=== PATIENT | male | born 1930 | race Caucasian/White ===

== ENCOUNTER 2016-08-14 22:43 | Observation (INO) | payer MEDICARE ==
[2016-08-14 23:27] LABS: ABSOLUTE BASOPHILS # (AUTO) 0.1 10^3/uL (0.0-0.2); ABSOLUTE EOSINOPHILS # (AUTO) 0.2 10^3/uL (0.0-0.6); ABSOLUTE LYMPHOCYTES (AUTO) 2.3 10^3/uL (0.5-4.7); ABSOLUTE MONOCYTES (AUTO) 1.1 10^3/uL (0.1-1.4); ABSOLUTE NEUT (AUTO) 4.9 10^3/uL (1.7-8.2); BASOPHILS % (AUTO) 0.9 % (0-2); EOSINOPHILS % (AUTO) 1.8 % (0-6); HEMATOCRIT 42.2 % (37.9-51.0); HEMOGLOBIN 13.5 g/dL (13.5-17.0); HGB HCT DIFFERENCE -1.7; LYMPHOCYTES % (AUTO) 26.9 % (13-45); MEAN CORPUSCULAR HEMOGLOBIN 27.5 pg (27.0-33.4); MEAN CORPUSCULAR HGB CONC 32.1 g/dL (32.0-36.0); MEAN CORPUSCULAR VOLUME 86 fl (80-97); MONOCYTES % (AUTO) 12.9 % (3-13); RED BLOOD COUNT 4.92 10^6/uL (4.35-5.55); RED CELL DISTRIBUTION WIDTH 17.8 % (11.5-14.0); SEGMENTED NEUTROPHILS % (AUTO) 57.5 % (42-78); WHITE BLOOD COUNT 8.5 10^3/uL (4.0-10.5)
[2016-08-14 23:48] LABS: ALANINE AMINOTRANSFERASE 19 U/L (21-72); ALBUMIN 3.4 g/dL (3.5-5.0); ALKALINE PHOSPHATASE 91 U/L (38-126); ANION GAP 14 (5-19); ASPARTATE AMINO TRANSFERASE 25 U/L (17-59); BILIRUBIN,TOTAL 0.4 mg/dL (0.2-1.3); BLOOD UREA NITROGEN 26 mg/dL (7-20); CALCIUM 9.1 mg/dL (8.4-10.2); CARBON DIOXIDE 21 mmol/L (22-30); CHLORIDE 107 mmol/L (98-107); CREATININE RESULT 0.88 mg/dL (0.52-1.25); GLUCOSE 142 mg/dL (75-110); POTASSIUM 4.7 mmol/L (3.6-5.0); SODIUM 142.2 mmol/L (137-145); TOTAL PROTEIN 6.4 g/dL (6.3-8.2)
[2016-08-14 23:49] LABS: CREATINE KINASE < 20 U/L (55-170)
[2016-08-15] LABS: CREATINE KINASE MB 0.48 ng/mL (<4.55); TROPONIN I 0.014 ng/mL
[2016-08-15 00:06] LABS: APPEARANCE,URINE CLEAR; BILIRUBIN,URINE NEGATIVE (NEGATIVE); GLUCOSE, URINE NEGATIVE (NEGATIVE); KETONES,URINE NEGATIVE (NEGATIVE); LEUKOCYTE ESTERASE,URINE NEGATIVE (NEGATIVE); NITRITE,URINE NEGATIVE (NEGATIVE); PROTEIN,URINE NEGATIVE (NEGATIVE); URINE SPECIFIC GRAVITY 1.015; UROBILINOGEN,URINE NEGATIVE mg/dL (<2.0)
--- NOTE | 2016-08-15 01:22 | ER Document Report ---
ED Dizziness/Weakness - General Mode of Arrival: Medic Information source: Patient, Relative TRAVEL OUTSIDE OF THE [place] IN LAST 30 DAYS: No - HPI Patient complains to provider of: Dizziness, Syncope - Sunday08/11/2016 Onset: Other Onset/Duration: Sudden, Persistent Associated symptoms: Dizzy, Almost fainted, Fainted, Lightheaded, Recent fall - with syncopal episode. denies: Chest pain, Diarrhea, Loss of motor function, Short of breath, Vomiting Exacerbated by: Other - Standing up/ Walking <LORIN GUIDO - Last Filed: 08/15/16 01:30> <KEVIN PEARCE - Last Filed: 08/15/16 04:33> - General Chief Complaint: Syncope Stated Complaint: BLOOD PRESSURE PROBLEM Notes: Patient is an 85-year-old male presenting to the emergency department concerned of dizziness onset Sunday when he had a syncopal episode. Patient states that he was started on 2 new medications 08/08/2016. One was for his tremors, and the other was for IBS. After the syncopal episode occurred Sunday , patient discontinued those medications as advised by his primary care physician, Dr. Cason. Patient states that he has been able to walk okay after the fall, but he does have a bruise on his left hip. Patient denies any head injury with the fall. Patient states that since then he becomes lightheaded every time he stands up. Patient denies any fever, nausea, vomiting, diarrhea, bloody stool, chest pain, cough, congestion, shortness of breath, swelling, rash , or dysuria. Patient states that he drinks plenty of fluids, but he has to urinate approximately every hour (takes fluid pill for CHF). Patient has a pacemaker that was last interrogated before his hip replacement in April 2016. 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 CABG X5, Mild Heart attack 08/2014, Hx Hypercholesterolemia, Hx Hypertension, Hx Heart Murmur Pulmonary Medical History: Renal/ Medical History: Reports: Hx Kidney Stones GI Medical History: Reports: Hx Diverticulitis, Hx Irritable Bowel, Hx Ulcer Musculoskeltal Medical History: Reports Hx Arthritis Traumatic Medical History: Reports: Hx Fractures - left arm 2010/surgery Past Surgical History: Reports: Hx Appendectomy, Hx Cardiac Surgery - Bypass surgery, Hx Cholecystectomy, Hx Coronary Artery Bypass Graft - CABG x5 2004, Hx Pacemaker - [employer] 2007, Hx Valve Replacement - 2014 tvar - Immunizations Immunizations up to date: Yes Hx Diphtheria, Pertussis, Tetanus Vaccination: No <LORIN GUIDO - Last Filed: 08/15/16 01:30> Review of Systems - Review of Systems Constitutional: No symptoms reported. denies: Fever EENT: No symptoms reported. denies: Nose congestion Cardiovascular: See HPI, Syncope, Dizziness. denies: Chest pain Respiratory: No symptoms reported. denies: Cough, Short of breath Gastrointestinal: No symptoms reported. denies: Diarrhea, Nausea, Vomiting, Blood streaked bowels Genitourinary: No symptoms reported. denies: Burning, Dysuria Male Genitourinary: No symptoms reported Musculoskeletal: No symptoms reported, Other - Hip bruise from fall during syncopal episode Skin: No symptoms reported. denies: Rash Hematologic/Lymphatic: No symptoms reported Neurological/Psychological: No symptoms reported -: Yes All other systems reviewed and negative <LORIN GUIDO - Last Filed: 08/15/16 01:30> Physical Exam - General General appearance: Alert - HEENT Head: Normocephalic, Atraumatic Eyes: Normal Pupils: PERRL - Pupils 2mm equal, but not very reactive. Mucous membranes: Other - tacky - Respiratory Respiratory status: No respiratory distress Chest status: Nontender Breath sounds: Normal Chest palpation: Normal - Cardiovascular Rhythm: Extrasystoles - occasional Heart sounds: Normal auscultation Murmur: No - Abdominal Inspection: Normal Distension: No distension Bowel sounds: Normal Tenderness: Nontender Organomegaly: No organomegaly - Back Back: Normal, Nontender - Extremities General upper extremity: Normal inspection, Nontender, Normal color, Normal ROM , Normal temperature General lower extremity: Normal ROM, Normal temperature, Normal weight bearing Hip: Ecchymosis - Proximal lateral hip contains small abrasion with ecchymosis. - Neurological Neuro grossly intact: Yes Cognition: Normal Orientation: AAOx4 Hayde Coma Scale Eye Opening: Spontaneous [place] Coma Scale Verbal: Oriented [place] Coma Scale Motor: Obeys Commands Hayde Coma Scale Total: 15 Speech: Normal - Psychological Associated symptoms: Normal affect, Normal mood - Skin Skin Temperature: Warm Skin Moisture: Dry Skin Color: Normal <LORIN GUIDO - Last Filed: 08/15/16 01:30> Course - Laboratory Result Diagrams: 08/14/16 23:14 08/14/16 23:14 <LORIN GUIDO - Last Filed: 08/15/16 01:30> - Laboratory Result Diagrams: 08/14/16 23:14 08/14/16 23:14 <KEVIN PEARCE - Last Filed: 08/15/16 04:33> - Re-evaluation Re-evalutation: 08/15/16 01:55 Patient presents with syncope and multiple near syncopal episodes today. The patient has history of CHF and is on a water pill. He appears mildly dehydrated. He has a pacemaker and has had multiple episodes of ectopy here in the emergency department. Suspect his pacemaker needs interrogation however symptoms could be related to orthostasis from dehydration from the diuretic use. Regardless patient needs admission for cardiac syncope evaluation. I have spoken with Dr. Heart who is on-call for the hospitalist gavino to requests that we consult with [employer] rep for pacemaker interrogation prior to admission. EKG: Heart rate 70, ventricular paced complexes, no ectopy noted on EKG, as interpreted by me. EKG 06/07/16, dual paced rhythm at that time. 08/15/16 04:32 Patient's vital signs remained stable. I finally got in touch with the [employer] pacemaker rep who indicates that some of the hair at 7:30 AM to interrogate the pacemaker. I spoke with Dr. Heart again and he has accepted admission. ( KEVIN PEARCE) - Vital Signs Vital signs: Temp Pulse Resp BP Pulse Ox 14 94/70 L 96 08/15/16 02:01 08/15/16 02:00 08/15/16 02:01 - Laboratory Laboratory results interpreted by me: 08/14/16 08/14/16 08/14/16 23:14 23:14 23:14 RDW 17.8 H Carbon Dioxide 21 L BUN 26 H Glucose 142 H ALT 19 L Creatine Kinase < 20 L NT-Pro-B Natriuret Pep 1390 H Albumin 3.4 L Urine Ascorbic Acid 08/14/16 23:47 RDW Carbon Dioxide BUN Glucose ALT Creatine Kinase NT-Pro-B Natriuret Pep Albumin Urine Ascorbic Acid 40 H (LORIN GUIDO) (KEVIN PEARCE) Discharge <LORNI GUIDO - Last Filed: 08/15/16 01:30> - Discharge Admitting Provider: Hospitalist Unit Admitted: Telemetry <KEVIN PEARCE - Last Filed: 08/15/16 04:33> - Discharge Clinical Impression: Chronic systolic congestive heart failure, Ventricular ectopy Syncope Qualifiers: Syncope type: unspecified Qualified Code(s): R55 - Syncope and collapse Condition: Stable Disposition: ADMITTED OBSERVATION Referrals: ERIC CASON [employer] LAMINATING SUPERVISOR [Primary Care Provider] - Follow up as needed Scribe Attestation: 08/15/16 01:58 I personally performed the services described in the documentation, reviewed and edited the documentation which was dictated to the scribe in my presence, and it accurately records my words and actions. (KEVIN PEARCE) Scribe Documentation <LORIN GUIDO - Last Filed: 08/15/16 01:30> <KEVIN PEARCE - Last Filed: 08/15/16 04:33> - Scribe Written by Scribe:: KEVIN PEARCE MD, SCRIBE 08/15/16 0155 Acting as scribe for: Dr. Jung (LORIN GUIDO) (KEVIN PEARCE)
[2016-08-15 05:09] LABS: ADD ON TESTING BLD IN LAB ACKNOWLEDGE
[2016-08-15] MEDS ORDERED: ACETAMINOPHEN 325 MG TABLET PO PRN (05:15)
[2016-08-15] MEDS ORDERED: NORMAL SALINE 1000 ML 1,000 ML IV PRN (05:18)
[2016-08-15 05:23] LABS: MAGNESIUM 1.9 mg/dL (1.6-2.3)
--- NOTE | 2016-08-15 05:37 | PDOC H&P ---
History of Present Illness Admission Date/PCP: 08/15/16 04:54 ERIC CASON NP Patient complains of: Syncope History of Present Illness: PEACE FRAGA is a 85 year old male with underlying coronary artery disease, having undergone a 5 vessel bypass in 2004, status post [employer] pacemaker implant in 2007, and status post valve replacement 2014, who presents to the emergency room for evaluation of above complaint. Patient has been discussed with emergency room physician who evaluated the patient. . Sunday of last week, was started on hyoscyamine for irritable bowel symptoms and primidone for tremor. Suffered a brief but complete syncopal episode Sunday of last week. No head trauma. Denies nausea vomiting, fever chills, diarrhea or dysuria. No chest or abdominal pain. Contacted his primary care provider, and was told to stop these 2 medications. Similar episode last May which led to fracture of his right femur. Since the episode last Sunday, he's had multiple near syncopal episodes. States whenever he arises from either a supine or seated position, he becomes lightheaded and somewhat dizzy and has a sensation that he may pass out but has not completely passed out since last Sunday. Was noted to have "ectopy" on his monitor number of times by the emergency room physician since coming to the emergency room. Suffered a TIA in 1999, but no actual stroke or seizure. Myocardial infarction in 2004. No history of pulmonary embolus or DVT. No recent long trip with prolonged inactivity, or unusual lower extremity swelling or tenderness. No tobacco use since the early . Rare alcohol use. No illicit drug use. Emergency room physician has contacted the [employer] pacer rep, who is to arrive early this morning for interpretation of the pacemaker. Laboratory results are listed in [employer] and are reviewed. X-ray summary results are listed below, with full report(s) reviewed. . EKG reviewed. And compared to tracing from June 07 of last year. Social history/personal habits: ; has dementia and is currently residing at [facility]. Lives with daughter. 4 children. Retired. No tobacco use since the . Rare alcohol. No illicit drug use. Allergies/adverse reactions NKDA. Home medications are reviewed by discussion with patient and review of documents on the chart, with dosages and frequencies not available and are to be reconciled by nursing staff in [facility]. Home medications initially autopopulated into [employer] may not accurately reflect patient's true medications, dosages, and/or frequencies. Compliant with medications. Unfortunately, patient uncertain of medication dosages and frequencies. Order has been entered for staff to contact family, outpatient physician, and/or pharmacy to more accurately determine medications, dosages, and frequencies and to contact physician when that has been accomplished. REVIEW OF SYSTEMS: Constitutional: No fever or chills. Eyes: No current vision complaints. ENT: No swallowing problems or complaints. Partial hearing loss. Pulmonary: No current complaints. Cardiovascular: See history and present illness. Gastrointestinal: No current complaints, including nausea or vomiting. Skin: No current complaints, including rashes. Hematologic: Easy bruising. Neurologic: See history and present illness. Musculoskeletal: Joint pain from arthritis. Psychiatric: No current complaints, including anxiety or depression. Endocrine: No current complaints, including polydipsia. Genitourinary: No current complaints, including dysuria. PHYSICAL EXAMINATION: Neither height nor weight are recorded on the chart. Temperature is not recorded on the chart; skin feels normothermic. Blood pressure 126/49. Pulse 67 and regular. 95% saturation on room air. Respirations are 17 and unlabored. Slightly overweight but also somewhat stocky otherwise well-developed male appearing a bit younger than his stated age. Initially asleep, but awakens relatively easily. Pleasant alert and cooperative. No obvious distress other than somewhat anxious. Skin is warm and dry. No grossly obvious evidence of rash in areas of skin examined. No subcutaneous nodules palpated. ENT: Hearing grossly normal to normal conversation. Tongue midline on protrusion pink and slightly moist. Eyes: No scleral icterus. Pupils equal and reactive to light at 4 mm. [place] conjunctivae. Neck is supple and nontender to gentle active range of motion and palpation. Midline trachea. No palpable thyroid nodule mass enlargement or tenderness. Lymphatic: No palpable cervical or clavicular nodes. Neck and lymphatic exams limited by patient body habitus. Psychiatric: Reasonable insight into acute and chronic medical issues. Oriented to time location and why here. Lungs: Auscultation reveals clear and equal breath sounds bilaterally. No use of accessory respiratory muscles. Cardiovascular: Heart regular rate and rhythm, without gallop murmur or rub. No carotid or abdominal aortic bruits. No ankle or pedal edema. Faintly palpable dorsalis pedis pulses. Abdomen: soft, slightly obese, nontender with positive bowel sounds. Unable to adequately evaluate abdomen for masses or organomegaly due to body habitus. Extremities: Feet are warm and dry. No calf tenderness to compression. No grossly obvious visual evidence of calf swelling. Gentle manipulation of left lower extremity fails to reveal any obvious evidence of injury or instability to knee hip or ankle. Manipulation of right lower extremity reveals restricted range of motion at hip, due to his recent surgery; patient states he just started weightbearing this past week. Neurologic: Moves upper extremities grossly normally. Patellar reflexes absent. Absent Babinski. Light touch is intact at feet. Dorsiflexion and plantarflexion of feet 5 / 5 and symmetric. Past Medical History Cardiac Medical History: Reports: Congestive Heart Failure, Coronary Artery Disease - 2002 Carotid Artery "cleaned out", Myocardial Infarction - 2004? CABG X5, Mild Heart attack 08/2014, Hyperlipidema, Hypertension, Heart Murmur Denies: Atrial Fibrillation, DVT, Peripheral Vascular Disease, Pulmonary Embolism Pulmonary Medical History: Denies: Asthma, Chronic Obstructive Pulmonary Disease (COPD) EENT Medical History: Reports: Ears - Partial hearing loss Denies: Eyes, Throat Neurological Medical History: Reports: Other - TIA 1999 Denies: Hemorrhagic CVA, Ischemic CVA, Seizures Endocrine Medical History: Denies: Diabetes Mellitus Type 1, Diabetes Mellitus Type 2, Hyperthyroidism, Hypothyroidism Renal/ Medical History: Reports: None Denies: End Stage Renal Disease GI Medical History: Reports: Diverticulitis, Peptic Ulcer Disease - Status post partial gastrectomy 2 for same Denies: Cirrhosis, Gastroesophageal Reflux Disease, Hepatitis, Hiatal Hernia Musculoskeltal Medical History: Reports: Arthritis Denies: Fibromyalgia Skin Medical History: Reports: None Denies: Eczema, Psoriasis Psychiatric Medical History: Denies: Alcohol Dependency, Dementia, Depression, General Anxiety Disorder, Substance Abuse, Tobacco Dependency Hematology: Reports: Other - Easy bruising Infectious Medical History: Denies: Hepatitis B, Hepatitis C Past Surgical History Past Surgical History: Reports: Appendectomy, Cholecystectomy, Coronary Artery Bypass Graft - CABG x5 2004, Pacemaker - [facility] [facility] 2007, Valve Replacement - 2014 tvar, Other - partial gastr'y for PUD; separation of horseshoe kidney; bilat cataract Social History Information Source: Patient, Emergency Med Personnel, [facility] Records Lives with: Family Smoking Status: Former Smoker Frequency of Alcohol Use: Rare Hx Recreational Drug Use: No Drugs: None Hx Prescription Drug Abuse: No - Advance Directive Resuscitation Status: Full Code Surrogate healthcare decision maker:: Daughter Family History Family History: Reviewed & Not Pertinent, CVA, Malignancy Parental Family History Reviewed: Yes Children Family History Reviewed: Yes Sibling(s) Family History Reviewed.: Yes Medication/Allergy Home Medications: RX: Carvedilol [Coreg 25 mg Tablet] 25 mg PO BID 09/15/14 RX: Isosorbide Dinitrate 30 mg PO QPM 09/15/14 RX: Atorvastatin Calcium [Lipitor 40 mg Tablet] 40 mg PO QHS 04/24/16 RX: Furosemide [Lasix 40 mg Tablet] 40 mg PO QAM 04/24/16 RX: Aspirin [Aspirin EC] 81 mg PO DAILY 08/15/16 RX: Esomeprazole Magnesium [Nexium 24Hr] 22.3 mg PO DAILY 08/15/16 RX: Multivitamin [Daily Multiple Vitamin] 1 tab PO DAILY 08/15/16 RX: [place]-3/Dha/Epa/Fish Oil [Fish Oil 1,000 mg Softgel] 1 cap PO DAILY RX: Oxybutynin Chloride [Ditropan 5 mg Tablet] 5 mg PO BID 08/15/16 RX: Acetaminophen [Tylenol 325 mg Tablet] 650 mg PO Q4HP PRN tablet 08/16/16 RX: Aspirin [Ecotrin 81 mg EC Tablet] 81 mg PO DAILY tabec 08/16/16 Allergies/Adverse Reactions: No Known Allergies Allergy (Verified 06/07/16 15:49) Physical Exam Vital Signs: Temp Pulse Resp BP Pulse Ox 21 H 126/49 H 93 08/15/16 04:01 08/15/16 04:00 08/15/16 04:01 Results Impressions: Chest X-Ray 08/15/16 01:36 IMPRESSION: Small-moderate subsegmental atelectasis of the right lower lobe. Assessment & Plan - Diagnosis (1) Chronic systolic congestive heart failure Is this a current diagnosis for this admission?: YesPlan: Clinically stable at present.Resume home medications as appropriate once these have been determined and reviewed. . (2) Near syncope Is this a current diagnosis for this admission?: YesPlan: Uncertain specific etiology. Perhaps related to the 2 new medications that he only took 2 days last week. Perhaps an element of mild dehydration; carbon dioxide level slightly low. 1 L of IV fluid, 75 per hour. Serial troponins. Pacemaker security systems sales representative is to arrive approximately 7:30 AM today for interpretation of his pacemaker. Order has been written to have rep contact day hospitalist after interpretation of the pacemaker. Orthostatic vital signs every 4 hours while awake. I have strongly encouraged patient not to get out of bed without notifying staff , to avoid a fall with injury. Knee high SCDs for DVT prophylaxis, along with subcutaneous Lovenox . Impression and plans were discussed with patient, who concurs. Time spent in evaluation and management of patient: 62 minutes. (3) Syncope Qualifiers: Syncope type: unspecified Qualified Code(s): R55 - Syncope and collapse Is this a current diagnosis for this admission?: YesPlan: D-dimer. If positive, will proceed to ventilation perfusion lung scan. (4) Hyperlipidemia Qualifiers: Hyperlipidemia type: unspecified Qualified Code(s): E78.5 - Hyperlipidemia, unspecified Is this a current diagnosis for this admission?: YesPlan: Cardiac diet. Resume home medications as appropriate once these have been determined and reviewed. . (5) Stented coronary artery Is this a current diagnosis for this admission?: YesPlan: Chest pain-free, and without other evidence of acute coronary syndrome.Resume home medications as appropriate once these have been reviewed.
[2016-08-15 06:36] LABS: ANION GAP 9 (5-19); BLOOD UREA NITROGEN 27 mg/dL (7-20); CALCIUM 8.7 mg/dL (8.4-10.2); CARBON DIOXIDE 26 mmol/L (22-30); CHLORIDE 107 mmol/L (98-107); CHOLESTEROL 119.64 mg/dL (0-200); CREATININE RESULT 0.84 mg/dL (0.52-1.25); Direct HDL 31 mg/dL (>40); GLUCOSE 114 mg/dL (75-110); POTASSIUM 4.5 mmol/L (3.6-5.0); SODIUM 142.2 mmol/L (137-145); TRIGLYCERIDES 109 mg/dL (<150)
[2016-08-15 06:47] LABS: DIRECT LDL 79 mg/dL (<100)
--- NOTE | 2016-08-15 08:01 | EKG REPORT ---
SEVERITY:- ABNORMAL ECG - VENTRICULAR-PACED COMPLEXES : Confirmed by: Dean Saravia MD 15-Aug-2016 08:00:21
[2016-08-15] MEDS: ASPIRIN 81 MG TABLET, ENT COATED PO SCH (10:49)
[2016-08-15] MEDS: ENOXAPARIN SODIUM INJ 40 MG/0.4 ML DISP.SYRIN SUBCUT SCH (10:49)
[2016-08-15] MEDS: DOCUSATE SODIUM 100 MG CAPSULE PO SCH ×2 (10:50→17:29)
--- NOTE | 2016-08-15 12:06 | PDOC PROGRESS REPORT ---
Subjective Progress Note for:: 08/15/16 Subjective:: Patient is seen on morning rounds. He is sleeping comfortably in bed. He awakens easily to verbal stimuli. He denies any headache, dizziness, shortness of breath or chest pain. He denies nausea, vomiting, abdominal pain or diarrhea. He denies any back pain or musculoskeletal pain. Rest of review of systems are negative. Physical Exam Vital Signs: Temp Pulse Resp BP Pulse Ox 97.6 F 68 18 127/65 H 98 08/15/16 06:57 08/15/16 07:00 08/15/16 06:57 08/15/16 06:57 08/15/16 06:57 General appearance: PRESENT: no acute distress, well-developed, well-nourished Head exam: PRESENT: atraumatic, normocephalic Eye exam: PRESENT: conjunctiva pink, EOMI, PERRLA. ABSENT: scleral icterus Ear exam: PRESENT: normal external ear exam Mouth exam: PRESENT: moist, tongue midline Neck exam: ABSENT: carotid bruit, JVD, lymphadenopathy, thyromegaly Respiratory exam: PRESENT: clear to auscultation jeremy. ABSENT: rales, rhonchi, wheezes Cardiovascular exam: PRESENT: RRR. ABSENT: diastolic murmur, rubs, systolic murmur Pulses: PRESENT: normal dorsalis pedis pul Vascular exam: PRESENT: normal capillary refill GI/Abdominal exam: PRESENT: normal bowel sounds, soft. ABSENT: distended, guarding, mass, organolmegaly, rebound, tenderness Rectal exam: PRESENT: deferred Extremities exam: PRESENT: full ROM. ABSENT: calf tenderness, clubbing, pedal edema Neurological exam: PRESENT: alert, awake, oriented to person, oriented to place , oriented to time, oriented to situation, CN II-XII grossly intact. ABSENT: motor sensory deficit Psychiatric exam: PRESENT: appropriate affect, normal mood. ABSENT: homicidal ideation, suicidal ideation Skin exam: PRESENT: dry, intact, warm. ABSENT: cyanosis, rash Results Laboratory Results: 08/15/16 05:59 08/15/16 05:59 Sodium 142.2 Potassium 4.5 Chloride 107 Carbon Dioxide 26 Anion Gap 9 BUN 27 H Creatinine 0.84 Est GFR ( Amer) > 60 Est GFR (Non-Af Amer) > 60 Glucose 114 H Calcium 8.7 Triglycerides 109 Cholesterol 119.64 LDL Cholesterol Direct 79 VLDL Cholesterol 22.0 HDL Cholesterol 31 L 08/15/16 05:59 Troponin I 0.012 Impressions: Chest X-Ray 08/15/16 01:36 IMPRESSION: Small-moderate subsegmental atelectasis of the right lower lobe. Lung Scan-VQ NM 08/15/16 08:21 IMPRESSION: NORMAL VENTILATION-PERFUSION LUNG SCAN. NEGATIVE FOR PULMONARY EMBOLI. Assessment & Plan - Diagnosis (1) Syncope Qualifiers: Syncope type: unspecified Qualified Code(s): R55 - Syncope and collapse Is this a current diagnosis for this admission?: YesPlan: Patient has had no further syncopal episodes since admission. Pacemaker to be interogated by [employer] labor representative later this morning. Will obtain CT of the head to rule out vestibular infarct (2) Chronic systolic congestive heart failure Is this a current diagnosis for this admission?: YesPlan: Patient presently slightly dehydrated by lab values. Will hold Lasix for today and reevaluate. Continue carvediolol (3) Hyperlipidemia Qualifiers: Hyperlipidemia type: unspecified Qualified Code(s): E78.5 - Hyperlipidemia, unspecified Is this a current diagnosis for this admission?: YesPlan: Continue statin therapy (4) Ventricular ectopy Is this a current diagnosis for this admission?: YesPlan: Will continue to monitor, continue carvediolol (5) DVT prophylaxis Is this a current diagnosis for this admission?: YesPlan: Heparin 5000u sq q8h - Time Time Spent with patient: 25-34 minutes Critical Time spent with patient: 15-24 minutes Medications reviewed and adjusted accordingly: Yes Anticipated discharge: Home with Homehealth Within: within 24 hours
--- NOTE | 2016-08-15 16:29 | EKG REPORT ---
SEVERITY:- ABNORMAL ECG - ATRIAL-VENTRICULAR DUAL-PACED RHYTHM : Confirmed by: Dean Saravia MD 15-Aug-2016 16:29:07
[2016-08-15] MEDS ORDERED: ISOSORBIDE DINITRATE 10 MG TABLET PO SCH (18:00)
[2016-08-15] MEDS ORDERED: (PENDING PHARMACY ID) (Isosorbide Dinitrate [Isosorbide Dinitrate] 30 MG) PO SCH (18:00)
[2016-08-15] MEDS ORDERED: ATORVASTATIN CALCIUM 40 MG TABLET PO SCH (22:00)
[2016-08-15] MEDS: CARVEDILOL 12.5 MG TABLET PO SCH (22:24)
[2016-08-16] MEDS: CARVEDILOL 12.5 MG TABLET PO SCH (09:31)
[2016-08-16] MEDS: ENOXAPARIN SODIUM INJ 40 MG/0.4 ML DISP.SYRIN SUBCUT SCH (09:31)
[2016-08-16] MEDS: ASPIRIN 81 MG TABLET, ENT COATED PO SCH (09:31)
[2016-08-16] MEDS: DOCUSATE SODIUM 100 MG CAPSULE PO SCH (09:32)
[2016-08-16 14:46] VITALS: BP 153/49
--- NOTE | 2016-08-16 16:44 | PDOC DISCHARGE SUMMARY ---
General - Admit/Disc Date/PCP Admission Date/Primary Care Provider: 08/15/16 05:15 ERIC CASON NP Discharge Date: 08/16/16 - Discharge Diagnosis (1) Syncope Is this a current diagnosis for this admission?: YesSummary: Most likely related to primidone recently started. This has been discontinued (2) Chronic systolic congestive heart failure Is this a current diagnosis for this admission?: YesSummary: Patient is presently euvolemic (3) Hyperlipidemia Is this a current diagnosis for this admission?: YesSummary: Continue statin (4) Ventricular ectopy Is this a current diagnosis for this admission?: YesSummary: Continue beta lynn (5) DVT prophylaxis Is this a current diagnosis for this admission?: Yes - Additional Information Resuscitation Status: Full Code Discharge Diet: Regular Discharge Activity: Activity As Tolerated, Balance Activity w/Rest Home Medications: Carvedilol [Coreg 25 mg Tablet] 25 mg PO BID 09/15/14 Isosorbide Dinitrate 30 mg PO QPM 09/15/14 Atorvastatin Calcium [Lipitor 40 mg Tablet] 40 mg PO QHS 04/24/16 Furosemide [Lasix 40 mg Tablet] 40 mg PO QAM 04/24/16 Aspirin [Aspirin EC] 81 mg PO DAILY 08/15/16 Esomeprazole Magnesium [Nexium 24Hr] 22.3 mg PO DAILY 08/15/16 Multivitamin [Daily Multiple Vitamin] 1 tab PO DAILY 08/15/16 [employer] [facility]-3/Dha/Epa/Fish Oil [Fish Oil 1,000 mg Softgel] 1 cap PO DAILY 08/15/16 Oxybutynin Chloride [Ditropan 5 mg Tablet] 5 mg PO BID 08/15/16 Acetaminophen [Tylenol 325 mg Tablet] 650 mg PO Q4HP PRN tablet 08/16/16 Aspirin [Ecotrin 81 mg EC Tablet] 81 mg PO DAILY tabec 08/16/16 History of Present Illness History of Present Illness: PEACE FRAGA is a 85 year old male who presented to [facility] ED with complaints of syncopal episode at home. Patient states he's had several of these episodes since Sunday. He was recently started on some new medications, primidone and Levsin. He also history of history of atrial fibrillation, sick sinus syndrome requiring permanent pacemaker and chronic congestive heart failure. He states he was in a seated position when his last syncopal episode occurred. He presently lives at home with his daughter. He was recently a patient at [facility] after left femur fracture. Hospital Course Hospital Course: She was referred to the hospitalist service for admission. He was admitted to telemetry unit for close cardiac monitoring. He was found to have a slightly elevated d-dimer. He underwent V/Q scan of his lungs which was negative for pulmonary embolism. He had pacemaker interrogation done by [employer] front office representative. They found no evidence of atrial or ventricular arrhythmias. Pacemaker was functioning normally with adequate battery life remaining. All his laboratory work was unremarkable. He had no further episodes of syncope CT of his head showed no infarcts, or any other abnormalities. Physical Exam Vital Signs: Temp Pulse Resp BP Pulse Ox 97.9 F 63 16 153/49 H 98 08/16/16 14:41 08/16/16 14:41 08/16/16 14:41 08/16/16 14:41 08/16/16 14:41 Intake & Output 08/15/16 08/16/16 08/17/16 06:59 06:59 06:59 Intake Total 1220 360 Output Total 625 Balance 595 360 Weight 109.6 kg General appearance: PRESENT: no acute distress Head exam: PRESENT: atraumatic, normocephalic Eye exam: PRESENT: conjunctiva pink, EOMI, PERRLA. ABSENT: scleral icterus Ear exam: PRESENT: normal external ear exam Mouth exam: PRESENT: moist, tongue midline Neck exam: ABSENT: carotid bruit, JVD, lymphadenopathy, thyromegaly Respiratory exam: PRESENT: clear to auscultation jeremy. ABSENT: rales, rhonchi, wheezes Cardiovascular exam: PRESENT: RRR. ABSENT: diastolic murmur, rubs, systolic murmur Pulses: PRESENT: normal dorsalis pedis pul Vascular exam: PRESENT: normal capillary refill GI/Abdominal exam: PRESENT: normal bowel sounds, soft. ABSENT: distended, guarding, mass, organolmegaly, rebound, tenderness Rectal exam: PRESENT: deferred Extremities exam: PRESENT: full ROM. ABSENT: calf tenderness, clubbing, pedal edema Neurological exam: PRESENT: alert, awake, oriented to person, oriented to place , oriented to time, oriented to situation, CN II-XII grossly intact. ABSENT: motor sensory deficit Psychiatric exam: PRESENT: appropriate affect, normal mood. ABSENT: homicidal ideation, suicidal ideation Skin exam: PRESENT: dry, intact, warm. ABSENT: cyanosis, rash Results Laboratory Results: 08/15/16 05:59 08/15/16 08/15/16 05:59 13:22 Troponin I 0.012 0.012 Impressions: Head CT 08/15/16 00:00 IMPRESSION: Limited negative study Chest X-Ray 08/15/16 01:36 IMPRESSION: Small-moderate subsegmental atelectasis of the right lower lobe. Lung Scan-VQ NM 08/15/16 08:21 IMPRESSION: NORMAL VENTILATION-PERFUSION LUNG SCAN. NEGATIVE FOR PULMONARY EMBOLI. Qualifiers PATEINT BEING DISCHARGED WITH ANY OF THE FOLLOWING DIAGNOSIS?: No Plan Discharge Plan: Home with daughter Time Spent: Less than 30 Minutes
== END 2016-08-16 15:33 | disposition home health service (06) ==
LOC: ER 22:43 → EH 08-15 04:54 → UNDOADMOB 08-15 04:54 → EH 08-15 05:15 → 5 08-15 06:55
PROVIDERS: ADMIT Family Medicine; ATTEND Family Medicine
DX: R55 Syncope and collapse (principal); I50.22 Chronic systolic (congestive) heart failure; E78.5 Hyperlipidemia, unspecified; I49.3 Ventricular premature depolarization; Z79.01 Long term (current) use of anticoagulants; I48.91 Unspecified atrial fibrillation; I49.5 Sick sinus syndrome; Z95.0 Presence of cardiac pacemaker; I25.810 Atherosclerosis of coronary artery bypass graft(s) without angina pectoris; Z95.2 Presence of prosthetic heart valve; K58.9 Irritable bowel syndrome, unspecified; Z87.891 Personal history of nicotine dependence; I25.2 Old myocardial infarction; M19.90 Unspecified osteoarthritis, unspecified site
CPT/HCPCS: 93005 ×2; 99285; 36415 ×2; 82553; 82550; 83735; 84443; 85025; 80048; 80053; 81001; 84484 ×2; 85379; 80061; 83880; 71010; 78582; 70450; 93010 ×2; 97162; G0378 ×3; A9540; A9567; A9270 ×4; J3490 ×3; J1650 ×2; Q9969; G8978; G8979

== ENCOUNTER 2016-10-04 05:28 | Inpatient (IN) | payer MEDICARE ==
[2016-09-27 13:41] LABS: APPEARANCE,URINE CLOUDY; BILIRUBIN,URINE NEGATIVE (NEGATIVE); GLUCOSE, URINE NEGATIVE (NEGATIVE); KETONES,URINE NEGATIVE (NEGATIVE); LEUKOCYTE ESTERASE,URINE LARGE (NEGATIVE); NITRITE,URINE POSITIVE (NEGATIVE); PROTEIN,URINE NEGATIVE (NEGATIVE); URINE SPECIFIC GRAVITY 1.018; UROBILINOGEN,URINE NEGATIVE mg/dL (<2.0)
[2016-09-27 13:44] LABS: HEMATOCRIT 42.3 % (37.9-51.0); HEMOGLOBIN 13.9 g/dL (13.5-17.0); HGB HCT DIFFERENCE -0.6; MEAN CORPUSCULAR HEMOGLOBIN 28.2 pg (27.0-33.4); MEAN CORPUSCULAR HGB CONC 32.7 g/dL (32.0-36.0); MEAN CORPUSCULAR VOLUME 86 fl (80-97); RED CELL DISTRIBUTION WIDTH 18.2 % (11.5-14.0); WHITE BLOOD COUNT 8.5 10^3/uL (4.0-10.5)
[2016-09-27 14:02] LABS: ANION GAP 14 (5-19); BLOOD UREA NITROGEN 25 mg/dL (7-20); CALCIUM 9.1 mg/dL (8.4-10.2); CARBON DIOXIDE 23 mmol/L (22-30); CHLORIDE 103 mmol/L (98-107); CREATININE RESULT 0.93 mg/dL (0.52-1.25); GLUCOSE 95 mg/dL (75-110); POTASSIUM 5.2 mmol/L (3.6-5.0)
--- NOTE | 2016-09-27 20:33 | EKG REPORT ---
SEVERITY:- ABNORMAL ECG - A-V DUAL-PACED RHYTHM WITH SOME INHIBITION : Confirmed by: Dean Saravia MD 27-Sep-2016 20:32:51
[~2016-10-04 05:28] MED LIST: BUPIVACAINE INJ/PF LIPOSOME/PF 266 MG/20 ML SDV IJ PRN; CEFAZOLIN INJ 1 GM VIAL IV PRN; LACTATED RINGERS 1000 ML IV PRN; LIDOCAINE 0.5% INJ-PF (5 MG/ML) 50 ML SDV SUBCUT PRN
[2016-10-04] MEDS ORDERED: OXYCODONE HCL SR 10 MG TABLET PO ONE (06:25)
[2016-10-04] MEDS ORDERED: SCOPOLAMINE HYDROBROMIDE 1.5 MG PATCH.TD72 ONE (06:25)
[2016-10-04] MEDS ORDERED: LANSOPRAZOLE 15 MG TAB.RAP.DR PO ONE ×2 (06:35→07:00)
[2016-10-04] MEDS ORDERED: VANCOMYCIN HCL 1,000 MG in DEXTROSE 5%-WATER 250 ML IV PRN ×2 (07:00→08:00)
[2016-10-04] MEDS ORDERED: PROPOFOL INJ 200 MG/20 ML VIAL IV ONE (07:12)
[2016-10-04] MEDS ORDERED: MIDAZOLAM 2 MG/2 ML INJ ONE (07:12)
[2016-10-04] MEDS ORDERED: KETAMINE HCL INJ 500 MG/10 ML VIAL ONE (07:12)
[2016-10-04] MEDS ORDERED: FENTANYL CITRATE INJ/PF 100 MCG/2 ML AMPUL ONE (07:13)
[2016-10-04] MEDS ORDERED: THROMBIN (BOVINE) TOPICAL 20000 UNIT VIAL ONE (07:15)
[2016-10-04] MEDS ORDERED: THROMBIN (BOVINE) 5000 UNIT EPITAXIS KIT ONE (07:15)
[2016-10-04] MEDS ORDERED: BUPIVACAINE INJ/PF LIPOSOME/PF 266 MG/20 ML SDV ONE (07:16)
[2016-10-04] MEDS ORDERED: TRANEXAMIC ACID INJ/PF 1,000 MG/10 ML SDV IV ONE ×3 (07:55→11:17)
[2016-10-04] MEDS ORDERED: CEFAZOLIN INJ 1 GM VIAL ONE (07:55)
[2016-10-04] MEDS ORDERED: FENTANYL CITRATE INJ/PF 250 MCG/5 ML AMPULE ONE (07:59)
[2016-10-04] MEDS ORDERED: EPHEDRINE SULFATE INJ 50 MG/1 ML AMPULE ONE (07:59)
[2016-10-04] MEDS ORDERED: IBUPROFEN 800 MG in NORMAL SALINE 250 ML IV PRN (08:00)
[2016-10-04] MEDS ORDERED: FENTANYL CITRATE INJ/PF 100 MCG/2 ML AMPUL IV PRN ×3 (08:13)
[2016-10-04] MEDS ORDERED: DIPHENHYDRAMINE HCL 50 MG/ML VIAL IV PRN ×2 (08:13→10:11)
[2016-10-04] MEDS ORDERED: MORPHINE SULFATE 10 MG/ML INJ IV PRN ×3 (08:13→10:11)
[2016-10-04] MEDS ORDERED: PROMETHAZINE HCL INJ 25 MG/1 ML VIAL IV PRN ×2 (08:13)
[2016-10-04] MEDS ORDERED: OXYCODONE-ACETAMINOPHEN 5-325 MG TABLET PO PRN ×2 (08:13)
[2016-10-04] MEDS ORDERED: MEPERIDINE HCL/PF INJ 25 MG/1 ML DISP.SYRIN IV PRN (08:13)
[2016-10-04] MEDS ORDERED: ONDANSETRON HCL INJ/PF 4 MG/2 ML SDV IV PRN (10:11)
[2016-10-04] MEDS ORDERED: ZOLPIDEM TARTRATE 5 MG TABLET PO PRN (10:11)
[2016-10-04] MEDS ORDERED: ONDANSETRON 4 MG TAB.RAPDIS PO PRN (10:11)
--- NOTE | 2016-10-04 10:25 | Operative Report ---
Operative Report DATE OF SURGERY: 10/04/16 PREOPERATIVE DIAGNOSIS: Periprosthetic right femur fracture OPERATION: Revision arthroplasty. ORIF of right femur fracture SURGEON: JAMISON REYES ANESTHESIA: GA TISSUE REMOVED OR ALTERED: Cultures to microbiology. Implant to pathology ESTIMATED BLOOD LOSS: 150 PROCEDURE: Implants used: Striker modular mandaeism stem 19 x 1 95 mm, 25 mm standard proximal body, 36 mm chrome cobalt head standard neck DBX bone graft substitute. Cables 2. Cortical onlay strut grafts Procedure with the patient in a left lateral decubitus position operative table the right looks terms prepped and draped in sterile fashion. Longitudinal incision was made lateral surface of the femur and sharp dissection. She expose the underlying plate and screws. 3 cables and screws were all removed. The 2 broken screws and these are removed using tract findings.. 2 cables were placed prophylactically around the fracture site to stabilize it. There is very little in the way of fracture healing. Next the hip prosthesis is dislocated and the femoral head disimpacted. Using combination of flexible osteotomes and an impactor, the existing Accolade to stem is removed with little bone loss. At this point the femurs prepared using a series of conical reamers passing a 19 mm reamer to an appropriate depth for a 195 stem. It's noticed that as the stem was passed across the fracture site. There is a significant improvement in the fracture alignment and reduction. Subsequently 19 x 1 95 modular mandaeism stem is impacted into the femoral canal. Cables were loosened and strut grafts are placed underneath. The cables were tightened, crimped and cut. Subsequent the proximal femur is then prepared for the proximal body until a 25 mm reamer seated. Subsequently a 25 standard proximal body is impacted onto the stem. Trial reduction was performed with a 36 mm head standard neck extension. This re-creates preoperative leg length provides excellent stability. The hip was dislocated. The final head is impacted onto the trunnion. The hip was reduced. Wound was cultured with pulsed lavage. Subsequently DBX bone graft is placed into the fracture site. The wound is then closed in layers using interrupted Vicryl followed by arabella. A sterile compressive dressing is applied and the patient's returned to the PACU in satisfactory condition.
[2016-10-04] MEDS ORDERED: DEXAMETHASONE SOD PHOSPHATE INJ 4 MG/1 ML VIAL ONE (11:45)
[2016-10-04] MEDS ORDERED: LIDOCAINE 2% INJ-PF (20 MG/ML) 10 ML AMPUL ONE (11:45)
[2016-10-04] MEDS ORDERED: GLYCOPYRROLATE INJ 0.4 MG/2 ML VIAL ONE (11:45)
[2016-10-04] MEDS ORDERED: SUCCINYLCHOLINE CHLORIDE INJ 200 MG/10 ML VIAL ONE (11:45)
[2016-10-04] MEDS ORDERED: ROCURONIUM BROMIDE INJ 50 MG/5 ML VIAL IV ONE (11:45)
[2016-10-04] MEDS ORDERED: ONDANSETRON HCL INJ/PF 4 MG/2 ML SDV ONE (11:45)
[2016-10-04] MEDS: RINGERS SOLUTION,LACTATED 1,000 ML IV PRN ×2 (12:54→19:43)
[2016-10-04] MEDS: MORPHINE SULFATE 10 MG/ML INJ IM PRN ×2 (13:01→16:55)
[2016-10-04] MEDS: OXYCODONE HCL IR 5 MG TABLET PO PRN (15:51)
[2016-10-04] MEDS: IBUPROFEN 800 MG in NORMAL SALINE 250 ML IV SCH (17:58)
[2016-10-04] MEDS: OXYBUTYNIN CHLORIDE 5 MG TABLET PO SCH (17:58)
[2016-10-04] MEDS: SENNOSIDES/DOCUSATE 8.6-50 MG 1 EACH TABLET PO SCH (17:58)
[2016-10-04] MEDS ORDERED: (PENDING PHARMACY ID) (Isosorbide Dinitrate [Isosorbide Dinitrate] 30 MG) PO SCH (18:00)
[2016-10-04] MEDS ORDERED: (PENDING PHARMACY ID) (Carvedilol [Coreg 25 Mg Tablet] 12.5 MG) PO SCH (18:00)
[2016-10-04] MEDS: ISOSORBIDE DINITRATE 20 MG TABLET PO SCH (18:35)
[2016-10-04] MEDS ORDERED: DEXTROSE 50%-WATER SYRINGE 12.5 GM/25 ML DOSE IV PRN (18:46)
[2016-10-04] MEDS ORDERED: DEXTROSE 40% GEL 15 GM TUBE PO PRN (18:46)
[2016-10-04] MEDS ORDERED: DEXTROSE 40% GEL 15 GM TUBE X 2 PO PRN (18:46)
[2016-10-04] MEDS ORDERED: DEXTROSE 50%-WATER SYRINGE 25 GM/50 ML DOSE IV PRN (18:46)
[2016-10-04] MEDS ORDERED: GLUCAGON,HUMAN RECOMB 1 MG INJ IM PRN (18:46)
[2016-10-04] MEDS: CARVEDILOL 12.5 MG TABLET PO SCH (21:58)
[2016-10-04] MEDS: ATORVASTATIN CALCIUM 40 MG TABLET PO SCH (21:58)
[2016-10-04] MEDS: RIVAROXABAN 10 MG TABLET PO SCH (21:59)
[2016-10-04] MEDS ORDERED: VANCOMYCIN HCL 1,000 MG in DEXTROSE 5%-WATER 250 ML IV ONE (22:00)
[2016-10-04] MEDS: OXYCODONE HCL SR 10 MG TABLET PO SCH (22:03)
[2016-10-04] MEDS: MORPHINE SULFATE 10 MG/ML INJ IV PRN (22:04)
[2016-10-04] MEDS: INSULIN LISPRO 100 UNIT/ML 3 ML VIAL SUBCUT PRN (22:21)
[2016-10-05] MEDS: IBUPROFEN 800 MG in NORMAL SALINE 250 ML IV SCH ×3 (01:13→17:28)
[2016-10-05] MEDS: MORPHINE SULFATE 10 MG/ML INJ IV PRN ×2 (02:47→06:06)
[2016-10-05] MEDS: RINGERS SOLUTION,LACTATED 1,000 ML IV PRN (06:05)
[2016-10-05 06:06] LABS: HEMATOCRIT 33.7 % (37.9-51.0); HEMOGLOBIN 11.2 g/dL (13.5-17.0); HGB HCT DIFFERENCE -0.1; MEAN CORPUSCULAR HEMOGLOBIN 28.3 pg (27.0-33.4); MEAN CORPUSCULAR HGB CONC 33.2 g/dL (32.0-36.0); MEAN CORPUSCULAR VOLUME 85 fl (80-97); RED BLOOD COUNT 3.95 10^6/uL (4.35-5.55); RED CELL DISTRIBUTION WIDTH 17.6 % (11.5-14.0); WHITE BLOOD COUNT 13.6 10^3/uL (4.0-10.5)
[2016-10-05] MEDS: LANSOPRAZOLE 30 MG TAB.RAP.DR PO SCH (06:06)
[2016-10-05 06:17] LABS: ANION GAP 6 (5-19); BLOOD UREA NITROGEN 18 mg/dL (7-20); CALCIUM 8.6 mg/dL (8.4-10.2); CARBON DIOXIDE 24 mmol/L (22-30); CHLORIDE 108 mmol/L (98-107); CREATININE RESULT 0.63 mg/dL (0.52-1.25); GLUCOSE 99 mg/dL (75-110); POTASSIUM 4.4 mmol/L (3.6-5.0)
--- NOTE | 2016-10-05 06:41 | PDOC PROGRESS REPORT ---
Subjective Progress Note for:: 10/05/16 Subjective:: Denies any pain Physical Exam Vital Signs: Temp Pulse Resp BP Pulse Ox 36.4 C 75 15 141/51 H 95 10/05/16 04:15 10/05/16 04:15 10/05/16 04:15 10/05/16 04:15 10/05/16 04:15 Intake & Output 10/03/16 10/04/16 10/05/16 06:59 06:59 06:59 Intake Total 0 4447 Output Total 1050 Balance 0 3397 Weight 118.7 kg General appearance: PRESENT: no acute distress Head exam: PRESENT: normocephalic Eye exam: PRESENT: EOMI Respiratory exam: PRESENT: unlabored Cardiovascular exam: PRESENT: RRR Pulses: PRESENT: +1 pedal pulses bilateral Vascular exam: PRESENT: normal capillary refill GI/Abdominal exam: PRESENT: soft Rectal exam: PRESENT: deferred Extremities exam: PRESENT: other - Right lower extremity dressings clean dry and intact. Distal neurovascular examinations intact. Leg lengths are equal. Neurological exam: PRESENT: alert, awake, oriented to person, oriented to place , oriented to time, oriented to situation, CN II-XII grossly intact. ABSENT: motor sensory deficit Psychiatric exam: PRESENT: appropriate affect, normal mood. ABSENT: homicidal ideation, suicidal ideation Skin exam: PRESENT: dry, intact, warm. ABSENT: cyanosis, rash Results Laboratory Results: 10/05/16 05:42 10/05/16 05:42 10/04/16 10/04/16 10/05/16 06:10 06:13 05:42 WBC 13.6 H RBC 3.95 L Hgb 11.2 L Hct 33.7 L MCV 85 MCH 28.3 MCHC 33.2 RDW 17.6 H Plt Count 224 Sodium Potassium 4.5 Chloride Carbon Dioxide Anion Gap BUN Creatinine Est GFR ( Amer) Est GFR (Non-Af Amer) Glucose Calcium Blood Type A NEGATIVE Antibody Screen NEGATIVE 10/05/16 05:42 WBC RBC Hgb Hct MCV MCH MCHC RDW Plt Count Sodium 138.0 Potassium 4.4 Chloride 108 H Carbon Dioxide 24 Anion Gap 6 BUN 18 Creatinine 0.63 Est GFR ( Amer) > 60 Est GFR (Non-Af Amer) > 60 Glucose 99 Calcium 8.6 Blood Type Antibody Screen Impressions: Chest X-Ray 09/27/16 12:30 IMPRESSION: No acute abnormality identified within the chest. Stable scarring in the right lateral lung base. Hip/Pelvis X-Ray 10/04/16 10:12 IMPRESSION: Revision of hardware at the right proximal femur, new bone graft material is present anchored with cerclage wires with a new long femoral component of the hip replacement. Good alignment. Status: Imported from PACS Assessment & Plan - Diagnosis (1) Periprosthetic fracture of femur following total replacement of hip Is this a current diagnosis for this admission?: YesPlan: Patient postop day 1 from a revision hip arthroplasty and ORIF of the right femur. Patient denies any pain. He is not been up with physical therapy yet. Land served pending. Cultures are no growth so far. - Time Time Spent with patient: 15-24 minutes Anticipated discharge: SNF Within: within 72 hours
[2016-10-05] MEDS: FUROSEMIDE 20 MG TABLET PO SCH (07:30)
[2016-10-05] MEDS: OXYCODONE HCL IR 5 MG TABLET PO PRN ×2 (07:31→23:42)
[2016-10-05] MEDS: ACETAMINOPHEN 325 MG TABLET PO PRN (07:31)
[2016-10-05] MEDS ORDERED: FUROSEMIDE 40 MG TABLET PO SCH (08:00)
[2016-10-05] MEDS: OMEGA-3 ACID ETHYL ESTERS 1 GM CAPSULE PO SCH (09:12)
[2016-10-05] MEDS: SENNOSIDES/DOCUSATE 8.6-50 MG 1 EACH TABLET PO SCH ×2 (09:12→17:21)
[2016-10-05] MEDS: OXYCODONE HCL SR 10 MG TABLET PO SCH ×2 (09:13→21:21)
[2016-10-05] MEDS: OXYBUTYNIN CHLORIDE 5 MG TABLET PO SCH ×2 (09:13→17:22)
[2016-10-05] MEDS: PRENATAL VITAMIN W-O CA NO5/FE FUMARATE/FA CAPSULE PO SCH (09:13)
[2016-10-05] MEDS: PREGABALIN 75 MG CAPSULE PO SCH ×2 (09:13→17:27)
[2016-10-05] MEDS ORDERED: MULTIVITAMIN TABLET PO SCH (10:00)
[2016-10-05] MEDS ORDERED: (PENDING PHARMACY ID) (Omega-3/Dha/Epa/Fish Oil [Fish Oil 1,000 Mg Softgel] 1 CAP) PO SCH (10:00)
[2016-10-05] MEDS ORDERED: PRIMIDONE 50 MG TABLET PO SCH (10:00)
[2016-10-05] MEDS: MORPHINE SULFATE 10 MG/ML INJ IM PRN (10:45)
[2016-10-05] MEDS: CARVEDILOL 12.5 MG TABLET PO SCH ×2 (11:23→21:21)
[2016-10-05] MEDS: ISOSORBIDE DINITRATE 20 MG TABLET PO SCH (17:26)
[2016-10-05] MEDS: PRIMIDONE 50 MG TABLET PO SCH (21:20)
[2016-10-05] MEDS: ATORVASTATIN CALCIUM 40 MG TABLET PO SCH (21:20)
[2016-10-05] MEDS: RIVAROXABAN 10 MG TABLET PO SCH (21:22)
[2016-10-06] MEDS: IBUPROFEN 800 MG in NORMAL SALINE 250 ML IV SCH ×2 (02:36→09:44)
[2016-10-06] MEDS: LANSOPRAZOLE 30 MG TAB.RAP.DR PO SCH (05:30)
[2016-10-06 06:40] LABS: HEMOGLOBIN 10.6 g/dL (13.5-17.0); HGB HCT DIFFERENCE -0.2; MEAN CORPUSCULAR HEMOGLOBIN 28.3 pg (27.0-33.4); MEAN CORPUSCULAR VOLUME 86 fl (80-97); RED BLOOD COUNT 3.73 10^6/uL (4.35-5.55); RED CELL DISTRIBUTION WIDTH 17.3 % (11.5-14.0)
--- NOTE | 2016-10-06 07:06 | PDOC PROGRESS REPORT ---
Subjective Progress Note for:: 10/06/16 Subjective:: Patient denies any discomfort Physical Exam Vital Signs: Temp Pulse Resp BP Pulse Ox 37.3 C 78 20 103/34 L 91 L 10/06/16 03:59 10/06/16 03:59 10/06/16 03:59 10/06/16 03:59 10/06/16 03:59 Intake & Output 10/05/16 10/06/16 10/07/16 06:59 06:59 06:59 Intake Total 5017 1779 Output Total 3050 1150 Balance 1967 629 Weight 118.7 kg General appearance: PRESENT: no acute distress Head exam: PRESENT: normocephalic Eye exam: PRESENT: EOMI Respiratory exam: PRESENT: unlabored Cardiovascular exam: PRESENT: RRR Pulses: PRESENT: +1 pedal pulses bilateral Vascular exam: PRESENT: normal capillary refill GI/Abdominal exam: PRESENT: soft Rectal exam: PRESENT: deferred Extremities exam: PRESENT: other - Right lower extremity dressing clean dry and intact. This was changed last night. Distal neurovascular examinations intact. Leg lengths are equal. Neurological exam: PRESENT: alert, awake, oriented to person, oriented to place , oriented to time, oriented to situation. ABSENT: motor sensory deficit Psychiatric exam: PRESENT: appropriate affect, normal mood. ABSENT: homicidal ideation, suicidal ideation Skin exam: PRESENT: dry, intact, warm, other - Some erythema over the buttock region and the sacral area. ABSENT: cyanosis, rash Results Laboratory Results: 10/06/16 05:47 10/05/16 05:42 10/06/16 05:47 WBC 13.0 H RBC 3.73 L Hgb 10.6 L Hct 32.0 L MCV 86 MCH 28.3 MCHC 33.0 RDW 17.3 H Plt Count 222 Impressions: Chest X-Ray 09/27/16 12:30 IMPRESSION: No acute abnormality identified within the chest. Stable scarring in the right lateral lung base. Hip/Pelvis X-Ray 10/04/16 10:12 IMPRESSION: Revision of hardware at the right proximal femur, new bone graft material is present anchored with cerclage wires with a new long femoral component of the hip replacement. Good alignment. Status: Imported from PACS Assessment & Plan - Diagnosis (1) Periprosthetic fracture of femur following total replacement of hip Is this a current diagnosis for this admission?: YesPlan: 85-year-old white male status post revision hip arthroplasty and open reduction internal fixation of a right periprosthetic femur fracture. Overall the patient appears to be relatively well. Hematocrit remains above 30%. Cultures are no growth so far. Patient's making modest progress with physical therapy and walked 20 feet yesterday. Plan will be for continued physical therapy and [facility]. - Time Time Spent with patient: 15-24 minutes Anticipated discharge: SNF Within: within 72 hours
[2016-10-06] MEDS: FUROSEMIDE 20 MG TABLET PO SCH (08:27)
[2016-10-06] MEDS: MORPHINE SULFATE 10 MG/ML INJ IM PRN ×2 (08:28→11:37)
[2016-10-06] MEDS: OMEGA-3 ACID ETHYL ESTERS 1 GM CAPSULE PO SCH (09:39)
[2016-10-06] MEDS: PRENATAL VITAMIN W-O CA NO5/FE FUMARATE/FA CAPSULE PO SCH (09:39)
[2016-10-06] MEDS: PREGABALIN 75 MG CAPSULE PO SCH ×2 (09:42→17:00)
[2016-10-06] MEDS: OXYCODONE HCL SR 10 MG TABLET PO SCH (09:43)
[2016-10-06] MEDS: SENNOSIDES/DOCUSATE 8.6-50 MG 1 EACH TABLET PO SCH ×2 (09:43→17:00)
[2016-10-06] MEDS: OXYBUTYNIN CHLORIDE 5 MG TABLET PO SCH ×2 (09:43→17:00)
[2016-10-06] MEDS: CARVEDILOL 12.5 MG TABLET PO SCH ×2 (11:36→21:15)
[2016-10-06] MEDS: MAG HYDROX/AL HYDROX/SIMETH SUSP 30 ML UDCUP PO PRN (12:28)
[2016-10-06] MEDS: ISOSORBIDE DINITRATE 20 MG TABLET PO SCH (17:00)
[2016-10-06] MEDS: RIVAROXABAN 10 MG TABLET PO SCH (21:16)
[2016-10-06] MEDS: PRIMIDONE 50 MG TABLET PO SCH (21:18)
[2016-10-06] MEDS: ATORVASTATIN CALCIUM 40 MG TABLET PO SCH (21:18)
[2016-10-06] MEDS: MORPHINE SULFATE 10 MG/ML INJ IV PRN (23:11)
[2016-10-07] MEDS: LANSOPRAZOLE 30 MG TAB.RAP.DR PO SCH (05:54)
[2016-10-07 06:15] LABS: HEMATOCRIT 34.1 % (37.9-51.0); HEMOGLOBIN 11.3 g/dL (13.5-17.0); HGB HCT DIFFERENCE -0.2; MEAN CORPUSCULAR HEMOGLOBIN 28.5 pg (27.0-33.4); MEAN CORPUSCULAR HGB CONC 33.3 g/dL (32.0-36.0); MEAN CORPUSCULAR VOLUME 86 fl (80-97); RED BLOOD COUNT 3.98 10^6/uL (4.35-5.55); RED CELL DISTRIBUTION WIDTH 17.6 % (11.5-14.0); WHITE BLOOD COUNT 8.6 10^3/uL (4.0-10.5)
[2016-10-07] MEDS: MAG HYDROX/AL HYDROX/SIMETH SUSP 30 ML UDCUP PO PRN (08:26)
[2016-10-07] MEDS: FUROSEMIDE 20 MG TABLET PO SCH (08:26)
[2016-10-07] MEDS: OXYCODONE HCL IR 5 MG TABLET PO PRN (08:32)
[2016-10-07] MEDS: OMEGA-3 ACID ETHYL ESTERS 1 GM CAPSULE PO SCH (08:57)
[2016-10-07] MEDS: PRENATAL VITAMIN W-O CA NO5/FE FUMARATE/FA CAPSULE PO SCH (08:57)
[2016-10-07] MEDS: OXYBUTYNIN CHLORIDE 5 MG TABLET PO SCH ×2 (08:57→17:42)
[2016-10-07] MEDS: SENNOSIDES/DOCUSATE 8.6-50 MG 1 EACH TABLET PO SCH ×2 (08:57→17:42)
[2016-10-07] MEDS: PREGABALIN 75 MG CAPSULE PO SCH ×2 (08:57→17:42)
[2016-10-07] MEDS: CARVEDILOL 12.5 MG TABLET PO SCH ×2 (08:58→22:23)
--- NOTE | 2016-10-07 11:25 | PDOC PROGRESS REPORT ---
Subjective Progress Note for:: 10/07/16 Subjective:: Patient is resting comfortably in bed alert active and oriented. No issues overnight. Physical Exam Vital Signs: Temp Pulse Resp BP Pulse Ox 36.8 C 91 18 145/48 H 91 L 10/07/16 07:31 10/07/16 07:31 10/07/16 07:31 10/07/16 07:31 10/07/16 07:31 Intake & Output 10/06/16 10/07/16 10/08/16 06:59 06:59 07:59 Intake Total 1779 2063 540 Output Total 1150 400 300 Balance 629 1663 240 Adult Front & Back Image: 1 - Rola dressing is saturated. Expected tenderness to palpation. Good sensation to light touch with ability to flex and extend the ankle and toes. Limb lengths are grossly equal. Good capillary refill Results Laboratory Results: 10/07/16 05:28 10/05/16 05:42 10/07/16 05:28 WBC 8.6 RBC 3.98 L Hgb 11.3 L Hct 34.1 L MCV 86 MCH 28.5 MCHC 33.3 RDW 17.6 H Plt Count 191 Impressions: Chest X-Ray 09/27/16 12:30 IMPRESSION: No acute abnormality identified within the chest. Stable scarring in the right lateral lung base. Hip/Pelvis X-Ray 10/04/16 10:12 IMPRESSION: Revision of hardware at the right proximal femur, new bone graft material is present anchored with cerclage wires with a new long femoral component of the hip replacement. Good alignment. Assessment & Plan - Plan Summary Plan Summary: Patient is a 85-year-old gentleman status post revision of his right total hip with ORIF of his periprosthetic fracture. H&H is stable. Continue physical therapy. Plan on transferring to senior care facility early next week.
[2016-10-07] MEDS: INSULIN LISPRO 100 UNIT/ML 3 ML VIAL SUBCUT PRN ×2 (12:19→23:09)
[2016-10-07] MEDS ORDERED: BISACODYL 10 MG SUPP.RECT PR PRN (12:29)
[2016-10-07] MEDS: ISOSORBIDE DINITRATE 20 MG TABLET PO SCH (17:42)
[2016-10-07] MEDS: PRIMIDONE 50 MG TABLET PO SCH (22:23)
[2016-10-07] MEDS: ATORVASTATIN CALCIUM 40 MG TABLET PO SCH (22:23)
[2016-10-07] MEDS: RIVAROXABAN 10 MG TABLET PO SCH (22:23)
[2016-10-08] MEDS: LANSOPRAZOLE 30 MG TAB.RAP.DR PO SCH (05:23)
[2016-10-08] MEDS: FUROSEMIDE 20 MG TABLET PO SCH (08:19)
[2016-10-08] MEDS: OXYCODONE HCL IR 5 MG TABLET PO PRN (08:58)
[2016-10-08 09:25] LABS: ABSOLUTE LYMPHOCYTES (AUTO) 0.8 10^3/uL (0.5-4.7); ABSOLUTE MONOCYTES (AUTO) 0.5 10^3/uL (0.1-1.4); ABSOLUTE NEUT (AUTO) 7.4 10^3/uL (1.7-8.2); BASOPHILS % (AUTO) 0.4 % (0-2); EOSINOPHILS % (AUTO) 0.3 % (0-6); HEMATOCRIT 32.5 % (37.9-51.0); HEMOGLOBIN 10.8 g/dL (13.5-17.0); HGB HCT DIFFERENCE -0.1; LYMPHOCYTES % (AUTO) 8.6 % (13-45); MEAN CORPUSCULAR HEMOGLOBIN 28.5 pg (27.0-33.4); MEAN CORPUSCULAR HGB CONC 33.2 g/dL (32.0-36.0); MEAN CORPUSCULAR VOLUME 86 fl (80-97); MONOCYTES % (AUTO) 6.1 % (3-13); RED BLOOD COUNT 3.78 10^6/uL (4.35-5.55); RED CELL DISTRIBUTION WIDTH 17.4 % (11.5-14.0); SEGMENTED NEUTROPHILS % (AUTO) 84.6 % (42-78); WHITE BLOOD COUNT 8.8 10^3/uL (4.0-10.5)
[2016-10-08 10:37] LABS: ANION GAP 9 (5-19); BLOOD UREA NITROGEN 34 mg/dL (7-20); CALCIUM 8.5 mg/dL (8.4-10.2); CARBON DIOXIDE 24 mmol/L (22-30); CHLORIDE 102 mmol/L (98-107); CREATININE RESULT 0.81 mg/dL (0.52-1.25); GLUCOSE 133 mg/dL (75-110); POTASSIUM 4.5 mmol/L (3.6-5.0); SODIUM 135.2 mmol/L (137-145)
[2016-10-08] MEDS: CARVEDILOL 12.5 MG TABLET PO SCH ×2 (11:18→22:37)
[2016-10-08] MEDS: PREGABALIN 75 MG CAPSULE PO SCH ×2 (11:18→17:43)
[2016-10-08] MEDS: PRENATAL VITAMIN W-O CA NO5/FE FUMARATE/FA CAPSULE PO SCH (11:18)
[2016-10-08] MEDS: OMEGA-3 ACID ETHYL ESTERS 1 GM CAPSULE PO SCH (11:19)
[2016-10-08] MEDS: SENNOSIDES/DOCUSATE 8.6-50 MG 1 EACH TABLET PO SCH ×2 (11:19→17:42)
[2016-10-08] MEDS: OXYBUTYNIN CHLORIDE 5 MG TABLET PO SCH ×2 (11:19→17:43)
[2016-10-08] MEDS: ISOSORBIDE DINITRATE 20 MG TABLET PO SCH (17:42)
[2016-10-08] MEDS: ATORVASTATIN CALCIUM 40 MG TABLET PO SCH (22:37)
[2016-10-08] MEDS: RIVAROXABAN 10 MG TABLET PO SCH (22:37)
[2016-10-08] MEDS: PRIMIDONE 50 MG TABLET PO SCH (22:37)
[2016-10-09] MEDS: LANSOPRAZOLE 30 MG TAB.RAP.DR PO SCH (05:25)
[2016-10-09] MEDS: FUROSEMIDE 20 MG TABLET PO SCH ×2 (10:05→17:23)
[2016-10-09] MEDS: SENNOSIDES/DOCUSATE 8.6-50 MG 1 EACH TABLET PO SCH ×2 (10:06→17:24)
[2016-10-09] MEDS: CARVEDILOL 12.5 MG TABLET PO SCH ×2 (10:06→21:46)
[2016-10-09] MEDS: PRENATAL VITAMIN W-O CA NO5/FE FUMARATE/FA CAPSULE PO SCH (10:06)
[2016-10-09] MEDS: OXYCODONE HCL IR 5 MG TABLET PO PRN (10:06)
[2016-10-09] MEDS: OMEGA-3 ACID ETHYL ESTERS 1 GM CAPSULE PO SCH (10:06)
[2016-10-09] MEDS: OXYBUTYNIN CHLORIDE 5 MG TABLET PO SCH ×2 (10:06→17:25)
[2016-10-09] MEDS: PREGABALIN 75 MG CAPSULE PO SCH ×2 (10:06→17:25)
[2016-10-09] MEDS ORDERED: ALBUTEROL SULFATE 0.083% NEB 2.5 MG/3 ML AMPUL NEB PRN (14:50)
--- NOTE | 2016-10-09 15:11 | PDOC CONSULTATION ---
Consultation Consult Date: 10/09/16 Attending physician:: JAMISON CÁRDENAS Consult reason:: possible pneumonia History of Present Illness Admission Date/PCP: 10/04/16 10:11 ERIC CASON NP Patient complains of: initially of fall at home with Rt hip pain; subsequently c /o cough with greenish phlegm and SOA with minimal exertion starting over the weekend History of Present Illness: PEACE FRAGA is a 85 year old male presented from home after a fall with resultant sharp, stabbing hip pain and was found to have new fracture around the prosthesis placed in 07/2016 after a fall and hip fracture then. He had been recovering nicely, progressing to independent ambulation but stumbled over a step stool falling onto his Rt side and re-fracturing the hip. He has had a bit of complicated course requiring surgical revision - please Dr Cárdenas's notes for all the details. This past weekend he started to c/o cough productive of greenish garcia phlegm and dyspnea with exertion without wheeze or chest pain. He was placed on O2 up to 4L/min and managed expectantly, gradually improving to the point he states he feels much better this morning. However his primary nurse last night noted some rales at the left base, CXR ordered by attending this morning with radiologist reading a LLL infiltrate and we were consulted for evaluation and management of possible pneumonia. He has long cardiac hx with reported chronic systolic heart failure, prior AMI/ CAD/ASCVD s/p 5v CABG, [facility] for cardiac dysrhythmia, porcine AoV placed at [facility] 2004. Past Medical History Cardiac Medical History: Reports: Congestive Heart Failure, Coronary Artery Disease, Myocardial Infarction, Hyperlipidema, Hypertension Denies: Atrial Fibrillation, DVT, Peripheral Vascular Disease, Pulmonary Embolism, Heart Murmur Pulmonary Medical History: Denies: Asthma, Chronic Obstructive Pulmonary Disease (COPD) Neurological Medical History: Denies: Seizures Endocrine Medical History: Denies: Diabetes Mellitus Type 1, Diabetes Mellitus Type 2, Hyperthyroidism, Hypothyroidism Renal/ Medical History: Denies: End Stage Renal Disease Malignancy Medical History: Denies: Breast Cancer, Cervical Cancer, Ovarian Cancer GI Medical History: Reports: Diverticulitis, Gastroesophageal Reflux Disease Denies: Cirrhosis, Crohn's Disease, Hepatitis, Hiatal Hernia Musculoskeltal Medical History: Reports: Arthritis - neck Denies: Fibromyalgia Skin Medical History: Denies: Eczema, Psoriasis Psychiatric Medical History: Denies: Dementia, Depression Past Surgical History Past Surgical History: Reports: Appendectomy, Cholecystectomy, Coronary Artery Bypass Graft - x5, Pacemaker, Valve Replacement - 2015 tvar, Other - partial gastr'y for PUD; separation of horseshoe kidney; bilat cataract Denies: Colostomy, Gastric Bypass Surgery, Herniorrhaphy, Tonsillectomy Social History Smoking Status: Former Smoker Frequency of Alcohol Use: Rare Hx Recreational Drug Use: No Drugs: None Hx Prescription Drug Abuse: No - Advance Directive Resuscitation Status: Full Code Family History Family History: Reviewed & Not Pertinent, CAD, CVA, Malignancy Parental Family History Reviewed: Yes Children Family History Reviewed: Yes Sibling(s) Family History Reviewed.: Yes Medication/Allergy Home Medications: Carvedilol [Coreg 25 mg Tablet] 12.5 mg PO BID 09/15/14 Isosorbide Dinitrate 30 mg PO QPM 09/15/14 Atorvastatin Calcium [Lipitor 40 mg Tablet] 40 mg PO QHS 04/24/16 Furosemide [Lasix 40 mg Tablet] 20 mg PO QAM 04/24/16 Esomeprazole Magnesium [Nexium 24Hr] 22.3 mg PO DAILY 08/15/16 Multivitamin [Daily Multiple Vitamin] 1 tab PO DAILY 08/15/16 [place]-3/Dha/Epa/Fish Oil [Fish Oil 1,000 mg Softgel] 1 cap PO DAILY 08/15/16 Oxybutynin Chloride [Ditropan 5 mg Tablet] 5 mg PO BID 08/15/16 Aspirin [Ecotrin 81 mg EC Tablet] 81 mg PO DAILY tabec 08/16/16 Primidone [Mysoline] 50 mg PO DAILY 09/27/16 Allergies/Adverse Reactions: No Known Allergies Allergy (Verified 09/27/16 11:39) Review of Systems Constitutional: PRESENT: chills. ABSENT: fever(s), headache(s), weight gain, weight loss Eyes: ABSENT: visual disturbances Ears: ABSENT: hearing changes Cardiovascular: PRESENT: dyspnea on exertion. ABSENT: chest pain, edema, orthropnea, palpitations Respiratory: PRESENT: cough, sputum. ABSENT: hemoptysis Gastrointestinal: ABSENT: abdominal pain, constipation, diarrhea, hematemesis, hematochezia, nausea, vomiting Genitourinary: ABSENT: dysuria, hematuria Musculoskeletal: ABSENT: joint swelling Integumentary: ABSENT: rash Neurological: ABSENT: abnormal speech, confusion, dizziness, focal weakness, syncope Psychiatric: ABSENT: anxiety, depression Endocrine: ABSENT: cold intolerance, heat intolerance, polydipsia, polyuria Hematologic/Lymphatic: ABSENT: easy bleeding, easy bruising Physical Exam Vital Signs: Temp Pulse Resp BP Pulse Ox 98.1 F 84 20 154/56 H 93 10/09/16 12:00 10/09/16 12:00 10/09/16 12:00 10/09/16 12:00 10/09/16 12:00 Intake & Output 10/08/16 10/09/16 10/10/16 06:59 06:59 06:59 Intake Total 830 10 Output Total 1350 Balance -520 10 EXAM GENERAL: NAD; well developed, well nourished; mild obese; alert and oriented to person, place, time, situation HEENT: normocephalic, atraumatic; no conjunctival injection, no scleral icterus ; oral mucosa moist; RESPIRATORY: no accessory muscle use, no increased WOB, good air entry bilaterally; no rhonchi; Rt LLL rales and Rt sided inspiratory crackles with Rt end exp wheezes CARDIO: no JVD; RRR; soft systolic murmur; no tachycardia GI: soft; nondistended; normal bowel sounds; no rebound, rigidity, guarding VASCULAR: no carotid bruit; no abdominal bruit; no pallor; 2+ radial, DP pulse ; normal capillary refill EXTREMITIES: no calf tender; no palpable cords in calf; no clubbing, cyanosis , asymmetric L>R pedal edema; surgical wound with soledad dressing in place PSYCH: normal affect, normal mood SKIN: warm; moist; no petechiae; no telengectasias; no jaundice; no rash Results Laboratory Results: 10/08/16 08:58 10/08/16 08:58 10/04/16 08:59 Hip - Right Gram Stain - Final 10/04/16 08:59 Hip - Right Wound Culture - Final NO AEROBIC OR ANAEROBIC ORGANISMS RECOVERED 10/04/16 08:59 Hip - Deep Wound Gram Stain - Final 10/04/16 08:59 Hip - Deep Wound Wound Culture - Final NO AEROBIC OR ANAEROBIC ORGANISMS RECOVERED Impressions: Hip/Pelvis X-Ray 10/04/16 10:12 IMPRESSION: Revision of hardware at the right proximal femur, new bone graft material is present anchored with cerclage wires with a new long femoral component of the hip replacement. Good alignment. Chest X-Ray 10/08/16 08:28 IMPRESSION: Mild patchy airspace disease left base suspicious for pneumonia. Status: Image reviewed by me - appears to be bilat airspace disease with engorged pulm vessels; i see the focal area of concern raised by the radiologist Assessment & Plan - Diagnosis (1) Pneumonia Qualifiers: Pneumonia type: aspiration pneumonia Is this a current diagnosis for this admission?: YesPlan: presumptive aspiration pneumonia occurring christoph-operatively, at risk due to high dose narcotics used to control pain, general anesthesia with surgery, advanced age and immobility immediately postop. Start empiric Unasyn, nebs scheduled for at least 24hrs and prn and monitor for improvement. (2) Acute respiratory failure with hypoxia Is this a current diagnosis for this admission?: YesPlan: 2/2 above, continue IS and increase activity as ortho will allow. wean O2 as tolerated, doesn't have underlying lung disease so doesn't require home O2 or have nebs. (3) Periprosthetic fracture of femur following total replacement of hip Is this a current diagnosis for this admission?: Yes (4) Chronic systolic congestive heart failure Is this a current diagnosis for this admission?: YesPlan: no overt failure on exam but his CXR suggests some degree of pulmonary edema complicating his clinical picture. Will saline lock the IVFs he's been receiving all weekend and increase his lasix to bid. (5) Hyperlipidemia Qualifiers: Hyperlipidemia type: unspecified Qualified Code(s): E78.5 - Hyperlipidemia, unspecified Is this a current diagnosis for this admission?: YesPlan: continue home meds (6) Stented coronary artery Is this a current diagnosis for this admission?: YesPlan: no active chest pain (7) History of prosthetic aortic valve replacement Is this a current diagnosis for this admission?: YesPlan: takes ASA chronically, no anticoagulation indicated. no clinical evidence for valve failure complicating his situation. - Time Time Spent: 50 to 70 Minutes Medications reviewed and adjusted accordingly: Yes Anticipated discharge: Acute Rehab Within: within 48 hours - Plan Summary Plan Summary: he is relatively stable and headed to rehab for his hip anyway, it is likely he can d/c to SNF on continued abx with augmentin for 10d.
[2016-10-09] MEDS: ALBUTEROL SULFATE 0.083% NEB 2.5 MG/3 ML AMPUL NEB SCH (16:03)
[2016-10-09] MEDS: AMPICILLIN SODIUM/SULBACTAM NA 3 GM in NORMAL SALINE 100 ML IV SCH ×2 (16:12→20:10)
[2016-10-09] MEDS: ISOSORBIDE DINITRATE 20 MG TABLET PO SCH (17:24)
[2016-10-09] MEDS: MORPHINE SULFATE 10 MG/ML INJ IV PRN (20:07)
[2016-10-09] MEDS: PRIMIDONE 50 MG TABLET PO SCH (21:46)
[2016-10-09] MEDS: ATORVASTATIN CALCIUM 40 MG TABLET PO SCH (21:46)
[2016-10-09] MEDS: RIVAROXABAN 10 MG TABLET PO SCH (21:46)
[2016-10-10] MEDS: ALBUTEROL SULFATE 0.083% NEB 2.5 MG/3 ML AMPUL NEB SCH ×3 (00:24→16:05)
[2016-10-10] MEDS: AMPICILLIN SODIUM/SULBACTAM NA 3 GM in NORMAL SALINE 100 ML IV SCH ×4 (02:53→20:24)
[2016-10-10] MEDS: OXYCODONE HCL IR 5 MG TABLET PO PRN ×2 (02:53→23:30)
[2016-10-10] MEDS: LANSOPRAZOLE 30 MG TAB.RAP.DR PO SCH (04:51)
[2016-10-10 05:28] LABS: ABSOLUTE EOSINOPHILS # (AUTO) 0.3 10^3/uL (0.0-0.6); ABSOLUTE LYMPHOCYTES (AUTO) 1.7 10^3/uL (0.5-4.7); ABSOLUTE MONOCYTES (AUTO) 1.1 10^3/uL (0.1-1.4); ABSOLUTE NEUT (AUTO) 5.4 10^3/uL (1.7-8.2); BASOPHILS % (AUTO) 0.5 % (0-2); EOSINOPHILS % (AUTO) 3.5 % (0-6); HEMATOCRIT 29.5 % (37.9-51.0); HEMOGLOBIN 9.8 g/dL (13.5-17.0); HGB HCT DIFFERENCE -0.1; LYMPHOCYTES % (AUTO) 19.6 % (13-45); MEAN CORPUSCULAR HEMOGLOBIN 28.2 pg (27.0-33.4); MEAN CORPUSCULAR HGB CONC 33.3 g/dL (32.0-36.0); MEAN CORPUSCULAR VOLUME 85 fl (80-97); MONOCYTES % (AUTO) 12.8 % (3-13); RED BLOOD COUNT 3.48 10^6/uL (4.35-5.55); RED CELL DISTRIBUTION WIDTH 17.3 % (11.5-14.0); SEGMENTED NEUTROPHILS % (AUTO) 63.6 % (42-78); WHITE BLOOD COUNT 8.5 10^3/uL (4.0-10.5)
[2016-10-10 05:46] LABS: ANION GAP 9 (5-19); BLOOD UREA NITROGEN 19 mg/dL (7-20); CALCIUM 8.4 mg/dL (8.4-10.2); CARBON DIOXIDE 27 mmol/L (22-30); CHLORIDE 106 mmol/L (98-107); GLUCOSE 99 mg/dL (75-110); POTASSIUM 4.3 mmol/L (3.6-5.0); SODIUM 141.5 mmol/L (137-145)
--- NOTE | 2016-10-10 06:54 | PDOC PROGRESS REPORT ---
Subjective Progress Note for:: 10/10/16 Subjective:: Patient complaining of excruciating pain in the right distal thigh associated with weightbearing Physical Exam Vital Signs: Temp Pulse Resp BP Pulse Ox 36.7 C 74 20 133/42 H 93 10/10/16 00:00 10/10/16 00:00 10/10/16 00:00 10/10/16 00:00 10/10/16 04:55 Intake & Output 10/08/16 10/09/16 10/10/16 06:59 06:59 06:59 Intake Total 830 1112 Output Total 1350 1205 Balance -520 -93 General appearance: PRESENT: no acute distress, well-developed Head exam: PRESENT: normocephalic Eye exam: PRESENT: EOMI Respiratory exam: PRESENT: unlabored Cardiovascular exam: PRESENT: RRR Pulses: PRESENT: +1 pedal pulses bilateral Vascular exam: PRESENT: normal capillary refill GI/Abdominal exam: PRESENT: soft Rectal exam: PRESENT: deferred Extremities exam: PRESENT: other - Right lower extremity. Wound is well approximated without erythema. The lower aspect. This is dry. The upper aspect seems to continue to drain a serosanguineous fluid. Dressing is changed today. Leg lengths are equal. Neurovascular examination is intact. Neurological exam: PRESENT: alert, awake, oriented to person, oriented to place , oriented to time, oriented to situation. ABSENT: motor sensory deficit Psychiatric exam: PRESENT: appropriate affect, normal mood. ABSENT: homicidal ideation, suicidal ideation Results Laboratory Results: 10/10/16 04:38 10/10/16 04:38 10/10/16 10/10/16 04:38 04:38 WBC 8.5 RBC 3.48 L Hgb 9.8 L Hct 29.5 L MCV 85 MCH 28.2 MCHC 33.3 RDW 17.3 H Plt Count 266 Seg Neutrophils % 63.6 Lymphocytes % 19.6 Monocytes % 12.8 Eosinophils % 3.5 Basophils % 0.5 Absolute Neutrophils 5.4 Absolute Lymphocytes 1.7 Absolute Monocytes 1.1 Absolute Eosinophils 0.3 Absolute Basophils 0.0 Sodium 141.5 Potassium 4.3 Chloride 106 Carbon Dioxide 27 Anion Gap 9 BUN 19 Creatinine 0.70 Est GFR ( Amer) > 60 Est GFR (Non-Af Amer) > 60 Glucose 99 Calcium 8.4 10/09/16 15:34 NT-Pro-B Natriuret Pep 2170 H Impressions: Hip/Pelvis X-Ray 10/04/16 10:12 IMPRESSION: Revision of hardware at the right proximal femur, new bone graft material is present anchored with cerclage wires with a new long femoral component of the hip replacement. Good alignment. Chest X-Ray 10/08/16 08:28 IMPRESSION: Mild patchy airspace disease left base suspicious for pneumonia. 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 Physical therapy is slow. I think the patient's probably ready for transfer to a fpc facility the next several days. (2) Pneumonia Qualifiers: Pneumonia type: aspiration pneumonia Is this a current diagnosis for this admission?: YesPlan: Appreciate the input of the hospitalist service. Patient is now on Augmentin for suspected aspiration pneumonia - Time Time Spent with patient: 15-24 minutes Anticipated discharge: SNF Within: within 48 hours
[2016-10-10] MEDS: PRENATAL VITAMIN W-O CA NO5/FE FUMARATE/FA CAPSULE PO SCH (09:27)
[2016-10-10] MEDS: PREGABALIN 75 MG CAPSULE PO SCH ×2 (09:27→17:56)
[2016-10-10] MEDS: OMEGA-3 ACID ETHYL ESTERS 1 GM CAPSULE PO SCH (09:27)
[2016-10-10] MEDS: CARVEDILOL 12.5 MG TABLET PO SCH ×2 (09:28→21:47)
[2016-10-10] MEDS: SENNOSIDES/DOCUSATE 8.6-50 MG 1 EACH TABLET PO SCH ×2 (09:28→17:58)
[2016-10-10] MEDS: OXYBUTYNIN CHLORIDE 5 MG TABLET PO SCH ×2 (09:28→17:57)
[2016-10-10] MEDS: FUROSEMIDE 20 MG TABLET PO SCH ×2 (09:28→17:57)
[2016-10-10] MEDS: MORPHINE SULFATE 10 MG/ML INJ IV PRN (10:14)
--- NOTE | 2016-10-10 17:34 | PDOC PROGRESS REPORT ---
Subjective Progress Note for:: 10/10/16 Subjective:: Patient feels well he has minimal pain No fever no chills No shortness of breath He is to be discharged tomorrow to short-term rehabilitation if stable Physical Exam Vital Signs: Temp Pulse Resp BP Pulse Ox 98.1 F 93 20 152/48 H 95 10/10/16 15:20 10/10/16 16:00 10/10/16 16:00 10/10/16 15:20 10/10/16 16:00 Intake & Output 10/09/16 10/10/16 10/11/16 00:59 00:59 00:59 Intake Total 895 617 Output Total 1375 680 Balance -480 -63 General appearance: PRESENT: no acute distress, well-developed, well-nourished Head exam: PRESENT: atraumatic, normocephalic Eye exam: PRESENT: conjunctiva pink, EOMI, PERRLA. ABSENT: scleral icterus Ear exam: PRESENT: normal external ear exam Mouth exam: PRESENT: moist, tongue midline Neck exam: ABSENT: carotid bruit, JVD, lymphadenopathy, thyromegaly Respiratory exam: PRESENT: clear to auscultation jeremy. ABSENT: rales, rhonchi, wheezes Cardiovascular exam: PRESENT: RRR. ABSENT: diastolic murmur, rubs, systolic murmur Pulses: PRESENT: normal dorsalis pedis pul Vascular exam: PRESENT: normal capillary refill GI/Abdominal exam: PRESENT: normal bowel sounds, soft. ABSENT: distended, guarding, mass, organolmegaly, rebound, tenderness Rectal exam: PRESENT: deferred Extremities exam: ABSENT: calf tenderness, clubbing, pedal edema Neurological exam: PRESENT: alert, awake, oriented to person, oriented to place , oriented to time, oriented to situation, CN II-XII grossly intact. ABSENT: motor sensory deficit Psychiatric exam: PRESENT: appropriate affect, normal mood. ABSENT: homicidal ideation, suicidal ideation Skin exam: PRESENT: dry, intact, warm. ABSENT: cyanosis, rash Results Laboratory Results: 10/10/16 04:38 10/10/16 04:38 10/10/16 10/10/16 04:38 04:38 WBC 8.5 RBC 3.48 L Hgb 9.8 L Hct 29.5 L MCV 85 MCH 28.2 MCHC 33.3 RDW 17.3 H Plt Count 266 Seg Neutrophils % 63.6 Lymphocytes % 19.6 Monocytes % 12.8 Eosinophils % 3.5 Basophils % 0.5 Absolute Neutrophils 5.4 Absolute Lymphocytes 1.7 Absolute Monocytes 1.1 Absolute Eosinophils 0.3 Absolute Basophils 0.0 Sodium 141.5 Potassium 4.3 Chloride 106 Carbon Dioxide 27 Anion Gap 9 BUN 19 Creatinine 0.70 Est GFR ( Amer) > 60 Est GFR (Non-Af Amer) > 60 Glucose 99 Calcium 8.4 10/09/16 15:34 NT-Pro-B Natriuret Pep 2170 H Impressions: Hip/Pelvis X-Ray 10/04/16 10:12 IMPRESSION: Revision of hardware at the right proximal femur, new bone graft material is present anchored with cerclage wires with a new long femoral component of the hip replacement. Good alignment. Chest X-Ray 10/08/16 08:28 IMPRESSION: Mild patchy airspace disease left base suspicious for pneumonia. 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
[2016-10-10] MEDS: ISOSORBIDE DINITRATE 20 MG TABLET PO SCH (17:56)
[2016-10-10] MEDS: ATORVASTATIN CALCIUM 40 MG TABLET PO SCH (21:48)
[2016-10-10] MEDS: RIVAROXABAN 10 MG TABLET PO SCH (21:48)
[2016-10-10] MEDS: PRIMIDONE 50 MG TABLET PO SCH (21:48)
[2016-10-11] MEDS: ALBUTEROL SULFATE 0.083% NEB 2.5 MG/3 ML AMPUL NEB SCH ×3 (00:21→15:40)
[2016-10-11] MEDS: AMPICILLIN SODIUM/SULBACTAM NA 3 GM in NORMAL SALINE 100 ML IV SCH ×4 (04:25→21:59)
[2016-10-11] MEDS: LANSOPRAZOLE 30 MG TAB.RAP.DR PO SCH (04:26)
[2016-10-11] MEDS: OXYCODONE HCL IR 5 MG TABLET PO PRN (08:41)
[2016-10-11 09:29] LABS: ABSOLUTE BASOPHILS # (AUTO) 0.1 10^3/uL (0.0-0.2); ABSOLUTE EOSINOPHILS # (AUTO) 0.2 10^3/uL (0.0-0.6); ABSOLUTE LYMPHOCYTES (AUTO) 1.7 10^3/uL (0.5-4.7); ABSOLUTE MONOCYTES (AUTO) 1.1 10^3/uL (0.1-1.4); ABSOLUTE NEUT (AUTO) 7.1 10^3/uL (1.7-8.2); BASOPHILS % (AUTO) 0.6 % (0-2); EOSINOPHILS % (AUTO) 2.4 % (0-6); HEMOGLOBIN 10.3 g/dL (13.5-17.0); HGB HCT DIFFERENCE -0.1; LYMPHOCYTES % (AUTO) 17.1 % (13-45); MEAN CORPUSCULAR HEMOGLOBIN 28.1 pg (27.0-33.4); MEAN CORPUSCULAR HGB CONC 33.3 g/dL (32.0-36.0); MEAN CORPUSCULAR VOLUME 85 fl (80-97); MONOCYTES % (AUTO) 10.7 % (3-13); RED BLOOD COUNT 3.66 10^6/uL (4.35-5.55); RED CELL DISTRIBUTION WIDTH 17.3 % (11.5-14.0); SEGMENTED NEUTROPHILS % (AUTO) 69.2 % (42-78); WHITE BLOOD COUNT 10.2 10^3/uL (4.0-10.5)
[2016-10-11] MEDS: OMEGA-3 ACID ETHYL ESTERS 1 GM CAPSULE PO SCH (09:56)
[2016-10-11] MEDS: PREGABALIN 75 MG CAPSULE PO SCH ×2 (09:56→17:48)
[2016-10-11] MEDS: OXYBUTYNIN CHLORIDE 5 MG TABLET PO SCH ×2 (09:56→17:49)
[2016-10-11] MEDS: FUROSEMIDE 20 MG TABLET PO SCH ×2 (09:57→17:47)
[2016-10-11] MEDS: SENNOSIDES/DOCUSATE 8.6-50 MG 1 EACH TABLET PO SCH ×2 (09:57→17:49)
[2016-10-11] MEDS: CARVEDILOL 12.5 MG TABLET PO SCH ×2 (09:58→22:12)
[2016-10-11] MEDS: PRENATAL VITAMIN W-O CA NO5/FE FUMARATE/FA CAPSULE PO SCH (09:58)
[2016-10-11 10:00] LABS: ANION GAP 9 (5-19); BLOOD UREA NITROGEN 12 mg/dL (7-20); C-REACTIVE PROTEIN 87.6 mg/L (<10.0); CALCIUM 8.3 mg/dL (8.4-10.2); CARBON DIOXIDE 29 mmol/L (22-30); CHLORIDE 105 mmol/L (98-107); CREATININE RESULT 0.68 mg/dL (0.52-1.25); GLUCOSE 116 mg/dL (75-110); POTASSIUM 3.7 mmol/L (3.6-5.0); SODIUM 142.5 mmol/L (137-145)
[2016-10-11 10:07] LABS: ERYTHROCYTE SEDIMENTATION RATE 79 mm/hr (0-20)
[2016-10-11] MEDS: ISOSORBIDE DINITRATE 20 MG TABLET PO SCH (17:50)
--- NOTE | 2016-10-11 18:20 | PDOC PROGRESS REPORT ---
Subjective Progress Note for:: 10/11/16 Subjective:: Patient has minimal complaints There is still drainage from the hip No shortness of breath no chest pain no fever no chills Physical Exam Vital Signs: Temp Pulse Resp BP Pulse Ox 97.9 F 71 16 161/55 H 97 10/11/16 16:16 10/11/16 16:16 10/11/16 16:16 10/11/16 16:16 10/11/16 16:16 Intake & Output 10/10/16 10/11/16 10/12/16 00:59 00:59 00:59 Intake Total 895 1387 710 Output Total 1375 1155 900 Balance -480 232 -190 Weight 112.1 kg General appearance: PRESENT: no acute distress, well-developed, well-nourished Head exam: PRESENT: atraumatic, normocephalic Eye exam: PRESENT: conjunctiva pink, EOMI, PERRLA. ABSENT: scleral icterus Ear exam: PRESENT: normal external ear exam Mouth exam: PRESENT: moist, tongue midline Neck exam: ABSENT: carotid bruit, JVD, lymphadenopathy, thyromegaly Respiratory exam: PRESENT: clear to auscultation jeremy, decreased breath sounds. ABSENT: rales, rhonchi, wheezes Cardiovascular exam: PRESENT: RRR. ABSENT: diastolic murmur, rubs, systolic murmur Pulses: PRESENT: normal dorsalis pedis pul Vascular exam: PRESENT: normal capillary refill GI/Abdominal exam: PRESENT: normal bowel sounds, soft. ABSENT: distended, guarding, mass, organolmegaly, rebound, tenderness Rectal exam: PRESENT: deferred Extremities exam: PRESENT: full ROM. ABSENT: calf tenderness, clubbing, pedal edema Neurological exam: PRESENT: alert, awake, oriented to person, oriented to place , oriented to time, oriented to situation, CN II-XII grossly intact. ABSENT: motor sensory deficit Psychiatric exam: PRESENT: appropriate affect, normal mood. ABSENT: homicidal ideation, suicidal ideation Skin exam: PRESENT: dry, intact, warm. ABSENT: cyanosis, rash Results Laboratory Results: 10/11/16 09:04 10/11/16 09:04 10/11/16 10/11/16 09:04 09:04 WBC 10.2 RBC 3.66 L Hgb 10.3 L Hct 31.0 L MCV 85 MCH 28.1 MCHC 33.3 RDW 17.3 H Plt Count 333 Seg Neutrophils % 69.2 Lymphocytes % 17.1 Monocytes % 10.7 Eosinophils % 2.4 Basophils % 0.6 Absolute Neutrophils 7.1 Absolute Lymphocytes 1.7 Absolute Monocytes 1.1 Absolute Eosinophils 0.2 Absolute Basophils 0.1 Sodium 142.5 Potassium 3.7 Chloride 105 Carbon Dioxide 29 Anion Gap 9 BUN 12 Creatinine 0.68 Est GFR ( Amer) > 60 Est GFR (Non-Af Amer) > 60 Glucose 116 H Calcium 8.3 L C-Reactive Protein 87.6 H 10/09/16 09:56 Sputum Gram Stain - Final 10/09/16 09:56 Sputum Sputum Culture - Final Escherichia Coli C.albicans/C.dubliniensis Normal Juju 10/09/16 15:34 NT-Pro-B Natriuret Pep 2170 H Impressions: Hip/Pelvis X-Ray 10/04/16 10:12 IMPRESSION: Revision of hardware at the right proximal femur, new bone graft material is present anchored with cerclage wires with a new long femoral component of the hip replacement. Good alignment. Chest X-Ray 10/08/16 08:28 IMPRESSION: Mild patchy airspace disease left base suspicious for pneumonia. 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 Cárdenas Time Spent with patient: 15-24 minutes
[2016-10-11] MEDS: ATORVASTATIN CALCIUM 40 MG TABLET PO SCH (22:12)
[2016-10-11] MEDS: PRIMIDONE 50 MG TABLET PO SCH (22:12)
[2016-10-11] MEDS: RIVAROXABAN 10 MG TABLET PO SCH (22:12)
[2016-10-12] MEDS: ALBUTEROL SULFATE 0.083% NEB 2.5 MG/3 ML AMPUL NEB SCH ×4 (00:15→23:53)
[2016-10-12] MEDS: AMPICILLIN SODIUM/SULBACTAM NA 3 GM in NORMAL SALINE 100 ML IV SCH ×4 (03:44→20:15)
[2016-10-12] MEDS: LANSOPRAZOLE 30 MG TAB.RAP.DR PO SCH (05:23)
[2016-10-12] MEDS: PRENATAL VITAMIN W-O CA NO5/FE FUMARATE/FA CAPSULE PO SCH (09:28)
[2016-10-12] MEDS: OXYBUTYNIN CHLORIDE 5 MG TABLET PO SCH ×2 (09:28→17:22)
[2016-10-12] MEDS: CARVEDILOL 12.5 MG TABLET PO SCH ×2 (09:28→21:24)
[2016-10-12] MEDS: SENNOSIDES/DOCUSATE 8.6-50 MG 1 EACH TABLET PO SCH ×2 (09:28→17:22)
[2016-10-12] MEDS: FUROSEMIDE 20 MG TABLET PO SCH ×2 (09:29→17:21)
[2016-10-12] MEDS: PREGABALIN 75 MG CAPSULE PO SCH ×2 (09:29→17:21)
[2016-10-12] MEDS: OMEGA-3 ACID ETHYL ESTERS 1 GM CAPSULE PO SCH (09:29)
[2016-10-12] MEDS: ACETAMINOPHEN 325 MG TABLET PO PRN (09:36)
--- NOTE | 2016-10-12 15:51 | PDOC PROGRESS REPORT ---
Subjective Progress Note for:: 10/12/16 Subjective:: Patient has minimal complaints There is still drainage from the hip No shortness of breath no chest pain no fever no chills Physical Exam Vital Signs: Temp Pulse Resp BP Pulse Ox 97.4 F 65 14 114/41 L 94 10/12/16 11:15 10/12/16 11:15 10/12/16 11:15 10/12/16 11:15 10/12/16 11:15 Intake & Output 10/11/16 10/12/16 10/13/16 00:59 00:59 00:59 Intake Total 1387 1030 220 Output Total 1155 1180 180 Balance 232 -150 40 Weight 112.1 kg General appearance: PRESENT: no acute distress, well-developed, well-nourished Head exam: PRESENT: atraumatic, normocephalic Eye exam: PRESENT: conjunctiva pink, EOMI, PERRLA. ABSENT: scleral icterus Ear exam: PRESENT: normal external ear exam Mouth exam: PRESENT: moist, tongue midline Neck exam: ABSENT: carotid bruit, JVD, lymphadenopathy, thyromegaly Respiratory exam: PRESENT: clear to auscultation jeremy. ABSENT: rales, rhonchi, wheezes Cardiovascular exam: PRESENT: RRR. ABSENT: diastolic murmur, rubs, systolic murmur Pulses: PRESENT: normal dorsalis pedis pul Vascular exam: PRESENT: normal capillary refill GI/Abdominal exam: PRESENT: normal bowel sounds, soft. ABSENT: distended, guarding, mass, organolmegaly, rebound, tenderness Rectal exam: PRESENT: deferred Extremities exam: PRESENT: full ROM. ABSENT: calf tenderness, clubbing, pedal edema Neurological exam: PRESENT: alert, awake, oriented to person, oriented to place , oriented to time, oriented to situation, CN II-XII grossly intact. ABSENT: motor sensory deficit Psychiatric exam: PRESENT: appropriate affect, normal mood. ABSENT: homicidal ideation, suicidal ideation Skin exam: PRESENT: dry, intact, warm. ABSENT: cyanosis, rash Results Laboratory Results: 10/11/16 09:04 10/11/16 09:04 10/09/16 09:56 Sputum Gram Stain - Final 10/09/16 09:56 Sputum Sputum Culture - Final Escherichia Coli C.albicans/C.dubliniensis Normal Juju 10/09/16 15:34 NT-Pro-B Natriuret Pep 2170 H Impressions: Hip/Pelvis X-Ray 10/04/16 10:12 IMPRESSION: Revision of hardware at the right proximal femur, new bone graft material is present anchored with cerclage wires with a new long femoral component of the hip replacement. Good alignment. Chest X-Ray 10/08/16 08:28 IMPRESSION: Mild patchy airspace disease left base suspicious for pneumonia. 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
[2016-10-12] MEDS: ISOSORBIDE DINITRATE 20 MG TABLET PO SCH (17:22)
[2016-10-12] MEDS: ATORVASTATIN CALCIUM 40 MG TABLET PO SCH (21:24)
[2016-10-12] MEDS: RIVAROXABAN 10 MG TABLET PO SCH (21:24)
[2016-10-12] MEDS: PRIMIDONE 50 MG TABLET PO SCH (21:25)
[2016-10-13] MEDS: AMPICILLIN SODIUM/SULBACTAM NA 3 GM in NORMAL SALINE 100 ML IV SCH ×4 (02:07→20:50)
[2016-10-13] MEDS: LANSOPRAZOLE 30 MG TAB.RAP.DR PO SCH (06:01)
--- NOTE | 2016-10-13 07:19 | PDOC PROGRESS REPORT ---
Subjective Progress Note for:: 10/13/16 Subjective:: Patient with only minor complaints. Physical Exam Vital Signs: Temp Pulse Resp BP Pulse Ox 36.8 C 66 16 143/46 H 95 10/13/16 00:00 10/13/16 00:00 10/13/16 00:00 10/13/16 00:00 10/13/16 00:00 Intake & Output 10/12/16 10/13/16 10/14/16 06:59 06:59 06:59 Intake Total 1250 1540 Output Total 960 1050 Balance 290 490 Weight 112.5 kg General appearance: PRESENT: no acute distress Head exam: PRESENT: normocephalic Eye exam: PRESENT: EOMI Respiratory exam: PRESENT: unlabored Cardiovascular exam: PRESENT: RRR Pulses: PRESENT: +1 pedal pulses bilateral GI/Abdominal exam: PRESENT: soft Rectal exam: PRESENT: deferred Extremities exam: PRESENT: other - Right hip wound with continued serosanguineous drainage requiring daily dressing changes. Leg lengths are equal. Distal neurovascular examinations intact. Neurological exam: PRESENT: alert, awake, oriented to person, oriented to place , oriented to time, oriented to situation, CN II-XII grossly intact. ABSENT: motor sensory deficit Psychiatric exam: PRESENT: appropriate affect, normal mood. ABSENT: homicidal ideation, suicidal ideation Skin exam: PRESENT: dry, intact, warm. ABSENT: cyanosis, rash Results Laboratory Results: 10/11/16 09:04 10/11/16 09:04 10/09/16 15:34 NT-Pro-B Natriuret Pep 2170 H Impressions: Hip/Pelvis X-Ray 10/04/16 10:12 IMPRESSION: Revision of hardware at the right proximal femur, new bone graft material is present anchored with cerclage wires with a new long femoral component of the hip replacement. Good alignment. Chest X-Ray 10/08/16 08:28 IMPRESSION: Mild patchy airspace disease left base suspicious for pneumonia. 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 I'm concerned about the continuing drainage but does not seem to be abating. This does not best served with a third irrigation debridement and repeat closure (2) Pneumonia Qualifiers: Pneumonia type: aspiration pneumonia Is this a current diagnosis for this admission?: Yes - Time Time Spent with patient: 15-24 minutes Anticipated discharge: SNF Within: within 72 hours
[2016-10-13] MEDS: ALBUTEROL SULFATE 0.083% NEB 2.5 MG/3 ML AMPUL NEB SCH ×2 (08:26→15:56)
[2016-10-13] MEDS: CARVEDILOL 12.5 MG TABLET PO SCH ×2 (09:37→22:19)
[2016-10-13] MEDS: OXYBUTYNIN CHLORIDE 5 MG TABLET PO SCH ×2 (09:37→17:19)
[2016-10-13] MEDS: PREGABALIN 75 MG CAPSULE PO SCH ×2 (09:37→17:19)
[2016-10-13] MEDS: PRENATAL VITAMIN W-O CA NO5/FE FUMARATE/FA CAPSULE PO SCH (09:38)
[2016-10-13] MEDS: OMEGA-3 ACID ETHYL ESTERS 1 GM CAPSULE PO SCH (09:38)
[2016-10-13] MEDS: SENNOSIDES/DOCUSATE 8.6-50 MG 1 EACH TABLET PO SCH ×2 (09:38→17:18)
[2016-10-13] MEDS: FUROSEMIDE 20 MG TABLET PO SCH ×2 (09:38→17:19)
--- NOTE | 2016-10-13 12:26 | PDOC PROGRESS REPORT ---
Subjective Progress Note for:: 10/13/16 Subjective:: Is still copious drainage from the right hip and patient is scheduled for surgery on Sunday for repeat irrigation of the wound Patient does not complain of a lot of pain he has no fever no chills The cough is improved Physical Exam Vital Signs: Temp Pulse Resp BP Pulse Ox 97.9 F 67 18 172/53 H 94 10/13/16 11:15 10/13/16 11:15 10/13/16 11:15 10/13/16 11:15 10/13/16 11:15 Intake & Output 10/12/16 10/13/16 10/14/16 00:59 00:59 00:59 Intake Total 1030 1520 240 Output Total 1180 1080 150 Balance -150 440 90 Weight 112.1 kg 112.5 kg General appearance: PRESENT: no acute distress Head exam: PRESENT: atraumatic, normocephalic Eye exam: PRESENT: conjunctiva pink, EOMI, PERRLA. ABSENT: scleral icterus Neck exam: ABSENT: carotid bruit, JVD, lymphadenopathy, thyromegaly Respiratory exam: PRESENT: clear to auscultation jeremy. ABSENT: rales, rhonchi, wheezes Cardiovascular exam: PRESENT: RRR. ABSENT: diastolic murmur, rubs, systolic murmur GI/Abdominal exam: PRESENT: normal bowel sounds, soft. ABSENT: distended, guarding, mass, organolmegaly, rebound, tenderness Neurological exam: PRESENT: CN II-XII grossly intact Results Laboratory Results: 10/11/16 09:04 10/11/16 09:04 10/09/16 15:34 NT-Pro-B Natriuret Pep 2170 H Impressions: Hip/Pelvis X-Ray 10/04/16 10:12 IMPRESSION: Revision of hardware at the right proximal femur, new bone graft material is present anchored with cerclage wires with a new long femoral component of the hip replacement. Good alignment. Chest X-Ray 10/08/16 08:28 IMPRESSION: Mild patchy airspace disease left base suspicious for pneumonia. 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
[2016-10-13] MEDS: ISOSORBIDE DINITRATE 20 MG TABLET PO SCH (17:18)
[2016-10-13] MEDS: ATORVASTATIN CALCIUM 40 MG TABLET PO SCH (22:19)
[2016-10-13] MEDS: PRIMIDONE 50 MG TABLET PO SCH (22:19)
[2016-10-13] MEDS: RIVAROXABAN 10 MG TABLET PO SCH (22:19)
[2016-10-14] MEDS: ALBUTEROL SULFATE 0.083% NEB 2.5 MG/3 ML AMPUL NEB SCH ×3 (00:08→16:13)
[2016-10-14] MEDS: AMPICILLIN SODIUM/SULBACTAM NA 3 GM in NORMAL SALINE 100 ML IV SCH ×4 (02:36→21:10)
[2016-10-14] MEDS: LANSOPRAZOLE 30 MG TAB.RAP.DR PO SCH (05:38)
[2016-10-14 06:04] LABS: ABSOLUTE BASOPHILS # (AUTO) 0.1 10^3/uL (0.0-0.2); ABSOLUTE EOSINOPHILS # (AUTO) 0.3 10^3/uL (0.0-0.6); ABSOLUTE LYMPHOCYTES (AUTO) 1.8 10^3/uL (0.5-4.7); ABSOLUTE MONOCYTES (AUTO) 0.9 10^3/uL (0.1-1.4); ABSOLUTE NEUT (AUTO) 6.5 10^3/uL (1.7-8.2); EOSINOPHILS % (AUTO) 3.1 % (0-6); HEMATOCRIT 30.2 % (37.9-51.0); HEMOGLOBIN 10.1 g/dL (13.5-17.0); HGB HCT DIFFERENCE 0.1; MEAN CORPUSCULAR HEMOGLOBIN 28.2 pg (27.0-33.4); MEAN CORPUSCULAR HGB CONC 33.5 g/dL (32.0-36.0); MEAN CORPUSCULAR VOLUME 84 fl (80-97); MONOCYTES % (AUTO) 9.8 % (3-13); RED CELL DISTRIBUTION WIDTH 16.6 % (11.5-14.0); SEGMENTED NEUTROPHILS % (AUTO) 67.1 % (42-78); WHITE BLOOD COUNT 9.7 10^3/uL (4.0-10.5)
[2016-10-14 06:27] LABS: ANION GAP 12 (5-19); BLOOD UREA NITROGEN 10 mg/dL (7-20); CALCIUM 8.1 mg/dL (8.4-10.2); CARBON DIOXIDE 26 mmol/L (22-30); CHLORIDE 105 mmol/L (98-107); CREATININE RESULT 0.66 mg/dL (0.52-1.25); GLUCOSE 90 mg/dL (75-110); POTASSIUM 3.3 mmol/L (3.6-5.0); SODIUM 143.3 mmol/L (137-145)
--- NOTE | 2016-10-14 07:55 | PDOC PROGRESS REPORT ---
Subjective Progress Note for:: 10/14/16 Subjective:: Patient without new complaints today but is concerned about the potential for more surgery Physical Exam Vital Signs: Temp Pulse Resp BP Pulse Ox 36.3 C 61 16 148/48 H 93 10/14/16 03:20 10/14/16 03:20 10/14/16 03:20 10/14/16 03:20 10/14/16 03:20 Intake & Output 10/13/16 10/14/16 10/15/16 06:59 06:59 06:59 Intake Total 1540 2300 Output Total 1050 2100 Balance 490 200 Weight 112.5 kg 111.1 kg General appearance: PRESENT: no acute distress Head exam: PRESENT: normocephalic Eye exam: PRESENT: EOMI Respiratory exam: PRESENT: unlabored Cardiovascular exam: PRESENT: RRR Pulses: PRESENT: +1 pedal pulses bilateral GI/Abdominal exam: PRESENT: soft Rectal exam: PRESENT: deferred Extremities exam: PRESENT: other - Right hip dressing is again changed today. My sense is that the volume of drainage is decreasing. Nursing concurs. Neurological exam: PRESENT: alert, awake, oriented to person, oriented to place , oriented to time, oriented to situation, CN II-XII grossly intact. ABSENT: motor sensory deficit Psychiatric exam: PRESENT: anxious Skin exam: PRESENT: dry, intact, warm. ABSENT: cyanosis, rash Results Laboratory Results: 10/14/16 05:12 10/14/16 05:12 10/14/16 10/14/16 05:12 05:12 WBC 9.7 RBC 3.60 L Hgb 10.1 L Hct 30.2 L MCV 84 MCH 28.2 MCHC 33.5 RDW 16.6 H Plt Count 412 Seg Neutrophils % 67.1 Lymphocytes % 19.0 Monocytes % 9.8 Eosinophils % 3.1 Basophils % 1.0 Absolute Neutrophils 6.5 Absolute Lymphocytes 1.8 Absolute Monocytes 0.9 Absolute Eosinophils 0.3 Absolute Basophils 0.1 Sodium 143.3 Potassium 3.3 L Chloride 105 Carbon Dioxide 26 Anion Gap 12 BUN 10 Creatinine 0.66 Est GFR ( Amer) > 60 Est GFR (Non-Af Amer) > 60 Glucose 90 Calcium 8.1 L 10/09/16 15:34 NT-Pro-B Natriuret Pep 2170 H Impressions: Hip/Pelvis X-Ray 10/04/16 10:12 IMPRESSION: Revision of hardware at the right proximal femur, new bone graft material is present anchored with cerclage wires with a new long femoral component of the hip replacement. Good alignment. Chest X-Ray 10/08/16 08:28 IMPRESSION: Mild patchy airspace disease left base suspicious for pneumonia. 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 Overall, the patient's doing well. Pain is well controlled. He is making progress with physical therapy. The concern was to persistent serosanguineous drainage from the wound. This appears to be decreasing. Plan will be to leave him on the operative schedule for Sunday for a IND but if the drainage continues to be decreased we can reassess this over the next 48 hours (2) Pneumonia Qualifiers: Pneumonia type: aspiration pneumonia Is this a current diagnosis for this admission?: Yes - Time Time Spent with patient: 15-24 minutes Anticipated discharge: SNF Within: within 72 hours
[2016-10-14] MEDS: FUROSEMIDE 20 MG TABLET PO SCH ×2 (10:58→17:43)
[2016-10-14] MEDS: PRENATAL VITAMIN W-O CA NO5/FE FUMARATE/FA CAPSULE PO SCH (10:58)
[2016-10-14] MEDS: OXYBUTYNIN CHLORIDE 5 MG TABLET PO SCH ×2 (10:58→17:43)
[2016-10-14] MEDS: SENNOSIDES/DOCUSATE 8.6-50 MG 1 EACH TABLET PO SCH ×2 (10:58→17:43)
[2016-10-14] MEDS: OMEGA-3 ACID ETHYL ESTERS 1 GM CAPSULE PO SCH (10:59)
[2016-10-14] MEDS: PREGABALIN 75 MG CAPSULE PO SCH ×2 (10:59→17:43)
[2016-10-14] MEDS: CARVEDILOL 12.5 MG TABLET PO SCH ×2 (10:59→21:10)
--- NOTE | 2016-10-14 12:35 | PDOC PROGRESS REPORT ---
Subjective Progress Note for:: 10/14/16 Subjective:: Doing well no specific complaints Decreased drainage from the hip Physical Exam Vital Signs: Temp Pulse Resp BP Pulse Ox 97.9 F 68 18 174/53 H 93 10/14/16 07:33 10/14/16 07:57 10/14/16 07:57 10/14/16 07:33 10/14/16 07:57 Intake & Output 10/13/16 10/14/16 10/15/16 00:59 00:59 00:59 Intake Total 1520 2340 200 Output Total 1080 1950 300 Balance 440 390 -100 Weight 111.1 kg General appearance: PRESENT: no acute distress, well-developed, well-nourished Head exam: PRESENT: atraumatic, normocephalic Respiratory exam: PRESENT: clear to auscultation jeremy. ABSENT: rales, rhonchi, wheezes Cardiovascular exam: PRESENT: RRR. ABSENT: diastolic murmur, rubs, systolic murmur Pulses: PRESENT: normal dorsalis pedis pul GI/Abdominal exam: PRESENT: normal bowel sounds, soft. ABSENT: distended, guarding, mass, organolmegaly, rebound, tenderness Extremities exam: PRESENT: full ROM. ABSENT: calf tenderness, clubbing, pedal edema Neurological exam: PRESENT: alert, awake, oriented to place, CN II-XII grossly intact. ABSENT: motor sensory deficit Results Laboratory Results: 10/14/16 05:12 10/14/16 05:12 10/14/16 10/14/16 05:12 05:12 WBC 9.7 RBC 3.60 L Hgb 10.1 L Hct 30.2 L MCV 84 MCH 28.2 MCHC 33.5 RDW 16.6 H Plt Count 412 Seg Neutrophils % 67.1 Lymphocytes % 19.0 Monocytes % 9.8 Eosinophils % 3.1 Basophils % 1.0 Absolute Neutrophils 6.5 Absolute Lymphocytes 1.8 Absolute Monocytes 0.9 Absolute Eosinophils 0.3 Absolute Basophils 0.1 Sodium 143.3 Potassium 3.3 L Chloride 105 Carbon Dioxide 26 Anion Gap 12 BUN 10 Creatinine 0.66 Est GFR ( Amer) > 60 Est GFR (Non-Af Amer) > 60 Glucose 90 Calcium 8.1 L 10/09/16 15:34 NT-Pro-B Natriuret Pep 2170 H Impressions: Hip/Pelvis X-Ray 10/04/16 10:12 IMPRESSION: Revision of hardware at the right proximal femur, new bone graft material is present anchored with cerclage wires with a new long femoral component of the hip replacement. Good alignment. Chest X-Ray 10/08/16 08:28 IMPRESSION: Mild patchy airspace disease left base suspicious for pneumonia. 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 Cárdenas Patient may be discharged on Sunday if he remains stable Time Spent with patient: 15-24 minutes
[2016-10-14] MEDS ORDERED: POTASSIUM CHLORIDE 10 MEQ TABLET.SA PO ONE (13:00)
[2016-10-14] MEDS: ISOSORBIDE DINITRATE 20 MG TABLET PO SCH (17:44)
[2016-10-14] MEDS: POTASSIUM CHLORIDE 10 MEQ TABLET.SA PO SCH (21:09)
[2016-10-14] MEDS: ATORVASTATIN CALCIUM 40 MG TABLET PO SCH (21:10)
[2016-10-14] MEDS: RIVAROXABAN 10 MG TABLET PO SCH (21:10)
[2016-10-14] MEDS: PRIMIDONE 50 MG TABLET PO SCH (21:12)
[2016-10-15] MEDS: ALBUTEROL SULFATE 0.083% NEB 2.5 MG/3 ML AMPUL NEB SCH ×4 (00:05→23:34)
[2016-10-15] MEDS: AMPICILLIN SODIUM/SULBACTAM NA 3 GM in NORMAL SALINE 100 ML IV SCH ×4 (03:57→22:06)
[2016-10-15] MEDS: LANSOPRAZOLE 30 MG TAB.RAP.DR PO SCH (05:26)
--- NOTE | 2016-10-15 07:57 | PDOC PROGRESS REPORT ---
Subjective Progress Note for:: 10/15/16 Subjective:: Patient denies any significant discomfort Physical Exam Vital Signs: Temp Pulse Resp BP Pulse Ox 36.6 C 74 18 177/45 H 94 10/15/16 07:12 10/15/16 07:12 10/15/16 07:12 10/15/16 07:12 10/15/16 07:12 Intake & Output 10/14/16 10/15/16 10/16/16 06:59 06:59 06:59 Intake Total 2300 1151 Output Total 2100 850 Balance 200 301 Weight 111.1 kg 110.3 kg General appearance: PRESENT: mild distress Head exam: PRESENT: normocephalic Eye exam: PRESENT: EOMI Respiratory exam: PRESENT: unlabored Cardiovascular exam: PRESENT: RRR Pulses: PRESENT: +1 pedal pulses bilateral GI/Abdominal exam: PRESENT: soft Rectal exam: PRESENT: deferred Extremities exam: PRESENT: other - Right lower extremity. Drainage continues to decrease. At this point I changed her dressing today that I put on yesterday morning. While there is considerable drainage. It's not completely saturated. Has not leaked onto the bedding as it has in the past. It's primarily in the proximal half and maybe in the middle third of the wound. The drainage is emanating. Psychiatric exam: PRESENT: anxious Results Laboratory Results: 10/14/16 05:12 10/14/16 05:12 10/09/16 15:34 NT-Pro-B Natriuret Pep 2170 H Impressions: Hip/Pelvis X-Ray 10/04/16 10:12 IMPRESSION: Revision of hardware at the right proximal femur, new bone graft material is present anchored with cerclage wires with a new long femoral component of the hip replacement. Good alignment. Chest X-Ray 10/08/16 08:28 IMPRESSION: Mild patchy airspace disease left base suspicious for pneumonia. Assessment & Plan - Diagnosis (1) Periprosthetic fracture of femur following total replacement of hip Is this a current diagnosis for this admission?: YesPlan: 85-year-old white male male approximate 10 days status post revision right hip arthroplasty Max Meeks that she'll fixation of periprosthetic fracture with persistent wound drainage. All it would be ideal to save the patient of the surgical intervention. I also think that it may not be in his best interest to ignore it. Unless the drainage is significantly improve by tomorrow morning. I think we should proceed with irrigation debridement and good deep cultures. (2) Pneumonia Qualifiers: Pneumonia type: aspiration pneumonia Is this a current diagnosis for this admission?: Yes - Time Time Spent with patient: 15-24 minutes Anticipated discharge: SNF Within: Other
[2016-10-15] MEDS: PREGABALIN 75 MG CAPSULE PO SCH ×2 (09:28→18:04)
[2016-10-15] MEDS: OXYBUTYNIN CHLORIDE 5 MG TABLET PO SCH ×2 (09:28→18:03)
[2016-10-15] MEDS: POTASSIUM CHLORIDE 10 MEQ TABLET.SA PO SCH ×2 (09:28→22:06)
[2016-10-15] MEDS: PRENATAL VITAMIN W-O CA NO5/FE FUMARATE/FA CAPSULE PO SCH (09:28)
[2016-10-15] MEDS: OMEGA-3 ACID ETHYL ESTERS 1 GM CAPSULE PO SCH (09:31)
[2016-10-15] MEDS: CARVEDILOL 12.5 MG TABLET PO SCH ×2 (09:32→22:07)
[2016-10-15] MEDS: SENNOSIDES/DOCUSATE 8.6-50 MG 1 EACH TABLET PO SCH ×2 (09:33→18:04)
[2016-10-15] MEDS: FUROSEMIDE 20 MG TABLET PO SCH ×2 (09:33→18:03)
--- NOTE | 2016-10-15 18:02 | PDOC PROGRESS REPORT ---
Subjective Progress Note for:: 10/15/16 Subjective:: No complaints ; left hip surgical site still draining somewhat Patient is scheduled for surgery tomorrow Otherwise he has no chest pain no shortness of breath he is ambulating with minimal pain with physical therapy Physical Exam Vital Signs: Temp Pulse Resp BP Pulse Ox 98.5 F 76 16 166/49 H 96 10/15/16 15:20 10/15/16 15:42 10/15/16 15:42 10/15/16 15:20 10/15/16 15:42 Intake & Output 10/14/16 10/15/16 10/16/16 00:59 00:59 00:59 Intake Total 2340 1051 520 Output Total 1950 750 500 Balance 390 301 20 Weight 111.1 kg 110.3 kg General appearance: PRESENT: no acute distress, well-developed, well-nourished Head exam: PRESENT: atraumatic, normocephalic Eye exam: PRESENT: conjunctiva pink, EOMI, PERRLA. ABSENT: scleral icterus Ear exam: PRESENT: normal external ear exam Mouth exam: PRESENT: moist, tongue midline Neck exam: ABSENT: carotid bruit, JVD, lymphadenopathy, thyromegaly Respiratory exam: PRESENT: clear to auscultation jeremy. ABSENT: rales, rhonchi, wheezes Cardiovascular exam: PRESENT: RRR. ABSENT: diastolic murmur, rubs, systolic murmur GI/Abdominal exam: PRESENT: normal bowel sounds, soft. ABSENT: distended, guarding, mass, organolmegaly, rebound, tenderness Rectal exam: PRESENT: deferred Extremities exam: PRESENT: full ROM. ABSENT: pedal edema Neurological exam: PRESENT: alert, awake, oriented to person, oriented to place , oriented to time, oriented to situation, CN II-XII grossly intact. ABSENT: motor sensory deficit Psychiatric exam: PRESENT: appropriate affect, normal mood. ABSENT: homicidal ideation, suicidal ideation Skin exam: PRESENT: dry, intact, warm. ABSENT: cyanosis, rash Results Laboratory Results: 10/14/16 05:12 10/14/16 05:12 10/09/16 15:34 NT-Pro-B Natriuret Pep 2170 H Impressions: Hip/Pelvis X-Ray 10/04/16 10:12 IMPRESSION: Revision of hardware at the right proximal femur, new bone graft material is present anchored with cerclage wires with a new long femoral component of the hip replacement. Good alignment. Chest X-Ray 10/08/16 08:28 IMPRESSION: Mild patchy airspace disease left base suspicious for pneumonia. Assessment & Plan - Diagnosis (1) History of prosthetic aortic valve replacement Is this a current diagnosis for this admission?: Yes (2) Periprosthetic fracture of femur following total replacement of hip Is this a current diagnosis for this admission?: Yes (3) Pneumonia Qualifiers: Pneumonia type: aspiration pneumonia Is this a current diagnosis for this admission?: Yes (4) Chronic systolic congestive heart failure Is this a current diagnosis for this admission?: Yes (5) DVT prophylaxis Is this a current diagnosis for this admission?: Yes - Time Time Spent with patient: Continue present management ; patient scheduled for surgery tomorrow Dr. Cárdenas
[2016-10-15] MEDS: ISOSORBIDE DINITRATE 20 MG TABLET PO SCH (18:03)
[2016-10-15] MEDS: PRIMIDONE 50 MG TABLET PO SCH (22:06)
[2016-10-15] MEDS: ATORVASTATIN CALCIUM 40 MG TABLET PO SCH (22:06)
[2016-10-16] MEDS: RINGERS SOLUTION,LACTATED 1,000 ML IV PRN ×2 (02:58→22:21)
[2016-10-16] MEDS: AMPICILLIN SODIUM/SULBACTAM NA 3 GM in NORMAL SALINE 100 ML IV SCH ×2 (02:58→10:19)
[2016-10-16 05:01] LABS: ABSOLUTE BASOPHILS # (AUTO) 0.1 10^3/uL (0.0-0.2); ABSOLUTE EOSINOPHILS # (AUTO) 0.2 10^3/uL (0.0-0.6); ABSOLUTE MONOCYTES (AUTO) 0.9 10^3/uL (0.1-1.4); ABSOLUTE NEUT (AUTO) 5.8 10^3/uL (1.7-8.2); EOSINOPHILS % (AUTO) 2.4 % (0-6); HEMATOCRIT 30.9 % (37.9-51.0); HEMOGLOBIN 10.2 g/dL (13.5-17.0); HGB HCT DIFFERENCE -0.3; LYMPHOCYTES % (AUTO) 22.2 % (13-45); MEAN CORPUSCULAR HGB CONC 32.9 g/dL (32.0-36.0); MEAN CORPUSCULAR VOLUME 85 fl (80-97); MONOCYTES % (AUTO) 9.7 % (3-13); RED BLOOD COUNT 3.63 10^6/uL (4.35-5.55); RED CELL DISTRIBUTION WIDTH 16.6 % (11.5-14.0); SEGMENTED NEUTROPHILS % (AUTO) 64.7 % (42-78)
[2016-10-16] MEDS: LANSOPRAZOLE 30 MG TAB.RAP.DR PO SCH (05:07)
[2016-10-16 05:20] LABS: ANION GAP 9 (5-19); BLOOD UREA NITROGEN 11 mg/dL (7-20); CALCIUM 8.3 mg/dL (8.4-10.2); CARBON DIOXIDE 27 mmol/L (22-30); CHLORIDE 108 mmol/L (98-107); GLUCOSE 100 mg/dL (75-110); POTASSIUM 3.9 mmol/L (3.6-5.0); SODIUM 144.2 mmol/L (137-145)
[2016-10-16] MEDS ORDERED: LIDOCAINE 2% INJ-PF (20 MG/ML) 10 ML AMPUL ONE (08:15)
[2016-10-16] MEDS ORDERED: SUCCINYLCHOLINE CHLORIDE INJ 200 MG/10 ML VIAL ONE (08:15)
[2016-10-16] MEDS ORDERED: PHENYLEPHRINE HCL INJ/PF 10 MG/1 ML SDV ONE (08:15)
[2016-10-16] MEDS ORDERED: ONDANSETRON HCL INJ/PF 4 MG/2 ML SDV ONE (08:15)
[2016-10-16] MEDS: ALBUTEROL SULFATE 0.083% NEB 2.5 MG/3 ML AMPUL NEB SCH ×3 (08:20→23:54)
[2016-10-16] MEDS ORDERED: THROMBIN (BOVINE) TOPICAL 20000 UNIT VIAL ONE (09:38)
[2016-10-16] MEDS ORDERED: THROMBIN (BOVINE) 5000 UNIT EPITAXIS KIT ONE (09:38)
[2016-10-16] MEDS ORDERED: BACITRACIN INJ 50,000 UNIT VIAL ONE (09:38)
[2016-10-16] MEDS: PREGABALIN 75 MG CAPSULE PO SCH ×2 (10:38→17:19)
[2016-10-16] MEDS: OMEGA-3 ACID ETHYL ESTERS 1 GM CAPSULE PO SCH (10:38)
[2016-10-16] MEDS: CARVEDILOL 12.5 MG TABLET PO SCH ×2 (10:39→22:22)
[2016-10-16] MEDS: OXYBUTYNIN CHLORIDE 5 MG TABLET PO SCH ×2 (10:39→17:18)
[2016-10-16] MEDS: FUROSEMIDE 20 MG TABLET PO SCH ×2 (10:39→17:18)
[2016-10-16] MEDS: PRENATAL VITAMIN W-O CA NO5/FE FUMARATE/FA CAPSULE PO SCH (10:39)
[2016-10-16] MEDS: SENNOSIDES/DOCUSATE 8.6-50 MG 1 EACH TABLET PO SCH ×2 (10:39→17:19)
[2016-10-16] MEDS: POTASSIUM CHLORIDE 10 MEQ TABLET.SA PO SCH ×2 (10:39→22:22)
[2016-10-16] MEDS ORDERED: MIDAZOLAM 2 MG/2 ML INJ ONE (11:24)
[2016-10-16] MEDS ORDERED: FENTANYL CITRATE INJ/PF 100 MCG/2 ML AMPUL ONE (11:24)
[2016-10-16] MEDS ORDERED: DEXMEDETOMIDINE INJ 80 MCG/20 ML VIAL IV ONE (11:25)
[2016-10-16] MEDS ORDERED: EPHEDRINE SULFATE INJ 50 MG/1 ML AMPULE ONE (11:25)
[2016-10-16] MEDS ORDERED: PROPOFOL INJ 200 MG/20 ML VIAL IV ONE (11:25)
[2016-10-16] MEDS ORDERED: BUPIVACAINE INJ/PF LIPOSOME/PF 266 MG/20 ML SDV ONE (12:57)
[2016-10-16] MEDS ORDERED: FENTANYL CITRATE INJ/PF 100 MCG/2 ML AMPUL IV PRN ×3 (13:12)
[2016-10-16] MEDS ORDERED: DIPHENHYDRAMINE HCL 50 MG/ML VIAL IV PRN (13:12)
[2016-10-16] MEDS ORDERED: MEPERIDINE HCL/PF INJ 25 MG/1 ML DISP.SYRIN IV PRN (13:12)
[2016-10-16] MEDS ORDERED: PROMETHAZINE HCL INJ 25 MG/1 ML VIAL IV PRN ×2 (13:12)
[2016-10-16] MEDS ORDERED: MORPHINE SULFATE 10 MG/ML INJ IV PRN (13:12)
[2016-10-16] MEDS ORDERED: OXYCODONE-ACETAMINOPHEN 5-325 MG TABLET PO PRN ×2 (13:12)
--- NOTE | 2016-10-16 13:43 | Operative Report ---
Operative Report DATE OF SURGERY: 10/16/16 PREOPERATIVE DIAGNOSIS: Periprosthetic right femur fracture status post ORIF with persistent drainage OPERATION: Irrigation debridement, removal of cortical onlay strut grafts SURGEON: JAMISON REYES ANESTHESIA: GA TISSUE REMOVED OR ALTERED: Cultures to microbiology. ESTIMATED BLOOD LOSS: 100 PROCEDURE: With the patient in a left lateral decubitus position on the operating table the right lower extremity hindquarter prepped and draped in sterile fashion. The existing arabella were removed. The entire incision is opened. Once encountered seems to be liquefied hematoma. This is cultured. The wound is then irrigated with pulsed lavage and 6 L. A #10 Hernandez-Crowell drain is then placed into the wound. The wound is then closed in layers using interrupted PDS followed by arabella. A sterile compressive dressing was applied.
[2016-10-16] MEDS: FENTANYL CITRATE INJ/PF 100 MCG/2 ML AMPUL ONE ×2 (14:22→14:32)
[2016-10-16] MEDS ORDERED: ASPIRIN 325 MG TABLET, ENT COATED PO ONE (16:00)
[2016-10-16] MEDS: OXYCODONE HCL IR 5 MG TABLET PO PRN (17:18)
[2016-10-16] MEDS: ISOSORBIDE DINITRATE 20 MG TABLET PO SCH (17:18)
[2016-10-16] MEDS: PRIMIDONE 50 MG TABLET PO SCH (22:22)
[2016-10-16] MEDS: ATORVASTATIN CALCIUM 40 MG TABLET PO SCH (22:22)
--- NOTE | 2016-10-16 22:26 | PDOC PROGRESS REPORT ---
Subjective Progress Note for:: 10/16/16 Subjective:: Patient is to undergo irrigation of the wound in the OR as there is still persistent drainage ; he has been clinically doing extremely well He is able to ambulate with a walker Patient's mentation is excellent He is had no fever no chills no shortness of breath no chest pain Physical Exam Vital Signs: Temp Pulse Resp BP Pulse Ox 98.4 F 109 H 17 136/86 H 97 10/16/16 20:45 10/16/16 20:45 10/16/16 20:45 10/16/16 20:45 10/16/16 20:45 Intake & Output 10/15/16 10/16/16 10/17/16 00:59 00:59 00:59 Intake Total 1051 1320 9537 Output Total 750 1100 8340 Balance 978 397 4369 Weight 110.3 kg 109.9 kg General appearance: PRESENT: no acute distress, well-developed, well-nourished Head exam: PRESENT: atraumatic, normocephalic Eye exam: PRESENT: conjunctiva pink, EOMI, PERRLA. ABSENT: scleral icterus Ear exam: PRESENT: normal external ear exam Mouth exam: PRESENT: moist, tongue midline Neck exam: ABSENT: carotid bruit, JVD, lymphadenopathy, thyromegaly Respiratory exam: PRESENT: clear to auscultation jeremy. ABSENT: rales, rhonchi, wheezes Cardiovascular exam: PRESENT: RRR. ABSENT: diastolic murmur, rubs, systolic murmur Pulses: PRESENT: normal dorsalis pedis pul Vascular exam: PRESENT: normal capillary refill GI/Abdominal exam: PRESENT: normal bowel sounds, soft. ABSENT: distended, guarding, mass, organolmegaly, rebound, tenderness Rectal exam: PRESENT: deferred Extremities exam: PRESENT: full ROM. ABSENT: calf tenderness, clubbing, pedal edema Neurological exam: PRESENT: alert, awake, oriented to person, oriented to place , oriented to time, oriented to situation, CN II-XII grossly intact. ABSENT: motor sensory deficit Psychiatric exam: PRESENT: appropriate affect, normal mood. ABSENT: homicidal ideation, suicidal ideation Skin exam: PRESENT: dry, intact, warm. ABSENT: cyanosis, rash Results Laboratory Results: 10/16/16 04:21 10/16/16 04:21 10/16/16 10/16/16 04:21 04:21 WBC 9.0 RBC 3.63 L Hgb 10.2 L Hct 30.9 L MCV 85 MCH 28.0 MCHC 32.9 RDW 16.6 H Plt Count 434 Seg Neutrophils % 64.7 Lymphocytes % 22.2 Monocytes % 9.7 Eosinophils % 2.4 Basophils % 1.0 Absolute Neutrophils 5.8 Absolute Lymphocytes 2.0 Absolute Monocytes 0.9 Absolute Eosinophils 0.2 Absolute Basophils 0.1 Sodium 144.2 Potassium 3.9 Chloride 108 H Carbon Dioxide 27 Anion Gap 9 BUN 11 Creatinine 0.70 Est GFR ( Amer) > 60 Est GFR (Non-Af Amer) > 60 Glucose 100 Calcium 8.3 L 10/09/16 15:34 NT-Pro-B Natriuret Pep 2170 H Impressions: Hip/Pelvis X-Ray 10/04/16 10:12 IMPRESSION: Revision of hardware at the right proximal femur, new bone graft material is present anchored with cerclage wires with a new long femoral component of the hip replacement. Good alignment. Chest X-Ray 10/08/16 08:28 IMPRESSION: Mild patchy airspace disease left base suspicious for pneumonia. Assessment & Plan - Diagnosis (1) History of prosthetic aortic valve replacement Is this a current diagnosis for this admission?: Yes (2) Periprosthetic fracture of femur following total replacement of hip Is this a current diagnosis for this admission?: Yes (3) Pneumonia Qualifiers: Pneumonia type: aspiration pneumonia Is this a current diagnosis for this admission?: Yes (4) Chronic systolic congestive heart failure Is this a current diagnosis for this admission?: Yes (5) DVT prophylaxis Is this a current diagnosis for this admission?: Yes - Time Time Spent with patient: Continue present management Patient may be discharged to rehabilitation as per Dr Melia Cárdenas Time Spent with patient: 15-24 minutes
[2016-10-17] MEDS: LANSOPRAZOLE 30 MG TAB.RAP.DR PO SCH (05:48)
[2016-10-17 07:05] LABS: ABSOLUTE BASOPHILS # (AUTO) 0.1 10^3/uL (0.0-0.2); ABSOLUTE EOSINOPHILS # (AUTO) 0.2 10^3/uL (0.0-0.6); ABSOLUTE LYMPHOCYTES (AUTO) 1.7 10^3/uL (0.5-4.7); ABSOLUTE MONOCYTES (AUTO) 1.2 10^3/uL (0.1-1.4); ABSOLUTE NEUT (AUTO) 8.1 10^3/uL (1.7-8.2); BASOPHILS % (AUTO) 0.7 % (0-2); EOSINOPHILS % (AUTO) 1.3 % (0-6); HEMATOCRIT 28.6 % (37.9-51.0); HEMOGLOBIN 9.4 g/dL (13.5-17.0); HGB HCT DIFFERENCE -0.4; LYMPHOCYTES % (AUTO) 15.1 % (13-45); MEAN CORPUSCULAR HEMOGLOBIN 28.3 pg (27.0-33.4); MEAN CORPUSCULAR HGB CONC 32.7 g/dL (32.0-36.0); MEAN CORPUSCULAR VOLUME 87 fl (80-97); RED CELL DISTRIBUTION WIDTH 16.8 % (11.5-14.0); SEGMENTED NEUTROPHILS % (AUTO) 71.9 % (42-78); WHITE BLOOD COUNT 11.3 10^3/uL (4.0-10.5)
[2016-10-17 07:35] LABS: ANION GAP 6 (5-19); BLOOD UREA NITROGEN 12 mg/dL (7-20); CALCIUM 8.4 mg/dL (8.4-10.2); CARBON DIOXIDE 32 mmol/L (22-30); CHLORIDE 104 mmol/L (98-107); CREATININE RESULT 0.71 mg/dL (0.52-1.25); GLUCOSE 104 mg/dL (75-110); POTASSIUM 4.5 mmol/L (3.6-5.0); SODIUM 141.8 mmol/L (137-145)
[2016-10-17] MEDS: ALBUTEROL SULFATE 0.083% NEB 2.5 MG/3 ML AMPUL NEB SCH ×2 (07:52→15:37)
[2016-10-17 08:14] LABS: ERYTHROCYTE SEDIMENTATION RATE 50 mm/hr (0-20)
[2016-10-17] MEDS: OMEGA-3 ACID ETHYL ESTERS 1 GM CAPSULE PO SCH (09:20)
[2016-10-17] MEDS: POTASSIUM CHLORIDE 10 MEQ TABLET.SA PO SCH ×2 (09:20→21:22)
[2016-10-17] MEDS: FUROSEMIDE 20 MG TABLET PO SCH ×2 (09:21→17:28)
[2016-10-17] MEDS: PRENATAL VITAMIN W-O CA NO5/FE FUMARATE/FA CAPSULE PO SCH (09:21)
[2016-10-17] MEDS: SENNOSIDES/DOCUSATE 8.6-50 MG 1 EACH TABLET PO SCH ×2 (09:21→17:28)
[2016-10-17] MEDS: OXYCODONE HCL IR 5 MG TABLET PO PRN (09:21)
[2016-10-17] MEDS: OXYBUTYNIN CHLORIDE 5 MG TABLET PO SCH ×2 (09:21→17:29)
[2016-10-17] MEDS: CARVEDILOL 12.5 MG TABLET PO SCH ×2 (09:21→21:22)
[2016-10-17] MEDS: PREGABALIN 75 MG CAPSULE PO SCH ×2 (09:21→17:28)
[2016-10-17] MEDS: ASPIRIN 325 MG TABLET, ENT COATED PO SCH (09:25)
--- NOTE | 2016-10-17 14:02 | PDOC PROGRESS REPORT ---
Subjective Progress Note for:: 10/17/16 Subjective:: Reason for visit: Follow-up acute respiratory failure with hypoxia, pneumonia, femur fracture, chronic systolic heart failure Hospital course: Per my consult note "PEACE FRAGA is a 85 year old male presented from home after a fall with resultant sharp, stabbing hip pain and was found to have new fracture around the prosthesis placed in 07/2016 after a fall and hip fracture then. He had been recovering nicely, progressing to independent ambulation but stumbled over a step stool falling onto his Rt side and re-fracturing the hip. He has had a bit of complicated course requiring surgical revision - please Dr Cárdenas's notes for all the details. This past weekend he started to c/o cough productive of greenish garcia phlegm and dyspnea with exertion without wheeze or chest pain. He was placed on O2 up to 4L/min and managed expectantly, gradually improving to the point he states he feels much better this morning. However his primary nurse last night noted some rales at the left base, CXR ordered by attending this morning with radiologist reading a LLL infiltrate and we were consulted for evaluation and management of possible pneumonia. He has long cardiac hx with reported chronic systolic heart failure, prior AMI/ CAD/ASCVD s/p 5v CABG, [facility] for cardiac dysrhythmia, porcine AoV placed at [facility] 2004." He completed a course of antibiotics and improved from a respiratory standpoint back to baseline maintaining room air sats of 95% with clearing of his cough, congestion and associated confusion. His hospital course has been complicated by development of a hematoma at the surgical site requiring additional surgical exploration and I&D on 10/16/2016. Subjective: He denies chest pain, palpitations, shortness of breath, fever, chills. Continues to complain of pain in the right hip from his surgery but tolerates it and is only requesting intermittent doses of oral narcotics. ROS: per HPI plus a total of 10 systems reviewed, pertinent positives and negatives noted above, remaining systems negative. Physical Exam Vital Signs: Temp Pulse Resp BP Pulse Ox 99.7 F 69 14 110/36 L 95 10/17/16 11:59 10/17/16 11:59 10/17/16 11:59 10/17/16 11:59 10/17/16 11:59 Intake & Output 10/16/16 10/17/16 10/18/16 06:59 06:59 06:59 Intake Total 1820 61306 Output Total 1000 8842 Balance 820 1622 Weight 109.9 kg EXAM GENERAL: NAD; well developed, well nourished; mild obese; alert and oriented to person, place, time, situation HEENT: normocephalic, atraumatic; no conjunctival injection, no scleral icterus ; oral mucosa moist; RESPIRATORY: no accessory muscle use, no increased WOB, good air entry bilaterally; no wheezes, rales, rhonchi; bilateral inspiratory crackles CARDIO: no JVD; RRR; no systolic murmur; no tachycardia GI: soft; nondistended; normal bowel sounds; no rebound, rigidity, guarding; nontender VASCULAR: no pallor; 2+ radial, DP pulse; normal capillary refill EXTREMITIES: no calf tender; no palpable cords in calf; no clubbing, cyanosis , pedal edema; right hip surgical wound is clean and dry with a BAKARI drain in place and approximately 40 mL of clear serosanguineous fluid PSYCH: normal affect, normal mood SKIN: warm; moist; no petechiae; no telengectasias; no jaundice; no rash Results Laboratory Results: 10/17/16 06:01 10/17/16 06:01 10/17/16 10/17/16 06:01 06:01 WBC 11.3 H RBC 3.30 L Hgb 9.4 L Hct 28.6 L MCV 87 MCH 28.3 MCHC 32.7 RDW 16.8 H Plt Count 382 Seg Neutrophils % 71.9 Lymphocytes % 15.1 Monocytes % 11.0 Eosinophils % 1.3 Basophils % 0.7 Absolute Neutrophils 8.1 Absolute Lymphocytes 1.7 Absolute Monocytes 1.2 Absolute Eosinophils 0.2 Absolute Basophils 0.1 Sodium 141.8 Potassium 4.5 Chloride 104 Carbon Dioxide 32 H Anion Gap 6 BUN 12 Creatinine 0.71 Est GFR ( Amer) > 60 Est GFR (Non-Af Amer) > 60 Glucose 104 Calcium 8.4 C-Reactive Protein 42.0 H 10/09/16 15:34 NT-Pro-B Natriuret Pep 2170 H Impressions: Hip/Pelvis X-Ray 10/04/16 10:12 IMPRESSION: Revision of hardware at the right proximal femur, new bone graft material is present anchored with cerclage wires with a new long femoral component of the hip replacement. Good alignment. Chest X-Ray 10/08/16 08:28 IMPRESSION: Mild patchy airspace disease left base suspicious for pneumonia. Assessment & Plan - Diagnosis (1) Periprosthetic fracture of femur following total replacement of hip Is this a current diagnosis for this admission?: YesPlan: Per orthopedic surgery. BAKARI drain remains in place. No overlying erythema to suggest cellulitis. No clear indication for ongoing antibiotics. Culture from the fluid still pending but no growth at day 1. (2) Chronic systolic congestive heart failure Is this a current diagnosis for this admission?: YesPlan: Stable (3) Hyperlipidemia Qualifiers: Hyperlipidemia type: unspecified Qualified Code(s): E78.5 - Hyperlipidemia, unspecified Is this a current diagnosis for this admission?: YesPlan: Continue home regimen (4) Stented coronary artery Is this a current diagnosis for this admission?: YesPlan: no active chest pain. Stable (5) History of prosthetic aortic valve replacement Is this a current diagnosis for this admission?: YesPlan: takes ASA chronically, no anticoagulation indicated. no clinical evidence for valve failure complicating his situation. Stable (6) Pneumonia Qualifiers: Pneumonia type: aspiration pneumonia Is this a current diagnosis for this admission?: YesPlan: Resolved (7) Acute respiratory failure with hypoxia Is this a current diagnosis for this admission?: YesPlan: Resolved - Time Time Spent with patient: 25-34 minutes - Plan Summary Plan Summary: Disposition per orthopedic surgery. Patient's chronic medical conditions stable at this time.
[2016-10-17] MEDS: ACETAMINOPHEN 325 MG TABLET PO PRN (17:28)
[2016-10-17] MEDS: ISOSORBIDE DINITRATE 20 MG TABLET PO SCH (17:29)
[2016-10-17] MEDS: PRIMIDONE 50 MG TABLET PO SCH (21:22)
[2016-10-17] MEDS: ATORVASTATIN CALCIUM 40 MG TABLET PO SCH (21:22)
[2016-10-18] MEDS: ALBUTEROL SULFATE 0.083% NEB 2.5 MG/3 ML AMPUL NEB SCH ×4 (01:19→23:42)
[2016-10-18] MEDS: LANSOPRAZOLE 30 MG TAB.RAP.DR PO SCH (06:01)
--- NOTE | 2016-10-18 07:23 | PDOC PROGRESS REPORT ---
Subjective Progress Note for:: 10/18/16 Subjective:: Patient with no acute complaints Physical Exam Vital Signs: Temp Pulse Resp BP Pulse Ox 36.5 C 62 19 123/57 L 97 10/18/16 04:04 10/18/16 04:04 10/18/16 04:04 10/18/16 04:04 10/18/16 04:04 Intake & Output 10/17/16 10/18/16 10/19/16 06:59 06:59 06:59 Intake Total 45916 630 Output Total 8835 525 Balance 1622 105 General appearance: PRESENT: no acute distress Head exam: PRESENT: normocephalic Eye exam: PRESENT: EOMI Respiratory exam: PRESENT: unlabored Cardiovascular exam: PRESENT: RRR Pulses: PRESENT: +1 pedal pulses bilateral Vascular exam: PRESENT: normal capillary refill GI/Abdominal exam: PRESENT: soft Rectal exam: PRESENT: deferred Extremities exam: PRESENT: other - Right lower extremity dressing is changes morning in has a significant amount of serous drainage. Hernandez-Crowell drain likewise has a small amount of drainage. Distal neurovascular examinations intact. Results Laboratory Results: 10/17/16 06:01 10/17/16 06:01 10/17/16 10/17/16 06:01 06:01 WBC 11.3 H RBC 3.30 L Hgb 9.4 L Hct 28.6 L MCV 87 MCH 28.3 MCHC 32.7 RDW 16.8 H Plt Count 382 Seg Neutrophils % 71.9 Lymphocytes % 15.1 Monocytes % 11.0 Eosinophils % 1.3 Basophils % 0.7 Absolute Neutrophils 8.1 Absolute Lymphocytes 1.7 Absolute Monocytes 1.2 Absolute Eosinophils 0.2 Absolute Basophils 0.1 Sodium 141.8 Potassium 4.5 Chloride 104 Carbon Dioxide 32 H Anion Gap 6 BUN 12 Creatinine 0.71 Est GFR ( Amer) > 60 Est GFR (Non-Af Amer) > 60 Glucose 104 Calcium 8.4 C-Reactive Protein 42.0 H 10/09/16 15:34 NT-Pro-B Natriuret Pep 2170 H Impressions: Hip/Pelvis X-Ray 10/04/16 10:12 IMPRESSION: Revision of hardware at the right proximal femur, new bone graft material is present anchored with cerclage wires with a new long femoral component of the hip replacement. Good alignment. Chest X-Ray 10/08/16 08:28 IMPRESSION: Mild patchy airspace disease left base suspicious for pneumonia. Assessment & Plan - Diagnosis (1) Periprosthetic fracture of femur following total replacement of hip Is this a current diagnosis for this admission?: YesPlan: Patient making excellent progress with physical therapy. Pain seems to relatively well controlled. We continue to have wound drainage. Intraoperative cultures remain negative. Sedimentation rate is decreasing from 7950 and this is probably elevated because of postoperative status as well as potentially from the pneumonia. Continue with dry dressing changes and observe the wound. Once the wound drainage has become under better control, we can consider transfer to a retirement facility. (2) Pneumonia Qualifiers: Pneumonia type: aspiration pneumonia Is this a current diagnosis for this admission?: Yes - Time Time Spent with patient: 15-24 minutes Anticipated discharge: SNF Within: Other
[2016-10-18] MEDS: PRENATAL VITAMIN W-O CA NO5/FE FUMARATE/FA CAPSULE PO SCH (09:08)
[2016-10-18] MEDS: CARVEDILOL 12.5 MG TABLET PO SCH ×2 (09:08→21:43)
[2016-10-18] MEDS: POTASSIUM CHLORIDE 10 MEQ TABLET.SA PO SCH ×2 (09:08→21:43)
[2016-10-18] MEDS: OXYBUTYNIN CHLORIDE 5 MG TABLET PO SCH ×2 (09:08→17:19)
[2016-10-18] MEDS: OMEGA-3 ACID ETHYL ESTERS 1 GM CAPSULE PO SCH (09:08)
[2016-10-18] MEDS: PREGABALIN 75 MG CAPSULE PO SCH ×2 (09:09→17:19)
[2016-10-18] MEDS: SENNOSIDES/DOCUSATE 8.6-50 MG 1 EACH TABLET PO SCH ×2 (09:09→17:19)
[2016-10-18] MEDS: OXYCODONE HCL IR 5 MG TABLET PO PRN (09:09)
[2016-10-18] MEDS: FUROSEMIDE 20 MG TABLET PO SCH ×2 (09:09→17:19)
[2016-10-18] MEDS: ASPIRIN 325 MG TABLET, ENT COATED PO SCH (09:11)
--- NOTE | 2016-10-18 17:13 | PDOC PROGRESS REPORT ---
Subjective Progress Note for:: 10/18/16 Subjective:: Reason for visit: Follow-up acute respiratory failure with hypoxia, pneumonia, femur fracture, chronic systolic heart failure Hospital course: Per my consult note "PEACE FRAGA is a 85 year old male presented from home after a fall with resultant sharp, stabbing hip pain and was found to have new fracture around the prosthesis placed in 07/2016 after a fall and hip fracture then. He had been recovering nicely, progressing to independent ambulation but stumbled over a step stool falling onto his Rt side and re-fracturing the hip. He has had a bit of complicated course requiring surgical revision - please Dr Cárdenas's notes for all the details. This past weekend he started to c/o cough productive of greenish garcia phlegm and dyspnea with exertion without wheeze or chest pain. He was placed on O2 up to 4L/min and managed expectantly, gradually improving to the point he states he feels much better this morning. However his primary nurse last night noted some rales at the left base, CXR ordered by attending this morning with radiologist reading a LLL infiltrate and we were consulted for evaluation and management of possible pneumonia. He has long cardiac hx with reported chronic systolic heart failure, prior AMI/ CAD/ASCVD s/p 5v CABG, [facility] for cardiac dysrhythmia, porcine AoV placed at [facility] 2004." He completed a course of antibiotics and improved from a respiratory standpoint back to baseline maintaining room air sats of 95% with clearing of his cough, congestion and associated confusion. His hospital course has been complicated by development of a hematoma at the surgical site requiring additional surgical exploration and I&D on 10/16/2016. Subjective: He denies chest pain, palpitations, shortness of breath, fever, chills. Continues to complain of pain in the right hip from his surgery but tolerates it and is only requesting intermittent doses of oral narcotics. Wound and BAKARI drain continued to produce serosanguineous fluid. ROS: per HPI plus a total of 10 systems reviewed, pertinent positives and negatives noted above, remaining systems negative. Physical Exam Vital Signs: Temp Pulse Resp BP Pulse Ox 98.0 F 64 18 157/50 H 96 10/18/16 07:35 10/18/16 16:01 10/18/16 16:01 10/18/16 07:35 10/18/16 16:01 Intake & Output 10/17/16 10/18/16 10/19/16 06:59 06:59 06:59 Intake Total 87374 630 620 Output Total 7881 525 840 Balance 1622 105 -220 EXAM GENERAL: NAD; well developed, well nourished; mild obese; alert and oriented to person, place, time, situation HEENT: normocephalic, atraumatic; no conjunctival injection, no scleral icterus ; oral mucosa moist; RESPIRATORY: no accessory muscle use, no increased WOB, good air entry bilaterally; no wheezes, rales, rhonchi; bilateral inspiratory crackles and required only minimal supplemental O2 at this time. CARDIO: no JVD; RRR; no systolic murmur; no tachycardia GI: soft; nondistended; normal bowel sounds; no rebound, rigidity, guarding; nontender VASCULAR: no pallor; 2+ radial, DP pulse; normal capillary refill EXTREMITIES: no calf tender; no palpable cords in calf; no clubbing, cyanosis , pedal edema; right hip surgical wound is clean and dry with a BAKARI drain in place and clear serosanguineous fluid present PSYCH: normal affect, normal mood SKIN: warm; moist; no petechiae; no telengectasias; no jaundice; no rash Results Laboratory Results: 10/17/16 06:01 10/17/16 06:01 10/09/16 15:34 NT-Pro-B Natriuret Pep 2170 H Impressions: Hip/Pelvis X-Ray 10/04/16 10:12 IMPRESSION: Revision of hardware at the right proximal femur, new bone graft material is present anchored with cerclage wires with a new long femoral component of the hip replacement. Good alignment. Chest X-Ray 10/08/16 08:28 IMPRESSION: Mild patchy airspace disease left base suspicious for pneumonia. Assessment & Plan - Diagnosis (1) Periprosthetic fracture of femur following total replacement of hip Is this a current diagnosis for this admission?: Yes (2) Chronic systolic congestive heart failure Is this a current diagnosis for this admission?: Yes (3) Hyperlipidemia Qualifiers: Hyperlipidemia type: unspecified Qualified Code(s): E78.5 - Hyperlipidemia, unspecified Is this a current diagnosis for this admission?: Yes (4) Stented coronary artery Is this a current diagnosis for this admission?: Yes (5) History of prosthetic aortic valve replacement Is this a current diagnosis for this admission?: Yes (6) Pneumonia Qualifiers: Pneumonia type: aspiration pneumonia Is this a current diagnosis for this admission?: Yes (7) Acute respiratory failure with hypoxia Is this a current diagnosis for this admission?: Yes - Time Time Spent with patient: 15-24 minutes - Plan Summary Plan Summary: Patient's medical condition is stable and is now a surgical problem only. We' ll sign off but remain available for any questions.
[2016-10-18] MEDS: ISOSORBIDE DINITRATE 20 MG TABLET PO SCH (17:19)
[2016-10-18] MEDS: ATORVASTATIN CALCIUM 40 MG TABLET PO SCH (21:43)
[2016-10-18] MEDS: PRIMIDONE 50 MG TABLET PO SCH (21:43)
[2016-10-19] MEDS: LANSOPRAZOLE 30 MG TAB.RAP.DR PO SCH (05:34)
--- NOTE | 2016-10-19 06:54 | PDOC PROGRESS REPORT ---
Subjective Progress Note for:: 10/19/16 Subjective:: Patient with minor complaints Physical Exam Vital Signs: Temp Pulse Resp BP Pulse Ox 36.6 C 62 13 115/47 L 95 10/19/16 00:00 10/19/16 00:00 10/19/16 00:00 10/19/16 00:00 10/19/16 02:32 Intake & Output 10/17/16 10/18/16 10/19/16 06:59 06:59 06:59 Intake Total 99543 630 1060 Output Total 8835 525 1550 Balance 1622 105 -490 Weight 109.9 kg General appearance: PRESENT: no acute distress Head exam: PRESENT: normocephalic Respiratory exam: PRESENT: unlabored Cardiovascular exam: PRESENT: RRR Pulses: PRESENT: +1 pedal pulses bilateral Vascular exam: PRESENT: normal capillary refill GI/Abdominal exam: PRESENT: soft Rectal exam: PRESENT: deferred Musculoskeletal exam: PRESENT: other - Right hip dressing with continued proximal serous drainage. Dressing is changed today. Leg lengths are equal. Distal neurovascular examinations intact. Drain continues to be moderately productive for serosanguineous drainage. Neurological exam: PRESENT: alert, awake, oriented to person, oriented to place , oriented to time, oriented to situation. ABSENT: motor sensory deficit Psychiatric exam: PRESENT: depressed Skin exam: PRESENT: dry, intact, warm. ABSENT: cyanosis, rash Results Laboratory Results: 10/17/16 06:01 10/17/16 06:01 10/09/16 15:34 NT-Pro-B Natriuret Pep 2170 H Impressions: Hip/Pelvis X-Ray 10/04/16 10:12 IMPRESSION: Revision of hardware at the right proximal femur, new bone graft material is present anchored with cerclage wires with a new long femoral component of the hip replacement. Good alignment. Chest X-Ray 10/08/16 08:28 IMPRESSION: Mild patchy airspace disease left base suspicious for pneumonia. Status: Imported from PACS Assessment & Plan - Diagnosis (1) Periprosthetic fracture of femur following total replacement of hip Is this a current diagnosis for this admission?: YesPlan: Patient continues to make progress with physical therapy, ambulating 90 feet yesterday. The previous pain that he had with weightbearing seems to have resolved. I continue to be concerned about the volume of drainage from his wound. All cultures remained no growth so far. I think continued course of observation for the wound with daily dressing changes and ongoing physical therapy as appropriate for now. Once the wound drainage decreases, we can consider long term facility placement. (2) Pneumonia Qualifiers: Pneumonia type: aspiration pneumonia Is this a current diagnosis for this admission?: Yes - Time Time Spent with patient: 15-24 minutes Anticipated discharge: SNF Within: Other
[2016-10-19] MEDS: ALBUTEROL SULFATE 0.083% NEB 2.5 MG/3 ML AMPUL NEB SCH ×2 (08:15→16:35)
[2016-10-19] MEDS: OXYCODONE HCL IR 5 MG TABLET PO PRN (09:06)
[2016-10-19] MEDS: OMEGA-3 ACID ETHYL ESTERS 1 GM CAPSULE PO SCH (09:06)
[2016-10-19] MEDS: SENNOSIDES/DOCUSATE 8.6-50 MG 1 EACH TABLET PO SCH ×2 (09:06→18:35)
[2016-10-19] MEDS: FUROSEMIDE 20 MG TABLET PO SCH ×2 (09:07→18:35)
[2016-10-19] MEDS: PRENATAL VITAMIN W-O CA NO5/FE FUMARATE/FA CAPSULE PO SCH (09:07)
[2016-10-19] MEDS: PREGABALIN 75 MG CAPSULE PO SCH ×2 (09:12→18:35)
[2016-10-19] MEDS: CARVEDILOL 12.5 MG TABLET PO SCH ×2 (09:12→21:55)
[2016-10-19] MEDS: OXYBUTYNIN CHLORIDE 5 MG TABLET PO SCH ×2 (09:12→18:36)
[2016-10-19] MEDS: POTASSIUM CHLORIDE 10 MEQ TABLET.SA PO SCH ×2 (09:13→21:56)
[2016-10-19] MEDS: ASPIRIN 325 MG TABLET, ENT COATED PO SCH (09:13)
[2016-10-19] MEDS: ISOSORBIDE DINITRATE 20 MG TABLET PO SCH (18:35)
[2016-10-19] MEDS: PRIMIDONE 50 MG TABLET PO SCH (21:56)
[2016-10-19] MEDS: ATORVASTATIN CALCIUM 40 MG TABLET PO SCH (21:56)
[2016-10-20] MEDS: ALBUTEROL SULFATE 0.083% NEB 2.5 MG/3 ML AMPUL NEB SCH ×4 (00:30→23:24)
[2016-10-20] MEDS: LANSOPRAZOLE 30 MG TAB.RAP.DR PO SCH (06:03)
--- NOTE | 2016-10-20 06:44 | PDOC PROGRESS REPORT ---
Subjective Progress Note for:: 10/20/16 Subjective:: Patient is alert, cooperative a non-complaining other than dissatisfaction with his bed mattress Physical Exam Vital Signs: Temp Pulse Resp BP Pulse Ox 36.9 C 61 18 143/44 H 96 10/20/16 04:22 10/20/16 04:22 10/20/16 04:22 10/20/16 04:22 10/20/16 04:22 Intake & Output 10/18/16 10/19/16 10/20/16 06:59 06:59 06:59 Intake Total 630 1060 974 Output Total 525 1550 1520 Balance 105 -490 -546 Weight 109.9 kg General appearance: PRESENT: no acute distress Head exam: PRESENT: normocephalic Respiratory exam: PRESENT: unlabored Cardiovascular exam: PRESENT: RRR Pulses: PRESENT: +1 pedal pulses bilateral Vascular exam: PRESENT: normal capillary refill GI/Abdominal exam: PRESENT: soft Rectal exam: PRESENT: deferred Musculoskeletal exam: PRESENT: other - Right hip drain continues to be marginally productive serosanguineous fluid. Right hip wound continues to have serous drainage which saturates the proximal aspect. OpSite dressing is replaced today. Neurological exam: PRESENT: alert, awake, oriented to person, oriented to place , oriented to time, oriented to situation. ABSENT: motor sensory deficit Psychiatric exam: PRESENT: appropriate affect, depressed, normal mood. ABSENT: homicidal ideation, suicidal ideation Skin exam: PRESENT: dry, intact, warm. ABSENT: cyanosis, rash Results Laboratory Results: 10/17/16 06:01 10/17/16 06:01 10/09/16 15:34 NT-Pro-B Natriuret Pep 2170 H Impressions: Hip/Pelvis X-Ray 10/04/16 10:12 IMPRESSION: Revision of hardware at the right proximal femur, new bone graft material is present anchored with cerclage wires with a new long femoral component of the hip replacement. Good alignment. Chest X-Ray 10/08/16 08:28 IMPRESSION: Mild patchy airspace disease left base suspicious for pneumonia. Status: Imported from PACS Assessment & Plan - Diagnosis (1) Periprosthetic fracture of femur following total replacement of hip Is this a current diagnosis for this admission?: YesPlan: At this point the patient continues to make progress with physical therapy. Pain is well controlled. Laboratory evaluations continued to be normal and the patient remains afebrile. Intraoperative cultures remained no growth so far. I continue to have some concern about the amount of proximal drainage. Even though at this point is serous. I would be most comfortable holding patient over the weekend with daily dressing changes. In observing the wound. (2) Pneumonia Qualifiers: Pneumonia type: aspiration pneumonia Is this a current diagnosis for this admission?: Yes - Time Time Spent with patient: 15-24 minutes Anticipated discharge: SNF Within: within 72 hours
[2016-10-20] MEDS: FUROSEMIDE 20 MG TABLET PO SCH ×2 (09:07→17:32)
[2016-10-20] MEDS: SENNOSIDES/DOCUSATE 8.6-50 MG 1 EACH TABLET PO SCH ×2 (09:07→17:34)
[2016-10-20] MEDS: OMEGA-3 ACID ETHYL ESTERS 1 GM CAPSULE PO SCH (09:07)
[2016-10-20] MEDS: POTASSIUM CHLORIDE 10 MEQ TABLET.SA PO SCH ×2 (09:07→22:11)
[2016-10-20] MEDS: OXYCODONE HCL IR 5 MG TABLET PO PRN (09:10)
[2016-10-20] MEDS: PREGABALIN 75 MG CAPSULE PO SCH ×2 (09:11→17:33)
[2016-10-20] MEDS: ASPIRIN 325 MG TABLET, ENT COATED PO SCH (09:11)
[2016-10-20] MEDS: PRENATAL VITAMIN W-O CA NO5/FE FUMARATE/FA CAPSULE PO SCH (09:11)
[2016-10-20] MEDS: OXYBUTYNIN CHLORIDE 5 MG TABLET PO SCH ×2 (09:11→17:33)
[2016-10-20] MEDS: CARVEDILOL 12.5 MG TABLET PO SCH ×2 (09:11→22:11)
[2016-10-20] MEDS: ISOSORBIDE DINITRATE 20 MG TABLET PO SCH (17:33)
[2016-10-20] MEDS: PRIMIDONE 50 MG TABLET PO SCH (22:11)
[2016-10-20] MEDS: ATORVASTATIN CALCIUM 40 MG TABLET PO SCH (22:11)
[2016-10-21] MEDS: OXYCODONE HCL IR 5 MG TABLET PO PRN (07:31)
[2016-10-21] MEDS: LANSOPRAZOLE 30 MG TAB.RAP.DR PO SCH (07:31)
[2016-10-21] MEDS: ACETAMINOPHEN 325 MG TABLET PO PRN (07:32)
[2016-10-21] MEDS: ALBUTEROL SULFATE 0.083% NEB 2.5 MG/3 ML AMPUL NEB SCH ×2 (08:46→16:30)
[2016-10-21] MEDS: PREGABALIN 75 MG CAPSULE PO SCH ×2 (09:54→18:16)
[2016-10-21] MEDS: ASPIRIN 325 MG TABLET, ENT COATED PO SCH (09:54)
[2016-10-21] MEDS: PRENATAL VITAMIN W-O CA NO5/FE FUMARATE/FA CAPSULE PO SCH (09:54)
[2016-10-21] MEDS: OMEGA-3 ACID ETHYL ESTERS 1 GM CAPSULE PO SCH (09:55)
[2016-10-21] MEDS: SENNOSIDES/DOCUSATE 8.6-50 MG 1 EACH TABLET PO SCH ×2 (09:55→18:15)
[2016-10-21] MEDS: OXYBUTYNIN CHLORIDE 5 MG TABLET PO SCH ×2 (09:55→18:17)
[2016-10-21] MEDS: CARVEDILOL 12.5 MG TABLET PO SCH ×2 (09:55→23:13)
[2016-10-21] MEDS: POTASSIUM CHLORIDE 10 MEQ TABLET.SA PO SCH ×2 (09:55→23:12)
[2016-10-21] MEDS: FUROSEMIDE 20 MG TABLET PO SCH ×2 (09:55→18:16)
--- NOTE | 2016-10-21 12:35 | PDOC PROGRESS REPORT ---
Subjective Progress Note for:: 10/21/16 Subjective:: Patient seen this morning. No issues. Pain control. States that drainage from the wound has improved. Denies fever chills or sweats. Physical Exam Vital Signs: Temp Pulse Resp BP Pulse Ox 98.4 F 69 18 148/63 H 77 L 10/21/16 07:44 10/21/16 08:46 10/21/16 08:46 10/21/16 07:44 10/21/16 08:46 Intake & Output 10/20/16 10/21/16 10/22/16 06:59 06:59 06:59 Intake Total 974 1770 Output Total 1520 2250 10 Balance -546 -480 -10 Weight 108.1 kg Musculoskeletal exam: PRESENT: other - Right hip: Serosanguineous drainage proximally at the wound. Distal aspect of the root healing appropriately. Notable ecchymosis. Intact plantar flexion/dorsiflexion. Results Laboratory Results: 10/17/16 06:01 10/17/16 06:01 10/16/16 12:57 Hip - Right Gram Stain - Final 10/16/16 12:57 Hip - Right Wound Culture - Final NO AEROBIC OR ANAEROBIC ORGANISMS RECOVERED 10/09/16 15:34 NT-Pro-B Natriuret Pep 2170 H Impressions: Hip/Pelvis X-Ray 10/04/16 10:12 IMPRESSION: Revision of hardware at the right proximal femur, new bone graft material is present anchored with cerclage wires with a new long femoral component of the hip replacement. Good alignment. Chest X-Ray 10/08/16 08:28 IMPRESSION: Mild patchy airspace disease left base suspicious for pneumonia. 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 #4 discharge planning anticipate discharge early next week.
[2016-10-21] MEDS: ISOSORBIDE DINITRATE 20 MG TABLET PO SCH (18:15)
[2016-10-21] MEDS: ATORVASTATIN CALCIUM 40 MG TABLET PO SCH (23:13)
[2016-10-21] MEDS: PRIMIDONE 50 MG TABLET PO SCH (23:13)
[2016-10-22] MEDS: ALBUTEROL SULFATE 0.083% NEB 2.5 MG/3 ML AMPUL NEB SCH ×3 (00:03→16:03)
[2016-10-22] MEDS: LANSOPRAZOLE 30 MG TAB.RAP.DR PO SCH (06:47)
[2016-10-22 07:28] LABS: ABSOLUTE BASOPHILS # (AUTO) 0.1 10^3/uL (0.0-0.2); ABSOLUTE EOSINOPHILS # (AUTO) 0.3 10^3/uL (0.0-0.6); ABSOLUTE LYMPHOCYTES (AUTO) 2.1 10^3/uL (0.5-4.7); ABSOLUTE MONOCYTES (AUTO) 1.1 10^3/uL (0.1-1.4); BASOPHILS % (AUTO) 0.8 % (0-2); EOSINOPHILS % (AUTO) 3.3 % (0-6); HEMATOCRIT 29.4 % (37.9-51.0); HEMOGLOBIN 9.8 g/dL (13.5-17.0); LYMPHOCYTES % (AUTO) 24.8 % (13-45); MEAN CORPUSCULAR HEMOGLOBIN 28.4 pg (27.0-33.4); MEAN CORPUSCULAR HGB CONC 33.4 g/dL (32.0-36.0); MEAN CORPUSCULAR VOLUME 85 fl (80-97); MONOCYTES % (AUTO) 12.7 % (3-13); RED BLOOD COUNT 3.46 10^6/uL (4.35-5.55); RED CELL DISTRIBUTION WIDTH 17.3 % (11.5-14.0); SEGMENTED NEUTROPHILS % (AUTO) 58.4 % (42-78); WHITE BLOOD COUNT 8.6 10^3/uL (4.0-10.5)
[2016-10-22] MEDS: PRENATAL VITAMIN W-O CA NO5/FE FUMARATE/FA CAPSULE PO SCH (10:04)
[2016-10-22] MEDS: FUROSEMIDE 20 MG TABLET PO SCH ×2 (10:04→18:09)
[2016-10-22] MEDS: OXYBUTYNIN CHLORIDE 5 MG TABLET PO SCH ×2 (10:04→18:09)
[2016-10-22] MEDS: SENNOSIDES/DOCUSATE 8.6-50 MG 1 EACH TABLET PO SCH ×2 (10:04→18:09)
[2016-10-22] MEDS: ASPIRIN 325 MG TABLET, ENT COATED PO SCH (10:05)
[2016-10-22] MEDS: CARVEDILOL 12.5 MG TABLET PO SCH ×2 (10:05→22:46)
[2016-10-22] MEDS: POTASSIUM CHLORIDE 10 MEQ TABLET.SA PO SCH ×2 (10:05→22:44)
[2016-10-22] MEDS: PREGABALIN 75 MG CAPSULE PO SCH ×2 (10:05→18:09)
[2016-10-22] MEDS: OMEGA-3 ACID ETHYL ESTERS 1 GM CAPSULE PO SCH (10:08)
[2016-10-22] MEDS: OXYCODONE HCL IR 5 MG TABLET PO PRN (10:09)
--- NOTE | 2016-10-22 11:59 | PDOC PROGRESS REPORT ---
Subjective Progress Note for:: 10/22/16 Subjective:: Patient seen on rounds this morning. Having no issue. Pain is controlled. Denies fever chills or sweats. Physical Exam Vital Signs: Temp Pulse Resp BP Pulse Ox 98.4 F 64 16 140/54 H 92 10/22/16 07:47 10/22/16 08:35 10/22/16 08:35 10/22/16 07:47 10/22/16 08:35 Intake & Output 10/21/16 10/22/16 10/23/16 06:59 06:59 06:59 Intake Total 1770 790 Output Total 2250 1420 Balance -480 -630 Weight 108.1 kg Musculoskeletal exam: PRESENT: other - Right hip: Dressing clean/dry/intact minimal serosanguineous drainage along the wound site. Drain continues to demonstrate approximately 20 mL of serous drainage. Intact plantar flexion/ dorsiflexion. No calf tenderness. Results Laboratory Results: 10/22/16 07:16 10/17/16 06:01 10/22/16 07:16 WBC 8.6 RBC 3.46 L Hgb 9.8 L Hct 29.4 L MCV 85 MCH 28.4 MCHC 33.4 RDW 17.3 H Plt Count 486 H Seg Neutrophils % 58.4 Lymphocytes % 24.8 Monocytes % 12.7 Eosinophils % 3.3 Basophils % 0.8 Absolute Neutrophils 5.0 Absolute Lymphocytes 2.1 Absolute Monocytes 1.1 Absolute Eosinophils 0.3 Absolute Basophils 0.1 10/09/16 15:34 NT-Pro-B Natriuret Pep 2170 H Impressions: Hip/Pelvis X-Ray 10/04/16 10:12 IMPRESSION: Revision of hardware at the right proximal femur, new bone graft material is present anchored with cerclage wires with a new long femoral component of the hip replacement. Good alignment. Chest X-Ray 10/08/16 08:28 IMPRESSION: Mild patchy airspace disease left base suspicious for pneumonia. 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 #4 anticipate discharge within the next 24/48 hours
[2016-10-22] MEDS: ISOSORBIDE DINITRATE 20 MG TABLET PO SCH (18:09)
[2016-10-22] MEDS: ATORVASTATIN CALCIUM 40 MG TABLET PO SCH (22:44)
[2016-10-22] MEDS: PRIMIDONE 50 MG TABLET PO SCH (22:44)
[2016-10-23] MEDS: ALBUTEROL SULFATE 0.083% NEB 2.5 MG/3 ML AMPUL NEB SCH ×2 (00:06→08:42)
[2016-10-23] MEDS: LANSOPRAZOLE 30 MG TAB.RAP.DR PO SCH (05:43)
--- NOTE | 2016-10-23 06:50 | PDOC TRANSFER SUMMARY ---
General - Admit/Disc Date/PCP Admission Date/Primary Care Provider: 10/04/16 10:11 ERIC CASON NP Discharge Date: 10/23/16 - Discharge Diagnosis (1) Periprosthetic fracture of femur following total replacement of hip Is this a current diagnosis for this admission?: Yes (2) Pneumonia Is this a current diagnosis for this admission?: Yes - Additional Information Resuscitation Status: Full Code Home Medications: Carvedilol [Coreg 25 mg Tablet] 12.5 mg PO BID 09/15/14 Isosorbide Dinitrate 30 mg PO QPM 09/15/14 Atorvastatin Calcium [Lipitor 40 mg Tablet] 40 mg PO QHS 04/24/16 Furosemide [Lasix 40 mg Tablet] 20 mg PO QAM 04/24/16 Esomeprazole Magnesium [Nexium 24Hr] 22.3 mg PO DAILY 08/15/16 Multivitamin [Daily Multiple Vitamin] 1 tab PO DAILY 08/15/16 [place]-3/Dha/Epa/Fish Oil [Fish Oil 1,000 mg Softgel] 1 cap PO DAILY 08/15/16 Oxybutynin Chloride [Ditropan 5 mg Tablet] 5 mg PO BID 08/15/16 Aspirin [Ecotrin 81 mg EC Tablet] 81 mg PO DAILY tabec 08/16/16 Primidone [Mysoline] 50 mg PO DAILY 09/27/16 History of Present Illness Admission Date/PCP: 10/04/16 10:11 ERIC CASON NP History of Present Illness: Patient's an 85-year-old white male who status post right hip arthroplasty with postoperative fall and a subsequent periprosthetic femur fracture. This was treated with an open reduction internal fixation which went on to hardware failure. The patient was then brought back to the operating room for revision arthroplasty. Hospital Course Hospital Course: The patient was admitted for elective revision arthroplasty and repeat ORIF of a right femur, which was uneventful. Postoperatively the patient was diagnosed with pneumonia and started on antibiotics. The incision was extensive, approximately 50 cm. Postoperatively, he had considerable drainage from the wound. He was taken back to the operating room postop day 12 and underwent irrigation debridement and removal of onlay grafting cables. Cultures remain negative. From this. The wound was again closed over Hernandez-Crowell drain.. Postoperative there is continued drainage that generally abates over the course of the next week. Hernandez-Crowell drain is removed on October 23. Physical Exam Vital Signs: Temp Pulse Resp BP Pulse Ox 36.3 C 62 16 110/38 L 91 L 10/22/16 23:34 10/23/16 00:00 10/23/16 00:00 10/22/16 23:34 10/22/16 23:34 Intake & Output 10/21/16 10/22/16 10/23/16 06:59 06:59 06:59 Intake Total 1770 790 600 Output Total 2250 1420 2205 Balance -480 -630 -1605 Weight 108.1 kg General appearance: PRESENT: no acute distress Head exam: PRESENT: normocephalic Eye exam: PRESENT: EOMI Respiratory exam: PRESENT: unlabored Cardiovascular exam: PRESENT: RRR Pulses: PRESENT: +1 pedal pulses bilateral GI/Abdominal exam: PRESENT: soft Rectal exam: PRESENT: deferred Musculoskeletal exam: PRESENT: other - Left hip wound with scant serous drainage. The dressing is changed on the day of discharge and has been present in place for 3 days. The Hernandez-Crowell drain is removed from the distal aspect of the wound. Neurological exam: PRESENT: alert, awake, oriented to person, oriented to place , oriented to time, oriented to situation. ABSENT: motor sensory deficit Psychiatric exam: PRESENT: appropriate affect, depressed, normal mood. ABSENT: homicidal ideation, suicidal ideation Skin exam: PRESENT: dry, intact, warm. ABSENT: cyanosis, rash Results Laboratory Results: 10/22/16 07:16 10/17/16 06:01 10/22/16 07:16 WBC 8.6 RBC 3.46 L Hgb 9.8 L Hct 29.4 L MCV 85 MCH 28.4 MCHC 33.4 RDW 17.3 H Plt Count 486 H Seg Neutrophils % 58.4 Lymphocytes % 24.8 Monocytes % 12.7 Eosinophils % 3.3 Basophils % 0.8 Absolute Neutrophils 5.0 Absolute Lymphocytes 2.1 Absolute Monocytes 1.1 Absolute Eosinophils 0.3 Absolute Basophils 0.1 10/09/16 15:34 NT-Pro-B Natriuret Pep 2170 H Impressions: Hip/Pelvis X-Ray 10/04/16 10:12 IMPRESSION: Revision of hardware at the right proximal femur, new bone graft material is present anchored with cerclage wires with a new long femoral component of the hip replacement. Good alignment. Chest X-Ray 10/08/16 08:28 IMPRESSION: Mild patchy airspace disease left base suspicious for pneumonia. Status: Imported from PACS Transfer Plan - Disposition Transfer Plan: Patient be transferred to a skilled for nursing facility for ongoing rehabilitation. The proximal dressing can be changed as needed. Distal dressing. Present only until drainage resolves. Plan Discharge Plan: Patient will return to see Dr. Cárdenas in the [facility] for surgery in approximately 2 weeks for staple removal
[2016-10-23 08:45] VITALS: BP 148/39
[2016-10-23] MEDS: PRENATAL VITAMIN W-O CA NO5/FE FUMARATE/FA CAPSULE PO SCH (10:34)
[2016-10-23] MEDS: OXYBUTYNIN CHLORIDE 5 MG TABLET PO SCH (10:35)
[2016-10-23] MEDS: CARVEDILOL 12.5 MG TABLET PO SCH (10:37)
[2016-10-23] MEDS: OMEGA-3 ACID ETHYL ESTERS 1 GM CAPSULE PO SCH (10:37)
[2016-10-23] MEDS: PREGABALIN 75 MG CAPSULE PO SCH (10:37)
[2016-10-23] MEDS: POTASSIUM CHLORIDE 10 MEQ TABLET.SA PO SCH (10:38)
[2016-10-23] MEDS: ASPIRIN 325 MG TABLET, ENT COATED PO SCH (10:38)
[2016-10-23] MEDS: FUROSEMIDE 20 MG TABLET PO SCH (10:38)
[2016-10-23] MEDS: SENNOSIDES/DOCUSATE 8.6-50 MG 1 EACH TABLET PO SCH (10:38)
== END 2016-10-23 13:50 | DRG 466 ==
LOC: INOR 05:28 → UNDOADMIN 05:28 → INOR 10:11 → 4W 12:43 → INOR 12:43 → 4S 10-21 07:15
PROVIDERS: ADMIT Orthopaedic Surgery; ATTEND Orthopaedic Surgery
PROC: 0SPR0JZ Removal of Synthetic Substitute from Right Hip Joint, Femoral Surface, Open Approach (ICD-10-PCS; 2016-10-04)
PROC: 0SRR0JA Replacement of Right Hip Joint, Femoral Surface with Synthetic Substitute, Uncemented, Open Approach (ICD-10-PCS; principal; 2016-10-04 07:30)
PROC: 0JDL0ZZ Extraction of Right Upper Leg Subcutaneous Tissue and Fascia, Open Approach (ICD-10-PCS; 2016-10-16)
PROC: 0J9L00Z Drainage of Right Upper Leg Subcutaneous Tissue and Fascia with Drainage Device, Open Approach (ICD-10-PCS; 2016-10-16)
DX: M97.01XA Periprosthetic fracture around internal prosthetic right hip joint, initial encounter (principal); J69.0 Pneumonitis due to inhalation of food and vomit; J96.01 Acute respiratory failure with hypoxia; I50.22 Chronic systolic (congestive) heart failure; M96.840 Postprocedural hematoma of a musculoskeletal structure following a musculoskeletal system procedure; W01.0XXA Fall on same level from slipping, tripping and stumbling without subsequent striking against object, initial encounter; Z91.81 History of falling; Y93.9 Activity, unspecified; Y92.009 Unspecified place in unspecified non-institutional (private) residence as the place of occurrence of the external cause; Y99.9 Unspecified external cause status; I25.10 Atherosclerotic heart disease of native coronary artery without angina pectoris; I10 Essential (primary) hypertension; E78.5 Hyperlipidemia, unspecified; Z79.82 Long term (current) use of aspirin; Z79.899 Other long term (current) drug therapy; Z95.1 Presence of aortocoronary bypass graft; Z95.0 Presence of cardiac pacemaker; Z95.4 Presence of other heart-valve replacement; Z95.5 Presence of coronary angioplasty implant and graft; Z90.49 Acquired absence of other specified parts of digestive tract; Z87.891 Personal history of nicotine dependence
CPT/HCPCS: 01214; 01230; 36415; 71010; 71020; 80048; 81001; 82962; 83880; 84132; 85025; 85027; 85652; 86140; 86850; 86900; 86901; 87070; 87075; 87077; 87186; 87205; 93005; 93010; 94799; C9290; G8978-GP; G8979-GP; G8987-GO; G8988-GO; J0295; J0330; J0690; J1100; J1741; J1815; J2250; J2270; J2370; J2405; J2704; J3010; J3370; J3490; J7050; J7060; J7120

== ENCOUNTER 2016-11-15 22:54 | Observation (INO) | payer MEDICARE ==
--- NOTE | 2016-11-15 23:04 | ER Document Report ---
ED Cardiac - General Chief Complaint: Chest Pain > 30 Stated Complaint: CHEST PAIN Notes: The patient is an 85 year old male with coronary artery disease, s/p 5 vessel bypass in 2004, s/p [employer] pacemaker implant in 2007, and s/p aortic valve replacement 2014, who presents with chest pain that started after he woke up from his nap earlier tonight. He says that the pain felt similar to when he needed his CABG. He initially felt mild shortness of breath and nausea, but this has resolved after EMS gave him 8 mg Zofran, 3 sublingual nitros, 324 mg aspirin and 0.5 mg of Dilaudid. He has nitro paste in place on arrival to the ER. Patient is currently asymptomatic on my evaluation. Patient denies leg swelling, vomiting, diarrhea, abdominal pain, back pain, current shortness of breath, current chest pain, fevers or cough. TRAVEL OUTSIDE OF THE [place] IN LAST 30 DAYS: No - Related Data Allergies/Adverse Reactions: No Known Allergies Allergy (Verified 09/27/16 11:39) Past Medical History - General Information source: Patient - Social History Smoking Status: Unknown if Ever Smoked Family History: Reviewed & Not Pertinent, CAD, CVA, Malignancy - Past Medical History Cardiac Medical History: Reports: Hx Congestive Heart Failure, Hx Coronary Artery Disease, Hx Heart Attack, Hx Hypercholesterolemia, Hx Hypertension Denies: Hx Atrial Fibrillation, Hx DVT, Hx Peripheral Vascular Disease, Hx Pulmonary Embolism, Hx Heart Murmur Pulmonary Medical History: Denies: Hx Asthma, Hx COPD Neurological Medical History: Denies: Hx Cerebrovascular Accident, Hx Seizures Endocrine Medical History: Denies: Hx Diabetes Mellitus Type 1, Hx Diabetes Mellitus Type 2, Hx Hyperthyroidism, Hx Hypothyroidism Renal/ Medical History: Denies: Hx Benign Prostatic Hyperplasia, Hx End Stage Renal Disease, Hx Kidney Stones, Hx Peritoneal Dialysis GI Medical History: Reports: Hx Diverticulitis, Hx Gastroesophageal Reflux Disease. 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 Denies: Hx Bowel Surgery, Hx Colostomy, Hx Gastric Bypass Surgery, Hx Herniorrhaphy, Hx Tonsillectomy - Immunizations Immunizations up to date: Yes Hx Diphtheria, Pertussis, Tetanus Vaccination: No Review of Systems - Review of Systems Notes: REVIEW OF SYSTEMS: CONSTITUTIONAL: -fevers, -chills EENT: -eye pain, -difficulty swallowing, -nasal congestion CARDIOVASCULAR: +chest pain, -syncope. RESPIRATORY: -cough, +SOB GASTROINTESTINAL: -abdominal pain, +nausea, -vomiting, -diarrhea GENITOURINARY: -dysuria, -hematuria MUSCULOSKELETAL: -back pain, -neck pain SKIN: -rash or skin lesions. HEMATOLOGIC: -easy bruising or bleeding. LYMPHATIC: -swollen, enlarged glands. NEUROLOGICAL: -altered mental status or loss of consciousness, -headache, - neurologic symptoms PSYCHIATRIC: -anxiety, -depression. ALL OTHER SYSTEMS REVIEWED AND NEGATIVE. Physical Exam - Notes Notes: PHYSICAL EXAMINATION: GENERAL: Well-appearing, well-nourished and in no acute distress. HEAD: Atraumatic, normocephalic. EYES: Pupils equal round and reactive to light, extraocular movements intact, sclera anicteric, conjunctiva are normal. ENT: nares patent, oropharynx clear without exudates. Moist mucous membranes. NECK: Normal range of motion, supple without lymphadenopathy LUNGS: Breath sounds clear to auscultation bilaterally and equal. No wheezes rales or rhonchi. HEART: Regular rate and rhythm without murmurs ABDOMEN: Soft, nontender, normoactive bowel sounds. No guarding, no rebound. No masses appreciated. EXTREMITIES: Normal range of motion, no pitting or edema. No cyanosis. NEUROLOGICAL: Cranial nerves grossly intact. Normal speech, normal gait. Normal sensory, motor, and reflex exams. PSYCH: Normal mood, normal affect. SKIN: Warm, Dry, normal turgor, no rashes or lesions noted. Course - Re-evaluation Re-evalutation: Patient's chest pain returned while in the ER and it resolved after 5 mg morphine. EKG still shows a paced rhythm without Scarbosso criteria to indicate acute ischemia. First troponin negative. Patient has a HEART score of 7. Patient's oxygenation will go to 88% on room air and he does not wear oxygen at home. He was never diagnosed with COPD and he only smoked for a few years in his 30's. His oxygenation will improve to 96% on 2 L nasal cannula and patient is in no respiratory distress. CTA performed due to recent orthopedic leg surgery in the past few months. The CTA does not show any evidence of PE, aortic dissection or other acute pulmonary disease. He is a patient of Dr. Cason at [facility]. He received 324 mg ASA by EMS. Patient requires admission for further evaluation and treatment of his chest pain. 11/16/16 02:[address] Heart and he has accepted patient to telemetry observation. Patient remains chest pain-free. - Laboratory Result Diagrams: 11/15/16 23:20 11/15/16 23:20 Laboratory results interpreted by me: 11/15/16 11/15/16 11/15/16 23:20 23:20 23:20 RBC 4.18 L Hgb 11.9 L Hct 36.1 L RDW 17.3 H Glucose 151 H Alkaline Phosphatase 139 H Creatine Kinase 23 L NT-Pro-B Natriuret Pep 1430 H Albumin 3.2 L - Diagnostic Test Radiology reviewed: Image reviewed, Reports reviewed - EKG Interpretation by Me When compared to previous EKG there are: No significant change Additional EKG results interpreted by me: Paced rhythm, no Scarbossa criteria Discharge - Discharge Clinical Impression: Chest pain Qualifiers: Chest pain type: unspecified Qualified Code(s): R07.9 - Chest pain, unspecified Condition: Stable Disposition: ADMITTED OBSERVATION Admitting Provider: [facility] Admitted: Telemetry Referrals: ERIC CASON NP [Primary Care Provider] - Follow up as needed
[2016-11-15] MEDS ORDERED: MORPHINE SULFATE 10 MG/ML INJ IV ONE (23:20)
[2016-11-15 23:38] LABS: ABSOLUTE BASOPHILS # (AUTO) 0.1 10^3/uL (0.0-0.2); ABSOLUTE EOSINOPHILS # (AUTO) 0.2 10^3/uL (0.0-0.6); ABSOLUTE LYMPHOCYTES (AUTO) 1.8 10^3/uL (0.5-4.7); ABSOLUTE MONOCYTES (AUTO) 0.8 10^3/uL (0.1-1.4); ABSOLUTE NEUT (AUTO) 7.1 10^3/uL (1.7-8.2); BASOPHILS % (AUTO) 0.9 % (0-2); EOSINOPHILS % (AUTO) 1.7 % (0-6); HEMATOCRIT 36.1 % (37.9-51.0); HEMOGLOBIN 11.9 g/dL (13.5-17.0); HGB HCT DIFFERENCE -0.4; LYMPHOCYTES % (AUTO) 17.9 % (13-45); MEAN CORPUSCULAR HEMOGLOBIN 28.5 pg (27.0-33.4); MEAN CORPUSCULAR VOLUME 86 fl (80-97); MONOCYTES % (AUTO) 7.6 % (3-13); RED BLOOD COUNT 4.18 10^6/uL (4.35-5.55); RED CELL DISTRIBUTION WIDTH 17.3 % (11.5-14.0); SEGMENTED NEUTROPHILS % (AUTO) 71.9 % (42-78); WHITE BLOOD COUNT 9.9 10^3/uL (4.0-10.5)
[2016-11-15 23:48] LABS: ALANINE AMINOTRANSFERASE 21 U/L (21-72); ALBUMIN 3.2 g/dL (3.5-5.0); ALKALINE PHOSPHATASE 139 U/L (38-126); ANION GAP 11 (5-19); ASPARTATE AMINO TRANSFERASE 26 U/L (17-59); BILIRUBIN,DIRECT 0.2 mg/dL (0.0-0.4); BILIRUBIN,TOTAL 0.4 mg/dL (0.2-1.3); BLOOD UREA NITROGEN 19 mg/dL (7-20); CALCIUM 8.8 mg/dL (8.4-10.2); CARBON DIOXIDE 24 mmol/L (22-30); CHLORIDE 105 mmol/L (98-107); CREATINE KINASE 23 U/L (55-170); CREATININE RESULT 0.76 mg/dL (0.52-1.25); GLUCOSE 151 mg/dL (75-110); LIPASE 49.9 U/L (23-300); POTASSIUM 4.6 mmol/L (3.6-5.0); SODIUM 139.8 mmol/L (137-145); TOTAL PROTEIN 6.5 g/dL (6.3-8.2)
[2016-11-16] LABS: CREATINE KINASE MB 0.45 ng/mL (<4.55)
[2016-11-16 00:02] LABS: TROPONIN I < 0.012 ng/mL
[2016-11-16] MEDS ORDERED: MORPHINE SULFATE 10 MG/ML INJ IV ONE (00:15)
[2016-11-16] MEDS ORDERED: OXYCODONE HCL IR 5 MG TABLET PO PRN (07:35)
[2016-11-16] MEDS ORDERED: HYOSCYAMINE SULFATE 0.125 MG PO PRN (07:35)
[2016-11-16] MEDS ORDERED: NITROGLYCERIN 0.4 MG/TAB 25 TAB/BOTTLE SL PRN (07:35)
--- NOTE | 2016-11-16 07:40 | EKG REPORT ---
SEVERITY:- ABNORMAL ECG - A- SENSED V PACED RHYTHM WITH SOME INHIBITION : Confirmed by: Cady Singleton MD 16-Nov-2016 07:39:11
[2016-11-16] MEDS ORDERED: HYOSCYAMINE SULFATE 0.125 MG TABLET PO PRN (08:18)
[2016-11-16] MEDS ORDERED: ONDANSETRON HCL INJ/PF 4 MG/2 ML SDV IV PRN (08:56)
[2016-11-16] MEDS ORDERED: ESOMEPRAZOLE MAGNESIUM 22.3 MG PO SCH (10:00)
[2016-11-16] MEDS ORDERED: (PENDING PHARMACY ID) (Omega-3/Dha/Epa/Fish Oil [Fish Oil 1,000 Mg Softgel] 1 CAP) PO SCH (10:00)
[2016-11-16] MEDS ORDERED: (PENDING PHARMACY ID) (Carvedilol [Coreg 25 Mg Tablet] 12.5 MG) PO SCH (10:00)
[2016-11-16] MEDS: OXYBUTYNIN CHLORIDE 5 MG TABLET PO SCH ×2 (10:34→18:03)
[2016-11-16] MEDS: FUROSEMIDE 20 MG TABLET PO SCH (10:35)
[2016-11-16] MEDS: MULTIVITAMIN TABLET PO SCH (10:35)
[2016-11-16] MEDS: CARVEDILOL 12.5 MG TABLET PO SCH ×2 (10:35→21:51)
[2016-11-16] MEDS: SERTRALINE HCL 50 MG TABLET PO SCH (10:35)
[2016-11-16] MEDS: ASPIRIN 81 MG TABLET, ENT COATED PO SCH (10:35)
--- NOTE | 2016-11-16 12:12 | PDOC CONSULTATION ---
Consultation Consult Date: 11/16/16 Attending physician:: CHE NICHOLSON Consult reason:: Chest pain, CAD History of Present Illness Admission Date/PCP: 11/16/16 03:15 ERIC CASON NP Patient complains of: Chest pain, shortness of breath History of Present Illness: The patient is an 85 year old male with coronary artery disease, s/p 5 vessel bypass in 2004, s/p [employer] pacemaker implant in 2007, and s/p aortic valve replacement 2014, who presents with chest pain that started after he woke up from his nap yesterday night. He says that the pain felt similar to when he needed his CABG. He initially felt mild shortness of breath and nausea, but this has resolved after EMS gave him 8 mg Zofran, 3 sublingual nitros, 324 mg aspirin and 0.5 mg of Dilaudid. He has nitro paste in place on arrival to the ER. Patient is currently denying any chest pain but has noted some swallowing difficulty with breakfast. Patient denies leg swelling, vomiting, diarrhea, abdominal pain, back pain, current shortness of breath, fevers or cough. This history was reviewed, confirmed and supplemented. Past Medical History Cardiac Medical History: Reports: Congestive Heart Failure, Coronary Artery Disease, Myocardial Infarction, Hyperlipidema, Hypertension Denies: Atrial Fibrillation, DVT, Peripheral Vascular Disease, Pulmonary Embolism, Heart Murmur Pulmonary Medical History: Denies: Asthma, Chronic Obstructive Pulmonary Disease (COPD) Neurological Medical History: Denies: Seizures Endocrine Medical History: Denies: Diabetes Mellitus Type 1, Diabetes Mellitus Type 2, Hyperthyroidism, Hypothyroidism Renal/ Medical History: Denies: End Stage Renal Disease Malignancy Medical History: Denies: Breast Cancer, Cervical Cancer, Ovarian Cancer GI Medical History: Reports: Diverticulitis, Gastroesophageal Reflux Disease Denies: Cirrhosis, Crohn's Disease, Hepatitis, Hiatal Hernia Musculoskeltal Medical History: Reports: Arthritis - neck Denies: Fibromyalgia Skin Medical History: Denies: Eczema, Psoriasis Psychiatric Medical History: Reports: Depression Denies: Dementia Past Surgical History Past Surgical History: Reports: Appendectomy, Cholecystectomy, Coronary Artery Bypass Graft - x5, Pacemaker, Valve Replacement - 2015 tvar, Other - partial gastr'y for PUD; separation of horseshoe kidney; bilat cataract Denies: Colostomy, Gastric Bypass Surgery, Herniorrhaphy, Tonsillectomy Social History Information Source: Patient Smoking Status: Unknown if Ever Smoked Frequency of Alcohol Use: None Hx Recreational Drug Use: No Drugs: None Hx Prescription Drug Abuse: No - Advance Directive Resuscitation Status: Full Code Surrogate healthcare decision maker:: Patient's children Family History Family History: Reviewed & Not Pertinent, CAD, CVA, Malignancy Parental Family History Reviewed: Yes Children Family History Reviewed: Yes Sibling(s) Family History Reviewed.: Yes Medication/Allergy Home Medications: Carvedilol [Coreg 25 mg Tablet] 12.5 mg PO BID 09/15/14 Atorvastatin Calcium [Lipitor 40 mg Tablet] 40 mg PO QHS 04/24/16 Furosemide [Lasix 40 mg Tablet] 20 mg PO QAM 04/24/16 Esomeprazole Magnesium [Nexium 24Hr] 22.3 mg PO DAILY 08/15/16 Multivitamin [Daily Multiple Vitamin] 1 tab PO DAILY 08/15/16 Williams-3/Dha/Epa/Fish Oil [Fish Oil 1,000 mg Softgel] 1 cap PO DAILY 08/15/16 Oxybutynin Chloride [Ditropan 5 mg Tablet] 5 mg PO BID 08/15/16 Primidone [Mysoline] 50 mg PO QHS 09/27/16 Aspirin [Aspirin EC] 81 mg PO DAILY 11/16/16 Hyoscyamine Sulfate 0.125 mg PO Q8HP PRN 11/16/16 Isosorbide Mononitrate [Imdur 30 mg Tablet.er] 30 mg PO DAILY 11/16/16 Nitroglycerin [Nitrostat] 0.4 mg SL PRN PRN 11/16/16 Sertraline HCl 50 mg PO DAILY 11/16/16 Allergies/Adverse Reactions: No Known Allergies Allergy (Verified 09/27/16 11:39) Review of Systems Review of Systems: Please see history of present illness and past medical history as wall. Constitutional: No fever or chills reported. Head : No recent chronic headaches, recent head injury. Eyes: No recent eye pain, diplopia, redness, discharge, acute visual changes. Ears: No recent chronic ear pain, acute hearing loss, ear discharge. Oral cavity: No recent ulcerations, bleeding, oral cavity discomfort. Neck: No recent acute neck pain reported. Hematologic: No recent easy bruising or bleeding or hematologic malignancy reported. Lymphatic: No recent lymphatic malignancy, chronic lymphadenopathy reported yet Cardiovascular system review: See history of present illness. Respiratory system review: No recent chronic cough, hemoptysis, blood clots in the lungs reported. Mild Shortness of breath on exertion Gastrointestinal system review: Negative for any recent acute or chronic abdominal pain, hematemesis, melena, recent change in bowel habits. Patient has noted some intermittent swallowing difficulty. Genitourinary system review: No recent acute or chronic hematuria, flank pain, UTI etc. reported. Skin system review: Negative for any recent abnormal bruising, no rash, no pruritus reported. Neurologic: No prior history of strokes, mini strokes, seizure disorder. Psychologic: No history of major psychosis or major depression reported. Musculoskeletal: Minor aches and pains reported. No acute joint swelling reported. Endocrine: No recent polyuria, polydipsia, recent heat or cold intolerance. Physical Exam Vital Signs: Temp Pulse Resp BP Pulse Ox 97.4 F 59 L 20 173/49 H 100 11/16/16 11:07 11/16/16 11:07 11/16/16 11:07 11/16/16 11:07 11/16/16 11:07 Intake & Output 11/15/16 11/16/16 11/17/16 06:59 06:59 06:59 Intake Total 0 Balance 0 Weight 103.4 kg Exam: GENERAL: well-nourished and in no acute distress. Alert and oriented x3 HEAD: Atraumatic, normocephalic. EYES: Pupils equal round and reactive to light, extraocular movements intact, sclera anicteric, conjunctiva are normal. ENT: TMs normal, nares patent, oropharynx clear without exudates. Moist mucous membranes. No oral ulcerations or bleeding gums noted NECK: supple without lymphadenopathy. Trachea is central. No cervical or axillary lymphadenopathy noted. Carotids are 2+, JVD WNL LUNGS: Respiration seems nonlabored, no significant accessory muscle action noted. Breath sounds clear to auscultation bilaterally and equal noted. No wheezes rales or rhonchi noted. No significant dullness noted on percussion. CHEST: Palpation of the chest wall shows no significant chest wall tenderness. No other significant abnormalities noted. Pacemaker noted on the left side chest. HEART: [place] [employer], No PSH, 1/6 DONNA aortic area, 1/6 lazcano systolic murmur mitral area, no rubs, no gallops. ABDOMEN: Soft, no significant tenderness appreciated, normoactive bowel sounds. No guarding, no rebound. No rigidity noted . No masses appreciated. EXTREMITIES: Pedal pulses are 1-2+, no calf tenderness noted. No clubbing or cyanosis.trace to 1+ pedal edema noted NEUROLOGICAL: Focused neurological exam showed no significant neurologic deficit. Normal speech, no focal weakness appreciated. PSYCH: Normal mood, normal affect. Judgment and insight within normal limits. SKIN: No significant ecchymosis, rash, ulcerations or signs of pruritus noted. MUSCULOSKELETAL EXAM: No significant joint swelling noted. Results Laboratory Results: 11/16/16 06:50 Troponin I 0.022 EKG Comments: A sensed V paced rhythm noted. Impressions: Chest X-Ray 11/15/16 23:02 IMPRESSION: Right basilar airspace disease. Small pleural effusions. No other significant findings. Overall findings are improved when compared to prior exam. Chest/Abdomen CTA 11/16/16 00:15 IMPRESSION: No acute cardiopulmonary findings. No evidence of pulmonary emboli. Small bibasilar atelectasis or scar. Assessment & Plan - Diagnosis (1) Coronary artery disease Qualifiers: Coronary Disease-Associated Artery/Lesion type: unspecified vessel or lesion type Associated angina: angina presence unspecified Is this a current diagnosis for this admission?: Yes (2) Chest pain Qualifiers: Chest pain type: unspecified Qualified Code(s): R07.9 - Chest pain, unspecified Is this a current diagnosis for this admission?: Yes (4) Hypertension Qualifiers: Hypertension type: essential hypertension Qualified Code(s): I10 - Essential (primary) hypertension Is this a current diagnosis for this admission?: Yes (5) Dyslipidemia Is this a current diagnosis for this admission?: Yes (6) Cardiac pacemaker in situ Is this a current diagnosis for this admission?: Yes (7) Status post transcatheter aortic valve replacement (TAVR) using bioprosthesis Is this a current diagnosis for this admission?: Yes (8) H/O aortic valve replacement with porcine valve Is this a current diagnosis for this admission?: Yes - Notes Notes: Chest pain: Patient has known CAD. There is high probability that chest pain is from underlying coronary ischemia. Discussed evaluation with a nuclear stress test. He is agreeable. His last nuclear stress test was many years ago. Congestive heart failure: Patient noted to have symptoms of dyspnea, elevated BNP and also noted to be in CHF. Exact etiology of CHF is not clear. Patient claims that his previous echocardiogram was several years ago. Have ordered. A 2-D echo to evaluate this further. In the meantime will recommend diuretic therapy. Will consider adding JEREMIAH inhibitor or ARB if EF is low. Hypertension: Reasonably well controlled. Blood pressure goal in this patient is 135/85 or less. This was discussed with the patient. Currently blood pressure under reasonable control. Better medication for this patient are JEREMIAH inhibitor/ARB/beta lynn etc. discussed side effects of uncontrolled hypertension and also severe hypotension. Hyperlipidemia: LDL goal is less than 70. Recommend statin therapy at least intermediate or high dose, of high potency status. Periodic lipid panel and liver panel is indicated. Patient to report any significant muscle discomfort or other side effects. Status post aortic valve replacement: Seems to be functioning normally. A 2-D echocardiogram will be obtained to evaluate this further. Status post pacemaker placement: Rhythm strip review shows that this is functioning normally. - Time Time Spent: 50 to 70 Minutes - CODE STATUS was discussed, patient remains full code. Surrogate decision-maker patient's children. Multiple medical problems were addressed.More than 50% of the time spent coordinating care, discussing management plans with involved caregivers. Management plans discussed with involved personnels. Medical decision making was of moderate to high complexity , patient's has multiple severe comorbidities.
[2016-11-16] MEDS ORDERED: LISINOPRIL 5 MG TABLET PO ONE (12:30)
[2016-11-16] MEDS: HEPARIN SOD (PORCINE) 5,000 UNIT/ML 1 ML SYRINGE SUBCUT SCH ×2 (13:55→21:51)
[2016-11-16] MEDS ORDERED: REGADENOSON INJ 0.4 MG/5 ML DISP.SYRIN IV ONE (14:07)
[2016-11-16] MEDS ORDERED: AMINOPHYLLINE INJ/PF 250 MG/10 ML SDV IV ONE (14:07)
--- NOTE | 2016-11-16 15:59 | PDOC H&P ---
History of Present Illness Admission Date/PCP: 11/16/16 03:15 ERIC CASON NP Patient complains of: Chest pain and nausea History of Present Illness: The patient is an 85 year old male with coronary artery disease, s/p 5 vessel bypass in 2004, s/p [employer] pacemaker implant in 2007, and s/p aortic PIG valve replacement 2014, who presents with chest pain that started after he woke up from his nap yesterday night. He says that the pain felt similar to when he needed his CABG. He initially felt mild shortness of breath and nausea , but this has resolved after EMS gave him 8 mg Zofran, 3 sublingual nitros, 324 mg aspirin and 0.5 mg of Dilaudid. He has nitro paste in place on arrival to the ER. Patient is currently denying any chest pain but has noted some swallowing difficulty with breakfast. Patient denies leg swelling, vomiting, diarrhea, abdominal pain, back pain, current shortness of breath, fevers or cough. Past Medical History Cardiac Medical History: Reports: Congestive Heart Failure, Coronary Artery Disease, Myocardial Infarction, Hyperlipidema, Hypertension Pulmonary Medical History: GI Medical History: Reports: Diverticulitis, Gastroesophageal Reflux Disease Musculoskeltal Medical History: Reports: Arthritis - neck Psychiatric Medical History: Reports: Depression Past Surgical History Past Surgical History: Reports: Appendectomy, Cholecystectomy, Coronary Artery Bypass Graft - x5, Pacemaker, Valve Replacement - 2015 tvar, Other - partial gastr'y for PUD; separation of horseshoe kidney; bilat cataract Social History Information Source: Patient, [facility] Records Lives with: Family - Currently lives with his daughter. The patient's is a resident of [facility]. Smoking Status: Former Smoker Frequency of Alcohol Use: None Hx Recreational Drug Use: No Drugs: None Hx Prescription Drug Abuse: No - Advance Directive Resuscitation Status: Full Code Surrogate healthcare decision maker:: His daughter Cee Family History Family History: Reviewed & Not Pertinent, CAD, CVA, Malignancy Parental Family History Reviewed: Yes Children Family History Reviewed: Yes Sibling(s) Family History Reviewed.: Yes Medication/Allergy Home Medications: Carvedilol [Coreg 25 mg Tablet] 12.5 mg PO BID 09/15/14 Atorvastatin Calcium [Lipitor 40 mg Tablet] 40 mg PO QHS 04/24/16 Furosemide [Lasix 40 mg Tablet] 20 mg PO QAM 04/24/16 Esomeprazole Magnesium [Nexium 24Hr] 22.3 mg PO DAILY 08/15/16 Multivitamin [Daily Multiple Vitamin] 1 tab PO DAILY 08/15/16 [place]-3/Dha/Epa/Fish Oil [Fish Oil 1,000 mg Softgel] 1 cap PO DAILY 08/15/16 Oxybutynin Chloride [Ditropan 5 mg Tablet] 5 mg PO BID 08/15/16 Primidone [Mysoline] 50 mg PO QHS 09/27/16 Aspirin [Aspirin EC] 81 mg PO DAILY 11/16/16 Hyoscyamine Sulfate 0.125 mg PO Q8HP PRN 11/16/16 Isosorbide Mononitrate [Imdur 30 mg Tablet.er] 30 mg PO DAILY 11/16/16 Nitroglycerin [Nitrostat] 0.4 mg SL PRN PRN 11/16/16 Sertraline HCl 50 mg PO DAILY 11/16/16 Allergies/Adverse Reactions: No Known Allergies Allergy (Verified 09/27/16 11:39) Review of Systems Constitutional: ABSENT: chills, fever(s), headache(s), weight gain, weight loss Eyes: ABSENT: visual disturbances Ears: ABSENT: hearing changes Cardiovascular: PRESENT: chest pain. ABSENT: dyspnea on exertion, edema, orthropnea, palpitations Respiratory: ABSENT: cough, hemoptysis Gastrointestinal: PRESENT: nausea. ABSENT: abdominal pain, constipation, diarrhea, hematemesis, hematochezia, vomiting Genitourinary: ABSENT: dysuria, hematuria Musculoskeletal: ABSENT: joint swelling Integumentary: ABSENT: rash, wounds Neurological: ABSENT: abnormal gait, abnormal speech, confusion, dizziness, focal weakness, syncope Psychiatric: ABSENT: anxiety, depression, homidical ideation, suicidal ideation Endocrine: ABSENT: cold intolerance, heat intolerance, polydipsia, polyuria Hematologic/Lymphatic: ABSENT: easy bleeding, easy bruising Physical Exam Vital Signs: Temp Pulse Resp BP Pulse Ox 97.5 F 60 18 135/38 H 100 11/16/16 15:46 11/16/16 15:46 11/16/16 15:46 11/16/16 15:46 11/16/16 15:46 Intake & Output 11/14/16 11/15/16 11/16/16 23:59 23:59 23:59 Intake Total 0 Balance 0 Weight 103.4 kg General appearance: PRESENT: no acute distress, cooperative, well-developed Head exam: PRESENT: atraumatic, normocephalic Eye exam: PRESENT: conjunctiva pink, EOMI, PERRLA. ABSENT: scleral icterus Ear exam: PRESENT: normal external ear exam Mouth exam: PRESENT: moist, tongue midline Neck exam: ABSENT: carotid bruit, JVD, lymphadenopathy, thyromegaly Respiratory exam: PRESENT: clear to auscultation jeremy, symmetrical, unlabored. ABSENT: rales, rhonchi, tachypnea, wheezes Cardiovascular exam: PRESENT: RRR. ABSENT: diastolic murmur, rubs, systolic murmur Pulses: PRESENT: normal dorsalis pedis pul Vascular exam: PRESENT: normal capillary refill GI/Abdominal exam: PRESENT: normal bowel sounds, soft. ABSENT: distended, guarding, mass, organolmegaly, rebound, tenderness Rectal exam: PRESENT: deferred Extremities exam: PRESENT: full ROM. ABSENT: calf tenderness, clubbing, pedal edema Neurological exam: PRESENT: alert, awake, oriented to person, oriented to place , oriented to time, oriented to situation, CN II-XII grossly intact. ABSENT: motor sensory deficit Psychiatric exam: PRESENT: appropriate affect, normal mood. ABSENT: homicidal ideation, suicidal ideation Skin exam: PRESENT: dry, intact, warm. ABSENT: cyanosis, rash Results Laboratory Results: Labs- Last Values WBC 9.9 10^3/uL (4.0-10.5) 11/15/16 23:20 RBC 4.18 10^6/uL (4.35-5.55) L 11/15/16 23:20 Hgb 11.9 g/dL (13.5-17.0) L 11/15/16 23:20 Hct 36.1 % (37.9-51.0) L 11/15/16 23:20 MCV 86 fl (80-97) 11/15/16 23:20 MCH 28.5 pg (27.0-33.4) 11/15/16 23:20 MCHC 33.0 g/dL (32.0-36.0) 11/15/16 23:20 RDW 17.3 % (11.5-14.0) H 11/15/16 23:20 Plt Count 313 10^3/uL (150-450) 11/15/16 23:20 Seg Neutrophils % 71.9 % (42-78) 11/15/16 23:20 Lymphocytes % 17.9 % (13-45) 11/15/16 23:20 Monocytes % 7.6 % (3-13) 11/15/16 23:20 Eosinophils % 1.7 % (0-6) 11/15/16 23:20 Basophils % 0.9 % (0-2) 11/15/16 23:20 Absolute Neutrophils 7.1 10^3/uL (1.7-8.2) 11/15/16 23:20 Absolute Lymphocytes 1.8 10^3/uL (0.5-4.7) 11/15/16 23:20 Absolute Monocytes 0.8 10^3/uL (0.1-1.4) 11/15/16 23:20 Absolute Eosinophils 0.2 10^3/uL (0.0-0.6) 11/15/16 23:20 Absolute Basophils 0.1 10^3/uL (0.0-0.2) 11/15/16 23:20 Sodium 139.8 mmol/L (137-145) 11/15/16 23:20 Potassium 4.6 mmol/L (3.6-5.0) 11/15/16 23:20 Chloride 105 mmol/L (98-107) 11/15/16 23:20 Carbon Dioxide 24 mmol/L (22-30) 11/15/16 23:20 Anion Gap 11 (5-19) 11/15/16 23:20 BUN 19 mg/dL (7-20) 11/15/16 23:20 Creatinine 0.76 mg/dL (0.52-1.25) 11/15/16 23:20 Est GFR ( Amer) > 60 (>60) 11/15/16 23:20 Est GFR (Non-Af Amer) > 60 (>60) 11/15/16 23:20 Glucose 151 mg/dL (75-110) H 11/15/16 23:20 Calcium 8.8 mg/dL (8.4-10.2) 11/15/16 23:20 Total Bilirubin 0.4 mg/dL (0.2-1.3) 11/15/16 23:20 Direct Bilirubin 0.2 mg/dL (0.0-0.4) 11/15/16 23:20 Indirect Bilirubin Not Reportable 11/15/16 23:20 Neonat Total Bilirubin Not Reportable 11/15/16 23:20 AST 26 U/L (17-59) 11/15/16 23:20 ALT 21 U/L (21-72) 11/15/16 23:20 Alkaline Phosphatase 139 U/L (38-126) H 11/15/16 23:20 Creatine Kinase 23 U/L (55-170) L 11/15/16 23:20 CK-MB (CK-2) 0.45 ng/mL (<4.55) 11/15/16 23:20 Troponin I < 0.012 ng/mL 11/16/16 11:47 NT-Pro-B Natriuret Pep 1430 pg/mL (<450) H 11/15/16 23:20 Total Protein 6.5 g/dL (6.3-8.2) 11/15/16 23:20 Albumin 3.2 g/dL (3.5-5.0) L 11/15/16 23:20 Lipase 49.9 U/L (23-300) 11/15/16 23:20 Impressions: Chest X-Ray 11/15/16 23:02 IMPRESSION: Right basilar airspace disease. Small pleural effusions. No other significant findings. Overall findings are improved when compared to prior exam. Chest/Abdomen CTA 11/16/16 00:15 IMPRESSION: No acute cardiopulmonary findings. No evidence of pulmonary emboli. Small bibasilar atelectasis or scar. Assessment & Plan - Diagnosis (1) Chest pain Qualifiers: Chest pain type: unspecified Qualified Code(s): R07.9 - Chest pain, unspecified Is this a current diagnosis for this admission?: YesPlan: Will observe the patient continues telemetry unit, obtain serial cardiac enzymes , repeat EKG, and obtain lipid panel in the a.m. Given the patient's risk factors will consult Cardiology (2) Coronary artery disease Qualifiers: Coronary Disease-Associated Artery/Lesion type: unspecified vessel or lesion type Associated angina: angina presence unspecified Is this a current diagnosis for this admission?: YesPlan: Will continue home medications. (3) Cardiac pacemaker in situ Is this a current diagnosis for this admission?: Yes (4) Dyslipidemia Is this a current diagnosis for this admission?: Yes (5) H/O aortic valve replacement with porcine valve Is this a current diagnosis for this admission?: Yes (6) Hypertension Qualifiers: Hypertension type: essential hypertension Qualified Code(s): I10 - Essential (primary) hypertension Is this a current diagnosis for this admission?: YesPlan: Will continue home medications. (7) Chronic systolic congestive heart failure Is this a current diagnosis for this admission?: YesPlan: Will continue home medications. (8) Constipation due to opioid therapy Is this a current diagnosis for this admission?: Yes (9) History of prosthetic aortic valve replacement Is this a current diagnosis for this admission?: Yes (10) Hyperlipidemia Qualifiers: Hyperlipidemia type: unspecified Qualified Code(s): E78.5 - Hyperlipidemia, unspecified Is this a current diagnosis for this admission?: Yes (11) Stented coronary artery Is this a current diagnosis for this admission?: Yes (12) DVT prophylaxis Is this a current diagnosis for this admission?: Yes - Time Time Spent with patient: on this admission including assessment, plan, physical examination, family meeting, and specialty collaboration, and patient education is 50 minutes. Time Spent: 50 to 70 Minutes Medications reviewed and adjusted accordingly: Yes Anticipated discharge: Home Within: within 24 hours, within 48 hours Disposition: The patient is a full code. Pending patient's symptomatology and diagnostic findings will reevaluate in the a.m.
[2016-11-16] MEDS ORDERED: (PENDING PHARMACY ID) (Isosorbide Dinitrate [Isosorbide Dinitrate] 30 MG) PO SCH (18:00)
[2016-11-16] MEDS: OMEGA-3 ACID ETHYL ESTERS 1 GM CAPSULE PO SCH (18:03)
[2016-11-16] MEDS: ISOSORBIDE DINITRATE 20 MG TABLET PO SCH (18:03)
--- NOTE | 2016-11-16 18:45 | XCELERA REPORT ---
[address] [address] Transthoracic Echocardiogram Report Name: PEACE FRAGA Age: 85 yrs Gender: Male : 1930 Patient Status: Inpatient Patient Location: 4N\S\402\S\A Study Date: 11/16/2016 03:50 PM Height: 72 in Weight: 227 lb BSA: 2.2 m2 Procedure: A complete two-dimensional transthoracic echocardiogram was performed (2D, M-mode, spectral and color flow Doppler). The study was technically difficult with many images being suboptimal in quality. Reason For Study: chest pain, CAD Ordering Physician: BERE MENENDEZ Performed By: Loli Wong Interpretation Summary The left ventricular ejection fraction is normal. There is mild concentric left ventricular hypertrophy. Doppler measurements suggest pseudonormalized left ventricular relaxation, which is associated with grade II/IV or mild to moderate diastolic dysfunction The left ventricle is grossly normal size. There is distal anterior wall akinesis There is apical wall akinesis The right ventricular systolic function is normal. The right atrium is normal in size The left atrium is mildly dilated. There is a mild amount of mitral regurgitation There is no mitral valve stenosis. No aortic regurgitation is present. There is no aortic valve stenosis There is a trace to mild amount of tricuspid regurgitation There is mild pulmonary hypertension by echo Right ventricular systolic pressure is estimated to be elevated at 30- 40mmHg. There is no pericardial effusion. MMode/2D Measurements \T\ Calculations RVDd: 2.5 cm LVIDd: 5.0 cm FS: 34.0 % Ao root diam: 2.3 cm IVSd: 1.0 cm LVIDs: 3.3 cm EDV(Teich): 120.3 ml LVPWd: 1.0 cm ESV(Teich): 44.9 ml Ao root area: 4.1 cm2 EF(Teich): 62.6 % LA dimension: 4.1 cm Doppler Measurements \T\ Calculations MV E max lincoln: MV P1/2t max lincoln: Ao V2 max: LV V1 max P.2 cm/sec 135.2 cm/sec 221.1 cm/sec 4.3 mmHg MV A max lincoln: MV P1/2t: 76.0 msec Ao max PG: LV V1 max: 102.7 cm/sec 19.5 mmHg 103.2 cm/sec MV E/A: 1.3 MVA(P1/2t): 2.9 cm2 MV dec slope: 520.9 cm/sec2 MV dec time: 0.26 sec PA V2 max: TR max lincoln: 71.1 cm/sec 249.2 cm/sec PA max PG: TR max P.8 mmHg 2.0 mmHg Left Ventricle The left ventricle is grossly normal size. There is mild concentric left ventricular hypertrophy. The left ventricular ejection fraction is normal. Doppler measurements suggest pseudonormalized left ventricular relaxation, which is associated with grade II/IV or mild to moderate diastolic dysfunction. There is distal anterior wall akinesis. There is apical wall akinesis. Right Ventricle The right ventricle is grossly normal size. There is normal right ventricular wall thickness. The right ventricular systolic function is normal. Atria The right atrium is normal in size. The left atrium is mildly dilated. Interarterial septum not well visualized and not well dopplered. Cannot comment on ASD/PFO presence. Mitral Valve There is mild mitral annular calcification. There is no mitral valve stenosis. There is a mild amount of mitral regurgitation. Aortic Valve The aortic valve is not well visualized secondary to technical limitations. There is no aortic valve stenosis. No aortic regurgitation is present. Tricuspid Valve The tricuspid valve is not well visualized secondary to technical limitations. There is no tricuspid stenosis. There is a trace to mild amount of tricuspid regurgitation. There is mild pulmonary hypertension by echo. Right ventricular systolic pressure is estimated to be elevated at 30-40mmHg. Pulmonic Valve The pulmonic valve is not well visualized. Great Vessels The aortic root is not well visualized but is probably normal size. The inferior vena cava was not well visualized. Effusions There is no pericardial effusion. : BERE MENENDEZ > Bere Menendez
[2016-11-16] MEDS ORDERED: ATORVASTATIN CALCIUM 40 MG TABLET PO SCH (22:00)
[2016-11-16] MEDS ORDERED: PRIMIDONE 50 MG TABLET PO SCH (22:00)
[2016-11-17] MEDS: HEPARIN SOD (PORCINE) 5,000 UNIT/ML 1 ML SYRINGE SUBCUT SCH ×2 (05:24→13:33)
[2016-11-17 05:48] LABS: CHOLESTEROL 124.25 mg/dL (0-200); Direct HDL 37 mg/dL (>40); TRIGLYCERIDES 130 mg/dL (<150)
[2016-11-17 05:59] LABS: DIRECT LDL 52 mg/dL (<100)
[2016-11-17] MEDS ORDERED: LANSOPRAZOLE 15 MG TAB.RAP.DR PO SCH (06:00)
[2016-11-17] MEDS ORDERED: LISINOPRIL 5 MG TABLET PO SCH (10:00)
[2016-11-17] MEDS: MULTIVITAMIN TABLET PO SCH (13:30)
[2016-11-17] MEDS: FUROSEMIDE 20 MG TABLET PO SCH (13:31)
[2016-11-17] MEDS: CARVEDILOL 12.5 MG TABLET PO SCH (13:31)
[2016-11-17] MEDS: ASPIRIN 81 MG TABLET, ENT COATED PO SCH (13:31)
[2016-11-17] MEDS: SERTRALINE HCL 50 MG TABLET PO SCH (13:31)
[2016-11-17] MEDS: OXYBUTYNIN CHLORIDE 5 MG TABLET PO SCH ×2 (13:31→17:41)
--- NOTE | 2016-11-17 16:23 | DRAGON STRESS TEST REPORT ---
INTRAVENOUS LEXISCAN CARDIOLITE STRESS TEST USING SINGLE PHOTON EMMISION COMPUTERIZED TOMOGRAPHIC. DATE OF PROCEDURE: November 17, 2016 INDICATION : Chest pain CARDIAC RISK FACTORS: Hypertension, dyslipidemia, known history of CAD RESTING EKG: Ventricular paced rhythm, STRESS EKG: No significant changes noted with LexiScan bolus REASON FOR TERMINATION: Protocol. PROCEDURE REPORT: Baseline heart rate 65 beats per minute with blood pressure of 129/53. Patient had no significant complaints. Heart rate at 2 minutes post bolus 75 with a blood pressure of 129/42. 3 minutes post bolus heart rate 78 with blood pressure of 119/40. No significant EKG changes were noted. Patient had no significant complaints during the procedure or postprocedure. Patient injected with Aminophyllin 75 mg at 3 minutes or later after Lexiscan bolus. CONCLUSIONS: Normal EKG and hemodynamic response to IV LexiScan. NUCLEAR DATA: At rest the patient was given 14.22 millicuries of technetium 99 sestamibi injected intravenously. As per protocol rest gated SPECT images were obtained. Subsequently the patient was given intravenous LexiScan at a dose of 0.4 mg in 5 mL intravenously, followed by flush with normal saline. Subsequently the stress dose of 43.6 millicuries of technetium 99 sestamibi was injected intravenously. As per protocol stress gated images were obtained. NUCLEAR INTERPRETATION: Both raw and processed data were used for interpretation. Visual, qualitative, computer-generated quantitative data was used. There was good myocardial uptake of technetium compound. Motion artifact and soft tissue attenuations were noted. Increased visceral uptake was noted. Small area of mild ischemia noted in the distal inferior wall. SDS score was 2. No definitive areas of fixed perfusion defect or scars noted. EKG gated imaging showed LV EF at 50 %, rest and stress gated EF similar visually. T. I D. ratio was 1.21. Lung heart ratio noted to be within normal limits 0.35. No significant extracardiac and abnormal radiotracer activities were noted. RV free wall uptake was noted to be WNL. IMPRESSION: Also refer to comments under nuclear interpretation. Also test results needs to be interpreted in the context of pretest probability. 1. Small area of mild ischemia noted in the distal inferior wall. SDS score was 2. 2. There is no definitive scintigraphic evidence of myocardial infarction/scar. 3. EKG gated imaging shows left ejection fraction of approximately 50 %. 4. Clinical correlation requested as occasionally worse disease or balanced ischemia could be missed. In approximately 10% of the cases Lexiscan may not cause adequate vasodilatory stress. RECOMMENDATIONS: Aggressive risk factor modification, medical therapy. Clinical correlation with echocardiogram derived ejection fraction. Inability to exercise by itself can lead to increased cardiovascular event risks. Consider cardiology consultation and or follow-up if clinically indicated. I AM AVAILABLE FOR CARDIOLOGY CONSULTATION AND FOLLOWUP IF REQUESTED BY PMD Bere Pacheco M.D., [facility]ATION[facility] Eduardo Massage Operator senior media buyer, Board certified in cardiovascular diseases, Nuclear cardiology, Echocardiography Cardiac CT and cardiac MRI Ph. [phone] [facility]
[2016-11-17] MEDS: OMEGA-3 ACID ETHYL ESTERS 1 GM CAPSULE PO SCH (17:41)
[2016-11-17] MEDS: ISOSORBIDE DINITRATE 20 MG TABLET PO SCH (17:41)
[2016-11-17 18:30] VITALS: BP 164/58
--- NOTE | 2016-11-17 19:53 | PDOC PROGRESS REPORT ---
Subjective Progress Note for:: 11/17/16 Subjective:: Patient seems to be doing better with gradual improvement. Pt is denying any chest arm or neck discomfort. Patient denying any PND, orthopnea. Patient denied any sustained palpitations, dizziness, syncope, near syncope. Patient denying any fever chills. Patient denying any other significant discomfort. Patient is maintaining ventricular paced rhythm. Underlying atrial rhythm difficult to assess. Review of systems: Rest review of systems negative. Medications: Medications have been reviewed. Physical Exam Vital Signs: Temp Pulse Resp BP Pulse Ox 98.0 F 60 20 135/38 H 100 11/17/16 17:49 11/17/16 17:49 11/17/16 17:49 11/17/16 17:49 11/17/16 17:49 Intake & Output 11/16/16 11/17/16 11/18/16 06:59 06:59 06:59 Intake Total 0 2905 330 Output Total 1700 480 Balance 0 1205 -150 Weight 103.4 kg 103.4 kg Exam: GENERAL: well-nourished and in no acute distress. Alert and oriented x3 HEAD: Atraumatic, normocephalic. EYES: Pupils equal round and reactive to light, extraocular movements intact, sclera anicteric, conjunctiva are normal. ENT: TMs normal, nares patent, oropharynx clear without exudates. Moist mucous membranes. No oral ulcerations or bleeding gums noted NECK: supple without lymphadenopathy. Trachea is central. No cervical or axillary lymphadenopathy noted. Carotids are 2+, JVD WNL LUNGS: Respiration seems nonlabored, no significant accessory muscle action noted. Breath sounds clear to auscultation bilaterally and equal noted. No wheezes rales or rhonchi noted. No significant dullness noted on percussion. CHEST: Palpation of the chest wall shows no significant chest wall tenderness. No other significant abnormalities noted. HEART: [place] [employer], No PSH, 1/6 DONNA aortic area, 1/6 lazcano systolic murmur mitral area, no rubs, no gallops. ABDOMEN: Soft, no significant tenderness appreciated, normoactive bowel sounds. No guarding, no rebound. No rigidity noted . No masses appreciated. EXTREMITIES: Pedal pulses are 1-2+, no calf tenderness noted. No clubbing or cyanosis.trace to 1+ pedal edema noted NEUROLOGICAL: Focused neurological exam showed no significant neurologic deficit. Normal speech, no focal weakness appreciated. PSYCH: Normal mood, normal affect. Judgment and insight within normal limits. SKIN: No significant ecchymosis, rash, ulcerations or signs of pruritus noted. MUSCULOSKELETAL EXAM: No significant joint swelling noted. Results Laboratory Results: 11/17/16 03:57 Triglycerides 130 Cholesterol 124.25 LDL Cholesterol Direct 52 VLDL Cholesterol 26.0 HDL Cholesterol 37 L 11/16/16 11/16/16 06:50 11:47 Troponin I 0.022 < 0.012 Impressions: Chest X-Ray 11/15/16 23:02 IMPRESSION: Right basilar airspace disease. Small pleural effusions. No other significant findings. Overall findings are improved when compared to prior exam. Chest/Abdomen CTA 11/16/16 00:15 IMPRESSION: No acute cardiopulmonary findings. No evidence of pulmonary emboli. Small bibasilar atelectasis or scar. Assessment & Plan - Diagnosis (1) Coronary artery disease Qualifiers: Coronary Disease-Associated Artery/Lesion type: unspecified vessel or lesion type Associated angina: angina presence unspecified Is this a current diagnosis for this admission?: Yes (2) Chest pain Qualifiers: Chest pain type: unspecified Qualified Code(s): R07.9 - Chest pain, unspecified Is this a current diagnosis for this admission?: Yes (4) Hypertension Qualifiers: Hypertension type: essential hypertension Qualified Code(s): I10 - Essential (primary) hypertension Is this a current diagnosis for this admission?: Yes (5) Dyslipidemia Is this a current diagnosis for this admission?: Yes (6) Cardiac pacemaker in situ Is this a current diagnosis for this admission?: Yes (7) Status post transcatheter aortic valve replacement (TAVR) using bioprosthesis Is this a current diagnosis for this admission?: Yes (8) H/O aortic valve replacement with porcine valve Is this a current diagnosis for this admission?: Yes - Notes Notes: Chest pain: Patient has known CAD. There is high probability that chest pain is from underlying coronary ischemia. In this regard a nuclear stress test was scheduled and performed. Results were discussed. Based on the results it was decided to treat patient with medical management. Only a small area of ischemia was noted. Patient will benefit from close cardiology follow-up. This was explained to the patient Congestive heart failure: Patient noted to have symptoms of dyspnea, elevated BNP and also noted to be in CHF. Exact etiology of CHF is not clear. Patient claims that his previous echocardiogram was several years ago. 2-D echo results shows relatively well-preserved LVEF. In the meantime will recommend diuretic therapy. Medical regimen can be optimized as an outpatient. Hypertension: Reasonably well controlled. Blood pressure goal in this patient is 135/85 or less. This was discussed with the patient. Currently blood pressure under reasonable control. Better medication for this patient are JEREMIAH inhibitor/ARB/beta lynn etc. discussed side effects of uncontrolled hypertension and also severe hypotension. Hyperlipidemia: LDL goal is less than 70. Recommend statin therapy at least intermediate or high dose, of high potency status. Periodic lipid panel and liver panel is indicated. Patient to report any significant muscle discomfort or other side effects. Status post aortic valve replacement: Seems to be functioning normally. 2-D echo suggests satisfactory functioning of the prosthetic aortic valve. LV EF was noted to be relatively well preserved. Status post pacemaker placement: Rhythm strip review shows that this is functioning normally. - Time Time with patient: Greater than 35 minutes - CODE STATUS was discussed, patient remains full code. Surrogate decision-maker unchanged. Multiple medical problems were addressed.More than 50% of the time spent coordinating care, discussing management plans with involved caregivers. Management plans discussed with involved personnels. Medical decision making was of moderate to high complexity, patient's has multiple severe comorbidities. Patient was seen multiple times. In the morning nuclear stress test procedure, risks benefits were discussed. Later on we discussed results of 2-D echo and nuclear stress test. Patient questions were answered. It was felt that in view of normal LVEF and small area of ischemia, initial trial of medical management would be an adequate option based on his other significant medical comorbidities.
--- NOTE | 2016-11-28 07:28 | PDOC DISCHARGE SUMMARY ---
General - Admit/Disc Date/PCP Admission Date/Primary Care Provider: 11/16/16 03:15 ERIC CASON NP Consulting security system analyst:Dr. Pacheco Discharge Date: 11/17/16 - Discharge Diagnosis (1) Chest pain Is this a current diagnosis for this admission?: Yes (2) Coronary artery disease Is this a current diagnosis for this admission?: Yes (3) Cardiac pacemaker in situ Is this a current diagnosis for this admission?: Yes (4) Dyslipidemia Is this a current diagnosis for this admission?: Yes (5) H/O aortic valve replacement with porcine valve Is this a current diagnosis for this admission?: Yes (6) Hypertension Is this a current diagnosis for this admission?: Yes (7) Chronic systolic congestive heart failure Is this a current diagnosis for this admission?: Yes (8) Constipation due to opioid therapy Is this a current diagnosis for this admission?: Yes (9) History of prosthetic aortic valve replacement Is this a current diagnosis for this admission?: Yes (10) Hyperlipidemia Is this a current diagnosis for this admission?: Yes (11) Stented coronary artery Is this a current diagnosis for this admission?: Yes (12) DVT prophylaxis Is this a current diagnosis for this admission?: Yes - Additional Information Resuscitation Status: Full Code Discharge Diet: As Tolerated, Cardiac Discharge Activity: Activity As Tolerated Home Medications: Carvedilol [Coreg 25 mg Tablet] 12.5 mg PO BID 09/15/14 Atorvastatin Calcium [Lipitor 40 mg Tablet] 40 mg PO QHS 04/24/16 Furosemide [Lasix 40 mg Tablet] 20 mg PO QAM 04/24/16 Multivitamin [Daily Multiple Vitamin] 1 tab PO DAILY 08/15/16 [place]-3/Dha/Epa/Fish Oil [Fish Oil 1,000 mg Softgel] 2 cap PO DAILY 08/15/16 Oxybutynin Chloride [Ditropan 5 mg Tablet] 5 mg PO BID 08/15/16 Primidone [Mysoline] 50 mg PO QHS 09/27/16 Aspirin [Aspirin EC] 81 mg PO DAILY 11/16/16 Isosorbide Mononitrate [Imdur 30 mg Tablet.er] 30 mg PO DAILY 11/16/16 Sertraline HCl 50 mg PO DAILY 11/16/16 Dicyclomine HCl [Bentyl 20 mg Tablet] 20 mg PO QID #120 tablet 11/22/16 Lisinopril [Prinivil 2.5 mg Tablet] 2.5 mg PO DAILY 11/26/16 Nitroglycerin [Nitrostat 0.4 mg (1/150 Gr) Tabs 25/Bottle] 1 tab SL Q5MP PRN Omeprazole 20 mg PO DAILY 11/26/16 History of Present Illness Patient complains of: Chest pain History of Present Illness: The patient is an 85 year old male with coronary artery disease, s/p 5 vessel bypass in 2004, s/p [employer] pacemaker implant in 2007, and s/p aortic PIG valve replacement 2014, who presents with chest pain that started after he woke up from his nap yesterday night. He says that the pain felt similar to when he needed his CABG. He initially felt mild shortness of breath and nausea , but this has resolved after EMS gave him 8 mg Zofran, 3 sublingual nitros, 324 mg aspirin and 0.5 mg of Dilaudid. He has nitro paste in place on arrival to the ER. Patient is currently denying any chest pain but has noted some swallowing difficulty with breakfast. Patient denies leg swelling, vomiting, diarrhea, abdominal pain, back pain, current shortness of breath, fevers or cough. Hospital Course Hospital Course: The patient was observed in a continues telemetry unit, serial cardiac enzymes were obtained which were nonsuggestive. The patient's EKG revealed no acute changes and the patient had no events on patient monitor. The patient was seen and evaluated by cardiology. The patient underwent Cardiolite stress test and findings were not consistent with any area reversible ischemia. Patient was placed on low-dose JEREMIAH inhibitor. Patient had no further replication of symptoms. Physical Exam Vital Signs: Temp Pulse Resp BP Pulse Ox 98.0 F 60 20 135/38 H 100 11/17/16 17:49 11/17/16 17:49 11/17/16 17:49 11/17/16 17:49 11/17/16 17:49 General appearance: PRESENT: no acute distress, well-developed, well-nourished Head exam: PRESENT: atraumatic, normocephalic Eye exam: PRESENT: conjunctiva pink, EOMI, PERRLA. ABSENT: scleral icterus Ear exam: PRESENT: normal external ear exam Mouth exam: PRESENT: moist, tongue midline Neck exam: ABSENT: carotid bruit, JVD, lymphadenopathy, thyromegaly Respiratory exam: PRESENT: clear to auscultation jeremy, symmetrical, unlabored. ABSENT: rales, rhonchi, tachypnea, wheezes Cardiovascular exam: PRESENT: RRR. ABSENT: diastolic murmur, rubs, systolic murmur Pulses: PRESENT: normal dorsalis pedis pul Vascular exam: PRESENT: normal capillary refill GI/Abdominal exam: PRESENT: normal bowel sounds, soft. ABSENT: distended, guarding, mass, organolmegaly, rebound, tenderness Rectal exam: PRESENT: deferred Extremities exam: PRESENT: full ROM. ABSENT: calf tenderness, clubbing, pedal edema Neurological exam: PRESENT: alert, awake, oriented to person, oriented to place , oriented to time, oriented to situation, CN II-XII grossly intact. ABSENT: motor sensory deficit Psychiatric exam: PRESENT: appropriate affect, normal mood. ABSENT: homicidal ideation, suicidal ideation Skin exam: PRESENT: dry, intact, warm. ABSENT: cyanosis, rash Results Laboratory Results: Labs- Last Values WBC 9.9 10^3/uL (4.0-10.5) 11/15/16 23:20 RBC 4.18 10^6/uL (4.35-5.55) L 11/15/16 23:20 Hgb 11.9 g/dL (13.5-17.0) L 11/15/16 23:20 Hct 36.1 % (37.9-51.0) L 11/15/16 23:20 MCV 86 fl (80-97) 11/15/16 23:20 MCH 28.5 pg (27.0-33.4) 11/15/16 23:20 MCHC 33.0 g/dL (32.0-36.0) 11/15/16 23:20 RDW 17.3 % (11.5-14.0) H 11/15/16 23:20 Plt Count 313 10^3/uL (150-450) 11/15/16 23:20 Seg Neutrophils % 71.9 % (42-78) 11/15/16 23:20 Lymphocytes % 17.9 % (13-45) 11/15/16 23:20 Monocytes % 7.6 % (3-13) 11/15/16 23:20 Eosinophils % 1.7 % (0-6) 11/15/16 23:20 Basophils % 0.9 % (0-2) 11/15/16 23:20 Absolute Neutrophils 7.1 10^3/uL (1.7-8.2) 11/15/16 23:20 Absolute Lymphocytes 1.8 10^3/uL (0.5-4.7) 11/15/16 23:20 Absolute Monocytes 0.8 10^3/uL (0.1-1.4) 11/15/16 23:20 Absolute Eosinophils 0.2 10^3/uL (0.0-0.6) 11/15/16 23:20 Absolute Basophils 0.1 10^3/uL (0.0-0.2) 11/15/16 23:20 Sodium 139.8 mmol/L (137-145) 11/15/16 23:20 Potassium 4.6 mmol/L (3.6-5.0) 11/15/16 23:20 Chloride 105 mmol/L (98-107) 11/15/16 23:20 Carbon Dioxide 24 mmol/L (22-30) 11/15/16 23:20 Anion Gap 11 (5-19) 11/15/16 23:20 BUN 19 mg/dL (7-20) 11/15/16 23:20 Creatinine 0.76 mg/dL (0.52-1.25) 11/15/16 23:20 Est GFR ( Amer) > 60 (>60) 11/15/16 23:20 Est GFR (Non-Af Amer) > 60 (>60) 11/15/16 23:20 Glucose 151 mg/dL (75-110) H 11/15/16 23:20 Calcium 8.8 mg/dL (8.4-10.2) 11/15/16 23:20 Total Bilirubin 0.4 mg/dL (0.2-1.3) 11/15/16 23:20 Direct Bilirubin 0.2 mg/dL (0.0-0.4) 11/15/16 23:20 Indirect Bilirubin Not Reportable 11/15/16 23:20 Neonat Total Bilirubin Not Reportable 11/15/16 23:20 AST 26 U/L (17-59) 11/15/16 23:20 ALT 21 U/L (21-72) 11/15/16 23:20 Alkaline Phosphatase 139 U/L (38-126) H 11/15/16 23:20 Creatine Kinase 23 U/L (55-170) L 11/15/16 23:20 CK-MB (CK-2) 0.45 ng/mL (<4.55) 11/15/16 23:20 Troponin I < 0.012 ng/mL 11/16/16 11:47 NT-Pro-B Natriuret Pep 1430 pg/mL (<450) H 11/15/16 23:20 Total Protein 6.5 g/dL (6.3-8.2) 11/15/16 23:20 Albumin 3.2 g/dL (3.5-5.0) L 11/15/16 23:20 Triglycerides 130 mg/dL (<150) 11/17/16 03:57 Cholesterol 124.25 mg/dL (0-200) 11/17/16 03:57 LDL Cholesterol Direct 52 mg/dL (<100) 11/17/16 03:57 VLDL Cholesterol 26.0 mg/dL (10-31) 11/17/16 03:57 HDL Cholesterol 37 mg/dL (>40) L 11/17/16 03:57 Lipase 49.9 U/L (23-300) 11/15/16 23:20 Impressions: Chest X-Ray 11/15/16 23:02 IMPRESSION: Right basilar airspace disease. Small pleural effusions. No other significant findings. Overall findings are improved when compared to prior exam. Chest/Abdomen CTA 11/16/16 00:15 IMPRESSION: No acute cardiopulmonary findings. No evidence of pulmonary emboli. Small bibasilar atelectasis or scar. Qualifiers PATEINT BEING DISCHARGED WITH ANY OF THE FOLLOWING DIAGNOSIS?: No Plan Discharge Plan: The patient is a follow with primary care provider within one week for hospital follow-up. The patient is advised follow-up with cardiology as scheduled. Time Spent: Less than 30 Minutes
== END 2016-11-17 19:08 | disposition home health service (06) ==
LOC: ER 22:54 → EH 11-16 03:15 → 4N 11-16 04:20
PROVIDERS: ADMIT Family Medicine; ATTEND Family Medicine
DX: R07.9 Chest pain, unspecified (principal); I25.10 Atherosclerotic heart disease of native coronary artery without angina pectoris; Z95.0 Presence of cardiac pacemaker; E78.5 Hyperlipidemia, unspecified; Z95.3 Presence of xenogenic heart valve; I11.0 Hypertensive heart disease with heart failure; I50.22 Chronic systolic (congestive) heart failure; K59.00 Constipation, unspecified; T40.2X5A Adverse effect of other opioids, initial encounter; Z95.2 Presence of prosthetic heart valve; R13.10 Dysphagia, unspecified; I25.2 Old myocardial infarction; Z95.5 Presence of coronary angioplasty implant and graft; Z79.82 Long term (current) use of aspirin; Z79.899 Other long term (current) drug therapy; Z95.1 Presence of aortocoronary bypass graft; Z83.79 Family history of other diseases of the digestive system; Z90.49 Acquired absence of other specified parts of digestive tract; Z87.11 Personal history of peptic ulcer disease; Z82.49 Family history of ischemic heart disease and other diseases of the circulatory system; Z80.9 Family history of malignant neoplasm, unspecified; Z98.890 Other specified postprocedural states; Z87.891 Personal history of nicotine dependence
CPT/HCPCS: 93005; 96376; 99285; 96374; 36415 ×3; 82553; 82550; 83690; 85025; 80076; 80048; 84484 ×2; 80061; 83880; 93306; 93017; 71010; 78452; 71275; 93010; G0378 ×2; A9500; J2785; J1644 ×2; A9270 ×17; J2270 ×2; J3490 ×2; J2405; J0280; Q9969

== ENCOUNTER 2016-11-22 17:37 | Emergency (ER) | payer MEDICARE ==
[2016-11-22] MEDS ORDERED: ONDANSETRON HCL INJ/PF 4 MG/2 ML SDV IV ONE (18:11)
[2016-11-22] MEDS ORDERED: MORPHINE SULFATE 10 MG/ML INJ IV ONE (18:11)
--- NOTE | 2016-11-22 18:18 | ER Document Report ---
ED Medical Screen (RME) - General Chief Complaint: Abdominal Pain Stated Complaint: LUMP ON LEFT SIDE AND TENDER Mode of Arrival: Wheelchair Information source: Patient Notes: This is a very pleasant 85-year-old male who presents to the ER for left-sided flank and abdominal discomfort as well as painful swelling/mass to that area. Of note he was admitted to this facility last week for November 15- for chest pain and underwent an echocardiogram and nuclear stress test which he states were reassuring. He had been doing well since discharge until today when he developed some nausea and had been to notice this painful swelling to the left side of his abdomen/flank. He denies any fevers or chills. He has had no vomiting. Denies dysuria or hematuria. He did eat normally today. Of note he has had multiple abdominal surgeries to include horseshoe kidney surgery, stomach surgery for peptic ulcer disease, and a mass on his stomach. He is also had aortic valve replacement for aortic stenosis and a 5 vessel CABG. He is on aspirin but no other blood thinners. Patient has a large firm area of swelling/mass to his left lateral abdomen/ flank. This is significantly tender to palpation. There is no discoloration or obvious hematoma to the skin. I have greeted and performed a rapid initial assessment of this patient. A comprehensive ED assessment and evaluation of the patient, analysis of test results and completion of the medical decision making process will be conducted by additional ED providers. TRAVEL OUTSIDE OF THE [place] IN LAST 30 DAYS: No - Related Data Allergies/Adverse Reactions: No Known Allergies Allergy (Verified 09/27/16 11:39) Past Medical History - Past Medical History Cardiac Medical History: Reports: Hx Congestive Heart Failure, Hx Coronary Artery Disease, Hx Heart Attack, Hx Hypercholesterolemia, Hx Hypertension Denies: Hx Atrial Fibrillation, Hx DVT, Hx Peripheral Vascular Disease, Hx Pulmonary Embolism, Hx Heart Murmur Pulmonary Medical History: Denies: Hx Asthma, Hx COPD Neurological Medical History: Denies: Hx Cerebrovascular Accident, Hx Seizures Endocrine Medical History: Denies: Hx Diabetes Mellitus Type 1, Hx Diabetes Mellitus Type 2, Hx Hyperthyroidism, Hx Hypothyroidism Renal/ Medical History: Denies: Hx Benign Prostatic Hyperplasia, Hx End Stage Renal Disease, Hx Kidney Stones, Hx Peritoneal Dialysis GI Medical History: Reports: Hx Diverticulitis, Hx Gastroesophageal Reflux Disease. 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 Denies: Hx Bowel Surgery, Hx Colostomy, Hx Gastric Bypass Surgery, Hx Herniorrhaphy, Hx Tonsillectomy - Immunizations Immunizations up to date: Yes Hx Diphtheria, Pertussis, Tetanus Vaccination: No Physical Exam - Vital signs Vitals: Temp Pulse Resp BP Pulse Ox 98 F 63 18 149/112 H 95 11/22/16 17:38 11/22/16 17:38 11/22/16 17:38 11/22/16 17:38 11/22/16 17:38 Course - Vital Signs Vital signs: Temp Pulse Resp BP Pulse Ox 98 F 63 18 149/112 H 95 11/22/16 17:38 11/22/16 17:38 11/22/16 17:38 11/22/16 17:38 11/22/16 17:38 - Laboratory Result Diagrams: 11/22/16 18:20 11/22/16 18:20 Laboratory results interpreted by me: 11/22/16 11/22/16 11/22/16 18:20 18:20 18:20 Hgb 12.7 L RDW 17.0 H Potassium 5.1 H BUN 29 H Glucose 120 H Urine Ascorbic Acid 40 H
[2016-11-22 18:47] LABS: ABSOLUTE BASOPHILS # (AUTO) 0.1 10^3/uL (0.0-0.2); ABSOLUTE EOSINOPHILS # (AUTO) 0.2 10^3/uL (0.0-0.6); ABSOLUTE LYMPHOCYTES (AUTO) 2.4 10^3/uL (0.5-4.7); ABSOLUTE MONOCYTES (AUTO) 0.8 10^3/uL (0.1-1.4); ABSOLUTE NEUT (AUTO) 6.3 10^3/uL (1.7-8.2); BASOPHILS % (AUTO) 1.2 % (0-2); EOSINOPHILS % (AUTO) 1.7 % (0-6); HEMOGLOBIN 12.7 g/dL (13.5-17.0); HGB HCT DIFFERENCE -0.9; LYMPHOCYTES % (AUTO) 24.3 % (13-45); MEAN CORPUSCULAR HEMOGLOBIN 28.1 pg (27.0-33.4); MEAN CORPUSCULAR HGB CONC 32.6 g/dL (32.0-36.0); MEAN CORPUSCULAR VOLUME 86 fl (80-97); MONOCYTES % (AUTO) 8.1 % (3-13); RED BLOOD COUNT 4.52 10^6/uL (4.35-5.55); SEGMENTED NEUTROPHILS % (AUTO) 64.7 % (42-78); WHITE BLOOD COUNT 9.8 10^3/uL (4.0-10.5)
[2016-11-22 18:52] LABS: APPEARANCE,URINE SLIGHTLY-CLOUDY; BILIRUBIN,URINE NEGATIVE (NEGATIVE); GLUCOSE, URINE NEGATIVE (NEGATIVE); KETONES,URINE NEGATIVE (NEGATIVE); LEUKOCYTE ESTERASE,URINE NEGATIVE (NEGATIVE); NITRITE,URINE NEGATIVE (NEGATIVE); PROTEIN,URINE NEGATIVE (NEGATIVE); PROTHROMBIN TIME 13.3 SEC (11.4-15.4); URINE SPECIFIC GRAVITY 1.015; UROBILINOGEN,URINE NEGATIVE mg/dL (<2.0)
[2016-11-22 18:53] LABS: PARTIAL THROMBOPLASTIN TIME 28.4 SEC (23.5-35.8)
[2016-11-22] MEDS ORDERED: OXYCODONE-ACETAMINOPHEN 5-325 MG TABLET PO ONE (18:54)
[2016-11-22 19:01] LABS: ALANINE AMINOTRANSFERASE 22 U/L (21-72); ALBUMIN 3.5 g/dL (3.5-5.0); ALKALINE PHOSPHATASE 117 U/L (38-126); ANION GAP 13 (5-19); ASPARTATE AMINO TRANSFERASE 24 U/L (17-59); BILIRUBIN,DIRECT 0.2 mg/dL (0.0-0.4); BILIRUBIN,TOTAL 0.5 mg/dL (0.2-1.3); BLOOD UREA NITROGEN 29 mg/dL (7-20); CALCIUM 9.3 mg/dL (8.4-10.2); CARBON DIOXIDE 24 mmol/L (22-30); CHLORIDE 107 mmol/L (98-107); GLUCOSE 120 mg/dL (75-110); POTASSIUM 5.1 mmol/L (3.6-5.0); SODIUM 143.8 mmol/L (137-145); TOTAL PROTEIN 6.8 g/dL (6.3-8.2)
--- NOTE | 2016-11-22 21:58 | ER Document Report ---
ED GI/ - General Chief Complaint: Abdominal Pain Stated Complaint: LUMP ON LEFT SIDE AND TENDER Time seen by provider: 20:00 Mode of Arrival: Wheelchair Information source: Patient TRAVEL OUTSIDE OF THE [place] IN LAST 30 DAYS: No - HPI Patient complains to provider of: Abdominal pain Onset: This morning Timing/Duration: Persistent Quality of pain: Achy, Fullness, Pressure Severity at maximum: Moderate Severity in ED: Moderate Location: LLQ Associated symptoms: None Exacerbated by: Denies Relieved by: Denies Similar symptoms previously: No Recently seen / treated by doctor: Yes Notes: 11/23/16 01:53 Patient is an 85-year-old female who was recently discharged from this hospital , who presents to the emergency room today complaining of painful swelling to his left lower abdomen that he first noticed earlier today, he reports associated nausea but no vomiting, he states his normal bowel movements 2-3 times daily, they're without blood, she does report mild decrease in his urination over the past few days, but denies any blood in his urine as well, no fever or chills - Related Data Allergies/Adverse Reactions: No Known Allergies Allergy (Verified 09/27/16 11:39) Past Medical History - General Information source: Patient - Social History Smoking Status: Unknown if Ever Smoked Chew tobacco use (# tins/day): No Frequency of alcohol use: None Drug Abuse: None Family History: Reviewed & Not Pertinent, CAD, CVA, Malignancy - Past Medical History Cardiac Medical History: Reports: Hx Congestive Heart Failure, Hx Coronary Artery Disease, Hx Heart Attack, Hx Hypercholesterolemia, Hx Hypertension Denies: Hx Atrial Fibrillation, Hx DVT, Hx Peripheral Vascular Disease, Hx Pulmonary Embolism, Hx Heart Murmur Pulmonary Medical History: Denies: Hx Asthma, Hx COPD Neurological Medical History: Denies: Hx Cerebrovascular Accident, Hx Seizures Endocrine Medical History: Denies: Hx Diabetes Mellitus Type 1, Hx Diabetes Mellitus Type 2, Hx Hyperthyroidism, Hx Hypothyroidism Renal/ Medical History: Denies: Hx Benign Prostatic Hyperplasia, Hx End Stage Renal Disease, Hx Kidney Stones, Hx Peritoneal Dialysis GI Medical History: Reports: Hx Diverticulitis, Hx Gastroesophageal Reflux Disease. 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, Denies Hx Fibromyalgia, Denies Hx Multiple Sclerosis, Denies Hx Muscular Dystrophy Skin Medical History: Denies Hx Eczema, Denies Hx Psoriasis Psychiatric Medical History: Reports: Hx Depression Denies: Hx Dementia Traumatic Medical History: Denies: Hx Fractures Infectious Medical History: Denies: Hx Hepatitis Past Surgical History: Reports: Hx Appendectomy, Hx Cardiac Surgery - Bypass surgery, Hx Cholecystectomy, Hx Coronary Artery Bypass Graft - x5, 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 Denies: Hx Bowel Surgery, Hx Colostomy, Hx Gastric Bypass Surgery, Hx Herniorrhaphy, Hx Tonsillectomy - Immunizations Immunizations up to date: Yes Hx Diphtheria, Pertussis, Tetanus Vaccination: No Review of Systems - Review of Systems Constitutional: No symptoms reported EENT: No symptoms reported Cardiovascular: No symptoms reported Respiratory: No symptoms reported Gastrointestinal: See HPI Genitourinary: No symptoms reported Male Genitourinary: No symptoms reported Musculoskeletal: No symptoms reported Skin: No symptoms reported Hematologic/Lymphatic: No symptoms reported Neurological/Psychological: No symptoms reported -: Yes All other systems reviewed and negative Physical Exam - Vital signs Vitals: Temp Pulse Resp BP Pulse Ox 98 F 63 18 149/112 H 95 11/22/16 17:38 11/22/16 17:38 11/22/16 17:38 11/22/16 17:38 11/22/16 17:38 Interpretation: Hypertensive - General General appearance: Appears well, Alert - HEENT Head: Normocephalic, Atraumatic Eyes: Normal Pupils: PERRL - Respiratory Respiratory status: No respiratory distress Chest status: Nontender Breath sounds: Normal Chest palpation: Normal - Cardiovascular Rhythm: Regular Heart sounds: Normal auscultation Murmur: No - Abdominal Inspection: Normal Distension: Distended - Left flank Bowel sounds: Normal Tenderness: Tender - Mild tenderness to palpate left lower quadrant Organomegaly: No organomegaly - Back Back: Normal, Nontender - Extremities General upper extremity: Normal inspection, Nontender, Normal color, Normal ROM , Normal temperature General lower extremity: Normal inspection, Nontender, Normal color, Normal ROM , Normal temperature, Normal weight bearing. No: Capo's sign - Neurological Neuro grossly intact: Yes Cognition: Normal Orientation: AAOx4 [place] Coma Scale Eye Opening: Spontaneous [place] Coma Scale Verbal: Oriented Hayde Coma Scale Motor: Obeys Commands [place] Coma Scale Total: 15 Speech: Normal Motor strength normal: LUE, RUE, LLE, RLE Sensory: Normal - Psychological Associated symptoms: Normal affect, Normal mood - Skin Skin Temperature: Warm Skin Moisture: Dry Skin Color: Normal Course - Re-evaluation Re-evalutation: 11/23/16 01:54 Lab and imaging findings were discussed with patient and daughter at bedside which are relatively unremarkable, patient was given a prescription for Bentyl, and advised to follow-up with his primary care provider or return if symptoms worsen, patient acknowledges understanding and agreement with this plan - Vital Signs Vital signs: Temp Pulse Resp BP Pulse Ox 98 F 90 18 143/71 H 95 11/22/16 17:38 11/22/16 22:43 11/22/16 22:43 11/22/16 22:43 11/22/16 17:38 - Laboratory Result Diagrams: 11/22/16 18:20 11/22/16 18:20 Laboratory results interpreted by me: 11/22/16 11/22/16 11/22/16 18:20 18:20 18:20 Hgb 12.7 L RDW 17.0 H Potassium 5.1 H BUN 29 H Glucose 120 H Urine Ascorbic Acid 40 H - Diagnostic Test Radiology reviewed: Image reviewed, Reports reviewed Discharge - Discharge Clinical Impression: Abdominal distention Abdominal pain Qualifiers: Abdominal location: left lower quadrant Qualified Code(s): R10.32 - Left lower quadrant pain Condition: Stable Disposition: HOME, SELF-CARE Instructions: Abdominal Pain ([facility]) Additional Instructions: Follow up with your primary care provider in one to 2 days. Return to the emergency room immediately if symptoms worsen or any additional concerns. Prescriptions: Dicyclomine HCl [Bentyl 20 mg Tablet] 20 mg PO QID #120 tablet
[2016-11-22] MEDS ORDERED: DICYCLOMINE HCL 20 MG TABLET PO ONE (22:01)
[2016-11-22 22:46] VITALS: BP 143/71
== END 2016-11-22 22:43 | disposition home or self-care (01) ==
LOC: ER 17:37
DX: R10.32 Left lower quadrant pain (principal); R14.0 Abdominal distension (gaseous); I50.9 Heart failure, unspecified; I25.10 Atherosclerotic heart disease of native coronary artery without angina pectoris; E78.00 Pure hypercholesterolemia, unspecified; I11.0 Hypertensive heart disease with heart failure; I25.2 Old myocardial infarction; Z95.1 Presence of aortocoronary bypass graft; Z90.49 Acquired absence of other specified parts of digestive tract; Z95.0 Presence of cardiac pacemaker; Z95.2 Presence of prosthetic heart valve
CPT/HCPCS: 99284; 36415; 85025; 85610; 85730; 80053; 81001; 74177; A9270

== ENCOUNTER 2016-11-25 20:55 | Inpatient (IN) | payer MEDICARE ==
[2016-11-25 21:37] LABS: ABSOLUTE EOSINOPHILS # (AUTO) 0.1 10^3/uL (0.0-0.6); ABSOLUTE LYMPHOCYTES (AUTO) 2.4 10^3/uL (0.5-4.7); ABSOLUTE MONOCYTES (AUTO) 0.8 10^3/uL (0.1-1.4); ABSOLUTE NEUT (AUTO) 7.9 10^3/uL (1.7-8.2); BASOPHILS % (AUTO) 0.4 % (0-2); EOSINOPHILS % (AUTO) 0.5 % (0-6); HEMATOCRIT 38.2 % (37.9-51.0); HEMOGLOBIN 12.2 g/dL (13.5-17.0); HGB HCT DIFFERENCE -1.6; LYMPHOCYTES % (AUTO) 21.2 % (13-45); MEAN CORPUSCULAR HEMOGLOBIN 27.2 pg (27.0-33.4); MEAN CORPUSCULAR HGB CONC 31.9 g/dL (32.0-36.0); MEAN CORPUSCULAR VOLUME 85 fl (80-97); MONOCYTES % (AUTO) 7.5 % (3-13); RED BLOOD COUNT 4.48 10^6/uL (4.35-5.55); RED CELL DISTRIBUTION WIDTH 16.9 % (11.5-14.0); SEGMENTED NEUTROPHILS % (AUTO) 70.4 % (42-78); WHITE BLOOD COUNT 11.2 10^3/uL (4.0-10.5)
[2016-11-25] MEDS ORDERED: LIDOCAINE 2% VISCOUS SOLN 20 ML UDCUP PO ONE (21:38)
[2016-11-25] MEDS ORDERED: MAG HYDROX/AL HYDROX/SIMETH SUSP 30 ML UDCUP PO ONE (21:38)
[2016-11-25] MEDS ORDERED: METOCLOPRAMIDE HCL ORAL SOLN 10 MG/10 ML UDCUP PO ONE (21:38)
[2016-11-25 21:43] LABS: ALANINE AMINOTRANSFERASE 20 U/L (21-72); ALBUMIN 3.3 g/dL (3.5-5.0); ALKALINE PHOSPHATASE 113 U/L (38-126); ANION GAP 13 (5-19); ASPARTATE AMINO TRANSFERASE 25 U/L (17-59); BILIRUBIN,DIRECT 0.2 mg/dL (0.0-0.4); BILIRUBIN,TOTAL 0.6 mg/dL (0.2-1.3); BLOOD UREA NITROGEN 21 mg/dL (7-20); CALCIUM 9.2 mg/dL (8.4-10.2); CARBON DIOXIDE 21 mmol/L (22-30); CHLORIDE 105 mmol/L (98-107); GLUCOSE 136 mg/dL (75-110); LIPASE 64.2 U/L (23-300); POTASSIUM 4.7 mmol/L (3.6-5.0); SODIUM 139.4 mmol/L (137-145); TOTAL PROTEIN 6.7 g/dL (6.3-8.2)
--- NOTE | 2016-11-25 21:43 | ER Document Report ---
ED General - General Stated Complaint: ABDOMINAL PAIN Time seen by provider: 21:42 Mode of Arrival: Ambulatory Information source: Patient Notes: This is an 85-year-old man with a history of coronary artery disease, status post CABG, status post pacemaker. Patient presents to the emergency room with an episode of chest pain. He states it does not feel like his previous 2 heart attacks. The discomfort is nonradiating. He denies any abdomen pain or swelling. TRAVEL OUTSIDE OF THE [place] IN LAST 30 DAYS: No - HPI Onset: Just prior to arrival Onset/Duration: Gradual Quality of pain: No pain Associated symptoms: denies: Chills, Nonproductive cough, Productive cough, Fever, Shortness of breath Exacerbated by: Denies Relieved by: Denies Similar symptoms previously: Yes Recently seen / treated by doctor: Yes - Related Data Allergies/Adverse Reactions: No Known Allergies Allergy (Verified 09/27/16 11:39) Past Medical History - General Information source: Patient - Social History Smoking Status: Never Smoker Cigarette use (# per day): No Chew tobacco use (# tins/day): No Frequency of alcohol use: None Drug Abuse: None Lives with: Family Family History: Reviewed & Not Pertinent, CAD, CVA, Malignancy - Past Medical History Cardiac Medical History: Reports: Hx Congestive Heart Failure, Hx Coronary Artery Disease, Hx Heart Attack, Hx Hypercholesterolemia, Hx Hypertension Denies: Hx Atrial Fibrillation, Hx DVT, Hx Peripheral Vascular Disease, Hx Pulmonary Embolism, Hx Heart Murmur Pulmonary Medical History: Denies: Hx Asthma, Hx COPD Neurological Medical History: Denies: Hx Cerebrovascular Accident, Hx Seizures Endocrine Medical History: Denies: Hx Diabetes Mellitus Type 1, Hx Diabetes Mellitus Type 2, Hx Hyperthyroidism, Hx Hypothyroidism Renal/ Medical History: Denies: Hx Benign Prostatic Hyperplasia, Hx End Stage Renal Disease, Hx Kidney Stones, Hx Peritoneal Dialysis GI Medical History: Reports: Hx Diverticulitis, Hx Gastroesophageal Reflux Disease. 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, Denies Hx Fibromyalgia, Denies Hx Multiple Sclerosis, Denies Hx Muscular Dystrophy Skin Medical History: Denies Hx Eczema, Denies Hx Psoriasis Psychiatric Medical History: Reports: Hx Depression Denies: Hx Dementia Traumatic Medical History: Denies: Hx Fractures Infectious Medical History: Denies: Hx Hepatitis Past Surgical History: Reports: Hx Appendectomy, Hx Cardiac Surgery - Bypass surgery, Hx Cholecystectomy, Hx Coronary Artery Bypass Graft - x5, 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 Denies: Hx Bowel Surgery, Hx Colostomy, Hx Gastric Bypass Surgery, Hx Herniorrhaphy, Hx Tonsillectomy - Immunizations Immunizations up to date: Yes Hx Diphtheria, Pertussis, Tetanus Vaccination: No Review of Systems - Review of Systems Constitutional: denies: Chills, Fever EENT: No symptoms reported Cardiovascular: See HPI Respiratory: No symptoms reported Gastrointestinal: See HPI Genitourinary: No symptoms reported Male Genitourinary: No symptoms reported Musculoskeletal: No symptoms reported Skin: No symptoms reported Hematologic/Lymphatic: No symptoms reported Neurological/Psychological: No symptoms reported Physical Exam - Vital signs Vitals: Resp Pulse Ox 33 H 96 11/25/16 21:10 11/25/16 21:10 Notes: Physical exam: GENERAL: 85-year-old female, alert and oriented 3, no acute distress HEAD: Atraumatic, normocephalic. EYES: Pupils equal round and reactive to light, extraocular movements intact, sclera anicteric, conjunctiva are normal. ENT: TMs normal, nares patent, oropharynx clear without exudates. Moist mucous membranes. NECK: Normal range of motion, supple without lymphadenopathy or JVD. LUNGS: Breath sounds clear to auscultation bilaterally and equal. No wheezes rales or rhonchi. HEART: Regular rate and rhythm without murmurs, rubs or gallops. ABDOMEN: Soft, normoactive bowel sounds. Patient does have some left lower quadrant tenderness without rebound or guarding. There is no obvious masses to the abdominal wall. There is no overlying erythema. The patient does have numerous scars on his abdomen from L4 she will kidney separation, gastric surgery and an SBO with mass. There is no evidence of acute obstruction. EXTREMITIES: Normal range of motion, no pitting or edema. No clubbing or cyanosis. NEUROLOGICAL: Cranial nerves II through XII grossly intact. Normal speech, normal gait. PSYCH: Normal mood, normal affect. SKIN: Warm, Dry, normal turgor, no rashes or lesions noted. Course - Re-evaluation Re-evalutation: Note: The patient has been complaining of 2 distinct areas of pain. First, he is been presenting with intermittent chest pain which is retrosternal and nonradiating as described above. The EKG does not show any acute changes compared with previous. I discussed case with Dr. Toney who is consulting for cardiology and he had time to review the stress test. We plan to continue cardiac enzymes and watch the patient overnight. Additionally, patient states he's been having some left lower quadrant fullness and discomfort. The patient denies any constipation or fever. His white count has been normal. A CT was performed a few days ago for this which showed no acute intra-abdominal process. I have reviewed the CAT scan. The patient's concerns were that the IV had infiltrated during the CT scan and that he was wanting to know whether another CT scan could be done. The patient is convinced that there is a pocket of fluid in the left lower quadrant. CAT scan doesn't show any intra-abdominal fluid. I am concerned about his advanced age and giving him too much contrast that is affecting his kidneys. At this time, we will continue to observe the patient and hold off on any diet related studies. 11/26/16 00:45 - Vital Signs Vital signs: Temp Pulse Resp BP Pulse Ox 16 156/52 H 94 11/25/16 23:00 11/25/16 22:01 11/25/16 23:00 - Laboratory Result Diagrams: 11/25/16 21:10 11/25/16 21:10 Laboratory results interpreted by me: 11/25/16 11/25/16 11/25/16 21:10 21:10 21:10 WBC 11.2 H Hgb 12.2 L MCHC 31.9 L RDW 16.9 H Carbon Dioxide 21 L BUN 21 H Glucose 136 H ALT 20 L Creatine Kinase 28 L Albumin 3.3 L Discharge - Discharge Clinical Impression: chest pain Condition: Stable Disposition: ADMITTED OBSERVATION Admitting Provider: Hospitalist - Dr. Nguyen Unit Admitted: Telemetry
[2016-11-25] MEDS ORDERED: ALPRAZOLAM 0.5 MG TABLET PO ONE (21:52)
[2016-11-25 23:28] LABS: CREATINE KINASE MB 0.52 ng/mL (<4.55)
[2016-11-25 23:37] LABS: TROPONIN I < 0.012 ng/mL
[2016-11-25] MEDS ORDERED: NITROGLYCERIN 0.4 MG/TAB 25 TAB/BOTTLE SL PRN (23:59)
[2016-11-26] MEDS ORDERED: LACTULOSE SYRUP 20 GM/30 ML UDCUP PO ONE (00:45)
[2016-11-26 03:28] LABS: APPEARANCE,URINE CLEAR; BILIRUBIN,URINE NEGATIVE (NEGATIVE); GLUCOSE, URINE NEGATIVE (NEGATIVE); KETONES,URINE NEGATIVE (NEGATIVE); LEUKOCYTE ESTERASE,URINE NEGATIVE (NEGATIVE); NITRITE,URINE NEGATIVE (NEGATIVE); PROTEIN,URINE NEGATIVE (NEGATIVE); UROBILINOGEN,URINE NEGATIVE mg/dL (<2.0)
[2016-11-26 03:43] LABS: ABSOLUTE BASOPHILS # (AUTO) 0.1 10^3/uL (0.0-0.2); ABSOLUTE EOSINOPHILS # (AUTO) 0.2 10^3/uL (0.0-0.6); ABSOLUTE NEUT (AUTO) 4.8 10^3/uL (1.7-8.2); BASOPHILS % (AUTO) 0.9 % (0-2); HEMATOCRIT 36.8 % (37.9-51.0); HGB HCT DIFFERENCE -0.8; LYMPHOCYTES % (AUTO) 33.2 % (13-45); MEAN CORPUSCULAR HEMOGLOBIN 27.8 pg (27.0-33.4); MEAN CORPUSCULAR HGB CONC 32.5 g/dL (32.0-36.0); MEAN CORPUSCULAR VOLUME 86 fl (80-97); MONOCYTES % (AUTO) 11.3 % (3-13); RED CELL DISTRIBUTION WIDTH 17.2 % (11.5-14.0); SEGMENTED NEUTROPHILS % (AUTO) 52.6 % (42-78); WHITE BLOOD COUNT 9.2 10^3/uL (4.0-10.5)
--- NOTE | 2016-11-26 03:56 | PDOC H&P ---
History of Present Illness Admission Date/PCP: 11/25/16 23:59 Patient complains of: Chest and abdominal pain History of Present Illness: PEACE FRAGA is a 85 year old male with a history of coronary artery disease status post coronary artery bypass grafting and pacemaker placement and congestive heart failure. Patient denies usual state of health until approximately a month ago having several episodes of severe retrosternal chest pain and 10 days ago a indeterminate Cardiolite stress test returns after several hours of severe pain after eating and reclining complaining of GERD. Patient emergency room is unremarkable to given his risk factors is referred to the hospitalist for observation. Patient also complains of constipation and a left lower quadrant abdominal wall swelling with pain overlying a previous abdominal scar. This area is without guarding erythema,heat or ulcer. Patient is otherwise chest pain free Past Medical History Cardiac Medical History: Reports: Congestive Heart Failure, Coronary Artery Disease, Myocardial Infarction, Hyperlipidema, Hypertension Denies: Atrial Fibrillation, DVT, Peripheral Vascular Disease, Pulmonary Embolism, Heart Murmur Pulmonary Medical History: Denies: Asthma, Chronic Obstructive Pulmonary Disease (COPD) Neurological Medical History: Denies: Seizures Endocrine Medical History: Denies: Diabetes Mellitus Type 1, Diabetes Mellitus Type 2, Hyperthyroidism, Hypothyroidism Renal/ Medical History: Denies: End Stage Renal Disease Malignancy Medical History: Denies: Breast Cancer, Cervical Cancer, Ovarian Cancer GI Medical History: Reports: Diverticulitis, Gastroesophageal Reflux Disease Denies: Cirrhosis, Crohn's Disease, Hepatitis, Hiatal Hernia Musculoskeltal Medical History: Reports: Arthritis - neck Denies: Fibromyalgia Skin Medical History: Denies: Eczema, Psoriasis Psychiatric Medical History: Reports: Depression Denies: Dementia Past Surgical History Past Surgical History: Reports: Appendectomy, Cholecystectomy, Coronary Artery Bypass Graft - x5, Orthopedic Surgery - back, Pacemaker, Valve Replacement - 2015 tvar, Other - partial gastr'y for PUD; separation of horseshoe kidney; bilat cataract Denies: Colostomy, Gastric Bypass Surgery, Herniorrhaphy, Tonsillectomy Social History Information Source: Patient Lives with: Family Smoking Status: Never Smoker Frequency of Alcohol Use: None Hx Recreational Drug Use: No Drugs: None Hx Prescription Drug Abuse: No - Advance Directive Resuscitation Status: Full Code Family History Family History: Reviewed & Not Pertinent, CAD, CVA, Malignancy Parental Family History Reviewed: Yes Children Family History Reviewed: Yes Sibling(s) Family History Reviewed.: Yes Medication/Allergy Home Medications: Carvedilol [Coreg 25 mg Tablet] 12.5 mg PO BID 09/15/14 Atorvastatin Calcium [Lipitor 40 mg Tablet] 40 mg PO QHS 04/24/16 Furosemide [Lasix 40 mg Tablet] 20 mg PO QAM 04/24/16 Esomeprazole Magnesium [Nexium 24Hr] 22.3 mg PO DAILY 08/15/16 Multivitamin [Daily Multiple Vitamin] 1 tab PO DAILY 08/15/16 Nursery-3/Dha/Epa/Fish Oil [Fish Oil 1,000 mg Softgel] 1 cap PO DAILY 08/15/16 Oxybutynin Chloride [Ditropan 5 mg Tablet] 5 mg PO BID 08/15/16 Primidone [Mysoline] 50 mg PO QHS 09/27/16 Aspirin [Aspirin EC] 81 mg PO DAILY 11/16/16 Hyoscyamine Sulfate 0.125 mg PO Q8HP PRN 11/16/16 Isosorbide Mononitrate [Imdur 30 mg Tablet.er] 30 mg PO DAILY 11/16/16 Nitroglycerin [Nitrostat] 0.4 mg SL PRN PRN 11/16/16 Sertraline HCl 50 mg PO DAILY 11/16/16 Lisinopril [Prinivil 5 mg Tablet] 2.5 mg PO DAILY #30 tablet 11/17/16 Dicyclomine HCl [Bentyl 20 mg Tablet] 20 mg PO QID #120 tablet 11/22/16 Allergies/Adverse Reactions: No Known Allergies Allergy (Verified 09/27/16 11:39) Review of Systems Constitutional: ABSENT: chills, fever(s), headache(s), weight gain, weight loss Eyes: ABSENT: visual disturbances Ears: ABSENT: hearing changes Cardiovascular: ABSENT: chest pain, dyspnea on exertion, edema, orthropnea, palpitations Respiratory: ABSENT: cough, hemoptysis Gastrointestinal: ABSENT: abdominal pain, constipation, diarrhea, hematemesis, hematochezia, nausea, vomiting Genitourinary: ABSENT: dysuria, hematuria Musculoskeletal: ABSENT: joint swelling Integumentary: ABSENT: rash, wounds Neurological: ABSENT: abnormal gait, abnormal speech, confusion, dizziness, focal weakness, syncope Psychiatric: ABSENT: anxiety, depression, homidical ideation, suicidal ideation Endocrine: ABSENT: cold intolerance, heat intolerance, polydipsia, polyuria Hematologic/Lymphatic: ABSENT: easy bleeding, easy bruising Physical Exam Vital Signs: Temp Pulse Resp BP Pulse Ox 16 156/52 H 95 11/26/16 02:00 11/25/16 22:01 11/26/16 01:00 Intake & Output 11/24/16 11/25/16 11/26/16 11:59 11:59 11:59 Weight 103.873 kg General appearance: PRESENT: no acute distress, cooperative, obese Head exam: PRESENT: atraumatic, normocephalic Eye exam: PRESENT: conjunctiva pink, EOMI, PERRLA. ABSENT: scleral icterus Ear exam: PRESENT: normal external ear exam Mouth exam: PRESENT: moist, tongue midline Neck exam: ABSENT: carotid bruit, JVD, lymphadenopathy, thyromegaly Respiratory exam: PRESENT: clear to auscultation jeremy. ABSENT: rales, rhonchi, wheezes Cardiovascular exam: PRESENT: RRR. ABSENT: diastolic murmur, rubs, systolic murmur Pulses: PRESENT: normal dorsalis pedis pul Vascular exam: PRESENT: normal capillary refill GI/Abdominal exam: PRESENT: ascites, diminished bowel sounds, hernia - Left lower quadrant abdominal wall hernia versus seroma, hypoactive bowel sounds, tenderness. ABSENT: distended, guarding Rectal exam: PRESENT: deferred Extremities exam: PRESENT: full ROM. ABSENT: calf tenderness, clubbing, pedal edema Neurological exam: PRESENT: alert, awake, oriented to person, oriented to place , oriented to time, oriented to situation, CN II-XII grossly intact. ABSENT: motor sensory deficit Psychiatric exam: PRESENT: appropriate affect, normal mood. ABSENT: homicidal ideation, suicidal ideation Skin exam: PRESENT: abrasion Results Laboratory Results: 11/26/16 03:30 11/26/16 11/26/16 03:14 03:30 WBC 9.2 RBC 4.30 L Hgb 12.0 L Hct 36.8 L MCV 86 MCH 27.8 MCHC 32.5 RDW 17.2 H Plt Count 268 Seg Neutrophils % 52.6 Lymphocytes % 33.2 Monocytes % 11.3 Eosinophils % 2.0 Basophils % 0.9 Absolute Neutrophils 4.8 Absolute Lymphocytes 3.0 Absolute Monocytes 1.0 Absolute Eosinophils 0.2 Absolute Basophils 0.1 Urine Color YELLOW Urine Appearance CLEAR Urine pH 6.0 Ur Specific Richards 1.020 Urine Protein NEGATIVE Urine Glucose (UA) NEGATIVE Urine Ketones NEGATIVE Urine Blood NEGATIVE Urine Nitrite NEGATIVE Ur Leukocyte Esterase NEGATIVE Urine WBC (Auto) 0 Urine RBC (Auto) 1 Assessment & Plan - Diagnosis (1) Coronary artery disease Qualifiers: Coronary Disease-Associated Artery/Lesion type: unspecified vessel or lesion type Associated angina: angina presence unspecified Is this a current diagnosis for this admission?: YesPlan: Cardiolite stress test positive for small area of ischemia in the distal inferior wall but without evidence of infarct or scar. Will obtain cardiac enzymes and cardiac consult (2) Chest pain Qualifiers: Chest pain type: unspecified Qualified Code(s): R07.9 - Chest pain, unspecified Is this a current diagnosis for this admission?: YesPlan: Chest pain is atypical occurring after eating and reclining as well as uncontrolled GERD I'm concerned for esophageal spasm I'll initiate a proton pump inhibitor and education (3) Esophageal spasm Is this a current diagnosis for this admission?: YesPlan: Proton pump inhibitor, calcium carbonate and education (4) Abdominal pain Qualifiers: Abdominal location: left lower quadrant Qualified Code(s): R10.32 - Left lower quadrant pain Is this a current diagnosis for this admission?: YesPlan: Left lower quadrant abdominal wall swelling secondary to hernia or seroma will ultrasound and consider surgical consultation - Time Time Spent: 50 to 70 Minutes
[2016-11-26 04:01] LABS: ANION GAP 10 (5-19); BLOOD UREA NITROGEN 22 mg/dL (7-20); CALCIUM 8.7 mg/dL (8.4-10.2); CARBON DIOXIDE 26 mmol/L (22-30); CHLORIDE 105 mmol/L (98-107); CREATINE KINASE 29 U/L (55-170); CREATININE RESULT 0.76 mg/dL (0.52-1.25); GLUCOSE 102 mg/dL (75-110); POTASSIUM 4.4 mmol/L (3.6-5.0); SODIUM 140.5 mmol/L (137-145)
[2016-11-26 05:00] LABS: CREATINE KINASE MB 0.44 ng/mL (<4.55); TROPONIN I 0.016 ng/mL
[2016-11-26] MEDS ORDERED: HYOSCYAMINE SULFATE 0.125 MG PO PRN (07:44)
[2016-11-26] MEDS ORDERED: FUROSEMIDE 40 MG TABLET PO SCH (08:00)
[2016-11-26] MEDS ORDERED: POLYETHYLENE GLYCOL 3350 POWDER 17 GM/1 PACKET PO PRN (08:14)
[2016-11-26] MEDS ORDERED: HYOSCYAMINE SULFATE 0.125 MG TABLET PO PRN (08:23)
[2016-11-26] MEDS ORDERED: FUROSEMIDE 20 MG TABLET PO ONE (08:30)
[2016-11-26] MEDS ORDERED: ISOSORBIDE MONONITRATE 30 MG TAB.ER.24H PO SCH (10:00)
[2016-11-26] MEDS ORDERED: DICYCLOMINE HCL 20 MG TABLET PO SCH (10:00)
[2016-11-26] MEDS: LISINOPRIL 5 MG TABLET PO SCH (10:07)
[2016-11-26] MEDS: OXYBUTYNIN CHLORIDE 5 MG TABLET PO SCH ×2 (10:07→17:46)
[2016-11-26] MEDS: SERTRALINE HCL 50 MG TABLET PO SCH (10:08)
[2016-11-26] MEDS: ASPIRIN 81 MG TABLET, ENT COATED PO SCH (10:09)
[2016-11-26] MEDS: MULTIVITAMIN TABLET PO SCH (10:09)
[2016-11-26] MEDS: TRAZODONE HCL 50 MG TABLET PO SCH ×2 (10:09→22:03)
[2016-11-26] MEDS: DOCUSATE SODIUM 100 MG CAPSULE PO SCH ×2 (10:10→17:47)
[2016-11-26] MEDS: CARVEDILOL 12.5 MG TABLET PO SCH ×2 (10:10→22:36)
--- NOTE | 2016-11-26 10:17 | EKG REPORT ---
SEVERITY:- ABNORMAL ECG - A-V DUAL-PACED COMPLEXES W/ SOME INHIBITION : Confirmed by: Bere Pacheco 26-Nov-2016 10:16:04
[2016-11-26 10:21] LABS: CREATINE KINASE MB 0.71 ng/mL (<4.55); TROPONIN I 0.013 ng/mL
[2016-11-26] MEDS ORDERED: ISOSORBIDE MONONITRATE 20 MG TABLET PO ONE (10:45)
[2016-11-26] MEDS ORDERED: ISOSORBIDE MONONITRATE 30 MG TAB.ER.24H PO ONE (11:00)
--- NOTE | 2016-11-26 13:30 | PDOC PROGRESS REPORT ---
Subjective Progress Note for:: 11/26/16 Subjective:: The patient is seen on morning rounds. He is resting in bed. He awakens easily to verbal stimuli. He denies any shortness of breath, chest pain or dyspnea at the present time. Denies any nausea, vomiting or abdominal pain. He states the pain he had approximately and is not similar to his anginal pain in the past. He feels that related to esophageal problem. He states when he has pain it lasts for hours and is sharp in nature. Denies nausea, vomiting, abdominal pain. He denies any arthralgias or myalgias present time. Rest of review systems is negative. Physical Exam Vital Signs: Temp Pulse Resp BP Pulse Ox 97.4 F 63 18 124/70 94 11/26/16 11:20 11/26/16 11:20 11/26/16 11:20 11/26/16 11:20 11/26/16 11:20 Intake & Output 11/25/16 11/26/16 11/27/16 06:59 06:59 06:59 Output Total 200 Balance -200 Weight 104.3 kg General appearance: PRESENT: no acute distress, obese, well-developed, well- nourished Head exam: PRESENT: atraumatic, normocephalic Eye exam: PRESENT: conjunctiva pink, EOMI, PERRLA. ABSENT: scleral icterus Ear exam: PRESENT: normal external ear exam Mouth exam: PRESENT: moist, tongue midline Neck exam: ABSENT: carotid bruit, JVD, lymphadenopathy, thyromegaly Respiratory exam: PRESENT: clear to auscultation jeremy. ABSENT: rales, rhonchi, wheezes Cardiovascular exam: PRESENT: RRR. ABSENT: diastolic murmur, rubs, systolic murmur Pulses: PRESENT: normal dorsalis pedis pul Vascular exam: PRESENT: normal capillary refill GI/Abdominal exam: PRESENT: normal bowel sounds, soft. ABSENT: distended, guarding, mass, organolmegaly, rebound, tenderness Rectal exam: PRESENT: deferred Extremities exam: PRESENT: full ROM. ABSENT: calf tenderness, clubbing, pedal edema Neurological exam: PRESENT: alert, awake, oriented to person, oriented to place , oriented to time, oriented to situation, CN II-XII grossly intact. ABSENT: motor sensory deficit Psychiatric exam: PRESENT: appropriate affect, normal mood. ABSENT: homicidal ideation, suicidal ideation Skin exam: PRESENT: dry, intact, warm. ABSENT: cyanosis, rash Results Laboratory Results: 11/26/16 03:30 11/26/16 03:30 11/26/16 11/26/16 11/26/16 03:14 03:30 03:30 WBC 9.2 RBC 4.30 L Hgb 12.0 L Hct 36.8 L MCV 86 MCH 27.8 MCHC 32.5 RDW 17.2 H Plt Count 268 Seg Neutrophils % 52.6 Lymphocytes % 33.2 Monocytes % 11.3 Eosinophils % 2.0 Basophils % 0.9 Absolute Neutrophils 4.8 Absolute Lymphocytes 3.0 Absolute Monocytes 1.0 Absolute Eosinophils 0.2 Absolute Basophils 0.1 Sodium 140.5 Potassium 4.4 Chloride 105 Carbon Dioxide 26 Anion Gap 10 BUN 22 H Creatinine 0.76 Est GFR ( Amer) > 60 Est GFR (Non-Af Amer) > 60 Glucose 102 Calcium 8.7 Urine Color YELLOW Urine Appearance CLEAR Urine pH 6.0 Ur Specific [place] 1.020 Urine Protein NEGATIVE Urine Glucose (UA) NEGATIVE Urine Ketones NEGATIVE Urine Blood NEGATIVE Urine Nitrite NEGATIVE Ur Leukocyte Esterase NEGATIVE Urine WBC (Auto) 0 Urine RBC (Auto) 1 11/26/16 11/26/16 11/26/16 03:30 03:30 09:38 Creatine Kinase 29 L CK-MB (CK-2) 0.44 0.71 Troponin I 0.016 0.013 Assessment & Plan - Diagnosis (1) Esophageal spasm Is this a current diagnosis for this admission?: YesPlan: Patient's on Prevacid. He was started on trazodone twice daily for esophageal spasms. We will refer him to GI post discharge. (2) Chest pain Qualifiers: Chest pain type: unspecified Qualified Code(s): R07.9 - Chest pain, unspecified Is this a current diagnosis for this admission?: YesPlan: Enzymes 3 have been negative. Pain is atypical for his anginal pain in the past. We feel is most likely related to his GI reflux esophageal spasms. (3) Abdominal pain Qualifiers: Abdominal location: left lower quadrant Qualified Code(s): R10.32 - Left lower quadrant pain Is this a current diagnosis for this admission?: YesPlan: Resolved. Most likely due to constipation (4) Chronic systolic congestive heart failure Is this a current diagnosis for this admission?: YesPlan: He is presently euvolemic. Continue current medications (5) Cardiac pacemaker in situ Is this a current diagnosis for this admission?: Yes (6) Constipation due to opioid therapy Is this a current diagnosis for this admission?: YesPlan: Is on lactulose and MiraLAX which are working. (7) Hypertension Qualifiers: Hypertension type: essential hypertension Qualified Code(s): I10 - Essential (primary) hypertension Is this a current diagnosis for this admission?: YesPlan: Continue current medications. (8) Dyslipidemia Is this a current diagnosis for this admission?: YesPlan: Continue statin (9) H/O aortic valve replacement with porcine valve Is this a current diagnosis for this admission?: Yes - Time Time Spent with patient: 25-34 minutes Critical Time spent with patient: 25-34 minutes Medications reviewed and adjusted accordingly: Yes
[2016-11-26] MEDS: ATORVASTATIN CALCIUM 40 MG TABLET PO SCH (22:03)
[2016-11-26] MEDS: PRIMIDONE 50 MG TABLET PO SCH (22:03)
[2016-11-27] MEDS: FUROSEMIDE 20 MG TABLET PO SCH (08:32)
[2016-11-27] MEDS: ISOSORBIDE MONONITRATE 60 MG TAB.ER.24H PO SCH (09:46)
[2016-11-27] MEDS: SERTRALINE HCL 50 MG TABLET PO SCH (09:46)
[2016-11-27] MEDS: ASPIRIN 81 MG TABLET, ENT COATED PO SCH (09:47)
[2016-11-27] MEDS: TRAZODONE HCL 50 MG TABLET PO SCH ×2 (09:47→22:44)
[2016-11-27] MEDS: MULTIVITAMIN TABLET PO SCH (09:47)
[2016-11-27] MEDS: LISINOPRIL 5 MG TABLET PO SCH (09:47)
[2016-11-27] MEDS: OXYBUTYNIN CHLORIDE 5 MG TABLET PO SCH ×2 (09:47→18:32)
[2016-11-27] MEDS: DOCUSATE SODIUM 100 MG CAPSULE PO SCH ×2 (09:48→18:32)
[2016-11-27] MEDS: CARVEDILOL 12.5 MG TABLET PO SCH ×2 (09:48→22:44)
[2016-11-27] MEDS ORDERED: MAG HYDROX/AL HYDROX/SIMETH SUSP 30 ML UDCUP PO ONE ×2 (11:00→12:30)
[2016-11-27] MEDS ORDERED: LIDOCAINE 2% VISCOUS SOLN 20 ML UDCUP PO ONE ×2 (11:00→12:30)
[2016-11-27] MEDS ORDERED: METOCLOPRAMIDE HCL ORAL SOLN 10 MG/10 ML UDCUP PO ONE ×2 (11:00→12:30)
[2016-11-27] MEDS ORDERED: LIDOCAINE 2% VISCOUS SOLN 20 ML UDCUP PO PRN (11:29)
--- NOTE | 2016-11-27 13:36 | PDOC PROGRESS REPORT ---
Subjective Progress Note for:: 11/27/16 Subjective:: The patient is seen on morning rounds. He is resting in bed, he is tearful due to midsternal chest pressure. He states it is not his anginal pain, he states it 's the same pain he's been having for the last 3 weeks. Why he's been admitted twice. He feels it is related to his esophagus. He denies any nausea, vomiting or abdominal pain. He states when he has pain it lasts for hours and is sharp in nature. He denies any arthralgias or myalgias present time. Rest of review systems is negative. Physical Exam Vital Signs: Temp Pulse Resp BP Pulse Ox 97.8 F 66 18 152/58 H 96 11/27/16 07:53 11/27/16 07:53 11/27/16 07:53 11/27/16 07:53 11/27/16 07:53 Intake & Output 11/26/16 11/27/16 11/28/16 06:59 06:59 06:59 Intake Total 910 Output Total 200 1500 Balance -200 -590 Weight 104.3 kg 104.7 kg General appearance: PRESENT: no acute distress, mild distress, obese, well- developed, well-nourished Head exam: PRESENT: atraumatic, normocephalic Eye exam: PRESENT: conjunctiva pink, EOMI, PERRLA. ABSENT: scleral icterus Ear exam: PRESENT: normal external ear exam Mouth exam: PRESENT: moist, tongue midline Neck exam: ABSENT: carotid bruit, JVD, lymphadenopathy, thyromegaly Respiratory exam: PRESENT: clear to auscultation jeremy. ABSENT: rales, rhonchi, wheezes Cardiovascular exam: PRESENT: RRR. ABSENT: diastolic murmur, rubs, systolic murmur Pulses: PRESENT: normal dorsalis pedis pul Vascular exam: PRESENT: normal capillary refill GI/Abdominal exam: PRESENT: normal bowel sounds, soft. ABSENT: distended, guarding, mass, organolmegaly, rebound, tenderness Rectal exam: PRESENT: deferred Extremities exam: PRESENT: full ROM. ABSENT: calf tenderness, clubbing, pedal edema Musculoskeletal exam: PRESENT: ambulatory, full ROM, normal inspection Neurological exam: PRESENT: alert, awake, oriented to person, oriented to place , oriented to time, oriented to situation, CN II-XII grossly intact. ABSENT: motor sensory deficit Psychiatric exam: PRESENT: anxious, other - tearful Skin exam: PRESENT: dry, intact, warm. ABSENT: cyanosis, rash Results Laboratory Results: 11/26/16 03:30 11/26/16 03:30 11/26/16 11/26/16 11/26/16 03:30 03:30 09:38 Creatine Kinase 29 L CK-MB (CK-2) 0.44 0.71 Troponin I 0.016 0.013 Assessment & Plan - Diagnosis (1) Esophageal spasm Is this a current diagnosis for this admission?: YesPlan: Patient's on Prevacid. Present episode of pain resolved with a GI cocktail. He was started on trazodone twice daily for esophageal spasms. We will refer him to GI today, we were planning on doing as an outpatient but patient and daughter would like it done prior to discharge. (2) Chest pain Qualifiers: Chest pain type: unspecified Qualified Code(s): R07.9 - Chest pain, unspecified Is this a current diagnosis for this admission?: YesPlan: Enzymes 3 have been negative. Pain is atypical for his anginal pain in the past. We feel is most likely related to his GI reflux esophageal spasms. (3) Abdominal pain Qualifiers: Abdominal location: left lower quadrant Qualified Code(s): R10.32 - Left lower quadrant pain Is this a current diagnosis for this admission?: YesPlan: Resolved. Most likely due to constipation (4) Chronic systolic congestive heart failure Is this a current diagnosis for this admission?: YesPlan: He is presently euvolemic. Continue current medications (5) Cardiac pacemaker in situ Is this a current diagnosis for this admission?: Yes (6) Constipation due to opioid therapy Is this a current diagnosis for this admission?: YesPlan: Is on lactulose and MiraLAX which are working. (7) Hypertension Qualifiers: Hypertension type: essential hypertension Qualified Code(s): I10 - Essential (primary) hypertension Is this a current diagnosis for this admission?: YesPlan: Continue current medications. (8) Dyslipidemia Is this a current diagnosis for this admission?: YesPlan: Continue statin (9) H/O aortic valve replacement with porcine valve Is this a current diagnosis for this admission?: Yes - Time Time Spent with patient: 25-34 minutes Critical Time spent with patient: 15-24 minutes Medications reviewed and adjusted accordingly: Yes
[2016-11-27] MEDS: ATORVASTATIN CALCIUM 40 MG TABLET PO SCH (22:44)
[2016-11-27] MEDS: PRIMIDONE 50 MG TABLET PO SCH (22:44)
[2016-11-28] MEDS ORDERED: PREDNISONE 20 MG TABLET PO ONE (08:44)
[2016-11-28] MEDS ORDERED: HYDROCORTISONE 1% CREAM 28.35 GM TP ONE (08:46)
[2016-11-28] MEDS: FUROSEMIDE 20 MG TABLET PO SCH (08:49)
[2016-11-28] MEDS: SERTRALINE HCL 50 MG TABLET PO SCH (09:47)
[2016-11-28] MEDS: ISOSORBIDE MONONITRATE 60 MG TAB.ER.24H PO SCH (09:48)
[2016-11-28] MEDS: TRAZODONE HCL 50 MG TABLET PO SCH ×2 (09:48→21:00)
[2016-11-28] MEDS: LISINOPRIL 5 MG TABLET PO SCH (09:48)
[2016-11-28] MEDS: MULTIVITAMIN TABLET PO SCH (09:48)
[2016-11-28] MEDS: ASPIRIN 81 MG TABLET, ENT COATED PO SCH (09:49)
[2016-11-28] MEDS: CARVEDILOL 12.5 MG TABLET PO SCH ×2 (09:49→21:00)
[2016-11-28] MEDS: OXYBUTYNIN CHLORIDE 5 MG TABLET PO SCH ×2 (09:52→17:59)
[2016-11-28] MEDS: DOCUSATE SODIUM 100 MG CAPSULE PO SCH ×2 (09:52→18:01)
[2016-11-28] MEDS ORDERED: (PENDING PHARMACY ID) (Lisinopril [Prinivil 2.5 Mg Tablet] 2.5 MG) PO SCH (10:00)
[2016-11-28] MEDS ORDERED: FENTANYL CITRATE INJ/PF 100 MCG/2 ML AMPUL ONE (15:00)
[2016-11-28] MEDS ORDERED: NALOXONE HCL INJ/PF 0.4 MG/1 ML SDV ONE (15:00)
[2016-11-28] MEDS ORDERED: EPINEPHRINE INJ 1 MG/10 ML DISP.SYRIN ONE (15:01)
[2016-11-28] MEDS ORDERED: GLUCAGON,HUMAN RECOMB 1 MG INJ ONE (15:01)
[2016-11-28] MEDS ORDERED: FLUMAZENIL INJ 0.5 MG/5 ML VIAL IV ONE (15:01)
[2016-11-28] MEDS: MIDAZOLAM 2 MG/2 ML INJ ONE ×2 (15:20→15:23)
--- NOTE | 2016-11-28 15:29 | PDOC PROGRESS REPORT ---
Subjective Progress Note for:: 11/28/16 Subjective:: The patient was seen earlier today on rounds. The patient complains of an abrupt itching of both of his hands which she described as hives. This was treated and responded with prednisone. The patient is currently awaiting EGD with Dr. Osei. The patient has had no further replication of symptoms. The patient denies any nausea, vomiting, diarrhea, shortness of breath, dizziness, chest pain, heart palpitations, fevers, or chills. The patient has remained afebrile. Blood pressures have been in a good range. When prompted the patient voices no other concerns at this time. Review of systems: The rest of the review of systems is negative. Physical Exam Vital Signs: Temp Pulse Resp BP Pulse Ox 97.8 F 69 20 161/50 H 94 11/28/16 14:18 11/28/16 15:15 11/28/16 15:15 11/28/16 15:15 11/28/16 15:15 Intake & Output 11/26/16 11/27/16 11/28/16 23:59 23:59 23:59 Intake Total 910 868 490 Output Total 1500 1210 700 Balance -590 -342 -210 Weight 104.3 kg 104.7 kg 103.5 kg General appearance: PRESENT: no acute distress, cooperative, well-developed Head exam: PRESENT: atraumatic, normocephalic Eye exam: PRESENT: conjunctiva pink, EOMI, PERRLA. ABSENT: scleral icterus Ear exam: PRESENT: normal external ear exam Mouth exam: PRESENT: moist, tongue midline Neck exam: ABSENT: carotid bruit, JVD, lymphadenopathy, thyromegaly Respiratory exam: PRESENT: clear to auscultation jeremy, symmetrical, unlabored. ABSENT: rales, rhonchi, tachypnea, wheezes Cardiovascular exam: PRESENT: RRR. ABSENT: diastolic murmur, rubs, systolic murmur Pulses: PRESENT: normal dorsalis pedis pul Vascular exam: PRESENT: normal capillary refill GI/Abdominal exam: PRESENT: normal bowel sounds, soft. ABSENT: distended, guarding, mass, organolmegaly, rebound, tenderness Rectal exam: PRESENT: deferred Extremities exam: PRESENT: full ROM. ABSENT: calf tenderness, clubbing, pedal edema Neurological exam: PRESENT: alert, awake, oriented to person, oriented to place , oriented to time, oriented to situation, CN II-XII grossly intact. ABSENT: motor sensory deficit Psychiatric exam: PRESENT: appropriate affect, normal mood. ABSENT: homicidal ideation, suicidal ideation Skin exam: PRESENT: dry, intact, warm. ABSENT: cyanosis, rash Results Laboratory Results: 11/26/16 03:30 11/26/16 03:30 11/26/16 11/26/16 11/26/16 03:30 03:30 09:38 Creatine Kinase 29 L CK-MB (CK-2) 0.44 0.71 Troponin I 0.016 0.013 Assessment & Plan - Diagnosis (1) Esophageal spasm Is this a current diagnosis for this admission?: YesPlan: Patient responded nicely to GI cocktail. Currently awaiting EGD from Dr. Osei. (2) Anxiety Is this a current diagnosis for this admission?: Yes (3) Cardiac pacemaker in situ Is this a current diagnosis for this admission?: Yes (4) Chronic systolic congestive heart failure Is this a current diagnosis for this admission?: YesPlan: Will continue current medications the patient appears optivolemic (5) Constipation due to opioid therapy Is this a current diagnosis for this admission?: Yes (6) Coronary artery disease Qualifiers: Coronary Disease-Associated Artery/Lesion type: unspecified vessel or lesion type Associated angina: angina presence unspecified Is this a current diagnosis for this admission?: YesPlan: Will continue home medications. (7) Dyslipidemia Is this a current diagnosis for this admission?: YesPlan: Will continue home medications. (8) Hypertension Qualifiers: Hypertension type: essential hypertension Qualified Code(s): I10 - Essential (primary) hypertension Is this a current diagnosis for this admission?: Yes (9) Stented coronary artery Is this a current diagnosis for this admission?: Yes (10) DVT prophylaxis Is this a current diagnosis for this admission?: Yes (11) H/O aortic valve replacement with porcine valve Is this a current diagnosis for this admission?: Yes - Time Time Spent with patient: 25-34 minutes Medications reviewed and adjusted accordingly: Yes Anticipated discharge: Home Within: within 24 hours Disposition: The patient is a full code. Pending patient's symptomatology and diagnostic findings will reevaluate in the a.m for discharge.
--- NOTE | 2016-11-28 15:48 | PDOC CONSULTATION ---
History of Present Illness Admission Date/PCP: 11/25/16 23:59 History of Present Illness: This is an 86-year-old patient who was admitted on 11/25/2016 with recurrent chest pain. He has had three or four episodes of retrosternal chest pain over the last two weeks. A CTA of the chest and abdomen, abdomen and pelvis CT, stress test, and echocardiogram has not shown a definite etiology for his chest pain. He did have some nausea and vomiting during the first episode but not since. He has had a previous cholecystectomy. Past Medical History Cardiac Medical History: Reports: Congestive Heart Failure, Coronary Artery Disease, Myocardial Infarction - x2, Hyperlipidema, Hypertension Denies: Atrial Fibrillation, DVT, Peripheral Vascular Disease, Pulmonary Embolism, Heart Murmur Pulmonary Medical History: Denies: Asthma, Chronic Obstructive Pulmonary Disease (COPD) Neurological Medical History: Denies: Seizures Endocrine Medical History: Denies: Diabetes Mellitus Type 1, Diabetes Mellitus Type 2, Hyperthyroidism, Hypothyroidism Renal/ Medical History: Denies: End Stage Renal Disease Malignancy Medical History: Denies: Breast Cancer, Cervical Cancer, Ovarian Cancer GI Medical History: Reports: Diverticulitis, Gastroesophageal Reflux Disease Denies: Cirrhosis, Crohn's Disease, Hepatitis, Hiatal Hernia Musculoskeltal Medical History: Reports: Arthritis - neck Denies: Fibromyalgia Skin Medical History: Denies: Eczema, Psoriasis Psychiatric Medical History: Reports: Depression Denies: Dementia Past Surgical History Past Surgical History: Reports: Appendectomy, Cholecystectomy, Coronary Artery Bypass Graft - x5, Orthopedic Surgery - back, Pacemaker, Valve Replacement - 2015 tvar, Other - partial gastr'y for PUD; separation of horseshoe kidney; bilat cataract Denies: Colostomy, Gastric Bypass Surgery, Herniorrhaphy, Tonsillectomy Social History Lives with: Family Smoking Status: Never Smoker Frequency of Alcohol Use: None Hx Recreational Drug Use: No Drugs: None Hx Prescription Drug Abuse: No - Advance Directive Resuscitation Status: Full Code Family History Family History: Reviewed & Not Pertinent, CAD, CVA, Malignancy Parental Family History Reviewed: No Children Family History Reviewed: NA Sibling(s) Family History Reviewed.: NA Medication/Allergy Home Medications: Carvedilol [Coreg 25 mg Tablet] 12.5 mg PO BID 09/15/14 Atorvastatin Calcium [Lipitor 40 mg Tablet] 40 mg PO QHS 04/24/16 Furosemide [Lasix 40 mg Tablet] 20 mg PO QAM 04/24/16 Multivitamin [Daily Multiple Vitamin] 1 tab PO DAILY 08/15/16 [place]on-3/Dha/Epa/Fish Oil [Fish Oil 1,000 mg Softgel] 2 cap PO DAILY 08/15/16 Oxybutynin Chloride [Ditropan 5 mg Tablet] 5 mg PO BID 08/15/16 Primidone [Mysoline] 50 mg PO QHS 09/27/16 Aspirin [Aspirin EC] 81 mg PO DAILY 11/16/16 Isosorbide Mononitrate [Imdur 30 mg Tablet.er] 30 mg PO DAILY 11/16/16 Sertraline HCl 50 mg PO DAILY 11/16/16 Dicyclomine HCl [Bentyl 20 mg Tablet] 20 mg PO QID #120 tablet 11/22/16 Lisinopril [Prinivil 2.5 mg Tablet] 2.5 mg PO DAILY 11/26/16 Nitroglycerin [Nitrostat 0.4 mg (1/150 Gr) Tabs 25/Bottle] 1 tab SL Q5MP PRN Omeprazole 20 mg PO DAILY 11/26/16 Allergies/Adverse Reactions: No Known Allergies Allergy (Verified 09/27/16 11:39) Review of Systems All systems: reviewed and no additional remarkable complaints except as stated Physical Exam Vital Signs: Temp Pulse Resp BP Pulse Ox 97.8 F 71 18 142/55 H 96 11/28/16 14:18 11/28/16 15:35 11/28/16 15:35 11/28/16 15:35 11/28/16 15:35 Intake & Output 11/27/16 11/28/16 11/29/16 06:59 06:59 06:59 Intake Total 910 998 360 Output Total 1500 1210 500 Balance -590 -212 -140 Weight 104.7 kg 103.5 kg Exam: General: Patient is alert and looks well. HEENT: There is no pallor or jaundice. PERRLA. Oropharynx normal Respiratory: Kyphosis. No respiratory distress. Chest wall palpitation was unremarkable. Breath sounds were normal Cardiovascular: Heart sounds 1 and 2 normal with no murmurs. Abdominal: Not distended. Soft and nontender. Liver and spleen not palpable. No ascites demonstrated. Bowel sounds active. Rectal examination was deferred. Extremities: No edema Neurological: Alert and oriented x4. Grossly nonfocal. Normal speech Skin: No significant rash Psychological: Normal affect Results Laboratory Results: 11/26/16 03:30 11/26/16 03:30 11/26/16 11/26/16 11/26/16 03:30 03:30 09:38 Creatine Kinase 29 L CK-MB (CK-2) 0.44 0.71 Troponin I 0.016 0.013 Assessment & Plan - Diagnosis (1) Chest pain Is this a current diagnosis for this admission?: YesPlan: The etiology for his chest pain is unclear. He does not appear to be cardiac or pulmonary. He will undergo an EGD for further evaluation. He does not have gallbladder (2) Esophageal spasm Is this a current diagnosis for this admission?: Yes
--- NOTE | 2016-11-28 15:50 | Operative Report ---
Operative Report DATE OF SURGERY: 11/28/16 Operative Report: Pre-op diagnosis: Atypical chest pain Post-op diagnosis: Normal EGD status post antrectomy Surgery: Esophagogastroduodenoscopy with biopsy Medications: Versed 2mg Fentanyl 50mcg IV push Tissue removed: Gastric body biopsy for pathology Procedure: After informed consent obtained from patient, the throat was sprayed with Hurricane and conscious sedation was achieved. The upper endoscope was inserted into the esophagus under direct vision and advanced into the stomach. The duodenum was entered and examined to the second part. Endoscope was then slowly pulled out of the patient as the mucosa was examined into details. Patient tolerated procedure well. Findings Esophagus: Normal Z-line at: Gastroduodenal anastomosis: Normal Body: Normal. There was residual food in the stomach. Biopsy was taken Fundus: Normal Duodenum first part: Normal Duodenum second part: Normal Plan: Await pathology. Continue PPI OPERATION: .
[2016-11-28] MEDS: HYDROCORTISONE 1% CREAM 28.35 GM TP PRN (17:59)
[2016-11-28] MEDS ORDERED: CEFUROXIME 500 MG TABLET PO SCH (18:00)
[2016-11-28] MEDS: DIPHENHYDRAMINE HCL 25 MG CAPSULE PO SCH (20:59)
[2016-11-28] MEDS: ATORVASTATIN CALCIUM 40 MG TABLET PO SCH (21:00)
[2016-11-28] MEDS: PRIMIDONE 50 MG TABLET PO SCH (21:00)
[2016-11-28] MEDS: ERTAPENEM SODIUM 1 GM in NORMAL SALINE 50 ML IV SCH (22:35)
[2016-11-29] MEDS: HYDROCORTISONE 1% CREAM 28.35 GM TP PRN (08:10)
[2016-11-29] MEDS: FUROSEMIDE 20 MG TABLET PO SCH ×2 (08:10→10:06)
[2016-11-29] MEDS ORDERED: SIMETHICONE 80 MG TAB.CHEW PO PRN (08:41)
[2016-11-29] MEDS ORDERED: PREDNISONE 20 MG TABLET PO ONE (09:00)
[2016-11-29] MEDS: CARVEDILOL 12.5 MG TABLET PO SCH ×2 (10:06→21:46)
[2016-11-29] MEDS: DOCUSATE SODIUM 100 MG CAPSULE PO SCH ×2 (10:06→17:55)
[2016-11-29] MEDS: MULTIVITAMIN TABLET PO SCH (10:07)
[2016-11-29] MEDS: ASPIRIN 81 MG TABLET, ENT COATED PO SCH (10:07)
[2016-11-29] MEDS: ISOSORBIDE MONONITRATE 60 MG TAB.ER.24H PO SCH (10:07)
[2016-11-29] MEDS: SERTRALINE HCL 50 MG TABLET PO SCH (10:08)
[2016-11-29] MEDS: LISINOPRIL 5 MG TABLET PO SCH (10:08)
[2016-11-29] MEDS: TRAZODONE HCL 50 MG TABLET PO SCH ×2 (10:08→21:46)
[2016-11-29] MEDS: OXYBUTYNIN CHLORIDE 5 MG TABLET PO SCH ×2 (10:21→17:55)
[2016-11-29] MEDS ORDERED: HYDROXYZINE HCL 10 MG TABLET PO PRN (10:28)
--- NOTE | 2016-11-29 10:34 | PDOC PROGRESS REPORT ---
Subjective Progress Note for:: 11/29/16 Subjective:: The patient was seen earlier today on rounds. The patient denies any nausea, vomiting, diarrhea, shortness of breath, dizziness, chest pain, heart palpitations, fevers, or chills. The patient has remained afebrile. Blood pressures have been in a good range. When prompted the patient voices no other concerns at this time. Review of systems: The rest of the review of systems is negative. Physical Exam Vital Signs: Temp Pulse Resp BP Pulse Ox 97.8 F 60 18 170/58 H 96 11/29/16 07:27 11/29/16 07:27 11/29/16 07:27 11/29/16 07:27 11/29/16 07:27 Intake & Output 11/27/16 11/28/16 11/29/16 23:59 23:59 23:59 Intake Total 240 Output Total 400 300 Balance -160 -300 Weight 103.5 kg General appearance: PRESENT: no acute distress, cooperative, well-developed Head exam: PRESENT: atraumatic, normocephalic Eye exam: PRESENT: conjunctiva pink, EOMI, PERRLA. ABSENT: scleral icterus Ear exam: PRESENT: normal external ear exam Mouth exam: PRESENT: moist, tongue midline Neck exam: ABSENT: carotid bruit, JVD, lymphadenopathy, thyromegaly Respiratory exam: PRESENT: clear to auscultation jeremy, symmetrical, unlabored. ABSENT: rales, rhonchi, tachypnea, wheezes Cardiovascular exam: PRESENT: RRR. ABSENT: diastolic murmur, rubs, systolic murmur Pulses: PRESENT: normal dorsalis pedis pul Vascular exam: PRESENT: normal capillary refill GI/Abdominal exam: PRESENT: normal bowel sounds, soft. ABSENT: distended, guarding, mass, organolmegaly, rebound, tenderness Rectal exam: PRESENT: deferred Extremities exam: PRESENT: full ROM. ABSENT: calf tenderness, clubbing, pedal edema Neurological exam: PRESENT: alert, awake, oriented to person, oriented to place , oriented to time, oriented to situation, CN II-XII grossly intact. ABSENT: motor sensory deficit Psychiatric exam: PRESENT: appropriate affect, normal mood. ABSENT: homicidal ideation, suicidal ideation Skin exam: PRESENT: dry, intact, warm. Faint rash noted on left forearm and left hand. ABSENT: cyanosis. 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 Repeat culture is pending. Will continue ertapenem for now. Will continue to premedicate with Benadryl at evening dose as well as prednisone. (2) Esophageal spasm Is this a current diagnosis for this admission?: YesPlan: Patient responded nicely to GI cocktail. EGD was unremarkable. (3) Anxiety Is this a current diagnosis for this admission?: YesPlan: I do believe this is has contributed significantly to the patient's abdominal discomforts as well as hives. (4) Cardiac pacemaker in situ Is this a current diagnosis for this admission?: Yes (5) Chronic systolic congestive heart failure Is this a current diagnosis for this admission?: YesPlan: Will continue current medications the patient appears optivolemic (6) Constipation due to opioid therapy Is this a current diagnosis for this admission?: Yes (7) Coronary artery disease Qualifiers: Coronary Disease-Associated Artery/Lesion type: unspecified vessel or lesion type Associated angina: angina presence unspecified Is this a current diagnosis for this admission?: YesPlan: Will continue home medications. (8) Dyslipidemia Is this a current diagnosis for this admission?: YesPlan: Will continue home medications. (9) Hypertension Qualifiers: Hypertension type: essential hypertension Qualified Code(s): I10 - Essential (primary) hypertension Is this a current diagnosis for this admission?: Yes (10) Stented coronary artery Is this a current diagnosis for this admission?: Yes (11) DVT prophylaxis Is this a current diagnosis for this admission?: Yes (12) H/O aortic valve replacement with porcine valve Is this a current diagnosis for this admission?: Yes (13) Rash Is this a current diagnosis for this admission?: YesPlan: On right hand and right forearm. Will continue steroid taper and hydrocortisone cream. Appears improved. - Time Time Spent with patient: 25-34 minutes Medications reviewed and adjusted accordingly: Yes Anticipated discharge: SN[facility] Within: when bed available
[2016-11-29] MEDS ORDERED: TUBERCULIN,PURIF.PROT.DERIV. 5 TU/0.1 ML TEST 1 ML VIAL ID ONE (16:00)
[2016-11-29] MEDS: ERTAPENEM SODIUM 1 GM in NORMAL SALINE 50 ML IV SCH (21:45)
[2016-11-29] MEDS: ATORVASTATIN CALCIUM 40 MG TABLET PO SCH (21:46)
[2016-11-29] MEDS: PRIMIDONE 50 MG TABLET PO SCH (21:46)
[2016-11-29] MEDS: DIPHENHYDRAMINE HCL 25 MG CAPSULE PO SCH (21:46)
[2016-11-30] MEDS: LISINOPRIL 5 MG TABLET PO SCH (09:00)
[2016-11-30] MEDS: TRAZODONE HCL 50 MG TABLET PO SCH ×2 (09:00→21:10)
[2016-11-30] MEDS ORDERED: PREDNISONE 20 MG TABLET PO ONE (09:00)
[2016-11-30] MEDS: CARVEDILOL 12.5 MG TABLET PO SCH ×2 (09:01→21:10)
[2016-11-30] MEDS: ASPIRIN 81 MG TABLET, ENT COATED PO SCH (09:01)
[2016-11-30] MEDS: ISOSORBIDE MONONITRATE 60 MG TAB.ER.24H PO SCH (09:01)
[2016-11-30] MEDS: MULTIVITAMIN TABLET PO SCH (09:01)
[2016-11-30] MEDS: OXYBUTYNIN CHLORIDE 5 MG TABLET PO SCH ×2 (09:01→17:46)
[2016-11-30] MEDS: SERTRALINE HCL 50 MG TABLET PO SCH (09:01)
[2016-11-30] MEDS: DOCUSATE SODIUM 100 MG CAPSULE PO SCH ×2 (09:02→17:46)
[2016-11-30] MEDS: MAG HYDROX/AL HYDROX/SIMETH SUSP 30 ML UDCUP PO PRN (11:44)
[2016-11-30] MEDS: METOCLOPRAMIDE HCL ORAL SOLN 10 MG/10 ML UDCUP PO PRN (11:44)
[2016-11-30] MEDS: LIDOCAINE 2% VISCOUS SOLN 20 ML UDCUP PO PRN (11:44)
--- NOTE | 2016-11-30 13:27 | PDOC PROGRESS REPORT ---
Subjective Progress Note for:: 11/30/16 Subjective:: The patient was seen earlier today on rounds. The patient denies any nausea, vomiting, diarrhea, shortness of breath, dizziness, chest pain, heart palpitations, fevers, or chills. The patient has remained afebrile. Blood pressures have been in a good range. When prompted the patient voices no other concerns at this time. Review of systems: The rest of the review of systems is negative. Physical Exam Vital Signs: Temp Pulse Resp BP Pulse Ox 97.7 F 60 16 196/57 H 93 11/30/16 07:46 11/30/16 07:46 11/30/16 07:46 11/30/16 07:46 11/30/16 07:46 Intake & Output 11/28/16 11/29/16 11/30/16 23:59 23:59 23:59 Intake Total 240 1111 150 Output Total 400 1650 900 Balance -160 -539 -750 Weight 103.5 kg 103.6 kg General appearance: PRESENT: no acute distress, cooperative, well-developed Head exam: PRESENT: atraumatic, normocephalic Eye exam: PRESENT: conjunctiva pink, EOMI, PERRLA. ABSENT: scleral icterus Ear exam: PRESENT: normal external ear exam Mouth exam: PRESENT: moist, tongue midline Neck exam: ABSENT: carotid bruit, JVD, lymphadenopathy, thyromegaly Respiratory exam: PRESENT: clear to auscultation jeremy, symmetrical, unlabored. ABSENT: rales, rhonchi, tachypnea, wheezes Cardiovascular exam: PRESENT: RRR. ABSENT: diastolic murmur, rubs, systolic murmur Pulses: PRESENT: normal dorsalis pedis pul Vascular exam: PRESENT: normal capillary refill GI/Abdominal exam: PRESENT: normal bowel sounds, soft. ABSENT: distended, guarding, mass, organolmegaly, rebound, tenderness Rectal exam: PRESENT: deferred Extremities exam: PRESENT: full ROM. ABSENT: calf tenderness, clubbing, pedal edema Neurological exam: PRESENT: alert, awake, oriented to person, oriented to place , oriented to time, oriented to situation, CN II-XII grossly intact. ABSENT: motor sensory deficit Psychiatric exam: PRESENT: appropriate affect, normal mood. ABSENT: homicidal ideation, suicidal ideation Skin exam: PRESENT: dry, intact, warm. Faint rash noted on left forearm and left hand. ABSENT: cyanosis. 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 Repeat culture is pending. Will continue ertapenem for now. Will continue to premedicate with Benadryl at evening dose as well as prednisone. (2) Esophageal spasm Is this a current diagnosis for this admission?: YesPlan: Patient responded nicely to GI cocktail. EGD was unremarkable. (3) Anxiety Is this a current diagnosis for this admission?: YesPlan: I do believe this is has contributed significantly to the patient's abdominal discomforts as well as hives. (4) Cardiac pacemaker in situ Is this a current diagnosis for this admission?: Yes (5) Chronic systolic congestive heart failure Is this a current diagnosis for this admission?: YesPlan: Will continue current medications the patient appears optivolemic (6) Constipation due to opioid therapy Is this a current diagnosis for this admission?: Yes (7) Coronary artery disease Qualifiers: Coronary Disease-Associated Artery/Lesion type: unspecified vessel or lesion type Associated angina: angina presence unspecified Is this a current diagnosis for this admission?: YesPlan: Will continue home medications. (8) Dyslipidemia Is this a current diagnosis for this admission?: YesPlan: Will continue home medications. (9) Hypertension Qualifiers: Hypertension type: essential hypertension Qualified Code(s): I10 - Essential (primary) hypertension Is this a current diagnosis for this admission?: Yes (10) Stented coronary artery Is this a current diagnosis for this admission?: Yes (11) DVT prophylaxis Is this a current diagnosis for this admission?: Yes (12) H/O aortic valve replacement with porcine valve Is this a current diagnosis for this admission?: Yes (13) Rash Is this a current diagnosis for this admission?: YesPlan: Will continue steroid taper and hydrocortisone cream. Appears improved. - Time Time Spent with patient: 25-34 minutes Medications reviewed and adjusted accordingly: Yes Anticipated discharge: Other Within: when bed available Disposition: The patient is a DO NOT RESUSCITATE DO NOT INTUBATE. Pending patient's symptomatology and diagnostic findings will reevaluate as needed.
--- NOTE | 2016-11-30 15:04 | Physician Advisory Note ---
Physician Advisor ProgressNote .: Pursuant to the plan for [facility], I have reviewed the medical record for this patient. Physician Advisor Statement: Please specify type of infxn w/Morganella - is there "Possible Acute Rt/Lt pyelonephritis" present, or "cystitis", or ... Thanks! CK
[2016-11-30] MEDS: ATORVASTATIN CALCIUM 40 MG TABLET PO SCH (21:10)
[2016-11-30] MEDS: DIPHENHYDRAMINE HCL 25 MG CAPSULE PO SCH (21:10)
[2016-11-30] MEDS: ERTAPENEM SODIUM 1 GM in NORMAL SALINE 50 ML IV SCH (21:11)
[2016-11-30] MEDS: PRIMIDONE 50 MG TABLET PO SCH (21:11)
[2016-12-01] MEDS: FUROSEMIDE 20 MG TABLET PO SCH (08:05)
[2016-12-01] MEDS ORDERED: PREDNISONE 20 MG TABLET PO ONE (08:51)
[2016-12-01] MEDS: TRAZODONE HCL 50 MG TABLET PO SCH ×2 (09:27→21:32)
[2016-12-01] MEDS: LISINOPRIL 5 MG TABLET PO SCH (09:28)
[2016-12-01] MEDS: CARVEDILOL 12.5 MG TABLET PO SCH ×2 (09:29→21:32)
[2016-12-01] MEDS: OXYBUTYNIN CHLORIDE 5 MG TABLET PO SCH ×2 (09:29→18:01)
[2016-12-01] MEDS: MULTIVITAMIN TABLET PO SCH (09:29)
[2016-12-01] MEDS: ASPIRIN 81 MG TABLET, ENT COATED PO SCH (09:29)
[2016-12-01] MEDS: LEVOFLOXACIN 500 MG TABLET PO SCH (09:29)
[2016-12-01] MEDS: ISOSORBIDE MONONITRATE 60 MG TAB.ER.24H PO SCH (09:29)
[2016-12-01] MEDS: DOCUSATE SODIUM 100 MG CAPSULE PO SCH ×2 (09:29→18:01)
[2016-12-01] MEDS: SERTRALINE HCL 50 MG TABLET PO SCH (09:29)
--- NOTE | 2016-12-01 13:41 | PDOC PROGRESS REPORT ---
Subjective Progress Note for:: 12/01/16 Subjective:: The patient was seen earlier today on rounds. The patient denies any nausea, vomiting, diarrhea, shortness of breath, dizziness, chest pain, heart palpitations, fevers, or chills. The patient has remained afebrile. Blood pressures have been in a good range. When prompted the patient voices no other concerns at this time. Review of systems: The rest of the review of systems is negative. Physical Exam Vital Signs: Temp Pulse Resp BP Pulse Ox 97.8 F 60 18 156/52 H 95 12/01/16 11:25 12/01/16 11:25 12/01/16 11:25 12/01/16 11:25 12/01/16 11:25 Intake & Output 11/29/16 11/30/16 12/01/16 23:59 23:59 23:59 Intake Total 1111 150 200 Output Total 1650 1200 300 Balance -539 -1050 -100 Weight 103.5 kg 103.6 kg 103.2 kg General appearance: PRESENT: no acute distress, cooperative, well-developed Head exam: PRESENT: atraumatic, normocephalic Eye exam: PRESENT: conjunctiva pink, EOMI, PERRLA. ABSENT: scleral icterus Ear exam: PRESENT: normal external ear exam Mouth exam: PRESENT: moist, tongue midline Neck exam: ABSENT: carotid bruit, JVD, lymphadenopathy, thyromegaly Respiratory exam: PRESENT: clear to auscultation jeermy, symmetrical, unlabored. ABSENT: rales, rhonchi, tachypnea, wheezes Cardiovascular exam: PRESENT: RRR. ABSENT: diastolic murmur, rubs, systolic murmur Pulses: PRESENT: normal dorsalis pedis pul Vascular exam: PRESENT: normal capillary refill GI/Abdominal exam: PRESENT: normal bowel sounds, soft. ABSENT: distended, guarding, mass, organolmegaly, rebound, tenderness Rectal exam: PRESENT: deferred Extremities exam: PRESENT: full ROM. ABSENT: calf tenderness, clubbing, pedal edema Neurological exam: PRESENT: alert, awake, oriented to person, oriented to place , oriented to time, oriented to situation, CN II-XII grossly intact. ABSENT: motor sensory deficit Psychiatric exam: PRESENT: appropriate affect, normal mood. ABSENT: homicidal ideation, suicidal ideation Skin exam: PRESENT: dry, intact, warm. Faint rash noted on left forearm and left hand. ABSENT: cyanosis. Results Laboratory Results: Labs- Last Values WBC 9.2 10^3/uL (4.0-10.5) 11/26/16 03:30 RBC 4.30 10^6/uL (4.35-5.55) L 11/26/16 03:30 Hgb 12.0 g/dL (13.5-17.0) L 11/26/16 03:30 Hct 36.8 % (37.9-51.0) L 11/26/16 03:30 MCV 86 fl (80-97) 11/26/16 03:30 MCH 27.8 pg (27.0-33.4) 11/26/16 03:30 MCHC 32.5 g/dL (32.0-36.0) 11/26/16 03:30 RDW 17.2 % (11.5-14.0) H 11/26/16 03:30 Plt Count 268 10^3/uL (150-450) 11/26/16 03:30 Seg Neutrophils % 52.6 % (42-78) 11/26/16 03:30 Lymphocytes % 33.2 % (13-45) 11/26/16 03:30 Monocytes % 11.3 % (3-13) 11/26/16 03:30 Eosinophils % 2.0 % (0-6) 11/26/16 03:30 Basophils % 0.9 % (0-2) 11/26/16 03:30 Absolute Neutrophils 4.8 10^3/uL (1.7-8.2) 11/26/16 03:30 Absolute Lymphocytes 3.0 10^3/uL (0.5-4.7) 11/26/16 03:30 Absolute Monocytes 1.0 10^3/uL (0.1-1.4) 11/26/16 03:30 Absolute Eosinophils 0.2 10^3/uL (0.0-0.6) 11/26/16 03:30 Absolute Basophils 0.1 10^3/uL (0.0-0.2) 11/26/16 03:30 Sodium 140.5 mmol/L (137-145) 11/26/16 03:30 Potassium 4.4 mmol/L (3.6-5.0) 11/26/16 03:30 Chloride 105 mmol/L (98-107) 11/26/16 03:30 Carbon Dioxide 26 mmol/L (22-30) 11/26/16 03:30 Anion Gap 10 (5-19) 11/26/16 03:30 BUN 22 mg/dL (7-20) H 11/26/16 03:30 Creatinine 0.76 mg/dL (0.52-1.25) 11/26/16 03:30 Est GFR ( Amer) > 60 (>60) 11/26/16 03:30 Est GFR (Non-Af Amer) > 60 (>60) 11/26/16 03:30 Glucose 102 mg/dL (75-110) 11/26/16 03:30 Calcium 8.7 mg/dL (8.4-10.2) 11/26/16 03:30 Total Bilirubin 0.6 mg/dL (0.2-1.3) 11/25/16 21:10 Direct Bilirubin 0.2 mg/dL (0.0-0.4) 11/25/16 21:10 Indirect Bilirubin Not Reportable 11/25/16 21:10 Neonat Total Bilirubin Not Reportable 11/25/16 21:10 AST 25 U/L (17-59) 11/25/16 21:10 ALT 20 U/L (21-72) L 11/25/16 21:10 Alkaline Phosphatase 113 U/L (38-126) 11/25/16 21:10 Creatine Kinase 29 U/L (55-170) L 11/26/16 03:30 CK-MB (CK-2) 0.71 ng/mL (<4.55) 11/26/16 09:38 Troponin I 0.013 ng/mL 11/26/16 09:38 Total Protein 6.7 g/dL (6.3-8.2) 11/25/16 21:10 Albumin 3.3 g/dL (3.5-5.0) L 11/25/16 21:10 Lipase 64.2 U/L (23-300) 11/25/16 21:10 Urine Color YELLOW 11/26/16 03:14 Urine Appearance CLEAR 11/26/16 03:14 Urine pH 6.0 (5.0-9.0) 11/26/16 03:14 Ur Specific [place] 1.020 11/26/16 03:14 Urine Protein NEGATIVE mg/dL (NEGATIVE) 11/26/16 03:14 Urine Glucose (UA) NEGATIVE mg/dL (NEGATIVE) 11/26/16 03:14 Urine Ketones NEGATIVE mg/dL (NEGATIVE) 11/26/16 03:14 Urine Blood NEGATIVE (NEGATIVE) 11/26/16 03:14 Urine Nitrite NEGATIVE (NEGATIVE) 11/26/16 03:14 Urine Bilirubin NEGATIVE (NEGATIVE) 11/26/16 03:14 Urine Urobilinogen NEGATIVE mg/dL (<2.0) 11/26/16 03:14 Ur Leukocyte Esterase NEGATIVE (NEGATIVE) 11/26/16 03:14 Urine WBC (Auto) 0 /HPF 11/26/16 03:14 Urine RBC (Auto) 1 /HPF 11/26/16 03:14 Squamous Epi Cells Auto <1 /HPF 11/26/16 03:14 Urine Mucus (Auto) RARE /LPF 11/26/16 03:14 Urine Ascorbic Acid 40 (NEGATIVE) H 11/26/16 03:14 Assessment & Plan - Diagnosis (1) 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 Repeat culture is pending. Will continue ertapenem for now. Will continue to premedicate with Benadryl at evening dose as well as prednisone. Peak culture was polymicrobial which is suspicious for contaminant. Will repeat and continue current antibiotic given the patient's significant improvement. (2) Esophageal spasm Is this a current diagnosis for this admission?: YesPlan: Patient responded nicely to GI cocktail. EGD was unremarkable. (3) Anxiety Is this a current diagnosis for this admission?: YesPlan: I do believe this is has contributed significantly to the patient's abdominal discomforts as well as hives. (4) Cardiac pacemaker in situ Is this a current diagnosis for this admission?: Yes (5) Chronic systolic congestive heart failure Is this a current diagnosis for this admission?: YesPlan: Will continue current medications the patient appears optivolemic (6) Constipation due to opioid therapy Is this a current diagnosis for this admission?: Yes (7) Coronary artery disease Qualifiers: Coronary Disease-Associated Artery/Lesion type: unspecified vessel or lesion type Associated angina: angina presence unspecified Is this a current diagnosis for this admission?: YesPlan: Will continue home medications. (8) Dyslipidemia Is this a current diagnosis for this admission?: YesPlan: Will continue home medications. (9) Hypertension Qualifiers: Hypertension type: essential hypertension Qualified Code(s): I10 - Essential (primary) hypertension Is this a current diagnosis for this admission?: Yes (10) Stented coronary artery Is this a current diagnosis for this admission?: Yes (11) DVT prophylaxis Is this a current diagnosis for this admission?: Yes (12) H/O aortic valve replacement with porcine valve Is this a current diagnosis for this admission?: Yes (13) Rash Is this a current diagnosis for this admission?: YesPlan: Will continue steroid taper and hydrocortisone cream. Appears improved. - Time Time Spent with patient: 25-34 minutes Medications reviewed and adjusted accordingly: Yes Anticipated discharge: Other Within: when bed available Disposition: The patient is a DO NOT RESUSCITATE DO NOT INTUBATE. Pending patient's symptomatology and diagnostic findings will reevaluate as needed.
[2016-12-01] MEDS: PRIMIDONE 50 MG TABLET PO SCH (21:31)
[2016-12-01] MEDS: ATORVASTATIN CALCIUM 40 MG TABLET PO SCH (21:32)
[2016-12-01] MEDS: ERTAPENEM SODIUM 1 GM in NORMAL SALINE 50 ML IV SCH (21:32)
[2016-12-01] MEDS: DIPHENHYDRAMINE HCL 25 MG CAPSULE PO SCH (21:32)
[2016-12-02] MEDS: FUROSEMIDE 20 MG TABLET PO SCH (10:31)
[2016-12-02] MEDS: DOCUSATE SODIUM 100 MG CAPSULE PO SCH ×2 (10:31→17:26)
[2016-12-02] MEDS: ASPIRIN 81 MG TABLET, ENT COATED PO SCH (10:32)
[2016-12-02] MEDS: SERTRALINE HCL 50 MG TABLET PO SCH (10:32)
[2016-12-02] MEDS: ISOSORBIDE MONONITRATE 60 MG TAB.ER.24H PO SCH (10:33)
[2016-12-02] MEDS: LISINOPRIL 5 MG TABLET PO SCH (10:33)
[2016-12-02] MEDS: CARVEDILOL 12.5 MG TABLET PO SCH ×2 (10:33→22:09)
[2016-12-02] MEDS: TRAZODONE HCL 50 MG TABLET PO SCH ×2 (10:33→22:05)
[2016-12-02] MEDS: LEVOFLOXACIN 500 MG TABLET PO SCH (10:33)
[2016-12-02] MEDS: OXYBUTYNIN CHLORIDE 5 MG TABLET PO SCH ×2 (10:35→17:27)
[2016-12-02] MEDS: MULTIVITAMIN TABLET PO SCH (10:35)
--- NOTE | 2016-12-02 11:27 | PDOC PROGRESS REPORT ---
Subjective Progress Note for:: 12/02/16 Subjective:: The patient was seen earlier today on rounds. The patient denies any nausea, vomiting, diarrhea, shortness of breath, dizziness, chest pain, heart palpitations, fevers, or chills. The patient has remained afebrile. Blood pressures have been in a good range. When prompted the patient voices no other concerns at this time. Review of systems: The rest of the review of systems is negative. Physical Exam Vital Signs: Temp Pulse Resp BP Pulse Ox 98.1 F 59 L 18 186/57 H 94 12/02/16 07:36 12/02/16 07:36 12/02/16 07:36 12/02/16 07:36 12/02/16 07:36 Intake & Output 11/30/16 12/01/16 12/02/16 23:59 23:59 23:59 Intake Total 150 950 300 Output Total 1200 501 525 Balance -1050 449 -225 Weight 103.6 kg 103.2 kg 101 kg General appearance: PRESENT: no acute distress, cooperative, well-developed Head exam: PRESENT: atraumatic, normocephalic Eye exam: PRESENT: conjunctiva pink, EOMI, PERRLA. ABSENT: scleral icterus Ear exam: PRESENT: normal external ear exam Mouth exam: PRESENT: moist, tongue midline Neck exam: ABSENT: carotid bruit, JVD, lymphadenopathy, thyromegaly Respiratory exam: PRESENT: clear to auscultation jeremy, symmetrical, unlabored. ABSENT: rales, rhonchi, tachypnea, wheezes Cardiovascular exam: PRESENT: RRR. ABSENT: diastolic murmur, rubs, systolic murmur Pulses: PRESENT: normal dorsalis pedis pul Vascular exam: PRESENT: normal capillary refill GI/Abdominal exam: PRESENT: normal bowel sounds, soft. ABSENT: distended, guarding, mass, organolmegaly, rebound, tenderness Rectal exam: PRESENT: deferred Extremities exam: PRESENT: full ROM. ABSENT: calf tenderness, clubbing, pedal edema Neurological exam: PRESENT: alert, awake, oriented to person, oriented to place , oriented to time, oriented to situation, CN II-XII grossly intact. ABSENT: motor sensory deficit Psychiatric exam: PRESENT: appropriate affect, normal mood. ABSENT: homicidal ideation, suicidal ideation Skin exam: PRESENT: dry, intact, warm. ABSENT: cyanosis. Results Laboratory Results: 11/29/16 15:15 Clean Catch Midstream Urine Culture - Final Enterococcus Faecalis(Group D) Pseudomonas Aeruginosa Assessment & Plan - Diagnosis (1) Bacterial infection due to Morganella morganii Is this a current diagnosis for this admission?: YesPlan: Day #4 of antibiotic therapy. Repeat culture is been negative. (2) Esophageal spasm Is this a current diagnosis for this admission?: YesPlan: Patient responded nicely to GI cocktail. EGD was unremarkable. (3) Anxiety Is this a current diagnosis for this admission?: YesPlan: I do believe this is has contributed significantly to the patient's abdominal discomforts as well as hives. (4) Cardiac pacemaker in situ Is this a current diagnosis for this admission?: Yes (5) Chronic systolic congestive heart failure Is this a current diagnosis for this admission?: YesPlan: Will continue current medications the patient appears optivolemic (6) Constipation due to opioid therapy Is this a current diagnosis for this admission?: Yes (7) Coronary artery disease Qualifiers: Coronary Disease-Associated Artery/Lesion type: unspecified vessel or lesion type Associated angina: angina presence unspecified Is this a current diagnosis for this admission?: YesPlan: Will continue home medications. (8) Dyslipidemia Is this a current diagnosis for this admission?: YesPlan: Will continue home medications. (9) Hypertension Qualifiers: Hypertension type: essential hypertension Qualified Code(s): I10 - Essential (primary) hypertension Is this a current diagnosis for this admission?: Yes (10) Stented coronary artery Is this a current diagnosis for this admission?: Yes (11) DVT prophylaxis Is this a current diagnosis for this admission?: Yes (12) H/O aortic valve replacement with porcine valve Is this a current diagnosis for this admission?: Yes (13) Rash Is this a current diagnosis for this admission?: YesPlan: Will continue hydrocortisone cream only as needed. Appears resolved. - Time Time Spent with patient: 25-34 minutes Medications reviewed and adjusted accordingly: Yes Anticipated discharge: Other Within: when bed available Disposition: The patient is a DO NOT RESUSCITATE DO NOT INTUBATE. Pending patient's symptomatology and diagnostic findings will reevaluate as needed.
[2016-12-02] MEDS: LACTOBACILLUS ACIDOPHILUS 250 MG TAB PO SCH (17:26)
[2016-12-02] MEDS: DIPHENHYDRAMINE HCL 25 MG CAPSULE PO SCH (22:05)
[2016-12-02] MEDS: PRIMIDONE 50 MG TABLET PO SCH (22:05)
[2016-12-02] MEDS: ATORVASTATIN CALCIUM 40 MG TABLET PO SCH (22:05)
[2016-12-02] MEDS: ERTAPENEM SODIUM 1 GM in NORMAL SALINE 50 ML IV SCH (22:05)
[2016-12-03] MEDS: MAG HYDROX/AL HYDROX/SIMETH SUSP 30 ML UDCUP PO PRN ×3 (04:43→15:56)
[2016-12-03] MEDS: LIDOCAINE 2% VISCOUS SOLN 20 ML UDCUP PO PRN (06:43)
[2016-12-03] MEDS: METOCLOPRAMIDE HCL ORAL SOLN 10 MG/10 ML UDCUP PO PRN (06:43)
[2016-12-03] MEDS ORDERED: SIMETHICONE 80 MG TAB.CHEW PO ONE (07:09)
[2016-12-03] MEDS: FUROSEMIDE 20 MG TABLET PO SCH (08:03)
[2016-12-03] MEDS: ALPRAZOLAM 0.5 MG TABLET PO PRN ×2 (08:04→15:57)
[2016-12-03] MEDS ORDERED: TRAMADOL HCL 50 MG TABLET PO PRN (08:08)
[2016-12-03] MEDS: LEVOFLOXACIN 500 MG TABLET PO SCH (11:59)
[2016-12-03] MEDS: ASPIRIN 81 MG TABLET, ENT COATED PO SCH (12:00)
[2016-12-03] MEDS: LACTOBACILLUS ACIDOPHILUS 250 MG TAB PO SCH ×2 (12:00→17:04)
[2016-12-03] MEDS: DOCUSATE SODIUM 100 MG CAPSULE PO SCH ×2 (12:00→17:04)
[2016-12-03] MEDS: SERTRALINE HCL 50 MG TABLET PO SCH (12:00)
[2016-12-03] MEDS: MULTIVITAMIN TABLET PO SCH (12:01)
[2016-12-03] MEDS: LISINOPRIL 5 MG TABLET PO SCH (12:03)
[2016-12-03] MEDS: CARVEDILOL 12.5 MG TABLET PO SCH ×2 (12:04→21:44)
[2016-12-03] MEDS: OXYBUTYNIN CHLORIDE 5 MG TABLET PO SCH ×2 (12:04→17:04)
[2016-12-03] MEDS: TRAZODONE HCL 50 MG TABLET PO SCH ×2 (12:05→21:43)
--- NOTE | 2016-12-03 12:23 | PDOC PROGRESS REPORT ---
Subjective Progress Note for:: 12/03/16 Subjective:: The patient was seen earlier today on rounds. The patient had an episode of chest pain overnight. The patient is currently chest pain-free upon rounding after receiving GI cocktail. The patient denies any nausea, vomiting, diarrhea , shortness of breath, dizziness, heart palpitations, fevers, or chills. The patient has remained afebrile. Blood pressures have been in a good range. When prompted the patient voices no other concerns at this time. Review of systems: The rest of the review of systems is negative. Physical Exam Vital Signs: Temp Pulse Resp BP Pulse Ox 97.4 F 69 19 148/66 H 93 12/03/16 07:34 12/03/16 07:34 12/03/16 07:34 12/03/16 07:34 12/03/16 07:34 Intake & Output 12/01/16 12/02/16 12/03/16 23:59 23:59 23:59 Intake Total 950 1140 340 Output Total 501 1025 200 Balance 449 115 140 Weight 103.2 kg 101 kg 101.7 kg General appearance: PRESENT: no acute distress, cooperative, well-developed Head exam: PRESENT: atraumatic, normocephalic Eye exam: PRESENT: conjunctiva pink, EOMI, PERRLA. ABSENT: scleral icterus Ear exam: PRESENT: normal external ear exam Mouth exam: PRESENT: moist, tongue midline Neck exam: ABSENT: carotid bruit, JVD, lymphadenopathy, thyromegaly Respiratory exam: PRESENT: clear to auscultation jeremy, symmetrical, unlabored. ABSENT: rales, rhonchi, tachypnea, wheezes Cardiovascular exam: PRESENT: RRR. ABSENT: diastolic murmur, rubs, systolic murmur Pulses: PRESENT: normal dorsalis pedis pul Vascular exam: PRESENT: normal capillary refill GI/Abdominal exam: PRESENT: normal bowel sounds, soft. ABSENT: distended, guarding, mass, organolmegaly, rebound, tenderness Rectal exam: PRESENT: deferred Extremities exam: PRESENT: full ROM. ABSENT: calf tenderness, clubbing, pedal edema Neurological exam: PRESENT: alert, awake, oriented to person, oriented to place , oriented to time, oriented to situation, CN II-XII grossly intact. ABSENT: motor sensory deficit Psychiatric exam: PRESENT: appropriate affect, normal mood. ABSENT: homicidal ideation, suicidal ideation Skin exam: PRESENT: dry, intact, warm. ABSENT: cyanosis. Results Laboratory Results: 12/01/16 12:30 Clean Catch Midstream Urine Culture - Final NO GROWTH 2 DAYS 12/03/16 08:44 Troponin I 0.039 Assessment & Plan - Diagnosis (1) Bacterial infection due to Morganella morganii Is this a current diagnosis for this admission?: YesPlan: Day #5 of antibiotic therapy. Repeat culture is been negative. Discontinue ertapenem's (2) Esophageal spasm Is this a current diagnosis for this admission?: YesPlan: Patient responded nicely to GI cocktail. EGD was unremarkable. (3) Anxiety Is this a current diagnosis for this admission?: YesPlan: I do believe this is has contributed significantly to the patient's abdominal discomforts as well as hives. (4) Cardiac pacemaker in situ Is this a current diagnosis for this admission?: Yes (5) Chronic systolic congestive heart failure Is this a current diagnosis for this admission?: YesPlan: Will continue current medications the patient appears optivolemic (6) Constipation due to opioid therapy Is this a current diagnosis for this admission?: Yes (7) Coronary artery disease Qualifiers: Coronary Disease-Associated Artery/Lesion type: unspecified vessel or lesion type Associated angina: angina presence unspecified Is this a current diagnosis for this admission?: YesPlan: Will continue home medications. Recurrent chest pain will consult cardiology. (8) Dyslipidemia Is this a current diagnosis for this admission?: YesPlan: Will continue home medications. (9) Hypertension Qualifiers: Hypertension type: essential hypertension Qualified Code(s): I10 - Essential (primary) hypertension Is this a current diagnosis for this admission?: Yes (10) Stented coronary artery Is this a current diagnosis for this admission?: Yes (11) DVT prophylaxis Is this a current diagnosis for this admission?: Yes (12) H/O aortic valve replacement with porcine valve Is this a current diagnosis for this admission?: Yes (13) Rash Is this a current diagnosis for this admission?: Yes - Time Time Spent with patient: 25-34 minutes Medications reviewed and adjusted accordingly: Yes Anticipated discharge: Other Within: Other Disposition: The patient is a DO NOT RESUSCITATE DO NOT INTUBATE. Pending patient's symptomatology and diagnostic findings will reevaluate as needed.
[2016-12-03] MEDS ORDERED: RANOLAZINE 500 MG TAB.SR.12H PO ONE (14:00)
[2016-12-03] MEDS: LANSOPRAZOLE 30 MG TAB.RAP.DR PO SCH (17:04)
--- NOTE | 2016-12-03 18:48 | PDOC CONSULTATION ---
Consultation Consult Date: 12/03/16 Attending physician:: ANALILIA BORGES Consult reason:: Chest pain History of Present Illness Admission Date/PCP: 11/28/16 16:02 Patient complains of: Chest pain History of Present Illness: Patient is known to me from previous consultation just one month ago. At that time he had a nuclear stress test and a 2-D echocardiogram. Mr. Lockwood was readmitted on 11/25/2016 with recurrent chest pain. He has had three or four episodes of retrosternal chest pain over the last two weeks. A CTA of the chest and abdomen, abdomen and pelvis CT, s He did have some nausea and vomiting during the first episode but not since. He has had a previous cholecystectomy. Patient did have GI workup and is being followed by a wedger machine. Patient describes the discomfort as a sharp hammering-type discomfort in the sternal split incision area. Patient described the discomfort as very intense. Patient is noted to be very visibly anxious and agitated during these episodes. So far cardiac enzymes has been negative. Patient has been noted to get relief with GI cocktail. Patient does have significant history of coronary artery disease and is status post coronary artery bypass graft surgery. Nuclear stress test did show a small area of distal inferior wall ischemia. Past Medical History Cardiac Medical History: Reports: Congestive Heart Failure, Coronary Artery Disease, Myocardial Infarction - x2, Hyperlipidema, Hypertension Denies: Atrial Fibrillation, DVT, Peripheral Vascular Disease, Pulmonary Embolism, Heart Murmur Pulmonary Medical History: Denies: Asthma, Chronic Obstructive Pulmonary Disease (COPD) Neurological Medical History: Denies: Seizures Endocrine Medical History: Denies: Diabetes Mellitus Type 1, Diabetes Mellitus Type 2, Hyperthyroidism, Hypothyroidism Renal/ Medical History: Denies: End Stage Renal Disease Malignancy Medical History: Denies: Breast Cancer, Cervical Cancer, Ovarian Cancer GI Medical History: Reports: Diverticulitis, Gastroesophageal Reflux Disease Denies: Cirrhosis, Crohn's Disease, Hepatitis, Hiatal Hernia Musculoskeltal Medical History: Reports: Arthritis - neck Denies: Fibromyalgia Skin Medical History: Denies: Eczema, Psoriasis Psychiatric Medical History: Reports: Depression Denies: Dementia Past Surgical History Past Surgical History: Reports: Appendectomy, Cholecystectomy, Coronary Artery Bypass Graft - x5, Orthopedic Surgery - back, Pacemaker, Valve Replacement - 2015 tvar, Other - partial gastr'y for PUD; separation of horseshoe kidney; bilat cataract Denies: Colostomy, Gastric Bypass Surgery, Herniorrhaphy, Tonsillectomy Social History Information Source: Patient Lives with: Family Smoking Status: Never Smoker Frequency of Alcohol Use: None Hx Recreational Drug Use: No Drugs: None Hx Prescription Drug Abuse: No - Advance Directive Resuscitation Status: Full Code Family History Family History: Reviewed & Not Pertinent, CAD, CVA, Malignancy Parental Family History Reviewed: Yes Children Family History Reviewed: Yes Sibling(s) Family History Reviewed.: Yes Medication/Allergy Home Medications: Carvedilol [Coreg 25 mg Tablet] 12.5 mg PO BID 09/15/14 Atorvastatin Calcium [Lipitor 40 mg Tablet] 40 mg PO QHS 04/24/16 Furosemide [Lasix 40 mg Tablet] 20 mg PO QAM 04/24/16 Multivitamin [Daily Multiple Vitamin] 1 tab PO DAILY 08/15/16 [place]-3/Dha/Epa/Fish Oil [Fish Oil 1,000 mg Softgel] 2 cap PO DAILY 08/15/16 Oxybutynin Chloride [Ditropan 5 mg Tablet] 5 mg PO BID 08/15/16 Primidone [Mysoline] 50 mg PO QHS 09/27/16 Aspirin [Aspirin EC] 81 mg PO DAILY 11/16/16 Isosorbide Mononitrate [Imdur 30 mg Tablet.er] 30 mg PO DAILY 11/16/16 Sertraline HCl 50 mg PO DAILY 11/16/16 Dicyclomine HCl [Bentyl 20 mg Tablet] 20 mg PO QID #120 tablet 11/22/16 Lisinopril [Prinivil 2.5 mg Tablet] 2.5 mg PO DAILY 11/26/16 Nitroglycerin [Nitrostat 0.4 mg (1/150 Gr) Tabs 25/Bottle] 1 tab SL Q5MP PRN Omeprazole 20 mg PO DAILY 11/26/16 Allergies/Adverse Reactions: No Known Allergies Allergy (Verified 09/27/16 11:39) Review of Systems Review of Systems: This is relatively unchanged from my previous consultation note except for history of present illness. Physical Exam Vital Signs: Temp Pulse Resp BP Pulse Ox 97.9 F 60 19 138/46 H 94 12/03/16 16:01 12/03/16 16:01 12/03/16 16:01 12/03/16 16:01 12/03/16 16:01 Intake & Output 12/02/16 12/03/16 12/04/16 06:59 06:59 06:59 Intake Total 1050 1180 120 Output Total 726 700 900 Balance 324 480 -780 Weight 101 kg 101.7 kg Exam: GENERAL: well-nourished and in no acute distress. Alert and oriented x3 HEAD: Atraumatic, normocephalic. EYES: Pupils equal round and reactive to light, extraocular movements intact, sclera anicteric, conjunctiva are normal. ENT: TMs normal, nares patent, oropharynx clear without exudates. Moist mucous membranes. No oral ulcerations or bleeding gums noted NECK: supple without lymphadenopathy. Trachea is central. No cervical or axillary lymphadenopathy noted. Carotids are 2+, JVD WNL LUNGS: Respiration seems nonlabored, no significant accessory muscle action noted. Breath sounds clear to auscultation bilaterally and equal noted. No wheezes rales or rhonchi noted. No significant dullness noted on percussion. CHEST: Palpation of the chest wall shows mild chest wall tenderness. No other significant abnormalities noted. HEART: [place] [employer], No PSH, 1/6 DONNA aortic area, 1/6 lazcano systolic murmur mitral area, no rubs, no gallops. ABDOMEN: Soft, no significant tenderness appreciated, normoactive bowel sounds. No guarding, no rebound. No rigidity noted . No masses appreciated. EXTREMITIES: Pedal pulses are 1-2+, no calf tenderness noted. No clubbing or cyanosis.trace to 1+ pedal edema noted NEUROLOGICAL: Focused neurological exam showed no significant neurologic deficit. Normal speech, no focal weakness appreciated. PSYCH: Normal mood, normal affect. Judgment and insight within normal limits. SKIN: No significant ecchymosis, rash, ulcerations or signs of pruritus noted. MUSCULOSKELETAL EXAM: No significant joint swelling noted. Results Laboratory Results: 12/01/16 12:30 Clean Catch Midstream Urine Culture - Final NO GROWTH 2 DAYS 12/03/16 12/03/16 08:44 13:11 Troponin I 0.039 0.077 EKG Comments: EKG shows ventricular paced rhythm. Assessment & Plan - Diagnosis (1) Coronary artery disease Qualifiers: Coronary Disease-Associated Artery/Lesion type: unspecified vessel or lesion type [place] vs. transplanted heart: red devil heart Is this a current diagnosis for this admission?: Yes (2) Chest pain Qualifiers: Chest pain type: unspecified Qualified Code(s): R07.9 - Chest pain, unspecified Is this a current diagnosis for this admission?: Yes (3) Esophageal spasm Is this a current diagnosis for this admission?: Yes (4) Cardiac pacemaker in situ Is this a current diagnosis for this admission?: Yes (5) H/O aortic valve replacement with porcine valve Is this a current diagnosis for this admission?: Yes - Notes Notes: Chest pain: Patient is having recurrent chest pain. Exact etiology not clear. This could be related to coronary vasospasm, esophageal spasm, anxiety panic disorder, musculoskeletal or referred pain. Patient did have a positive stress test with small area of ischemia which was felt to be relatively low risk. Patient also quite elderly. At this point will optimize medical management. After discussion with hospitalist, we decided to place patient on Ranexa, Norvasc and long acting nitrates. Patient also placed on proton pump inhibitor. Will recommend EKGs during chest pain and daily for next 2 days. If we cannot relieve patient chest pain and no other cause of chest pain is found then I'm afraid we may need to consider heart catheterization. Previous chart reviewed. Aortic bioprosthetic valve seems to be working adequately based on clinical exam and by review of echocardiogram. Ex As usual I thank Dr. Borges very much for the kind referral. - Time Time Spent: 30 to 50 Minutes - CODE STATUS : was discussed, patient remains DO NOT RESUSCITATE. Surrogate decision-maker unchanged. Multiple medical problems were addressed.More than 50% of the time spent coordinating care, discussing management plans with involved caregivers. Management plans discussed with involved personnels. Medical decision making was of moderate to high complexity, patient's has multiple severe comorbidities. Medications reviewed and adjusted accordingly: Yes
[2016-12-03] MEDS: RANOLAZINE 500 MG TAB.SR.12H PO SCH (21:44)
[2016-12-03] MEDS: ATORVASTATIN CALCIUM 40 MG TABLET PO SCH (21:44)
[2016-12-03] MEDS: DIPHENHYDRAMINE HCL 25 MG CAPSULE PO SCH (21:44)
[2016-12-03] MEDS ORDERED: ISOSORBIDE MONONITRATE 60 MG TAB.ER.24H PO SCH (22:00)
[2016-12-03] MEDS ORDERED: AMLODIPINE BESYLATE 5 MG TABLET PO SCH (22:00)
[2016-12-04] MEDS ORDERED: NORMAL SALINE 1000 ML 500 ML IV ONE (01:52)
[2016-12-04] MEDS ORDERED: NORMAL SALINE 1000 ML 250 ML IV ONE (02:00)
--- NOTE | 2016-12-04 05:15 | Progress Note ---
Provider Note Provider Note: 12/04/2016: Contacted by patient's floor nurse stating that patient was complaining of swelling of his tongue. no facial swelling, swelling of lips, respiratory distress, rash, or other evidence of allergic reaction. At 4:44 AM, I went to patient's bedside. He is sound asleep. No outward evidence of allergic reaction, including facial rash or swelling, including no evidence of swelling of the lips or periorbital edema. No obvious evidence of swelling of tongue, with patient's mouth partially open while asleep. No drooling. Certainly no evidence of respiratory distress. Discussed with his floor nurse signs of allergic reaction involving the head and neck, including facial, lip, and/or periorbital swelling along with tongue swelling, rash, and respiratory distress. Told her to contact me should these occur.
[2016-12-04] MEDS: LANSOPRAZOLE 30 MG TAB.RAP.DR PO SCH ×2 (05:53→16:46)
[2016-12-04] MEDS ORDERED: AMLODIPINE BESYLATE 5 MG TABLET PO SCH (07:59)
[2016-12-04] MEDS: FUROSEMIDE 20 MG TABLET PO SCH (08:21)
--- NOTE | 2016-12-04 08:29 | PDOC TRANSFER SUMMARY ---
<ANALILIA BORGES - Last Filed: 12/04/16 09:14> General - Admit/Disc Date/PCP Admission Date/Primary Care Provider: 11/28/16 16:02 Primary care provider: Mireya Kahn Consulting and outpatient clinical program coordinator: Dr. Pacheco Discharge Date: 12/04/16 - [facility] - Discharge Diagnosis (1) Esophageal spasm Is this a current diagnosis for this admission?: Yes (2) Generalized anxiety disorder Is this a current diagnosis for this admission?: Yes (3) Coronary artery spasm Is this a current diagnosis for this admission?: Yes (4) Coronary artery disease Is this a current diagnosis for this admission?: Yes (5) H/O aortic valve replacement with porcine valve Is this a current diagnosis for this admission?: Yes (6) Chronic recurring chest pain Is this a current diagnosis for this admission?: YesSummary: Secondary to all of the above. Responds nicely to GI cocktail. (7) Diastolic dysfunction without heart failure Is this a current diagnosis for this admission?: Yes (8) Bacterial infection due to Morganella morganii Is this a current diagnosis for this admission?: YesSummary: Has completed 5 days of IV antibiotics. Repeat cultures negative. (9) Cardiac pacemaker in situ Is this a current diagnosis for this admission?: Yes (10) Constipation due to opioid therapy Is this a current diagnosis for this admission?: Yes (11) Dyslipidemia Is this a current diagnosis for this admission?: Yes (12) Hypertension Is this a current diagnosis for this admission?: Yes (13) Stented coronary artery Is this a current diagnosis for this admission?: Yes (14) Oral thrush Is this a current diagnosis for this admission?: Yes (15) DVT prophylaxis Is this a current diagnosis for this admission?: Yes - Additional Information Resuscitation Status: Do Not Resuscitate - Portable DO NOT RESUSCITATE DO NOT INTUBATE Discharge Diet: As Tolerated, Cardiac Discharge Activity: Activity As Tolerated Home Medications: Carvedilol [Coreg 25 mg Tablet] 12.5 mg PO BID 09/15/14 Atorvastatin Calcium [Lipitor 40 mg Tablet] 40 mg PO QHS 04/24/16 Furosemide [Lasix 40 mg Tablet] 20 mg PO QAM 04/24/16 Multivitamin [Daily Multiple Vitamin] 1 tab PO DAILY 08/15/16 [place]-3/Dha/Epa/Fish Oil [Fish Oil 1,000 mg Softgel] 2 cap PO DAILY 08/15/16 Oxybutynin Chloride [Ditropan 5 mg Tablet] 5 mg PO BID 08/15/16 Aspirin [Aspirin EC] 81 mg PO DAILY 11/16/16 Sertraline HCl 50 mg PO DAILY 11/16/16 Lisinopril [Prinivil 2.5 mg Tablet] 2.5 mg PO DAILY 11/26/16 Nitroglycerin [Nitrostat 0.4 mg (1/150 Gr) Tabs 25/Bottle] 1 tab SL Q5MP PRN Amlodipine Besylate [Norvasc 5 mg Tablet] 2.5 mg PO QHS #30 tablet 12/04/16 Diphenhydramine HCl [Benadryl 25 mg Capsule] 25 mg PO QHS #0 capsule 12/04/16 Docusate Sodium [Colace 100 mg Capsule] 100 mg PO BID #0 capsule 12/04/16 Hyoscyamine Sulfate [Levsin 0.125 Tablet] 0.125 mg PO Q8HP PRN #0 tablet Isosorbide Mononitrate [Imdur 60 mg Tablet.er] 30 mg PO QHS tab.er.24h Lansoprazole [Prevacid 30 mg Odt Tablet] 30 mg PO BID@0600,1700 #0 tab.rap.dr Nystatin [Mycostatin 500,000 Unit/5 ml Susp Udcup] 500,000 unit PO QID #20 udc 12/04/16 Ranolazine [Ranexa 500 mg Tab.sr] 500 mg PO Q12 #0 tab.sr.12h 12/04/16 Simethicone [Mylicon 80 mg Chewable Tablet] 160 mg PO Q8HP PRN tab.chew Trazodone HCl [Desyrel 50 mg Tablet] 25 mg PO Q12 tablet 12/04/16 Alprazolam [Xanax 0.5 mg Tablet] 0.5 mg PO Q8HP PRN #10 tablet 12/08/16 Tramadol HCl [Ultram 50 mg Tablet] 50 mg PO Q4HP PRN #20 tablet 12/08/16 History of Present Illness Admission Date/PCP: 11/28/16 16:02 Patient complains of: Chest pain History of Present Illness: PEACE FRAGA is a 85 year old male with a history of coronary artery disease status post coronary artery bypass grafting and pacemaker placement that is well known to the hospitalist service. Patient states usual state of health until approximately a month ago having several episodes of severe retrosternal chest pain and 10 days ago a indeterminate Cardiolite stress test returns after several hours of severe pain after eating and reclining complaining of GERD. Patient emergency room is unremarkable to given his risk factors is referred to the hospitalist for observation. Patient also complained of constipation and a left lower quadrant abdominal wall swelling with pain overlying a previous abdominal scar. This area is without guarding erythema,heat or ulcer. Patient was otherwise chest pain free. Hospital Course Hospital Course: The patient was admitted in a continues telemetry unit, serial cardiac enzymes were obtained which were nonsuggestive of acute coronary event. The patient's EKG revealed no acute changes and the patient had no events on outfitter cabin. Given the patient's history and risk factors the patient was seen by Dr. Pacheco with cardiology. Suggestions were made for possible stable angina as well as coronary spasm. The patient was started on Ranexa as well as low-dose calcium channel lynn at bedtime. The patient did have an episode of hypotension with the new agents started by cardiology. Therefore nitrate dosage and calcium channel lynn were reduced. The patient had had multiple episodes of recurrent chest/abdominal pain. This did respond nicely a GI cocktail. Very quickly after each of these events the patient would be found sleeping. The patient was seen and evaluated by gastroenterology and felt symptoms were related to esophageal spasm after an unremarkable EGD. The patient revealed to have a UTI remarkable for Morganella. With the only sensitivity to cephalosporins and carbopenum The patient received a dose of Ceftin noted rash of his right arm. This was discontinued and the patient was given IV ertapenem with close observation. However even after much discussion the patient later revealed that he had been having the rash intermittently at home prior to admission and that it was not related to the Ceftin. Regardless the patient completed treatment with 5 days of IV antibiotics and has had a negative repeat urine culture. Overnight prior to discharge patient was complaining of swelling of his tongue and was distressed over this. No facial swelling, swelling of lips, respiratory distress, rash, or other evidence of allergic reaction. Upon evaluation he was sound asleep. No outward evidence of allergic reaction, including facial rash or swelling, including no evidence of swelling of the lips or periorbital edema. No obvious evidence of swelling of tongue, with patient's mouth partially open while asleep. No drooling. Certainly no evidence of respiratory distress. Patient did appear to have a film consistent with thrush. Patient was started on nystatin for this. Numerous times the patient has been found to be extremely anxious at near panic levels. This does respond well to Xanax. Physical Exam Vital Signs: Temp Pulse Resp BP Pulse Ox 97.3 F 63 17 95/44 L 96 12/04/16 03:33 12/04/16 03:33 12/04/16 03:33 12/04/16 03:33 12/04/16 03:33 Intake & Output 12/02/16 12/03/16 12/04/16 23:59 23:59 23:59 Intake Total 1140 580 120 Output Total 1025 1750 450 Balance 115 -1170 -330 Weight 101 kg 101.7 kg 102.1 kg General appearance: PRESENT: no acute distress, cooperative, well-developed Head exam: PRESENT: atraumatic, normocephalic Eye exam: PRESENT: conjunctiva pink, EOMI, PERRLA. ABSENT: scleral icterus Ear exam: PRESENT: normal external ear exam Mouth exam: PRESENT: moist, tongue midline Neck exam: ABSENT: carotid bruit, JVD, lymphadenopathy, thyromegaly Respiratory exam: PRESENT: clear to auscultation jeremy, symmetrical, unlabored. ABSENT: rales, rhonchi, tachypnea, wheezes Cardiovascular exam: PRESENT: RRR. ABSENT: diastolic murmur, rubs, systolic murmur Pulses: PRESENT: normal dorsalis pedis pul Vascular exam: PRESENT: normal capillary refill GI/Abdominal exam: PRESENT: normal bowel sounds, soft. ABSENT: distended, guarding, mass, organolmegaly, rebound, tenderness Rectal exam: PRESENT: deferred Extremities exam: PRESENT: full ROM. ABSENT: calf tenderness, clubbing, pedal edema Neurological exam: PRESENT: alert, awake, oriented to person, oriented to place , oriented to time, oriented to situation, CN II-XII grossly intact. ABSENT: motor sensory deficit Psychiatric exam: PRESENT: appropriate affect, normal mood. ABSENT: homicidal ideation, suicidal ideation Skin exam: PRESENT: dry, intact, warm. ABSENT: cyanosis. Results Laboratory Results: Labs- Last Values WBC 9.2 10^3/uL (4.0-10.5) 11/26/16 03:30 RBC 4.30 10^6/uL (4.35-5.55) L 11/26/16 03:30 Hgb 12.0 g/dL (13.5-17.0) L 11/26/16 03:30 Hct 36.8 % (37.9-51.0) L 11/26/16 03:30 MCV 86 fl (80-97) 11/26/16 03:30 MCH 27.8 pg (27.0-33.4) 11/26/16 03:30 MCHC 32.5 g/dL (32.0-36.0) 11/26/16 03:30 RDW 17.2 % (11.5-14.0) H 11/26/16 03:30 Plt Count 268 10^3/uL (150-450) 11/26/16 03:30 Seg Neutrophils % 52.6 % (42-78) 11/26/16 03:30 Lymphocytes % 33.2 % (13-45) 11/26/16 03:30 Monocytes % 11.3 % (3-13) 11/26/16 03:30 Eosinophils % 2.0 % (0-6) 11/26/16 03:30 Basophils % 0.9 % (0-2) 11/26/16 03:30 Absolute Neutrophils 4.8 10^3/uL (1.7-8.2) 11/26/16 03:30 Absolute Lymphocytes 3.0 10^3/uL (0.5-4.7) 11/26/16 03:30 Absolute Monocytes 1.0 10^3/uL (0.1-1.4) 11/26/16 03:30 Absolute Eosinophils 0.2 10^3/uL (0.0-0.6) 11/26/16 03:30 Absolute Basophils 0.1 10^3/uL (0.0-0.2) 11/26/16 03:30 Sodium 140.5 mmol/L (137-145) 11/26/16 03:30 Potassium 4.4 mmol/L (3.6-5.0) 11/26/16 03:30 Chloride 105 mmol/L (98-107) 11/26/16 03:30 Carbon Dioxide 26 mmol/L (22-30) 11/26/16 03:30 Anion Gap 10 (5-19) 11/26/16 03:30 BUN 22 mg/dL (7-20) H 11/26/16 03:30 Creatinine 0.76 mg/dL (0.52-1.25) 11/26/16 03:30 Est GFR ( Amer) > 60 (>60) 11/26/16 03:30 Est GFR (Non-Af Amer) > 60 (>60) 11/26/16 03:30 Glucose 102 mg/dL (75-110) 11/26/16 03:30 Calcium 8.7 mg/dL (8.4-10.2) 11/26/16 03:30 Total Bilirubin 0.6 mg/dL (0.2-1.3) 11/25/16 21:10 Direct Bilirubin 0.2 mg/dL (0.0-0.4) 11/25/16 21:10 Indirect Bilirubin Not Reportable 11/25/16 21:10 Neonat Total Bilirubin Not Reportable 11/25/16 21:10 AST 25 U/L (17-59) 11/25/16 21:10 ALT 20 U/L (21-72) L 11/25/16 21:10 Alkaline Phosphatase 113 U/L (38-126) 11/25/16 21:10 Creatine Kinase 29 U/L (55-170) L 11/26/16 03:30 CK-MB (CK-2) 0.71 ng/mL (<4.55) 11/26/16 09:38 Total Protein 6.7 g/dL (6.3-8.2) 11/25/16 21:10 Albumin 3.3 g/dL (3.5-5.0) L 11/25/16 21:10 Lipase 64.2 U/L (23-300) 11/25/16 21:10 Urine Color YELLOW 11/26/16 03:14 Urine Appearance CLEAR 11/26/16 03:14 Urine pH 6.0 (5.0-9.0) 11/26/16 03:14 Ur Specific Lee 1.020 11/26/16 03:14 Urine Protein NEGATIVE mg/dL (NEGATIVE) 11/26/16 03:14 Urine Glucose (UA) NEGATIVE mg/dL (NEGATIVE) 11/26/16 03:14 Urine Ketones NEGATIVE mg/dL (NEGATIVE) 11/26/16 03:14 Urine Blood NEGATIVE (NEGATIVE) 11/26/16 03:14 Urine Nitrite NEGATIVE (NEGATIVE) 11/26/16 03:14 Urine Bilirubin NEGATIVE (NEGATIVE) 11/26/16 03:14 Urine Urobilinogen NEGATIVE mg/dL (<2.0) 11/26/16 03:14 Ur Leukocyte Esterase NEGATIVE (NEGATIVE) 11/26/16 03:14 Urine WBC (Auto) 0 /HPF 11/26/16 03:14 Urine RBC (Auto) 1 /HPF 11/26/16 03:14 Squamous Epi Cells Auto <1 /HPF 11/26/16 03:14 Urine Mucus (Auto) RARE /LPF 11/26/16 03:14 Urine Ascorbic Acid 40 (NEGATIVE) H 11/26/16 03:14 12/01/16 12:30 Urine Culture - Final Clean Catch Midstream NO GROWTH 2 DAYS 11/26/16 03:14 Urine Culture - Final Clean Catch Midstream Morganella Morganii Transfer Plan - Disposition Transfer Plan: The patient be transferred to [facility] for assisted living. Recommend follow-up with cardiology within 2-4 weeks. - Time Spent with Patient Time spent with patient: Greater than 30 Minutes Qualifiers PATEINT BEING DISCHARGED WITH ANY OF THE FOLLOWING DIAGNOSIS?: No <ALONDRA CARPENTER - Last Filed: 12/08/16 09:24> General - Admit/Disc Date/PCP Admission Date/Primary Care Provider: 11/28/16 16:02 Discharge Date: 12/08/16 - Discharge Diagnosis (1) Esophageal spasm Is this a current diagnosis for this admission?: Yes (2) Chest pain Is this a current diagnosis for this admission?: Yes (3) Abdominal pain Is this a current diagnosis for this admission?: Yes (4) Chronic systolic congestive heart failure Is this a current diagnosis for this admission?: Yes (5) Cardiac pacemaker in situ Is this a current diagnosis for this admission?: Yes (6) Constipation due to opioid therapy Is this a current diagnosis for this admission?: Yes (7) Hypertension Is this a current diagnosis for this admission?: Yes (8) Dyslipidemia Is this a current diagnosis for this admission?: Yes (9) H/O aortic valve replacement with porcine valve Is this a current diagnosis for this admission?: Yes History of Present Illness Admission Date/PCP: 11/28/16 16:02 History of Present Illness: PEACE FRAGA is a 86 year old male Physical Exam Vital Signs: Temp Pulse Resp BP Pulse Ox 97.8 F 72 20 130/59 H 96 12/08/16 07:32 12/08/16 07:32 12/08/16 07:32 12/08/16 07:32 12/08/16 07:32 Intake & Output 12/07/16 12/08/16 12/09/16 06:59 06:59 06:59 Intake Total 1160 1200 Output Total 1125 850 Balance 35 350 Weight 101.4 kg 100.9 kg Results Laboratory Results: 12/03/16 12/03/16 08:44 13:11 Troponin I 0.039 0.077
[2016-12-04] MEDS: OXYBUTYNIN CHLORIDE 5 MG TABLET PO SCH ×2 (09:35→18:01)
[2016-12-04] MEDS: MULTIVITAMIN TABLET PO SCH (09:35)
[2016-12-04] MEDS: LACTOBACILLUS ACIDOPHILUS 250 MG TAB PO SCH ×2 (09:35→18:01)
[2016-12-04] MEDS: RANOLAZINE 500 MG TAB.SR.12H PO SCH ×2 (09:35→22:24)
[2016-12-04] MEDS: ASPIRIN 81 MG TABLET, ENT COATED PO SCH (09:35)
[2016-12-04] MEDS: DOCUSATE SODIUM 100 MG CAPSULE PO SCH ×2 (09:35→18:01)
[2016-12-04] MEDS: NYSTATIN 500000 UNIT/5 ML UDCUP PO SCH ×4 (09:36→22:22)
[2016-12-04] MEDS: TRAZODONE HCL 50 MG TABLET PO SCH ×2 (09:37→22:23)
[2016-12-04] MEDS: SERTRALINE HCL 50 MG TABLET PO SCH (09:38)
[2016-12-04] MEDS: LISINOPRIL 5 MG TABLET PO SCH (09:40)
[2016-12-04] MEDS: CARVEDILOL 12.5 MG TABLET PO SCH ×2 (09:40→22:24)
[2016-12-04] MEDS ORDERED: METHYLPREDNISOLONE INJ 125 MG/2 ML SDV IV ONE (10:00)
[2016-12-04] MEDS: AMLODIPINE BESYLATE 2.5 MG TABLET PO SCH (11:11)
--- NOTE | 2016-12-04 19:44 | PDOC PROGRESS REPORT ---
Subjective Progress Note for:: 12/04/16 Subjective:: Patient seems to be doing better. Patient claims that he did not sleep well last night and felt sleepy this morning. Pt is denying any chest arm or neck discomfort. Patient denying any PND, orthopnea. Patient denied any sustained palpitations, dizziness, syncope, near syncope. Patient denying any fever chills. Patient denying any other significant discomfort. Patient did complain of some tongue swelling which has been evaluated by the hospitalist. Patient is maintaining sinus rhythm. Review of systems: Rest review of systems negative. Medications: Medications have been reviewed. Physical Exam Vital Signs: Temp Pulse Resp BP Pulse Ox 97.5 F 64 18 138/61 H 96 12/04/16 16:48 12/04/16 16:48 12/04/16 16:48 12/04/16 16:48 12/04/16 16:48 Intake & Output 12/03/16 12/04/16 12/05/16 06:59 06:59 06:59 Intake Total 1180 360 760 Output Total 700 2000 400 Balance 480 -1640 360 Weight 101.7 kg 102.1 kg Exam: GENERAL: well-nourished and in no acute distress. Alert and oriented x3 HEAD: Atraumatic, normocephalic. EYES: Pupils equal round and reactive to light, extraocular movements intact, sclera anicteric, conjunctiva are normal. ENT: TMs normal, nares patent, oropharynx clear without exudates. Moist mucous membranes. No oral ulcerations or bleeding gums noted NECK: supple without lymphadenopathy. Trachea is central. No cervical or axillary lymphadenopathy noted. Carotids are 2+, JVD WNL LUNGS: Respiration seems nonlabored, no significant accessory muscle action noted. Breath sounds clear to auscultation bilaterally and equal noted. No wheezes rales or rhonchi noted. No significant dullness noted on percussion. CHEST: Palpation of the chest wall shows no significant chest wall tenderness. No other significant abnormalities noted. HEART: [place] [employer], No PSH, 1/6 DONNA aortic area, 1/6 lazcano systolic murmur mitral area, no rubs, no gallops. ABDOMEN: Soft, no significant tenderness appreciated, normoactive bowel sounds. No guarding, no rebound. No rigidity noted . No masses appreciated. EXTREMITIES: Pedal pulses are 1-2+, no calf tenderness noted. No clubbing or cyanosis.trace to 1+ pedal edema noted NEUROLOGICAL: Focused neurological exam showed no significant neurologic deficit. Normal speech, no focal weakness appreciated. PSYCH: Normal mood, normal affect. Judgment and insight within normal limits. SKIN: No significant ecchymosis, rash, ulcerations or signs of pruritus noted. MUSCULOSKELETAL EXAM: No significant joint swelling noted. Results Laboratory Results: 12/03/16 12/03/16 08:44 13:11 Troponin I 0.039 0.077 Assessment & Plan - Diagnosis (1) Coronary artery disease Qualifiers: Coronary Disease-Associated Artery/Lesion type: unspecified vessel or lesion type [place] vs. transplanted heart: [place] heart Is this a current diagnosis for this admission?: Yes (2) Chest pain Qualifiers: Chest pain type: unspecified Qualified Code(s): R07.9 - Chest pain, unspecified Is this a current diagnosis for this admission?: Yes (3) Esophageal spasm Is this a current diagnosis for this admission?: Yes (4) Cardiac pacemaker in situ Is this a current diagnosis for this admission?: Yes (5) H/O aortic valve replacement with porcine valve Is this a current diagnosis for this admission?: Yes - Notes Notes: Chest pain: See is improved with optimization of medical management. Coronary artery disease: Currently stable. Previous nuclear stress test and echocardiogram results reviewed. Recommend continuation of medical management. If patient has recurrent chest pain uncontrolled with medication then only we will consider heart catheterization referral. Esophageal spasm: Medications has been optimized. Cardiac pacemaker in situ: Seems to be functioning normally. Aortic valve, prosthetic bioprosthetic: Functioning normally by exam. Anxiety disorder: Patient seems to have significant element of anxiety disorder. Patient feels better with anxiolytics. [facility] Dr. Singleton to cover tomorrow. - Time Time with patient: 15-25 minutes - CODE STATUS : was discussed, patient remains DO NOT RESUSCITATE. Surrogate decision-maker unchanged. Multiple medical problems were addressed.More than 50% of the time spent coordinating care, discussing management plans with involved caregivers. Management plans discussed with involved personnels. Medical decision making was of moderate to high complexity, patient's has multiple severe comorbidities. Medications reviewed and adjusted accordingly: Yes
[2016-12-04] MEDS: ATORVASTATIN CALCIUM 40 MG TABLET PO SCH (22:23)
[2016-12-04] MEDS: DIPHENHYDRAMINE HCL 25 MG CAPSULE PO SCH (22:24)
[2016-12-04] MEDS: ISOSORBIDE MONONITRATE 30 MG TAB.ER.24H PO SCH (22:25)
[2016-12-05] MEDS: LANSOPRAZOLE 30 MG TAB.RAP.DR PO SCH ×2 (05:03→17:28)
[2016-12-05] MEDS: FUROSEMIDE 20 MG TABLET PO SCH (09:04)
[2016-12-05] MEDS: NYSTATIN 500000 UNIT/5 ML UDCUP PO SCH ×4 (09:05→21:55)
[2016-12-05] MEDS: OXYBUTYNIN CHLORIDE 5 MG TABLET PO SCH ×2 (09:05→17:29)
[2016-12-05] MEDS: LACTOBACILLUS ACIDOPHILUS 250 MG TAB PO SCH ×2 (09:05→17:29)
[2016-12-05] MEDS: RANOLAZINE 500 MG TAB.SR.12H PO SCH ×2 (09:05→21:53)
[2016-12-05] MEDS: LISINOPRIL 5 MG TABLET PO SCH (09:05)
[2016-12-05] MEDS: SERTRALINE HCL 50 MG TABLET PO SCH (09:05)
[2016-12-05] MEDS: DOCUSATE SODIUM 100 MG CAPSULE PO SCH ×2 (09:05→17:29)
[2016-12-05] MEDS: CARVEDILOL 12.5 MG TABLET PO SCH ×2 (09:05→21:55)
[2016-12-05] MEDS: AMLODIPINE BESYLATE 2.5 MG TABLET PO SCH (09:06)
[2016-12-05] MEDS: ASPIRIN 81 MG TABLET, ENT COATED PO SCH (09:06)
[2016-12-05] MEDS: TRAZODONE HCL 50 MG TABLET PO SCH ×2 (09:06→21:53)
[2016-12-05] MEDS: MULTIVITAMIN TABLET PO SCH (09:06)
--- NOTE | 2016-12-05 14:05 | PDOC PROGRESS REPORT ---
Subjective Progress Note for:: 12/05/16 Subjective:: The patient is seen on morning rounds. He is resting in bed. He he denies any chest pain, shortness breath or dyspnea. He denies any nausea, abdominal pain or diarrhea. He denies any significant arthralgias or myalgias. Rest of review systems is negative Physical Exam Vital Signs: Temp Pulse Resp BP Pulse Ox 97.3 F 61 18 108/46 L 97 12/05/16 11:53 12/05/16 11:53 12/05/16 11:53 12/05/16 11:53 12/05/16 11:53 Intake & Output 12/04/16 12/05/16 12/06/16 06:59 06:59 06:59 Intake Total 360 1390 Output Total 2000 700 Balance -1640 690 Weight 102.1 kg 101 kg General appearance: PRESENT: no acute distress, obese, well-developed, well- nourished Head exam: PRESENT: atraumatic, normocephalic Eye exam: PRESENT: conjunctiva pink, EOMI, PERRLA. ABSENT: scleral icterus Ear exam: PRESENT: normal external ear exam Mouth exam: PRESENT: moist, tongue midline Neck exam: ABSENT: carotid bruit, JVD, lymphadenopathy, thyromegaly Respiratory exam: PRESENT: clear to auscultation jeremy. ABSENT: rales, rhonchi, wheezes Cardiovascular exam: PRESENT: RRR. ABSENT: diastolic murmur, rubs, systolic murmur Pulses: PRESENT: normal dorsalis pedis pul Vascular exam: PRESENT: normal capillary refill GI/Abdominal exam: PRESENT: normal bowel sounds, soft. ABSENT: distended, guarding, mass, organolmegaly, rebound, tenderness Rectal exam: PRESENT: deferred Extremities exam: PRESENT: full ROM. ABSENT: calf tenderness, clubbing, pedal edema Neurological exam: PRESENT: alert, awake, oriented to person, oriented to place , oriented to time, oriented to situation, CN II-XII grossly intact. ABSENT: motor sensory deficit Psychiatric exam: PRESENT: appropriate affect, normal mood. ABSENT: homicidal ideation, suicidal ideation Skin exam: PRESENT: dry, intact, warm. ABSENT: cyanosis, rash Results Laboratory Results: 12/03/16 12/03/16 08:44 13:11 Troponin I 0.039 0.077 Assessment & Plan - Diagnosis (1) Esophageal spasm Is this a current diagnosis for this admission?: YesPlan: Patient's on Prevacid. Present episode of pain resolved with a GI cocktail. He was started on trazodone twice daily for esophageal spasms. He underwent EGD which showed retained food products in the stomach but unremarkable esophagus (2) Chest pain Qualifiers: Chest pain type: unspecified Qualified Code(s): R07.9 - Chest pain, unspecified Is this a current diagnosis for this admission?: YesPlan: Enzymes 3 have been negative. Pain is atypical for his anginal pain in the past. We feel is most likely related to his GI reflux esophageal spasms. (3) Abdominal pain Qualifiers: Abdominal location: left lower quadrant Qualified Code(s): R10.32 - Left lower quadrant pain Is this a current diagnosis for this admission?: YesPlan: Resolved. Most likely due to constipation (4) Chronic systolic congestive heart failure Is this a current diagnosis for this admission?: YesPlan: He is presently euvolemic. Continue current medications (5) Cardiac pacemaker in situ Is this a current diagnosis for this admission?: Yes (6) Constipation due to opioid therapy Is this a current diagnosis for this admission?: YesPlan: Is on lactulose and MiraLAX which are working. (7) Hypertension Qualifiers: Hypertension type: essential hypertension Qualified Code(s): I10 - Essential (primary) hypertension Is this a current diagnosis for this admission?: YesPlan: Continue current medications. (8) Dyslipidemia Is this a current diagnosis for this admission?: YesPlan: Continue statin (9) H/O aortic valve replacement with porcine valve Is this a current diagnosis for this admission?: Yes - Time Time Spent with patient: 25-34 minutes Critical Time spent with patient: 15-24 minutes Medications reviewed and adjusted accordingly: Yes Anticipated discharge: SNF Within: when bed available
--- NOTE | 2016-12-05 21:18 | PROGRESS NOTE E ---
Progress Note NAME: PEACE FRAGA : 1930 AGE: 86Y DATE: 12/05/2016 ROOM: 534 Note the patient was seen between 10:15 a.m. and 10:45 a.m., a total of 30 minutes spent on this patient. SUBJECTIVE: The patient states last night his tongue was swollen, but as per the hospitalist's note, the patient was sleeping well with his mouth open, and there was no obvious tongue swelling, and the patient had no evidence of any allergic reaction. At present, the patient states that he has no further tongue swelling. He denies chest pain or discomfort. There is no PND, orthopnea, palpitations, or leg edema. There is syncope or near syncope. There are no TIA or CVA symptoms. Review of the office records show that the patient had myocardial infarction x2 in 2004 and subsequently in 2005 had 5-vessel coronary artery bypass graft surgery. In 2014, he had TAVR aortic porcine valve replacement. OBJECTIVE: GENERAL: At present, the patient is in no acute distress. The patient on examination is mildly obese in no acute distress. VITAL SIGNS: He is afebrile with temperature of 98.4 degrees Fahrenheit. Pulse is 17 beats per minute. Blood pressure is 165/49. Respirations are 18 per minute. O2 saturations are 94% on room air. HEENT: Head is atraumatic, normocephalic. Eyes: Pupils are equal, round, regular, reactive to light and accommodation. Extraocular movements are normal. There is no conjunctival pallor. There is no scleral icterus. ENT is negative. NECK: Supple. There is no JVD. Carotids are equal; there is no bruit. There is no goiter. There is no lymphadenopathy. Trachea is central. LUNGS: Clear to auscultation and percussion. CARDIOVASCULAR: S1, S2 are heard. There is no S3 gallop. There is no S4 gallop. There is systolic murmur in the left sternal border and the apex. There is no rub. ABDOMEN: Soft, nontender. There is no hepatosplenomegaly. Bowel sounds are well heard. There are no tender areas or masses. EXTREMITIES: Femorals are slightly diminished. Leg pulses are diminished. There is no pedal edema. There is no cyanosis or clubbing. There is no DVT or cellulitis. There is no calf tenderness. CENTRAL NERVOUS SYSTEM: The patient is conscious, awake, alert, oriented x3 with no focal deficit. PSYCHIATRIC: The patient's judgment and insight are intact. His affect is normal. The patient also had a cardiac pacemaker placed in the past. DISPOSITION: The patient is a DNR. His daughter is the surrogate healthcare decision maker. ASSESSMENT: 1. CORONARY ARTERY DISEASE. No atypical anginal symptoms or anginal symptoms. There is chest pain that seems to be noncardiac. 2. CHEST PAIN, RESOLVED, NONCARDIAC. The patient had a stress test about a month ago which shows a small area of ischemia in the distal inferior wall. There was no scar of MN. His echocardiogram LVEF was normal. 3. HISTORY OF OLD MYOCARDIAL INFARCTION. 4. HISTORY OF CORONARY ARTERY BYPASS GRAFT SURGERY. 5. HISTORY OF ESOPHAGEAL SPASM. 6. CARDIAC PACEMAKER IN SITU. 7. HISTORY OF PERCUTANEOUS TAVR (porcine aortic valve replacement). 8. DEPRESSION. RECOMMENDATIONS: Continue the patient's amlodipine and Coreg and isosorbide mononitrate, aspirin, atorvastatin, and lisinopril. Also, continue Ranexa and continue his antidepressant medications. The patient is being transferred today. TIME SPENT: Note 30 minutes spent on this patient with more than 50% of the time spent in direct patient care and review of the patient's medications and discussions with the other caregivers taking care of the patient. In view of the patient being discharged to a shelter, I will sign off the case. He is a patient of my partner, Dr. Dominguez, who will follow him up in the office. DICTATING PHYSICIAN: JORGE LUIS LOWERY M.D. [id number] LISSETTE#: [id number] ID: [id number] JOB#: [id number] ACCT: [id number] cc: > SUNSHINED
[2016-12-05] MEDS: ATORVASTATIN CALCIUM 40 MG TABLET PO SCH (21:53)
[2016-12-05] MEDS: DIPHENHYDRAMINE HCL 25 MG CAPSULE PO SCH (21:54)
[2016-12-05] MEDS: ISOSORBIDE MONONITRATE 30 MG TAB.ER.24H PO SCH (21:54)
[2016-12-06] MEDS: LANSOPRAZOLE 30 MG TAB.RAP.DR PO SCH ×2 (05:19→17:49)
[2016-12-06] MEDS: DOCUSATE SODIUM 100 MG CAPSULE PO SCH ×2 (09:52→17:49)
[2016-12-06] MEDS: MULTIVITAMIN TABLET PO SCH (09:53)
[2016-12-06] MEDS: LACTOBACILLUS ACIDOPHILUS 250 MG TAB PO SCH ×2 (09:53→17:49)
[2016-12-06] MEDS: TRAZODONE HCL 50 MG TABLET PO SCH ×2 (09:53→22:24)
[2016-12-06] MEDS: SERTRALINE HCL 50 MG TABLET PO SCH (09:53)
[2016-12-06] MEDS: ASPIRIN 81 MG TABLET, ENT COATED PO SCH (09:53)
[2016-12-06] MEDS: FUROSEMIDE 20 MG TABLET PO SCH (09:57)
[2016-12-06] MEDS: AMLODIPINE BESYLATE 2.5 MG TABLET PO SCH (09:58)
[2016-12-06] MEDS: LISINOPRIL 5 MG TABLET PO SCH (09:58)
[2016-12-06] MEDS: RANOLAZINE 500 MG TAB.SR.12H PO SCH ×2 (09:59→22:25)
[2016-12-06] MEDS: OXYBUTYNIN CHLORIDE 5 MG TABLET PO SCH ×2 (09:59→17:49)
[2016-12-06] MEDS: CARVEDILOL 12.5 MG TABLET PO SCH ×2 (10:02→22:25)
[2016-12-06] MEDS: NYSTATIN 500000 UNIT/5 ML UDCUP PO SCH ×4 (10:02→22:24)
[2016-12-06] MEDS: ATORVASTATIN CALCIUM 40 MG TABLET PO SCH (22:24)
[2016-12-06] MEDS: DIPHENHYDRAMINE HCL 25 MG CAPSULE PO SCH (22:24)
[2016-12-07] MEDS: ISOSORBIDE MONONITRATE 30 MG TAB.ER.24H PO SCH ×2 (00:58→22:21)
[2016-12-07] MEDS: LANSOPRAZOLE 30 MG TAB.RAP.DR PO SCH ×2 (05:18→16:51)
[2016-12-07] MEDS: FUROSEMIDE 20 MG TABLET PO SCH (07:42)
[2016-12-07] MEDS: NYSTATIN 500000 UNIT/5 ML UDCUP PO SCH ×4 (09:09→22:24)
[2016-12-07] MEDS: LISINOPRIL 5 MG TABLET PO SCH (09:09)
[2016-12-07] MEDS: TRAZODONE HCL 50 MG TABLET PO SCH ×2 (09:10→22:22)
[2016-12-07] MEDS: SERTRALINE HCL 50 MG TABLET PO SCH (09:10)
[2016-12-07] MEDS: AMLODIPINE BESYLATE 2.5 MG TABLET PO SCH (09:10)
[2016-12-07] MEDS: MULTIVITAMIN TABLET PO SCH (09:10)
[2016-12-07] MEDS: DOCUSATE SODIUM 100 MG CAPSULE PO SCH ×2 (09:10→17:00)
[2016-12-07] MEDS: CARVEDILOL 12.5 MG TABLET PO SCH ×2 (09:10→22:19)
[2016-12-07] MEDS: OXYBUTYNIN CHLORIDE 5 MG TABLET PO SCH ×2 (09:10→17:00)
[2016-12-07] MEDS: ASPIRIN 81 MG TABLET, ENT COATED PO SCH (09:10)
[2016-12-07] MEDS: LACTOBACILLUS ACIDOPHILUS 250 MG TAB PO SCH ×2 (09:10→17:00)
[2016-12-07] MEDS: RANOLAZINE 500 MG TAB.SR.12H PO SCH ×2 (09:11→22:21)
--- NOTE | 2016-12-07 12:49 | PDOC PROGRESS REPORT ---
Subjective Progress Note for:: 12/06/16 Subjective:: The patient is seen on morning rounds. He is resting in bed. He he denies any chest pain, shortness breath or dyspnea. He denies any nausea, abdominal pain or diarrhea. He denies any significant arthralgias or myalgias. Rest of review systems is negative Physical Exam Vital Signs: Temp Pulse Resp BP Pulse Ox 97.3 F 69 16 145/54 H 94 12/06/16 07:55 12/06/16 07:55 12/06/16 07:55 12/06/16 07:55 12/06/16 07:55 Intake & Output 12/05/16 12/06/16 12/07/16 06:59 06:59 06:59 Intake Total 1390 1520 Output Total 700 850 Balance 690 670 Weight 101 kg General appearance: PRESENT: no acute distress, well-developed, well-nourished Head exam: PRESENT: atraumatic, normocephalic Results Laboratory Results: 12/03/16 12/03/16 08:44 13:11 Troponin I 0.039 0.077 Assessment & Plan - Diagnosis (1) Esophageal spasm Is this a current diagnosis for this admission?: Yes (2) Chest pain Qualifiers: Chest pain type: unspecified Qualified Code(s): R07.9 - Chest pain, unspecified Is this a current diagnosis for this admission?: Yes (3) Abdominal pain Qualifiers: Abdominal location: left lower quadrant Qualified Code(s): R10.32 - Left lower quadrant pain Is this a current diagnosis for this admission?: Yes (4) Chronic systolic congestive heart failure Is this a current diagnosis for this admission?: Yes (5) Cardiac pacemaker in situ Is this a current diagnosis for this admission?: Yes (6) Constipation due to opioid therapy Is this a current diagnosis for this admission?: Yes (7) Hypertension Qualifiers: Hypertension type: essential hypertension Qualified Code(s): I10 - Essential (primary) hypertension Is this a current diagnosis for this admission?: Yes (8) Dyslipidemia Is this a current diagnosis for this admission?: Yes (9) H/O aortic valve replacement with porcine valve Is this a current diagnosis for this admission?: Yes
--- NOTE | 2016-12-07 13:38 | PDOC PROGRESS REPORT ---
Subjective Subjective:: The patient is seen on morning rounds. He is resting in bed. He he denies any chest pain, shortness breath or dyspnea. He denies any nausea, abdominal pain or diarrhea. He denies any significant arthralgias or myalgias. Rest of review systems is negative Physical Exam Vital Signs: Temp Pulse Resp BP Pulse Ox 97.4 F 69 18 108/48 L 95 12/07/16 11:19 12/07/16 11:19 12/07/16 11:19 12/07/16 11:19 12/07/16 11:19 Intake & Output 12/06/16 12/07/16 12/08/16 06:59 06:59 06:59 Intake Total 1520 1160 Output Total 850 1125 Balance 670 35 Weight 101.4 kg Results Laboratory Results: 12/03/16 12/03/16 08:44 13:11 Troponin I 0.039 0.077 Assessment & Plan - Diagnosis (1) Esophageal spasm Is this a current diagnosis for this admission?: YesPlan: Patient's on Prevacid. Present episode of pain resolved with a GI cocktail. He was started on trazodone twice daily for esophageal spasms. He underwent EGD which showed retained food products in the stomach but unremarkable esophagus (2) Chest pain Qualifiers: Chest pain type: unspecified Qualified Code(s): R07.9 - Chest pain, unspecified Is this a current diagnosis for this admission?: YesPlan: Enzymes 3 have been negative. Pain is atypical for his anginal pain in the past. We feel is most likely related to his GI reflux esophageal spasms. (3) Abdominal pain Qualifiers: Abdominal location: left lower quadrant Qualified Code(s): R10.32 - Left lower quadrant pain Is this a current diagnosis for this admission?: YesPlan: Resolved. Most likely due to constipation (4) Chronic systolic congestive heart failure Is this a current diagnosis for this admission?: YesPlan: He is presently euvolemic. Continue current medications (5) Cardiac pacemaker in situ Is this a current diagnosis for this admission?: Yes (6) Constipation due to opioid therapy Is this a current diagnosis for this admission?: YesPlan: Is on lactulose and MiraLAX which are working. (7) Hypertension Qualifiers: Hypertension type: essential hypertension Qualified Code(s): I10 - Essential (primary) hypertension Is this a current diagnosis for this admission?: YesPlan: Continue current medications. (8) Dyslipidemia Is this a current diagnosis for this admission?: YesPlan: Continue statin (9) H/O aortic valve replacement with porcine valve Is this a current diagnosis for this admission?: Yes - Time Time Spent with patient: 25-34 minutes Critical Time spent with patient: 15-24 minutes Medications reviewed and adjusted accordingly: Yes Anticipated discharge: SNF Within: when bed available
[2016-12-07] MEDS: ATORVASTATIN CALCIUM 40 MG TABLET PO SCH (22:19)
[2016-12-07] MEDS: DIPHENHYDRAMINE HCL 25 MG CAPSULE PO SCH (22:20)
[2016-12-08] MEDS: LANSOPRAZOLE 30 MG TAB.RAP.DR PO SCH (06:27)
[2016-12-08 07:57] VITALS: BP 130/59
[2016-12-08] MEDS: FUROSEMIDE 20 MG TABLET PO SCH (08:46)
[2016-12-08] MEDS: AMLODIPINE BESYLATE 2.5 MG TABLET PO SCH (09:26)
[2016-12-08] MEDS: ASPIRIN 81 MG TABLET, ENT COATED PO SCH (09:26)
[2016-12-08] MEDS: TRAZODONE HCL 50 MG TABLET PO SCH (09:26)
[2016-12-08] MEDS: OXYBUTYNIN CHLORIDE 5 MG TABLET PO SCH (09:26)
[2016-12-08] MEDS: LISINOPRIL 5 MG TABLET PO SCH (09:26)
[2016-12-08] MEDS: LACTOBACILLUS ACIDOPHILUS 250 MG TAB PO SCH (09:26)
[2016-12-08] MEDS: RANOLAZINE 500 MG TAB.SR.12H PO SCH (09:26)
[2016-12-08] MEDS: SERTRALINE HCL 50 MG TABLET PO SCH (09:27)
[2016-12-08] MEDS: MULTIVITAMIN TABLET PO SCH (09:27)
[2016-12-08] MEDS: DOCUSATE SODIUM 100 MG CAPSULE PO SCH (09:27)
[2016-12-08] MEDS: CARVEDILOL 12.5 MG TABLET PO SCH (09:27)
[2016-12-08] MEDS: NYSTATIN 500000 UNIT/5 ML UDCUP PO SCH (09:31)
== END 2016-12-08 11:12 | disposition home health service (06) | DRG 392 ==
LOC: ER 20:55 → EH 23:59 → 5 11-26 04:29 → OBSVTOIN 11-28 16:02
PROVIDERS: ADMIT Internal Medicine; ATTEND Internal Medicine
PROC: 0DB68ZX Excision of Stomach, Via Natural or Artificial Opening Endoscopic, Diagnostic (ICD-10-PCS; principal; 2016-11-28 18:00)
DX: K22.4 Dyskinesia of esophagus (principal); I50.22 Chronic systolic (congestive) heart failure; I20.1 Angina pectoris with documented spasm; B37.0 Candidal stomatitis; N39.0 Urinary tract infection, site not specified; I11.0 Hypertensive heart disease with heart failure; Z95.0 Presence of cardiac pacemaker; K59.03 Drug induced constipation; T40.2X5A Adverse effect of other opioids, initial encounter; E78.5 Hyperlipidemia, unspecified; F41.1 Generalized anxiety disorder; B96.4 Proteus (mirabilis) (morganii) as the cause of diseases classified elsewhere; Z66 Do not resuscitate; I25.2 Old myocardial infarction; M47.892 Other spondylosis, cervical region; K21.9 Gastro-esophageal reflux disease without esophagitis; M40.209 Unspecified kyphosis, site unspecified; R21 Rash and other nonspecific skin eruption; B95.2 Enterococcus as the cause of diseases classified elsewhere; B96.5 Pseudomonas (aeruginosa) (mallei) (pseudomallei) as the cause of diseases classified elsewhere; F32.9 Major depressive disorder, single episode, unspecified; Z90.49 Acquired absence of other specified parts of digestive tract; Z95.2 Presence of prosthetic heart valve; Z79.82 Long term (current) use of aspirin; Z79.899 Other long term (current) drug therapy; Z95.5 Presence of coronary angioplasty implant and graft; Z95.1 Presence of aortocoronary bypass graft; Z82.3 Family history of stroke; Z80.9 Family history of malignant neoplasm, unspecified; Z82.49 Family history of ischemic heart disease and other diseases of the circulatory system
CPT/HCPCS: 36415; 43239; 80048; 80053; 81001; 82550; 82553; 83690; 84484; 85025; 87086; 87088; 87186; 88305; 88311; 93005; 93010; 99285; G0378; G8978-GP; G8979-GP; G8980-GP; J0171; J1335; J1610; J2250; J2310; J2930; J3010; J3490; J7030; J7512

== ENCOUNTER 2017-01-10 15:14 | Emergency (ER) | payer MEDICARE, MEDICAID ==
[2017-01-10] MEDS ORDERED: NORMAL SALINE 500 ML IV ONE (16:00)
--- NOTE | 2017-01-10 16:01 | ER Document Report ---
ED General - General Chief Complaint: General Weakness Stated Complaint: WEAKNESS Time Seen by Provider: 01/10/17 15:37 Mode of Arrival: Medic Information source: Patient, [facility] Records, Outside Facility Records Notes: This is a 86-year-old male with multiple medical problems who presents via EMS after an episode of hypotension at the eligibility and occupancy interviewer's office. Patient states that his medications have recently been adjusted. He was following up in the cardiologists office and felt overall weak, somewhat dizzy, and had recorded BP with systolic in the 80's. No chest pain. It was recommended that he be evaluated in the ER. He is feeling better upon arrival. Again denies chest pain. No headache. No paresthesias or focal weakness. He was recently admitted to this facility and had a full workup for chest pain and no cardiac etiology was found. TRAVEL OUTSIDE OF THE [place] IN LAST 30 DAYS: No - Related Data Allergies/Adverse Reactions: No Known Allergies Allergy (Verified 09/27/16 11:39) Past Medical History - General Information source: Patient, [facility] Records - Social History Smoking Status: Unknown if Ever Smoked Family History: Reviewed & Not Pertinent, CAD, CVA, Malignancy - Past Medical History Cardiac Medical History: Reports: Hx Congestive Heart Failure, Hx Coronary Artery Disease, Hx Heart Attack - x2, Hx Hypercholesterolemia, Hx Hypertension Denies: Hx Atrial Fibrillation, Hx DVT, Hx Peripheral Vascular Disease, Hx Pulmonary Embolism, Hx Heart Murmur Pulmonary Medical History: Denies: Hx Asthma, Hx COPD Neurological Medical History: Denies: Hx Cerebrovascular Accident, Hx Seizures Endocrine Medical History: Denies: Hx Diabetes Mellitus Type 1, Hx Diabetes Mellitus Type 2, Hx Hyperthyroidism, Hx Hypothyroidism Renal/ Medical History: Denies: Hx Benign Prostatic Hyperplasia, Hx End Stage Renal Disease, Hx Kidney Stones, Hx Peritoneal Dialysis GI Medical History: Reports: Hx Diverticulitis, Hx Gastroesophageal Reflux Disease. 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, Denies Hx Fibromyalgia, Denies Hx Multiple Sclerosis, Denies Hx Muscular Dystrophy Skin Medical History: Denies Hx Eczema, Denies Hx Psoriasis Psychiatric Medical History: Reports: Hx Depression Denies: Hx Dementia Traumatic Medical History: Denies: Hx Fractures Infectious Medical History: Denies: Hx Hepatitis Past Surgical History: Reports: Hx Appendectomy, Hx Cardiac Surgery - Bypass surgery, Hx Cholecystectomy, Hx Coronary Artery Bypass Graft - x5, 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 Denies: Hx Bowel Surgery, Hx Colostomy, Hx Gastric Bypass Surgery, Hx Herniorrhaphy, Hx Tonsillectomy - Immunizations Immunizations up to date: Yes Hx Diphtheria, Pertussis, Tetanus Vaccination: No Review of Systems - Review of Systems Constitutional: Malaise. denies: Chills, Fever EENT: No symptoms reported Cardiovascular: See HPI, Dizziness, Lightheaded. denies: Chest pain Respiratory: No symptoms reported. denies: Cough, Short of breath Gastrointestinal: No symptoms reported Genitourinary: No symptoms reported Skin: No symptoms reported Hematologic/Lymphatic: No symptoms reported Neurological/Psychological: No symptoms reported Physical Exam - Vital signs Vitals: Temp Pulse Resp BP Pulse Ox 98.7 F 60 16 136/59 H 97 01/10/17 15:40 01/10/17 15:40 01/10/17 15:40 01/10/17 15:40 01/10/17 15:40 - Notes Notes: PHYSICAL EXAMINATION: GENERAL: Well-appearing elderly male, smiling and very pleasant and conversant, well-nourished and in no acute distress. HEAD: Atraumatic, normocephalic. EYES: Pupils equal round and reactive to light, extraocular movements intact, sclera anicteric, conjunctiva are normal. ENT: nares patent, oropharynx clear without exudates. Moist mucous membranes. NECK: Normal range of motion, supple without lymphadenopathy LUNGS: Breath sounds clear to auscultation bilaterally and equal. No wheezes rales or rhonchi. HEART: Regular rate and rhythm without murmurs ABDOMEN: Soft, nontender, normoactive bowel sounds. No guarding, no rebound. EXTREMITIES: Normal range of motion, trace bilateral LE edema (baseline) NEUROLOGICAL: Cranial nerves grossly intact. No gross focal motor or sensory deficits appreciated PSYCH: Normal mood, normal affect. Course - Re-evaluation Re-evalutation: 01/11/17 00:25 Pateint has remained asymptomatic in the ER. He has had no hypotension and his orthostatic vitals are not positive. His labs and exam are reassuring. He would like to go home to [facility] where he lives with his . He will follow up with cardiology and PCP closely, strict return precautions were discussed. He and his family are very comfortable with this plan. - Vital Signs Vital signs: Temp Pulse Resp BP Pulse Ox 97.6 F 68 17 175/62 H 94 01/10/17 20:10 01/10/17 17:58 01/10/17 20:01 01/10/17 20:01 01/10/17 20:01 - Laboratory Result Diagrams: 01/10/17 16:50 01/10/17 16:50 Laboratory results interpreted by me: 01/10/17 01/10/17 01/10/17 16:50 16:50 17:00 Hgb 13.4 L MCH 26.3 L MCHC 31.6 L RDW 17.6 H Monocytes % 13.9 H Creatine Kinase 24 L Total Protein 6.2 L Albumin 3.0 L Urine Blood SMALL H - Diagnostic Test Radiology reviewed: Reports reviewed Discharge - Discharge Clinical Impression: Transient hypotension Condition: Stable Disposition: HOME, SELF-CARE Additional Instructions: As we discussed, your blood work, EKG and chest xray did not show any serious abnormalities today. Your blood pressure has remained stable here, even with standing. You should increase your water intake and follow up with your PCP and your eligibility and occupancy interviewer this week. REturn to the ER for fever, chest pain, recurrent dizziness, or any worsening symptoms or concerns.
[2017-01-10 17:04] LABS: ABSOLUTE BASOPHILS # (AUTO) 0.1 10^3/uL (0.0-0.2); ABSOLUTE EOSINOPHILS # (AUTO) 0.1 10^3/uL (0.0-0.6); ABSOLUTE MONOCYTES (AUTO) 1.1 10^3/uL (0.1-1.4); ABSOLUTE NEUT (AUTO) 4.8 10^3/uL (1.7-8.2); EOSINOPHILS % (AUTO) 1.7 % (0-6); HEMATOCRIT 42.3 % (37.9-51.0); HEMOGLOBIN 13.4 g/dL (13.5-17.0); HGB HCT DIFFERENCE -2.1; LYMPHOCYTES % (AUTO) 24.5 % (13-45); MEAN CORPUSCULAR HEMOGLOBIN 26.3 pg (27.0-33.4); MEAN CORPUSCULAR HGB CONC 31.6 g/dL (32.0-36.0); MEAN CORPUSCULAR VOLUME 83 fl (80-97); MONOCYTES % (AUTO) 13.9 % (3-13); RED BLOOD COUNT 5.09 10^6/uL (4.35-5.55); RED CELL DISTRIBUTION WIDTH 17.6 % (11.5-14.0); SEGMENTED NEUTROPHILS % (AUTO) 58.9 % (42-78); WHITE BLOOD COUNT 8.2 10^3/uL (4.0-10.5)
[2017-01-10 17:20] LABS: ALANINE AMINOTRANSFERASE 26 U/L (21-72); ALKALINE PHOSPHATASE 93 U/L (38-126); ANION GAP 7 (5-19); ASPARTATE AMINO TRANSFERASE 23 U/L (17-59); BILIRUBIN,DIRECT 0.2 mg/dL (0.0-0.4); BILIRUBIN,TOTAL 0.4 mg/dL (0.2-1.3); BLOOD UREA NITROGEN 18 mg/dL (7-20); CALCIUM 8.4 mg/dL (8.4-10.2); CARBON DIOXIDE 24 mmol/L (22-30); CHLORIDE 107 mmol/L (98-107); CREATINE KINASE 24 U/L (55-170); CREATININE RESULT 0.95 mg/dL (0.52-1.25); GLUCOSE 97 mg/dL (75-110); POTASSIUM 4.1 mmol/L (3.6-5.0); SODIUM 137.8 mmol/L (137-145); TOTAL PROTEIN 6.2 g/dL (6.3-8.2)
[2017-01-10 17:32] LABS: CREATINE KINASE MB 0.43 ng/mL (<4.55)
[2017-01-10 17:33] LABS: TROPONIN I < 0.012 ng/mL
[2017-01-10 17:58] LABS: APPEARANCE,URINE CLEAR; BILIRUBIN,URINE NEGATIVE (NEGATIVE); GLUCOSE, URINE NEGATIVE (NEGATIVE); KETONES,URINE NEGATIVE (NEGATIVE); LEUKOCYTE ESTERASE,URINE NEGATIVE (NEGATIVE); NITRITE,URINE NEGATIVE (NEGATIVE); PROTEIN,URINE NEGATIVE (NEGATIVE); URINE SPECIFIC GRAVITY 1.006; UROBILINOGEN,URINE NEGATIVE mg/dL (<2.0)
--- NOTE | 2017-01-10 18:59 | RADIOLOGY REPORT (SQ) ---
EXAM DESCRIPTION: CHEST SINGLE VIEW COMPLETED DATE/TIME: 01/10/2017 6:47 pm REASON FOR STUDY: episode of hypotension, hypoxia COMPARISON: 11/15/2016 EXAM PARAMETERS: NUMBER OF VIEWS: One view. TECHNIQUE: Single frontal radiographic view of the chest acquired. RADIATION DOSE: NA LIMITATIONS: None. FINDINGS: LUNGS AND PLEURA: There is subsegmental atelectasis in the right base. No pulmonary infil trate or pleural effusion is seen. MEDIASTINUM AND HILAR STRUCTURES: No masses. Contour normal. HEART AND VASCULAR STRUCTURES: Cardiomegaly with no evidence of failure. BONES: No acute findings. HARDWARE: Pacemaker on the left. Sternotomy wires. Graft markers. OTHER: No other significant finding. IMPRESSION: Cardiomegaly with no arpan CHF. TECHNICAL DOCUMENTATION: JOB ID: [id number]
[2017-01-10 20:05] VITALS: BP 175/62
--- NOTE | 2017-01-11 09:16 | EKG REPORT ---
SEVERITY:- ABNORMAL ECG - A-V DUAL-PACED RHYTHM WITH SOME INHIBITION : Confirmed by: Bere Pacheco 11-Jan-2017 09:15:43
== END 2017-01-10 20:15 | disposition home or self-care (01) ==
LOC: ER 15:14
DX: I95.9 Hypotension, unspecified (principal); R53.1 Weakness; R42 Dizziness and giddiness
CPT/HCPCS: 36415; 71010; 80053; 81001; 82550; 82553; 84484; 85025; 93005; 93010; 96360; 99285

== ENCOUNTER 2017-01-21 08:50 | Inpatient (IN) | payer MEDICARE, MEDICAID ==
--- NOTE | 2017-01-21 09:11 | ER Document Report ---
ED Skin Rash/Insect Bite/Abscs - General Mode of Arrival: Medic Information source: Patient TRAVEL OUTSIDE OF THE [place] IN LAST 30 DAYS: No - HPI Patient complains to provider of: Tender/swollen area Onset: Other - x3 days Onset/Duration: Gradual Quality of pain: Achy Severity: None <EVAN MCKINNEY - Last Filed: 01/21/17 10:30> <SUSAN JOHN - Last Filed: 01/21/17 10:59> - General Stated Complaint: LEG PAIN Time Seen by Provider: 01/21/17 08:53 Notes: Patient is an 86 year old male that presents to the emergency department today with complaints of a possible wound infection on his right leg secondary to a right hip replacement. Patient has had several complications with his right hip including multiple surgeries with his last surgery being in early September. Patient states he first noticed this three days ago. (EVAN MCKINNEY) - Related Data Allergies/Adverse Reactions: No Known Allergies Allergy (Verified 09/27/16 11:39) Past Medical History - General Information source: Patient - Social History Smoking Status: Unknown if Ever Smoked Cigarette use (# per day): No Frequency of alcohol use: None Drug Abuse: None Lives with: Family Family History: Reviewed & Not Pertinent, CAD, CVA, Malignancy - Past Medical History Cardiac Medical History: Reports: Hx Congestive Heart Failure, Hx Coronary Artery Disease, Hx Heart Attack - x2, Hx Hypercholesterolemia, Hx Hypertension Pulmonary Medical History: GI Medical History: Reports: Hx Diverticulitis, Hx Gastroesophageal Reflux Disease Musculoskeltal Medical History: 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 Psychiatric Medical History: Reports: Hx Depression Past Surgical History: Reports: Hx Appendectomy, Hx Cardiac Surgery - Bypass surgery, Hx Cholecystectomy, Hx Coronary Artery Bypass Graft - x5, 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, Hx Open Heart Surgery - cabg5, Hx Orthopedic Surgery - back, Hx Pacemaker, Hx Valve Replacement - 2014 tvar, Other - partial gastr'y for PUD; separation of horseshoe kidney; bilat cataract - Immunizations Immunizations up to date: Yes Hx Diphtheria, Pertussis, Tetanus Vaccination: No <EVAN MCKINNEY - Last Filed: 01/21/17 10:30> Review of Systems - Review of Systems Constitutional: denies: Fever EENT: No symptoms reported Cardiovascular: No symptoms reported Respiratory: No symptoms reported Gastrointestinal: No symptoms reported Genitourinary: No symptoms reported Male Genitourinary: No symptoms reported Musculoskeletal: No symptoms reported Skin: See HPI, Other - possible wound infection to right leg Hematologic/Lymphatic: No symptoms reported Neurological/Psychological: No symptoms reported -: Yes All other systems reviewed and negative <EVAN MCKINNEY - Last Filed: 01/21/17 10:30> Physical Exam <EVAN MCKINNEY - Last Filed: 01/21/17 10:30> - Extremities General lower extremity: Tender, Normal ROM. No: Normal inspection <SUSAN JOHN - Last Filed: 01/21/17 10:59> - Vital signs Vitals: Temp Pulse Resp BP Pulse Ox 98.2 F 62 18 164/58 H 94 01/21/17 08:56 01/21/17 08:56 01/21/17 08:56 01/21/17 08:56 01/21/17 08:56 - Notes Notes: Physical Exam: General: Alert, appears well. HEENT: Normocephalic. Atraumatic. PERRL. Extraocular movements intact. Oropharynx clear. Neck: Supple. Non-tender. Respiratory: No respiratory distress. Clear and equal breath sounds bilaterally. Cardiovascular: Regular rate and rhythm. Abdominal: Normal Inspection. Non-tender. No distension. Normal Bowel Sounds. Back: Non-tender. No deformity or step off. Extremities: Moves all four extremities. Upper extremities: Normal inspection. Normal ROM. Lower extremities: see skin exam. Neurological: Normal cognition. AAOx4. Normal speech. Psychological: Normal affect. Normal Mood. Skin: Longitudinal scar to lateral portion of right upper leg, erythema to distal portion. (EVAN MCKINNEY) Course - Laboratory Result Diagrams: 01/21/17 09:19 01/21/17 09:19 - Consults [facility] Time consulted: 10:30 Consulted provider: will see as inpatient <EVAN MCKINNEY - Last Filed: 01/21/17 10:30> - Laboratory Result Diagrams: 01/21/17 09:19 01/21/17 09:19 <SUSAN JOHN - Last Filed: 01/21/17 10:59> - Re-evaluation Re-evalutation: 01/21/17 10:58 Patient is an 86-year-old male who comes in complaining of pain and redness in his right leg. Patient has erythema and edema near his incision on the right side. He has full range of motion of his right lower extremity. Patient with cellulitis and this time. ESR and CRP are elevated although white count is within normal limits. The patient is afebrile at this time. Patient has been discussed with Dr. Rivera who will admit the patient. Patient will be started on Zosyn and vancomycin which will also cover urinary tract infection that he also appears to have. Of note. The patient has had Pseudomonas in the past in his urine. Discussed with patient who agrees with this plan. Stable at the time of admission. (SUSAN JOHN) - Vital Signs Vital signs: Temp Pulse Resp BP Pulse Ox 98.2 F 62 18 164/58 H 94 01/21/17 08:56 01/21/17 08:56 01/21/17 08:56 01/21/17 08:56 01/21/17 08:56 - Laboratory Laboratory results interpreted by me: 01/21/17 01/21/17 01/21/17 09:19 09:19 09:43 Hgb 13.0 L MCH 26.3 L RDW 18.1 H ESR 28 H Chloride 108 H Glucose 127 H POC Glucose 116 H C-Reactive Protein 13.5 H Albumin 3.0 L Urine Nitrite Ur Leukocyte Esterase Urine Ascorbic Acid 01/21/17 09:49 Hgb MCH RDW ESR Chloride Glucose POC Glucose C-Reactive Protein Albumin Urine Nitrite POSITIVE H Ur Leukocyte Esterase LARGE H Urine Ascorbic Acid 40 H - Consults [facility] Reason for consultation: 01/21/17 10:34 Start abx-will admit (EVAN MCKINNEY) Discharge <EVAN MCKINNEY - Last Filed: 01/21/17 10:30> - Discharge Admitting Provider: Nicole Unit Admitted: Surgical Floor <SUSAN JOHN - Last Filed: 01/21/17 10:59> - Discharge Clinical Impression: Cellulitis of lower extremity Qualifiers: Laterality: right Qualified Code(s): L03.115 - Cellulitis of right lower limb UTI (urinary tract infection) Qualifiers: Urinary tract infection type: site unspecified Hematuria presence: with hematuria Qualified Code(s): N39.0 - Urinary tract infection, site not specified ; R31.9 - Hematuria, unspecified Disposition: ADMITTED INPATIENT Scribe Attestation: 01/21/17 10:59 I personally performed the services described in the documentation, reviewed and edited the documentation which was dictated to the scribe in my presence, and it accurately records my words and actions. (SUSAN JOHN) Scribe Documentation - Scribe Written by Scribe:: Fernando Hamm, 01/21/2017 [id number] acting as scribe for :: Rosemarie <EVAN MCKINNEY - Last Filed: 01/21/17 10:30>
[2017-01-21 09:37] LABS: ABSOLUTE BASOPHILS # (AUTO) 0.1 10^3/uL (0.0-0.2); ABSOLUTE EOSINOPHILS # (AUTO) 0.2 10^3/uL (0.0-0.6); ABSOLUTE LYMPHOCYTES (AUTO) 2.2 10^3/uL (0.5-4.7); ABSOLUTE NEUT (AUTO) 4.9 10^3/uL (1.7-8.2); EOSINOPHILS % (AUTO) 2.1 % (0-6); HEMATOCRIT 40.5 % (37.9-51.0); HGB HCT DIFFERENCE -1.5; LYMPHOCYTES % (AUTO) 26.7 % (13-45); MEAN CORPUSCULAR HEMOGLOBIN 26.3 pg (27.0-33.4); MEAN CORPUSCULAR HGB CONC 32.2 g/dL (32.0-36.0); MEAN CORPUSCULAR VOLUME 82 fl (80-97); MONOCYTES % (AUTO) 11.7 % (3-13); RED BLOOD COUNT 4.96 10^6/uL (4.35-5.55); RED CELL DISTRIBUTION WIDTH 18.1 % (11.5-14.0); SEGMENTED NEUTROPHILS % (AUTO) 58.5 % (42-78); WHITE BLOOD COUNT 8.4 10^3/uL (4.0-10.5)
[2017-01-21 09:40] LABS: VENOUS BLOOD BASE EXCESS 1.9 mmol/L; VENOUS BLOOD HCO3 26.7 mmol/L (20-32); VENOUS BLOOD PCO2 42.1 mmHg (35-63); VENOUS BLOOD PH 7.42 (7.30-7.42)
--- NOTE | 2017-01-21 09:40 | EKG REPORT ---
SEVERITY:- ABNORMAL ECG - A-V DUAL-PACED RHYTHM WITH SOME INHIBITION : Confirmed by: Bere Pacheco 21-Jan-2017 09:39:51
[2017-01-21 09:50] LABS: PROTHROMBIN TIME 13.6 SEC (11.4-15.4)
[2017-01-21 10:00] LABS: ALANINE AMINOTRANSFERASE 28 U/L (21-72); ALKALINE PHOSPHATASE 91 U/L (38-126); ANION GAP 10 (5-19); ASPARTATE AMINO TRANSFERASE 27 U/L (17-59); BILIRUBIN,DIRECT 0.3 mg/dL (0.0-0.4); BILIRUBIN,TOTAL 0.5 mg/dL (0.2-1.3); BLOOD UREA NITROGEN 17 mg/dL (7-20); C-REACTIVE PROTEIN 13.5 mg/L (<10.0); CALCIUM 8.7 mg/dL (8.4-10.2); CARBON DIOXIDE 23 mmol/L (22-30); CHLORIDE 108 mmol/L (98-107); CREATININE RESULT 0.67 mg/dL (0.52-1.25); GLUCOSE 127 mg/dL (75-110); SODIUM 140.9 mmol/L (137-145); TOTAL PROTEIN 6.3 g/dL (6.3-8.2)
[2017-01-21 10:06] LABS: APPEARANCE,URINE CLOUDY; BILIRUBIN,URINE NEGATIVE (NEGATIVE); GLUCOSE, URINE NEGATIVE (NEGATIVE); KETONES,URINE NEGATIVE (NEGATIVE); LEUKOCYTE ESTERASE,URINE LARGE (NEGATIVE); NITRITE,URINE POSITIVE (NEGATIVE); PROTEIN,URINE NEGATIVE (NEGATIVE); URINE SPECIFIC GRAVITY 1.016; UROBILINOGEN,URINE NEGATIVE mg/dL (<2.0)
[2017-01-21 10:13] LABS: BACTERIA,URINE 3+ /HPF; WBC,URINE 20-30 /HPF
[2017-01-21 10:16] LABS: ERYTHROCYTE SEDIMENTATION RATE 28 mm/hr (0-20)
[2017-01-21] MEDS ORDERED: PIPERACILLIN/TAZOBACTAM 3.375 GM VIAL IV ONE (10:34)
[2017-01-21] MEDS ORDERED: VANCOMYCIN HCL INJ 1000 MG VIAL IV ONE (10:34)
[2017-01-21] MEDS ORDERED: OXYCODONE-ACETAMINOPHEN 5-325 MG TABLET PO ONE ×2 (10:35→15:38)
[2017-01-21] MEDS ORDERED: OXYCODONE-ACETAMINOPHEN 5-325 MG TABLET PO PRN (14:26)
[2017-01-21] MEDS: VANCOMYCIN HCL 1,000 MG in DEXTROSE 5%-WATER 250 ML IV SCH (20:21)
[2017-01-21] MEDS ORDERED: ALPRAZOLAM 0.25 MG TABLET PO PRN (21:52)
[2017-01-21] MEDS ORDERED: HYDROCORTISONE 1% CREAM 28.35 GM TP PRN (21:52)
[2017-01-21] MEDS ORDERED: METOCLOPRAMIDE HCL 10 MG TABLET PO PRN (21:58)
[2017-01-21] MEDS ORDERED: NA PHOS,M-B/NA PHOS,DI-BA (ADULT) 133 ML ENEMA PR PRN (21:58)
[2017-01-21] MEDS ORDERED: MAG HYDROX/AL HYDROX/SIMETH SUSP 30 ML UDCUP PO PRN (21:58)
[2017-01-21] MEDS ORDERED: TRAMADOL HCL 50 MG TABLET PO PRN (22:09)
[2017-01-21] MEDS ORDERED: ONDANSETRON HCL 8 MG TABLET PO PRN (22:09)
[2017-01-21] MEDS ORDERED: SIMETHICONE 80 MG TAB.CHEW PO PRN (22:09)
[2017-01-21] MEDS ORDERED: PRIMIDONE 50 MG TABLET PO ONE (23:00)
[2017-01-21] MEDS ORDERED: TRAZODONE HCL 50 MG TABLET PO ONE (23:00)
[2017-01-21] MEDS ORDERED: CARVEDILOL 6.25 MG TABLET PO ONE (23:00)
[2017-01-22] MEDS: VANCOMYCIN HCL 1,000 MG in DEXTROSE 5%-WATER 250 ML IV SCH ×3 (05:08→21:25)
[2017-01-22 06:27] LABS: ABSOLUTE BASOPHILS # (AUTO) 0.1 10^3/uL (0.0-0.2); ABSOLUTE EOSINOPHILS # (AUTO) 0.2 10^3/uL (0.0-0.6); ABSOLUTE LYMPHOCYTES (AUTO) 1.7 10^3/uL (0.5-4.7); ABSOLUTE MONOCYTES (AUTO) 1.1 10^3/uL (0.1-1.4); ABSOLUTE NEUT (AUTO) 6.4 10^3/uL (1.7-8.2); BASOPHILS % (AUTO) 0.8 % (0-2); EOSINOPHILS % (AUTO) 2.5 % (0-6); HEMATOCRIT 41.4 % (37.9-51.0); HEMOGLOBIN 13.3 g/dL (13.5-17.0); HGB HCT DIFFERENCE -1.5; LYMPHOCYTES % (AUTO) 18.1 % (13-45); MEAN CORPUSCULAR HEMOGLOBIN 26.6 pg (27.0-33.4); MEAN CORPUSCULAR VOLUME 83 fl (80-97); MONOCYTES % (AUTO) 11.3 % (3-13); RED BLOOD COUNT 4.98 10^6/uL (4.35-5.55); RED CELL DISTRIBUTION WIDTH 17.9 % (11.5-14.0); SEGMENTED NEUTROPHILS % (AUTO) 67.3 % (42-78); WHITE BLOOD COUNT 9.4 10^3/uL (4.0-10.5)
[2017-01-22 06:41] LABS: ANION GAP 6 (5-19); BLOOD UREA NITROGEN 14 mg/dL (7-20); CALCIUM 8.6 mg/dL (8.4-10.2); CARBON DIOXIDE 29 mmol/L (22-30); CHLORIDE 105 mmol/L (98-107); CREATININE RESULT 0.68 mg/dL (0.52-1.25); GLUCOSE 123 mg/dL (75-110); POTASSIUM 4.6 mmol/L (3.6-5.0); SODIUM 140.2 mmol/L (137-145)
[2017-01-22] MEDS: CARVEDILOL 6.25 MG TABLET PO SCH ×2 (09:21→21:23)
[2017-01-22] MEDS: ISOSORBIDE MONONITRATE 60 MG TAB.ER.24H PO SCH (09:21)
[2017-01-22] MEDS: MULTIVITAMIN TABLET PO SCH (09:21)
[2017-01-22] MEDS: TRAZODONE HCL 50 MG TABLET PO SCH ×2 (09:22→21:25)
[2017-01-22] MEDS: SERTRALINE HCL 50 MG TABLET PO SCH (09:22)
[2017-01-22] MEDS: FUROSEMIDE 20 MG TABLET PO SCH (09:22)
[2017-01-22] MEDS: ASPIRIN 81 MG TABLET, CHEWABLE PO SCH (09:22)
[2017-01-22] MEDS ORDERED: POLYETHYLENE GLYCOL 3350 POWDER 17 GM/1 PACKET PO SCH (10:00)
--- NOTE | 2017-01-22 13:52 | PDOC H&P ---
History of Present Illness Admission Date/PCP: 01/21/17 10:55 History of Present Illness: PEACE FRAGA is a 86 year old male is status post a complicated right hip reconstruction approximately 11 weeks ago who now presents with increasing pain and erythema over the distal aspect of his incision. Evaluated in emergency room and admitted to the orthopedic service for wound management. Patient started to have a concurrent urinary tract infection. Past Medical History Cardiac Medical History: Reports: Congestive Heart Failure, Coronary Artery Disease, Myocardial Infarction - x2, Hyperlipidema, Hypertension Denies: Atrial Fibrillation, DVT, Peripheral Vascular Disease, Pulmonary Embolism, Heart Murmur Pulmonary Medical History: Denies: Asthma, Chronic Obstructive Pulmonary Disease (COPD) Neurological Medical History: Denies: Seizures Endocrine Medical History: Denies: Diabetes Mellitus Type 1, Diabetes Mellitus Type 2, Hyperthyroidism, Hypothyroidism Renal/ Medical History: Denies: End Stage Renal Disease Malignancy Medical History: Denies: Breast Cancer, Cervical Cancer, Ovarian Cancer GI Medical History: Reports: Diverticulitis, Gastroesophageal Reflux Disease Denies: Cirrhosis, Crohn's Disease, Hepatitis, Hiatal Hernia Musculoskeltal Medical History: Reports: Arthritis - neck Denies: Fibromyalgia Skin Medical History: Denies: Eczema, Psoriasis Psychiatric Medical History: Reports: Depression Denies: Dementia Past Surgical History Past Surgical History: Reports: Appendectomy, Cholecystectomy, Coronary Artery Bypass Graft - x5, Orthopedic Surgery - back, Pacemaker, Valve Replacement - 2015 tvar, Other - partial gastr'y for PUD; separation of horseshoe kidney; bilat cataract Denies: Colostomy, Gastric Bypass Surgery, Herniorrhaphy, Tonsillectomy Social History Information Source: Patient, DrJuan Antonio Office, [facility] Records Lives with: Family, Other - [place] [facility] Smoking Status: Unknown if Ever Smoked Frequency of Alcohol Use: None Hx Recreational Drug Use: No Drugs: None Hx Prescription Drug Abuse: No Family History Family History: Reviewed & Not Pertinent, CAD, CVA, Malignancy Parental Family History Reviewed: No Children Family History Reviewed: No Sibling(s) Family History Reviewed.: No Medication/Allergy Home Medications: Alprazolam [Xanax 0.5 mg Tablet] 0.5 mg PO Q8HP PRN 01/21/17 Aspirin [Aspirin 81 mg Chewable Tablet] 81 mg PO DAILY 01/21/17 Carvedilol [Coreg 6.25 mg Tablet] 6.25 mg PO Q12 01/21/17 Furosemide [Lasix 20 mg Tablet] 20 mg PO QAM 01/21/17 Hydrocortisone [Hydrocortisone 1% Cream 28.35 gm] 1 applic TOP TIDP PRN Isosorbide Mononitrate [Imdur 60 mg Tablet.er] 60 mg PO DAILY 01/21/17 Mag Hydrox/Al Hydrox/Simeth [Antacid Anti-Gas Liquid] 30 ml PO Q6HP PRN Metoclopramide HCl [Reglan 10 mg Tablet] 10 mg PO DAILYP PRN 01/21/17 Multivitamin [Tab-A-Cecilia] 1 tab PO DAILY 01/21/17 Na Phos,M-B/Na Phos,Di-Ba [Fleet Enema (Adult) 133 ml] 1 applic [place] DAILYP PRN Ondansetron HCl [Zofran 4 mg Tablet] 4 mg PO TIDP PRN 01/21/17 Polyethylene Glycol 3350 [Miralax Powder 17 gm/Packet] 17 gm PO DAILY 01/21/17 Primidone [Mysoline 50 mg Tablet] 50 mg PO QHS 01/21/17 Sertraline HCl [Zoloft 50 mg Tablet] 50 mg PO DAILY 01/21/17 Simethicone [Mylicon 80 mg Chewable Tablet] 160 mg PO Q8HP PRN 01/21/17 Tramadol HCl [Ultram 50 mg Tablet] 50 mg PO Q4HP PRN 01/21/17 Trazodone HCl [Desyrel 50 mg Tablet] 50 mg PO Q12 01/21/17 Allergies/Adverse Reactions: No Known Allergies Allergy (Verified 09/27/16 11:39) Review of Systems All systems: as per PMH Physical Exam Vital Signs: Temp Pulse Resp BP Pulse Ox 36.5 C 59 L 19 129/55 H 93 01/22/17 11:53 01/22/17 11:53 01/22/17 11:53 01/22/17 11:53 01/22/17 04:00 Intake & Output 01/21/17 01/22/17 01/23/17 06:59 06:59 06:59 Intake Total 900 Output Total 1450 Balance -550 Physical Exam: Is an elderly white male lying in a hospital bed accompanied by his daughter. His comment is "I just cannot get a break" General appearance: PRESENT: mild distress Head exam: PRESENT: normocephalic Eye exam: PRESENT: EOMI Respiratory exam: PRESENT: unlabored Cardiovascular exam: PRESENT: RRR Pulses: PRESENT: +1 pedal pulses bilateral Vascular exam: PRESENT: normal capillary refill GI/Abdominal exam: PRESENT: soft Rectal exam: PRESENT: deferred Extremities exam: PRESENT: other - Examination of the right lower extremity reveals some erythema along the edges of the previous incision at its distal third. There is fairly significant tenderness to palpation. There is minimal induration. There is minimal drainage. There is nothing this ballotable. Passive range of motion of the hip and knee are without significant discomfort. Neurological exam: PRESENT: alert, awake, oriented to person, oriented to place , oriented to time, oriented to situation. ABSENT: motor sensory deficit Psychiatric exam: PRESENT: appropriate affect, normal mood. ABSENT: homicidal ideation, suicidal ideation Skin exam: PRESENT: dry, intact, warm. ABSENT: cyanosis, rash Results Laboratory Results: 01/22/17 05:52 01/22/17 05:52 01/22/17 01/22/17 05:52 05:52 WBC 9.4 RBC 4.98 Hgb 13.3 L Hct 41.4 MCV 83 MCH 26.6 L MCHC 32.0 RDW 17.9 H Plt Count 290 Seg Neutrophils % 67.3 Lymphocytes % 18.1 Monocytes % 11.3 Eosinophils % 2.5 Basophils % 0.8 Absolute Neutrophils 6.4 Absolute Lymphocytes 1.7 Absolute Monocytes 1.1 Absolute Eosinophils 0.2 Absolute Basophils 0.1 Sodium 140.2 Potassium 4.6 Chloride 105 Carbon Dioxide 29 Anion Gap 6 BUN 14 Creatinine 0.68 Est GFR ( Amer) > 60 Est GFR (Non-Af Amer) > 60 Glucose 123 H Calcium 8.6 Status: Imported from PACS Assessment & Plan - Diagnosis (1) Cellulitis of lower extremity Qualifiers: Laterality: right Qualified Code(s): L03.115 - Cellulitis of right lower limb Is this a current diagnosis for this admission?: YesPlan: 86-year-old white female status post complicated right hip revision arthroplasty now with increasing erythema and pain sedimentation rate and C- reactive protein are elevated but only modestly so. I would expect much higher levels if this represented a deep infection. Will be to continue to observe for another 12-18 hours with the administration of IV antibiotics. - Time Time Spent: 50 to 70 Minutes Anticipated discharge: Other Within: Other
[2017-01-22] MEDS: PRIMIDONE 50 MG TABLET PO SCH (21:25)
[2017-01-22] MEDS: POLYETHYLENE GLYCOL 3350 POWDER 17 GM/1 PACKET PO SCH (21:26)
[2017-01-23] MEDS: VANCOMYCIN HCL 1,000 MG in DEXTROSE 5%-WATER 250 ML IV SCH ×3 (05:18→21:11)
--- NOTE | 2017-01-23 07:15 | PDOC PROGRESS REPORT ---
Subjective Progress Note for:: 01/23/17 Subjective:: Patient reports feeling better than yesterday. Physical Exam Vital Signs: Temp Pulse Resp BP Pulse Ox 36.4 C 62 17 148/46 H 93 01/23/17 00:00 01/23/17 00:00 01/23/17 00:00 01/23/17 00:00 01/23/17 00:00 Intake & Output 01/22/17 01/23/17 01/24/17 06:59 06:59 06:59 Intake Total 900 960 Output Total 1450 1435 Balance -550 -475 General appearance: PRESENT: no acute distress Head exam: PRESENT: normocephalic Pulses: PRESENT: +1 pedal pulses bilateral Vascular exam: PRESENT: normal capillary refill GI/Abdominal exam: PRESENT: soft Rectal exam: PRESENT: deferred Musculoskeletal exam: PRESENT: other - Edema over the lateral thigh is better. There is less tenderness. There is no drainage. Neurological exam: PRESENT: alert, awake, oriented to person, oriented to place , oriented to time, oriented to situation. ABSENT: motor sensory deficit Psychiatric exam: PRESENT: appropriate affect, normal mood. ABSENT: homicidal ideation, suicidal ideation Skin exam: PRESENT: dry, intact, warm. ABSENT: cyanosis, rash Results Laboratory Results: 01/22/17 05:52 01/22/17 05:52 Status: Imported from PACS Assessment & Plan - Diagnosis (1) Cellulitis of lower extremity Qualifiers: Laterality: right Qualified Code(s): L03.115 - Cellulitis of right lower limb Is this a current diagnosis for this admission?: YesPlan: Will be to repeat labs this morning and begin him on a physical therapy program. - Time Time Spent with patient: 15-24 minutes Anticipated discharge: Other
[2017-01-23 09:17] LABS: ABSOLUTE BASOPHILS # (AUTO) 0.1 10^3/uL (0.0-0.2); ABSOLUTE EOSINOPHILS # (AUTO) 0.3 10^3/uL (0.0-0.6); ABSOLUTE MONOCYTES (AUTO) 0.8 10^3/uL (0.1-1.4); ABSOLUTE NEUT (AUTO) 4.8 10^3/uL (1.7-8.2); BASOPHILS % (AUTO) 0.9 % (0-2); EOSINOPHILS % (AUTO) 3.7 % (0-6); HEMATOCRIT 41.6 % (37.9-51.0); HEMOGLOBIN 13.5 g/dL (13.5-17.0); HGB HCT DIFFERENCE -1.1; MEAN CORPUSCULAR HEMOGLOBIN 26.7 pg (27.0-33.4); MEAN CORPUSCULAR HGB CONC 32.3 g/dL (32.0-36.0); MEAN CORPUSCULAR VOLUME 83 fl (80-97); RED BLOOD COUNT 5.05 10^6/uL (4.35-5.55); RED CELL DISTRIBUTION WIDTH 17.8 % (11.5-14.0); SEGMENTED NEUTROPHILS % (AUTO) 60.4 % (42-78); WHITE BLOOD COUNT 7.9 10^3/uL (4.0-10.5)
[2017-01-23] MEDS: TRAZODONE HCL 50 MG TABLET PO SCH ×2 (09:28→21:11)
[2017-01-23] MEDS: FUROSEMIDE 20 MG TABLET PO SCH (09:29)
[2017-01-23] MEDS: MULTIVITAMIN TABLET PO SCH (09:29)
[2017-01-23] MEDS: ASPIRIN 81 MG TABLET, CHEWABLE PO SCH (09:29)
[2017-01-23] MEDS: ISOSORBIDE MONONITRATE 60 MG TAB.ER.24H PO SCH (09:29)
[2017-01-23] MEDS: CARVEDILOL 6.25 MG TABLET PO SCH ×2 (09:29→21:11)
[2017-01-23] MEDS: SERTRALINE HCL 50 MG TABLET PO SCH (09:29)
[2017-01-23 09:36] LABS: ANION GAP 12 (5-19); BLOOD UREA NITROGEN 10 mg/dL (7-20); C-REACTIVE PROTEIN 45.2 mg/L (<10.0); CALCIUM 8.6 mg/dL (8.4-10.2); CARBON DIOXIDE 24 mmol/L (22-30); CHLORIDE 104 mmol/L (98-107); CREATININE RESULT 0.71 mg/dL (0.52-1.25); GLUCOSE 152 mg/dL (75-110); POTASSIUM 4.1 mmol/L (3.6-5.0); SODIUM 139.9 mmol/L (137-145)
[2017-01-23 09:55] LABS: ERYTHROCYTE SEDIMENTATION RATE 28 mm/hr (0-20)
[2017-01-23] MEDS ORDERED: DIPHENHYDRAMINE HCL 50 MG/ML VIAL ONE ×2 (10:33→11:16)
[2017-01-23] MEDS ORDERED: SULFAMETHOXAZOLE/TRIMETHOPRIM 800-160 MG TABLET PO ONE (15:00)
[2017-01-23] MEDS: PRIMIDONE 50 MG TABLET PO SCH (21:11)
[2017-01-23] MEDS: POLYETHYLENE GLYCOL 3350 POWDER 17 GM/1 PACKET PO SCH (21:11)
[2017-01-24] MEDS: VANCOMYCIN HCL 1,000 MG in DEXTROSE 5%-WATER 250 ML IV SCH (03:52)
--- NOTE | 2017-01-24 07:14 | PDOC PROGRESS REPORT ---
Subjective Progress Note for:: 01/24/17 Subjective:: Patient continues to improve Physical Exam Vital Signs: Temp Pulse Resp BP Pulse Ox 36.6 C 65 15 159/45 H 95 01/24/17 04:00 01/24/17 04:00 01/24/17 04:00 01/24/17 04:00 01/24/17 04:00 Intake & Output 01/23/17 01/24/17 01/25/17 06:59 06:59 06:59 Intake Total 960 2180 Output Total 1435 1450 Balance -475 730 Weight 101.2 kg General appearance: PRESENT: no acute distress Head exam: PRESENT: normocephalic Eye exam: PRESENT: EOMI Respiratory exam: PRESENT: unlabored Cardiovascular exam: PRESENT: RRR Pulses: PRESENT: +1 pedal pulses bilateral Vascular exam: PRESENT: normal capillary refill GI/Abdominal exam: PRESENT: soft Rectal exam: PRESENT: deferred Musculoskeletal exam: PRESENT: other - Right lower extremity continues to improve in terms of erythema, induration, and tenderness. Neurological exam: PRESENT: alert, awake, oriented to person, oriented to place , oriented to time, oriented to situation. ABSENT: motor sensory deficit Psychiatric exam: PRESENT: appropriate affect, normal mood. ABSENT: homicidal ideation, suicidal ideation Skin exam: PRESENT: dry, intact, warm. ABSENT: cyanosis, rash Results Laboratory Results: 01/23/17 09:00 01/23/17 09:00 01/23/17 01/23/17 09:00 09:00 WBC 7.9 RBC 5.05 Hgb 13.5 Hct 41.6 MCV 83 MCH 26.7 L MCHC 32.3 RDW 17.8 H Plt Count 283 Seg Neutrophils % 60.4 Lymphocytes % 25.0 Monocytes % 10.0 Eosinophils % 3.7 Basophils % 0.9 Absolute Neutrophils 4.8 Absolute Lymphocytes 2.0 Absolute Monocytes 0.8 Absolute Eosinophils 0.3 Absolute Basophils 0.1 Sodium 139.9 Potassium 4.1 Chloride 104 Carbon Dioxide 24 Anion Gap 12 BUN 10 Creatinine 0.71 Est GFR ( Amer) > 60 Est GFR (Non-Af Amer) > 60 Glucose 152 H Calcium 8.6 C-Reactive Protein 45.2 H Status: Imported from PACS Assessment & Plan - Diagnosis (1) Cellulitis of lower extremity Qualifiers: Laterality: right Qualified Code(s): L03.115 - Cellulitis of right lower limb Is this a current diagnosis for this admission?: YesPlan: Has been discharged from physical therapy after ambulating 250 feet yesterday. Plan will be discharged back to [facility] tomorrow with IV antibiotics for 2 weeks. - Time Time Spent with patient: 15-24 minutes Anticipated discharge: Other Within: within 24 hours
[2017-01-24] MEDS: SERTRALINE HCL 50 MG TABLET PO SCH (10:54)
[2017-01-24] MEDS: ASPIRIN 81 MG TABLET, CHEWABLE PO SCH (10:54)
[2017-01-24] MEDS: FUROSEMIDE 20 MG TABLET PO SCH (10:54)
[2017-01-24] MEDS: SULFAMETHOXAZOLE/TRIMETHOPRIM 800-160 MG TABLET PO SCH ×2 (10:55→17:24)
[2017-01-24] MEDS: CARVEDILOL 6.25 MG TABLET PO SCH ×2 (10:55→21:29)
[2017-01-24] MEDS: MULTIVITAMIN TABLET PO SCH (10:56)
[2017-01-24] MEDS: TRAZODONE HCL 50 MG TABLET PO SCH ×2 (10:56→21:30)
[2017-01-24] MEDS: ISOSORBIDE MONONITRATE 60 MG TAB.ER.24H PO SCH (10:56)
[2017-01-24] MEDS ORDERED: VANCOMYCIN HCL 1,000 MG in DEXTROSE 5%-WATER 250 ML IV SCH (12:00)
[2017-01-24] MEDS ORDERED: LEVOFLOXACIN 500 MG TABLET PO SCH (18:00)
[2017-01-24] MEDS: PRIMIDONE 50 MG TABLET PO SCH (21:30)
[2017-01-24] MEDS: POLYETHYLENE GLYCOL 3350 POWDER 17 GM/1 PACKET PO SCH (21:31)
--- NOTE | 2017-01-25 07:04 | PDOC DISCHARGE SUMMARY ---
General - Admit/Disc Date/PCP Admission Date/Primary Care Provider: 01/21/17 10:55 Discharge Date: 01/25/17 - Discharge Diagnosis (1) Cellulitis of lower extremity Is this a current diagnosis for this admission?: Yes (2) UTI (urinary tract infection) Is this a current diagnosis for this admission?: YesSummary: Patient presents the emergency room with a urinary tract infection and a cellulitis at the distal aspect of his right thigh incision. - Additional Information Discharge Diet: As Tolerated, Regular Discharge Activity: Balance Activity w/Rest, No Driving, No tub bath Home Medications: Alprazolam [Xanax 0.5 mg Tablet] 0.5 mg PO Q8HP PRN 01/21/17 Aspirin [Aspirin 81 mg Chewable Tablet] 81 mg PO DAILY 01/21/17 Carvedilol [Coreg 6.25 mg Tablet] 6.25 mg PO Q12 01/21/17 Furosemide [Lasix 20 mg Tablet] 20 mg PO QAM 01/21/17 Hydrocortisone [Hydrocortisone 1% Cream 28.35 gm] 1 applic TOP TIDP PRN Isosorbide Mononitrate [Imdur 60 mg Tablet.er] 60 mg PO DAILY 01/21/17 Mag Hydrox/Al Hydrox/Simeth [Antacid Anti-Gas Liquid] 30 ml PO Q6HP PRN Metoclopramide HCl [Reglan 10 mg Tablet] 10 mg PO DAILYP PRN 01/21/17 Multivitamin [Tab-A-Cecilia] 1 tab PO DAILY 01/21/17 Na Phos,M-B/Na Phos,Di-Ba [Fleet Enema (Adult) 133 ml] 1 applic [place] DAILYP PRN Ondansetron HCl [Zofran 4 mg Tablet] 4 mg PO TIDP PRN 01/21/17 Polyethylene Glycol 3350 [Miralax Powder 17 gm/Packet] 17 gm PO DAILY 01/21/17 Primidone [Mysoline 50 mg Tablet] 50 mg PO QHS 01/21/17 Sertraline HCl [Zoloft 50 mg Tablet] 50 mg PO DAILY 01/21/17 Simethicone [Mylicon 80 mg Chewable Tablet] 160 mg PO Q8HP PRN 01/21/17 Tramadol HCl [Ultram 50 mg Tablet] 50 mg PO Q4HP PRN 01/21/17 Trazodone HCl [Desyrel 50 mg Tablet] 50 mg PO Q12 01/21/17 Levofloxacin [Levaquin 500 mg Tablet] 500 mg PO QPM #0 tablet 01/25/17 Sulfamethoxazole/Trimethoprim [Septra-Ds 800-160 mg Tablet] 1 tab PO BID #0 tablet 01/25/17 History of Present Illness History of Present Illness: 86-year-old white male status post complex right hip reconstruction approximately 11 weeks ago who presents to the emergency room with a urinary tract infection and erythema and tenderness at the distal aspect of his incision Hospital Course Hospital Course: He started empirically on antibiotics in the right lower extremity cellulitis clears. Patient makes excellent progress with physical therapy. Subsequent converted from IV antibiotics to Levaquin p.o. Physical Exam Vital Signs: Temp Pulse Resp BP Pulse Ox 36.8 C 62 16 132/50 H 95 01/24/17 23:12 01/24/17 23:12 01/24/17 23:12 01/24/17 23:12 01/24/17 23:12 Intake & Output 01/24/17 01/25/17 01/26/17 06:59 06:59 06:59 Intake Total 2180 1745 Output Total 1450 1325 Balance 730 420 Weight 101.2 kg 101.9 kg General appearance: PRESENT: no acute distress Head exam: PRESENT: normocephalic Eye exam: PRESENT: EOMI Respiratory exam: PRESENT: unlabored Pulses: PRESENT: +1 pedal pulses bilateral Vascular exam: PRESENT: normal capillary refill GI/Abdominal exam: PRESENT: soft Rectal exam: PRESENT: deferred Extremities exam: PRESENT: other - Lower extremity incision is intact. At the distal aspect of this. There is a resolving cellulitis with erythema. There is no further tenderness. Neurological exam: PRESENT: alert, awake, oriented to person, oriented to place , oriented to time, oriented to situation, CN II-XII grossly intact. ABSENT: motor sensory deficit Psychiatric exam: PRESENT: appropriate affect, normal mood. ABSENT: homicidal ideation, suicidal ideation Skin exam: PRESENT: dry, intact, warm. ABSENT: cyanosis, rash Results Laboratory Results: 01/23/17 09:00 01/23/17 09:00 Status: Imported from PACS Plan Discharge Plan: To be discharged back to [facility] with a 2 week supply of Levaquin. Follow- up can be with Dr. Cárdenas in the [facility] for surgery in 1 week for wound recheck.
[2017-01-25 08:23] VITALS: BP 155/47
[2017-01-25] MEDS: SERTRALINE HCL 50 MG TABLET PO SCH (09:09)
[2017-01-25] MEDS: ASPIRIN 81 MG TABLET, CHEWABLE PO SCH (09:09)
[2017-01-25] MEDS: FUROSEMIDE 20 MG TABLET PO SCH (09:10)
[2017-01-25] MEDS: SULFAMETHOXAZOLE/TRIMETHOPRIM 800-160 MG TABLET PO SCH (09:11)
[2017-01-25] MEDS: TRAZODONE HCL 50 MG TABLET PO SCH (09:11)
[2017-01-25] MEDS: ISOSORBIDE MONONITRATE 60 MG TAB.ER.24H PO SCH (09:11)
[2017-01-25] MEDS: MULTIVITAMIN TABLET PO SCH (09:11)
[2017-01-25] MEDS: CARVEDILOL 6.25 MG TABLET PO SCH (09:11)
== END 2017-01-25 10:18 | disposition home health service (06) | DRG 603 ==
LOC: ER 08:50 → EH 10:55 → 4N 16:28
PROVIDERS: ADMIT Orthopaedic Surgery; ATTEND Orthopaedic Surgery
DX: L03.115 Cellulitis of right lower limb (principal); N39.0 Urinary tract infection, site not specified; I50.9 Heart failure, unspecified; I25.10 Atherosclerotic heart disease of native coronary artery without angina pectoris; E78.5 Hyperlipidemia, unspecified; I10 Essential (primary) hypertension; I25.2 Old myocardial infarction; M19.90 Unspecified osteoarthritis, unspecified site; F32.9 Major depressive disorder, single episode, unspecified; Z90.49 Acquired absence of other specified parts of digestive tract; Z95.1 Presence of aortocoronary bypass graft; Z95.2 Presence of prosthetic heart valve; Z95.0 Presence of cardiac pacemaker; Z79.82 Long term (current) use of aspirin; Z79.899 Other long term (current) drug therapy; Z96.641 Presence of right artificial hip joint
CPT/HCPCS: 36415; 80048; 80053; 80202; 81001; 82803; 82962; 83605; 85025; 85610; 85652; 86140; 87040; 87086; 87088; 87186; 93005; 93010; 96374; 99285; G8978-GP; G8979-GP; G8980-GP; J1200; J2543; J3370; J3490; J7060

== ENCOUNTER 2017-02-20 20:21 | Emergency (ER) | payer MEDICARE, MEDICAID ==
[2017-02-20] MEDS ORDERED: ONDANSETRON HCL INJ/PF 4 MG/2 ML SDV IV ONE (20:39)
[2017-02-20] MEDS ORDERED: MORPHINE SULFATE 10 MG/ML INJ IV ONE (20:39)
--- NOTE | 2017-02-20 20:43 | ER Document Report ---
ED General - General Stated Complaint: BACK PAIN Time Seen by Provider: 02/20/17 20:39 Mode of Arrival: Medic Information source: Patient Notes: Is an 86-year-old man who is brought in by EMS because of acute back pain. Patient states that he normally only ambulates with a walker of [place] has and he started having back pain after ambulating to the lunch room. He denies any fall or injury. He states that it has been persistent since about lunch. Patient does have a history of lumbar surgery a number of years ago. TRAVEL OUTSIDE OF THE [place] IN LAST 30 DAYS: No - HPI Onset: Just prior to arrival Onset/Duration: Gradual Quality of pain: Dull Severity: Moderate Pain Level: 3 Associated symptoms: denies: Chest pain, Fever, Shortness of breath Exacerbated by: Movement Relieved by: Remaining still Similar symptoms previously: No Recently seen / treated by doctor: No - Related Data Allergies/Adverse Reactions: No Known Allergies Allergy (Verified 09/27/16 11:39) Past Medical History - General Information source: Patient - Social History Smoking Status: Never Smoker Cigarette use (# per day): No Chew tobacco use (# tins/day): No Frequency of alcohol use: None Drug Abuse: None Lives with: [facility] Family History: Reviewed & Not Pertinent, CAD, CVA, Malignancy Patient has suicidal ideation: No Patient has homicidal ideation: No - Past Medical History Cardiac Medical History: Reports: Hx Congestive Heart Failure, Hx Coronary Artery Disease, Hx Heart Attack - x2, Hx Hypercholesterolemia, Hx Hypertension Denies: Hx Atrial Fibrillation, Hx DVT, Hx Peripheral Vascular Disease, Hx Pulmonary Embolism, Hx Heart Murmur Pulmonary Medical History: Denies: Hx Asthma, Hx COPD Neurological Medical History: Denies: Hx Cerebrovascular Accident, Hx Seizures Endocrine Medical History: Denies: Hx Diabetes Mellitus Type 1, Hx Diabetes Mellitus Type 2, Hx Hyperthyroidism, Hx Hypothyroidism Renal/ Medical History: Denies: Hx Benign Prostatic Hyperplasia, Hx End Stage Renal Disease, Hx Kidney Stones, Hx Peritoneal Dialysis GI Medical History: Reports: Hx Diverticulitis, Hx Gastroesophageal Reflux Disease. 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, Denies Hx Fibromyalgia, Denies Hx Multiple Sclerosis, Denies Hx Muscular Dystrophy Skin Medical History: Denies Hx Eczema, Denies Hx Psoriasis Psychiatric Medical History: Reports: Hx Depression Denies: Hx Dementia Traumatic Medical History: Denies: Hx Fractures Infectious Medical History: Denies: Hx Hepatitis Past Surgical History: Reports: Hx Appendectomy, Hx Cardiac Surgery - Bypass surgery, Hx Cholecystectomy, Hx Coronary Artery Bypass Graft - x5, 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 Denies: Hx Bowel Surgery, Hx Colostomy, Hx Gastric Bypass Surgery, Hx Herniorrhaphy, Hx Tonsillectomy - Immunizations Immunizations up to date: Yes Hx Diphtheria, Pertussis, Tetanus Vaccination: No Review of Systems - Review of Systems Constitutional: denies: Chills, Fever EENT: No symptoms reported Cardiovascular: No symptoms reported Respiratory: No symptoms reported Gastrointestinal: No symptoms reported Genitourinary: No symptoms reported Male Genitourinary: No symptoms reported Musculoskeletal: See HPI Skin: No symptoms reported Hematologic/Lymphatic: No symptoms reported Neurological/Psychological: No symptoms reported Physical Exam - Vital signs Vitals: Temp Pulse Resp BP Pulse Ox 97.4 F 59 L 16 172/50 H 93 02/20/17 20:34 02/20/17 20:34 02/20/17 20:34 02/20/17 20:34 02/20/17 20:34 Notes: Physical exam: GENERAL: 86-year-old man, alert and oriented 3, appears in mild distress. HEAD: Atraumatic, normocephalic. EYES: Pupils equal round and reactive to light, extraocular movements intact, sclera anicteric, conjunctiva are normal. ENT: nares patent, oropharynx clear without exudates. Moist mucous membranes. NECK: Normal range of motion, supple without lymphadenopathy Back: No cervical spine tenderness, patient does have mid to lower thoracic tenderness and upper lumbar tenderness to palpation without any obvious crepitus , swelling, skin changes. Rectal exam: Patient does have good perianal sensation. He does have rectal tone. Stool is brown and sent for study. LUNGS: Breath sounds clear to auscultation bilaterally and equal. No wheezes rales or rhonchi. HEART: Regular rate and rhythm without murmurs, rubs or gallops. ABDOMEN: Soft, normoactive bowel sounds. No tenderness to palpation. No guarding, no rebound. No masses appreciated. EXTREMITIES: Normal range of motion, no pitting or edema. No clubbing or cyanosis. NEUROLOGICAL: Cranial nerves II through XII grossly intact. Normal speech, he is able to move the lower extremities. Sensation to the lower extremities is intact. PSYCH: Normal mood, normal affect. SKIN: Warm, Dry, normal turgor, no rashes or lesions noted. Course - Re-evaluation Re-evalutation: 02/20/17 23:13 Note: The patient says his back spasm is much better. He looks comfortable. I reviewed the results of the CT scans which showed no evidence of compression fractures and I discussed this with the patient as well as his daughter who is at the bedside. The plan will be for short course of pain medicines, muscle relaxers and him that I recommend some physical therapy back at [facility]. - Vital Signs Vital signs: Temp Pulse Resp BP Pulse Ox 97.5 F 60 16 141/45 H 95 02/21/17 00:04 02/21/17 00:04 02/21/17 00:04 02/21/17 00:04 02/21/17 00:04 - Laboratory Result Diagrams: 02/20/17 21:15 02/20/17 21:15 Laboratory results interpreted by me: 02/20/17 02/20/17 21:15 21:15 Hgb 12.6 L RDW 18.5 H Glucose 74 L Albumin 3.2 L - Diagnostic Test Radiology reviewed: Image reviewed, Reports reviewed - CT of the thoracic and lumbar spine show no compression fractures or acute fractures Discharge - Discharge Clinical Impression: Back pain Condition: Stable Disposition: HOME, SELF-CARE Additional Instructions: As we discussed, the CT of the thoracic and lumbar spine showed no evidence of compression fractures. Your labs did look good. I do recommend a short course of pain medicine as well as some muscle relaxer. I recommend you do not take tramadol while taking this medicine. Additionally, I recommend that she get some physical therapy as an outpatient. Return to the emergency room for worsening pain, numbness or any concerns or getting worse. Prescriptions: Methocarbamol [Robaxin 500 mg Tablet] 500 mg PO BID PRN #14 tablet PRN Reason: Oxycodone HCl/Acetaminophen [Percocet 5-325 mg Tablet] 1 tab PO ASDIR PRN #25 tablet PRN Reason:
[2017-02-20 21:31] LABS: ABSOLUTE BASOPHILS # (AUTO) 0.1 10^3/uL (0.0-0.2); ABSOLUTE EOSINOPHILS # (AUTO) 0.2 10^3/uL (0.0-0.6); BASOPHILS % (AUTO) 0.7 % (0-2); EOSINOPHILS % (AUTO) 2.2 % (0-6); HEMATOCRIT 38.1 % (37.9-51.0); HEMOGLOBIN 12.6 g/dL (13.5-17.0); HGB HCT DIFFERENCE -0.3; LYMPHOCYTES % (AUTO) 24.7 % (13-45); MEAN CORPUSCULAR HEMOGLOBIN 27.2 pg (27.0-33.4); MEAN CORPUSCULAR VOLUME 82 fl (80-97); MONOCYTES % (AUTO) 12.3 % (3-13); RED BLOOD COUNT 4.63 10^6/uL (4.35-5.55); RED CELL DISTRIBUTION WIDTH 18.5 % (11.5-14.0); SEGMENTED NEUTROPHILS % (AUTO) 60.1 % (42-78); WHITE BLOOD COUNT 8.3 10^3/uL (4.0-10.5)
[2017-02-20 21:52] LABS: ALANINE AMINOTRANSFERASE 27 U/L (21-72); ALBUMIN 3.2 g/dL (3.5-5.0); ALKALINE PHOSPHATASE 93 U/L (38-126); ANION GAP 10 (5-19); ASPARTATE AMINO TRANSFERASE 31 U/L (17-59); BILIRUBIN,DIRECT 0.3 mg/dL (0.0-0.4); BILIRUBIN,TOTAL 0.4 mg/dL (0.2-1.3); BLOOD UREA NITROGEN 19 mg/dL (7-20); CALCIUM 8.7 mg/dL (8.4-10.2); CARBON DIOXIDE 23 mmol/L (22-30); CHLORIDE 107 mmol/L (98-107); CREATININE RESULT 0.89 mg/dL (0.52-1.25); GLUCOSE 74 mg/dL (75-110); POTASSIUM 4.7 mmol/L (3.6-5.0); SODIUM 140.3 mmol/L (137-145); TOTAL PROTEIN 6.3 g/dL (6.3-8.2)
--- NOTE | 2017-02-20 22:16 | RADIOLOGY REPORT (SQ) ---
EXAM DESCRIPTION: CT THORACIC SPINE WITHOUT COMPLETED DATE/TIME: 02/20/2017 9:51 pm REASON FOR STUDY: T-L SPINE PAIN TENDERNESS TO PALPITATION COMPARISON: None. TECHNIQUE: Axial images acquired through the thoracic spine without intravenous contrast. Images re viewed with lung, soft tissue and bone windows. Reconstructed coronal and sagittal MPR images review ed. Images stored on PACS. All CT scanners at this facility use dose modulation, iterative reconstruction, and/or weight based d osing when appropriate to reduce radiation dose to as low as reasonably achievable (ALARA). [facility]: Dose Right [facility]: CareDose [facility]: Dose Right [facility]: Teradose 4D [facility]: [employer] RADIATION DOSE: mGy. LIMITATIONS: None. FINDINGS: VISUALIZED LUNGS: Small left pleural effusion is identified. There is some minimal airspa ce consolidation in the right lung base most consistent with atelectatic changes. SOFT TISSUES: No soft tissue swelling. No masses. VERTEBRAL BODIES: Bony structures are diffusely osteopenic which decreases the sensitivity for occult fractures. No vertebral compressions are identified. No definite evidence for fracture is seen. DISCS: There is multilevel disc space reduction and associated osteophytic lipping. ALIGNMENT: An exaggerated thoracic kyphosis is identified. TRANSVERSE PROCESSES, POSTERIOR ELEMENTS: No fractures. No dislocation. No acute findings. HARDWARE: None in the spine. VISUALIZED RIBS: No fractures. OTHER: Ectatic calcified thoracic aorta is identified. Prostatic aortic valve is identified IMPRESSION: No vertebral compressions are identified. No definite evidence for fracture is seen alt césar this study is limited due to the diffusely osteopenic bony structures. Exaggerated thoracic ky phosis is identified with associated degenerative changes. Other findings as noted above TECHNICAL DOCUMENTATION: JOB ID: [id number] Quality ID # [id number]: Final reports with documentation of one or more dose reduction techniques (e.g., Au tomated exposure control, adjustment of the mA and/or kV according to patient size, use of iterative reconstruction technique) 2010 [employer]- All Rights Reserved
--- NOTE | 2017-02-20 22:20 | RADIOLOGY REPORT (SQ) ---
EXAM DESCRIPTION: CT LUMBAR SPINE WITHOUT COMPLETED DATE/TIME: 02/20/2017 9:51 pm REASON FOR STUDY: T-L SPINE PAIN TENDERNESS TO PALPITATION COMPARISON: None. TECHNIQUE: Axial images acquired through the lumbar spine without intravenous contrast. Images revi ewed with lung, soft tissue and bone windows. Reconstructed coronal and sagittal MPR images reviewed . All images stored on PACS. All CT scanners at this facility use dose modulation, iterative reconstruction, and/or weight based d osing when appropriate to reduce radiation dose to as low as reasonably achievable (ALARA). [facility]: Dose Right [facility]: CareDose [facility]: Dose Right [facility]: Teradose 4D [facility]: [employer] RADIATION DOSE: mGy. LIMITATIONS: None. FINDINGS: SEGMENTATION: Normal. No transitional anatomy. ALIGNMENT: Normal. VERTEBRAL BODIES: Bony structures are diffusely osteopenic which decreases the sensitivity for occult fractures. No significant vertebral compressions are identified. DISCS: There is decrease in the L2-L3 and L5-S1 disc space heights. There is associated anterior ost eophytic lipping PEDICLES, TRANSVERSE PROCESSES: No fractures. No dislocation. No acute findings. FACETS, POSTERIOR ELEMENTS: No fractures. No dislocation. No spinal stenosis. HARDWARE: None in the spine. VISUALIZED RIBS: No fractures. SOFT TISSUES: No significant or acute finding in adjacent soft tissues. OTHER: There is ectasia of the abdominal aorta and iliac vessels with extensive vascular calcificatio ns. IMPRESSION: No significant vertebral compressions are identified. No other evidence for fracture is seen. Other findings as noted above. TECHNICAL DOCUMENTATION: JOB ID: [id number] Quality ID # [id number]: Final reports with documentation of one or more dose reduction techniques (e.g., Au tomated exposure control, adjustment of the mA and/or kV according to patient size, use of iterative reconstruction technique) 2010 [employer]- All Rights Reserved
[2017-02-21 00:09] VITALS: BP 141/45
== END 2017-02-21 00:13 | disposition home or self-care (01) ==
LOC: ER 20:21
DX: M54.9 Dorsalgia, unspecified (principal)
CPT/HCPCS: 99284; 96374; 96375; 36415; 85025; 82272; 80053; 72128; 72131; J2270; J2405

== ENCOUNTER 2017-03-06 11:17 | Emergency (ER) | payer MEDICARE, MEDICAID ==
[2017-03-06] MEDS ORDERED: PROCHLORPERAZINE EDISYLATE INJ 10 MG/2 ML VIAL IV ONE (11:53)
[2017-03-06] MEDS ORDERED: ONDANSETRON HCL INJ/PF 4 MG/2 ML SDV IV ONE (11:53)
[2017-03-06] MEDS ORDERED: NORMAL SALINE 1000 ML 1,000 ML IV ONE (11:54)
[2017-03-06 12:11] LABS: ABSOLUTE BASOPHILS # (AUTO) 0.1 10^3/uL (0.0-0.2); ABSOLUTE EOSINOPHILS # (AUTO) 0.2 10^3/uL (0.0-0.6); ABSOLUTE MONOCYTES (AUTO) 0.9 10^3/uL (0.1-1.4); ABSOLUTE NEUT (AUTO) 3.7 10^3/uL (1.7-8.2); EOSINOPHILS % (AUTO) 2.2 % (0-6); HEMATOCRIT 38.8 % (37.9-51.0); HEMOGLOBIN 12.8 g/dL (13.5-17.0); HGB HCT DIFFERENCE -0.4; LYMPHOCYTES % (AUTO) 29.6 % (13-45); MEAN CORPUSCULAR HEMOGLOBIN 27.7 pg (27.0-33.4); MEAN CORPUSCULAR HGB CONC 32.9 g/dL (32.0-36.0); MEAN CORPUSCULAR VOLUME 84 fl (80-97); MONOCYTES % (AUTO) 12.5 % (3-13); RED BLOOD COUNT 4.61 10^6/uL (4.35-5.55); RED CELL DISTRIBUTION WIDTH 18.8 % (11.5-14.0); SEGMENTED NEUTROPHILS % (AUTO) 54.7 % (42-78); WHITE BLOOD COUNT 6.8 10^3/uL (4.0-10.5)
[2017-03-06 12:28] LABS: ALANINE AMINOTRANSFERASE 22 U/L (21-72); ALKALINE PHOSPHATASE 95 U/L (38-126); ANION GAP 8 (5-19); ASPARTATE AMINO TRANSFERASE 21 U/L (17-59); BILIRUBIN,DIRECT 0.3 mg/dL (0.0-0.4); BILIRUBIN,TOTAL 0.5 mg/dL (0.2-1.3); BLOOD UREA NITROGEN 21 mg/dL (7-20); CALCIUM 8.6 mg/dL (8.4-10.2); CARBON DIOXIDE 25 mmol/L (22-30); CHLORIDE 107 mmol/L (98-107); CREATININE RESULT 0.92 mg/dL (0.52-1.25); GLUCOSE 106 mg/dL (75-110); MAGNESIUM 1.9 mg/dL (1.6-2.3); POTASSIUM 4.5 mmol/L (3.6-5.0); SODIUM 140.2 mmol/L (137-145); TOTAL PROTEIN 6.3 g/dL (6.3-8.2)
[2017-03-06 12:32] LABS: APPEARANCE,URINE CLEAR; BILIRUBIN,URINE NEGATIVE (NEGATIVE); GLUCOSE, URINE NEGATIVE (NEGATIVE); KETONES,URINE NEGATIVE (NEGATIVE); LEUKOCYTE ESTERASE,URINE NEGATIVE (NEGATIVE); NITRITE,URINE NEGATIVE (NEGATIVE); PROTEIN,URINE NEGATIVE (NEGATIVE); URINE SPECIFIC GRAVITY 1.008; UROBILINOGEN,URINE NEGATIVE mg/dL (<2.0)
--- NOTE | 2017-03-06 12:50 | RADIOLOGY REPORT (SQ) ---
EXAM DESCRIPTION: CT HEAD WITHOUT COMPLETED DATE/TIME: 03/06/2017 12:31 pm REASON FOR STUDY: carrillo weakness COMPARISON: 08/15/2016 TECHNIQUE: Axial images acquired through the brain without intravenous contrast. Images reviewed wi th bone, brain and subdural windows. Images stored on PACS. All CT scanners at this facility use dose modulation, iterative reconstruction, and/or weight based d osing when appropriate to reduce radiation dose to as low as reasonably achievable (ALARA). [facility]: Dose Right [facility]: CareDose [facility]: Dose Right [facility]: Teradose 4D [facility]: [employer] RADIATION DOSE: Up-to-date CT equipment and radiation dose reduction techniques were employed. CTDIv ol: 28.0 mGy. DLP: 504 mGy-cm. mGy. LIMITATIONS: None. FINDINGS: VENTRICLES: Stable. No significant dilatation. CEREBRUM: No masses. No hemorrhage. No midline shift. Normal malhotra/white matter differentiation. N o evidence for acute infarction. Mild atrophic changes. CEREBELLUM: No masses. No hemorrhage. No alteration of density. No evidence for acute infarction. EXTRAAXIAL SPACES: No fluid collections. No masses. ORBITS AND GLOBE: No intra- or extraconal masses. Normal contour of globe without masses. CALVARIUM: No fracture. PARANASAL SINUSES: No fluid or mucosal thickening. SOFT TISSUES: No mass or hematoma. OTHER: No other significant finding. IMPRESSION: Nothing acute. TECHNICAL DOCUMENTATION: JOB ID: [id number] Quality ID # [id number]: Final reports with documentation of one or more dose reduction techniques (e.g., Au tomated exposure control, adjustment of the mA and/or kV according to patient size, use of iterative reconstruction technique) 2010 [employer]- All Rights Reserved
--- NOTE | 2017-03-06 13:02 | RADIOLOGY REPORT (SQ) ---
EXAM DESCRIPTION: CHEST SINGLE VIEW COMPLETED DATE/TIME: 03/06/2017 12:47 pm REASON FOR STUDY: carrillo weakness COMPARISON: CT angio chest 11/24/2016 AP chest 10/08/2016, 01/10/2017 EXAM PARAMETERS: NUMBER OF VIEWS: One view. TECHNIQUE: Single frontal radiographic view of the chest acquired. RADIATION DOSE: NA LIMITATIONS: Portable technique FINDINGS: LUNGS AND PLEURA: No fluffy alveolar infiltrates worrisome for edema or pneumonia. Blunting in the right lateral and left lateral costophrenic sulci, question trace bilateral pleural e ffusions. No pneumothorax MEDIASTINUM AND HILAR STRUCTURES: No masses. Contour normal. HEART AND VASCULAR STRUCTURES: Heart normal in size. Normal vasculature. Old sternotomy for CABG. Left-sided dual lead pacemaker. BONES: No acute findings. HARDWARE: Old sternotomy for CABG. Left-sided dual lead pacemaker. Multiple surgical clips at the G E junction. OTHER: No other significant finding. IMPRESSION: No acute infiltrates. TECHNICAL DOCUMENTATION: JOB ID: [id number]
--- NOTE | 2017-03-06 14:10 | ER Document Report ---
ED General - General Chief Complaint: General Weakness Stated Complaint: WEAKNESS Time Seen by Provider: 03/06/17 11:36 TRAVEL OUTSIDE OF THE [place] IN LAST 30 DAYS: No - HPI Patient complains to provider of: Generalized weakness possible near syncope Notes: Patient from assisted limited HPI possible near syncope according to EMS. Patient denies he states that he is feeling weak. He is ongoing for the last few days. Patient denies any fever chills nausea vomiting diarrhea. Patient does have a significant history for valve replacement CABG and stomach surgery. Denies any cough denies any chest pain abdominal pain diarrhea. Patient is alert and oriented upon my evaluation patient is complaining of a headache states happened today at the assisted. States diffuse headache. - Related Data Allergies/Adverse Reactions: No Known Allergies Allergy (Verified 03/06/17 11:46) Past Medical History - Social History Smoking Status: Unknown if Ever Smoked Family History: Reviewed & Not Pertinent, CAD, CVA, Malignancy - Past Medical History Cardiac Medical History: Reports: Hx Congestive Heart Failure, Hx Coronary Artery Disease, Hx Heart Attack - x2, Hx Hypercholesterolemia, Hx Hypertension Denies: Hx Atrial Fibrillation, Hx DVT, Hx Peripheral Vascular Disease, Hx Pulmonary Embolism, Hx Heart Murmur Pulmonary Medical History: Denies: Hx Asthma, Hx COPD Neurological Medical History: Denies: Hx Cerebrovascular Accident, Hx Seizures Endocrine Medical History: Denies: Hx Diabetes Mellitus Type 1, Hx Diabetes Mellitus Type 2, Hx Hyperthyroidism, Hx Hypothyroidism Renal/ Medical History: Denies: Hx Benign Prostatic Hyperplasia, Hx End Stage Renal Disease, Hx Kidney Stones, Hx Peritoneal Dialysis GI Medical History: Reports: Hx Diverticulitis, Hx Gastroesophageal Reflux Disease. 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, Denies Hx Fibromyalgia, Denies Hx Multiple Sclerosis, Denies Hx Muscular Dystrophy Skin Medical History: Denies Hx Eczema, Denies Hx Psoriasis Psychiatric Medical History: Reports: Hx Depression Denies: Hx Dementia Traumatic Medical History: Denies: Hx Fractures Infectious Medical History: Denies: Hx Hepatitis Past Surgical History: Reports: Hx Appendectomy, Hx Cardiac Surgery - Bypass surgery, Hx Cholecystectomy, Hx Coronary Artery Bypass Graft - x5, 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 Denies: Hx Bowel Surgery, Hx Colostomy, Hx Gastric Bypass Surgery, Hx Herniorrhaphy, Hx Tonsillectomy - Immunizations Immunizations up to date: Yes Hx Diphtheria, Pertussis, Tetanus Vaccination: No Review of Systems - Review of Systems Constitutional: Weakness EENT: No symptoms reported Cardiovascular: No symptoms reported Respiratory: No symptoms reported Gastrointestinal: No symptoms reported Genitourinary: No symptoms reported Male Genitourinary: No symptoms reported Musculoskeletal: No symptoms reported Skin: No symptoms reported Hematologic/Lymphatic: No symptoms reported Neurological/Psychological: No symptoms reported -: Yes All other systems reviewed and negative Physical Exam - Vital signs Vitals: Resp Pulse Ox 21 H 95 03/06/17 11:48 03/06/17 11:48 Interpretation: Normal - General General appearance: Appears well, Alert - HEENT Head: Normocephalic, Atraumatic Eyes: Normal Pupils: PERRL - Respiratory Respiratory status: No respiratory distress Chest status: Nontender Breath sounds: Normal Chest palpation: Normal - Cardiovascular Rhythm: Regular Heart sounds: Normal auscultation Murmur: No - Abdominal Inspection: Normal Distension: No distension Bowel sounds: Normal Tenderness: Nontender Organomegaly: No organomegaly - Back Back: Normal, Nontender - Extremities General upper extremity: Normal inspection, Nontender, Normal color, Normal ROM , Normal temperature General lower extremity: Normal inspection, Nontender, Normal color, Normal ROM , Normal temperature, Normal weight bearing. No: Capo's sign - Neurological Neuro grossly intact: Yes Cognition: Normal Orientation: AAOx4 Preston Coma Scale Eye Opening: Spontaneous Hayde Coma Scale Verbal: Oriented Preston Coma Scale Motor: Obeys Commands Preston Coma Scale Total: 15 Speech: Normal Motor strength normal: LUE, RUE, LLE, RLE Sensory: Normal - Psychological Associated symptoms: Normal affect, Normal mood - Skin Skin Temperature: Warm Skin Moisture: Dry Skin Color: Normal Course - Re-evaluation Re-evalutation: 03/06/17 15:34 Lab was not show any acute pathology. Patient feeling better from his headache after Compazine and Zofran. Patient will be discharged back to assisted. The patient presents with headache without signs of [employer] bleed, stroke, infection , or other serious etiology. The patient is neurologically intact. Given the extremely low risk of these diagnoses further testing and evaluation for these possibilities does not appear to be indicated at this time. The patient has been instructed to return if the symptoms worsen or change in any way.. - Vital Signs Vital signs: Temp Pulse Resp BP Pulse Ox 14 118/53 L 94 03/06/17 13:37 03/06/17 13:37 03/06/17 13:37 - Laboratory Result Diagrams: 03/06/17 12:00 03/06/17 12:00 Laboratory results interpreted by me: 03/06/17 03/06/17 12:00 12:00 Hgb 12.8 L RDW 18.8 H BUN 21 H Albumin 3.0 L Discharge - Discharge Clinical Impression: Weakness, headache resolved Condition: Fair Disposition: HOME, SELF-CARE Instructions: Weakness ([facility]), Headache ([facility]) Additional Instructions: Headache improved with medications here in the ER Zofran and Compazine. Patient 's lab work head CT chest x-ray does not show any concerning pathology. Patient discharged back to assisted facility more likely symptoms due to possibly underlying cardiac condition dehydration please make sure the patient moves slowly when changing position
[2017-03-06 15:34] VITALS: BP 120/62
--- NOTE | 2017-03-07 10:53 | EKG REPORT ---
SEVERITY:- ABNORMAL ECG - ATRIAL-VENTRICULAR DUAL-PACED COMPLEXES CONSIDER ARM LEAD REVERSAL, REC REPEAT EKG : Confirmed by: Bere Pacheco 07-Mar-2017 10:53:14
== END 2017-03-06 15:34 | disposition home or self-care (01) ==
LOC: ER 11:17
DX: R53.1 Weakness (principal); I50.9 Heart failure, unspecified; E78.00 Pure hypercholesterolemia, unspecified; I25.10 Atherosclerotic heart disease of native coronary artery without angina pectoris; I25.2 Old myocardial infarction; I11.0 Hypertensive heart disease with heart failure; Z95.1 Presence of aortocoronary bypass graft; Z95.0 Presence of cardiac pacemaker; Z95.2 Presence of prosthetic heart valve
CPT/HCPCS: 93005; 99285; 96361; 96374; 96375; 36415; 83690; 83735; 85025; 80053; 81001; 83605; 71010; 70450; 93010; J0780; J2405; J7030

== ENCOUNTER 2017-06-15 08:41 | Emergency (ER) | payer MEDICARE, MEDICAID ==
[2017-06-15] MEDS ORDERED: PREDNISONE 20 MG TABLET PO ONE (08:58)
[2017-06-15] MEDS ORDERED: DIPHENHYDRAMINE HCL 50 MG CAPSULE PO ONE (08:58)
--- NOTE | 2017-06-15 08:59 | ER Document Report ---
ED Allergic Reaction - General Chief Complaint: Allergic Reaction Stated Complaint: TONGUE CONCERN Time Seen by Provider: 06/15/17 08:58 Notes: The patient is an 86-year-old male, past medical history hypertension, CAD, presents from [facility] after he woke up at 4 AM and noticed that his tongue was swollen. He has had this for times in the past and it resolved without any intervention. Patient said that his tongue is not become more swollen and he is having no difficulty swallowing or breathing. He is unsure if he started a new medication, but there is no JEREMIAH inhibitor on his med list. Denies rash, stridor, cough, nausea, vomiting or back pain. TRAVEL OUTSIDE OF THE [place] IN LAST 30 DAYS: No - Related Data Allergies/Adverse Reactions: No Known Allergies Allergy (Verified 03/06/17 11:46) Past Medical History - General Information source: Patient - Social History Smoking Status: Unknown if Ever Smoked Family History: Reviewed & Not Pertinent, CAD, CVA, Malignancy - Past Medical History Cardiac Medical History: Reports: Hx Congestive Heart Failure, Hx Coronary Artery Disease, Hx Heart Attack - x2, Hx Hypercholesterolemia, Hx Hypertension Denies: Hx Atrial Fibrillation, Hx DVT, Hx Peripheral Vascular Disease, Hx Pulmonary Embolism, Hx Heart Murmur Pulmonary Medical History: Denies: Hx Asthma, Hx COPD Neurological Medical History: Denies: Hx Cerebrovascular Accident, Hx Seizures Endocrine Medical History: Denies: Hx Diabetes Mellitus Type 1, Hx Diabetes Mellitus Type 2, Hx Hyperthyroidism, Hx Hypothyroidism Renal/ Medical History: Denies: Hx Benign Prostatic Hyperplasia, Hx End Stage Renal Disease, Hx Kidney Stones, Hx Peritoneal Dialysis GI Medical History: Reports: Hx Diverticulitis, Hx Gastroesophageal Reflux Disease. 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, Denies Hx Fibromyalgia, Denies Hx Multiple Sclerosis, Denies Hx Muscular Dystrophy Skin Medical History: Denies Hx Eczema, Denies Hx Psoriasis Psychiatric Medical History: Reports: Hx Depression Denies: Hx Dementia Traumatic Medical History: Denies: Hx Fractures Infectious Medical History: Denies: Hx Hepatitis Past Surgical History: Reports: Hx Appendectomy, Hx Cardiac Surgery - Bypass surgery, Hx Cholecystectomy, Hx Coronary Artery Bypass Graft - x5, 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 Denies: Hx Bowel Surgery, Hx Colostomy, Hx Gastric Bypass Surgery, Hx Herniorrhaphy, Hx Tonsillectomy - Immunizations Immunizations up to date: Yes Hx Diphtheria, Pertussis, Tetanus Vaccination: No Review of Systems - Review of Systems Notes: REVIEW OF SYSTEMS: CONSTITUTIONAL: -fevers, -chills EENT: -eye pain, -difficulty swallowing, -nasal congestion, +tongue swelling CARDIOVASCULAR:-chest pain, -syncope. RESPIRATORY: -cough, -SOB GASTROINTESTINAL: -abdominal pain, - nausea, -vomiting, -diarrhea GENITOURINARY: -dysuria, -hematuria MUSCULOSKELETAL: -back pain, -neck pain SKIN: -rash or skin lesions. HEMATOLOGIC: -easy bruising or bleeding. LYMPHATIC: -swollen, enlarged glands. NEUROLOGICAL: -altered mental status or loss of consciousness, -headache, - neurologic symptoms PSYCHIATRIC: -anxiety, -depression. ALL OTHER SYSTEMS REVIEWED AND NEGATIVE. Physical Exam - Notes Notes: PHYSICAL EXAMINATION: GENERAL: Well-appearing, well-nourished and in no acute distress. HEAD: Atraumatic, normocephalic. EYES: Pupils equal round and reactive to light, extraocular movements intact, sclera anicteric, conjunctiva are normal. ENT: nares patent, oropharynx clear without exudates. Moist mucous membranes. Mild symmetrical swelling of tonuge. No swelling of posterior pharynx or lips. NECK: Normal range of motion, supple without lymphadenopathy LUNGS: Breath sounds clear to auscultation bilaterally and equal. No wheezes rales or rhonchi. HEART: Regular rate and rhythm ABDOMEN: Soft, nontender, normoactive bowel sounds. No guarding, no rebound. No masses appreciated. EXTREMITIES: Normal range of motion, no pitting or edema. No cyanosis. NEUROLOGICAL: Cranial nerves grossly intact. Normal speech, normal gait. Normal sensory and motor exams. PSYCH: Normal mood, normal affect. SKIN: Warm, Dry, normal turgor, no rashes or lesions noted. Course - Re-evaluation Re-evalutation: Patient with mild symmetrical tongue swelling for the past 5 hours. He is protecting his airway and has no posterior pharynx swelling. He has had this four times in the past and he is unsure what is causing it, but has resolved by itself and he has not required any intubation. Patient is DNR. After steroids and prednisone, the swelling decreased and patient monitored without worsening. Will send patient back to [facility] with strict return precautions. Discharge - Discharge Clinical Impression: Angioedema Qualifiers: Encounter type: initial encounter Qualified Code(s): T78.3XXA - Angioneurotic edema, initial encounter Condition: Stable Additional Instructions: ACUTE ALLERGIC REACTION: Your symptoms are due to an allergic reaction. Allergy can cause hives, swelling of the hands, feet, and face, hoarseness, and difficulty swallowing or breathing. It may be due to exposure to medication, animal dander, foods, infection, or insect bites. Medication is a common cause, even when prior use of this same medication caused no problems. Acute treatment may include adrenalin and antihistamines. Usually, the specific allergic agent can't be identified unless repeated episodes occur. Home treatment includes the following: (1) Stop any suspicious medications. This will be discussed with you. (2) Oral antihistamines for the next four to five days. Example, diphenhydramine (Benadryl) every four hours. (3) You may also use cimetidine (Tagamet), ranitidine (Zantac), or famotidine ( Pepcid) every four hours if diphenhydramine is not controlling itching and hives. (4) Avoid aspirin until the hives completely disappear. (5) Avoid hot baths or showers until the hives are completely gone. Call the doctor if faintness, difficulty swallowing, tightness in the chest , or wheezing occurs. STEROID MEDICATION: You have been given a medicine of the cortisone/steroid class. This medication is used to control inflammation or allergy. It is usually only given for a short period of time, until the acute process subsides. There are usually no side effects from short-term use of cortisone-like medications. Some persons feel an increased sense of well-being and are not sleepy at bedtime. Long-term use of cortisone medications is best avoided, unless required for a severe condition. If your condition does not remit, or relapses after the course of corticosteroid medication, you should consult your physician. ANTIHISTAMINES: An antihistamine has been given and/or prescribed to control your symptoms. Antihistamines are used for many reasons, including itching, watering eyes, runny nose, allergic swelling, hives, and insect stings. Antihistamines may cause drowsiness, especially with the first dose. Do not operate machinery or drive while under the effects of the medication. Other common side effects include dry mouth and eyes. In older persons, antihistamines can occasionally cause urinary retention, constipation, and trouble focusing the eyes. Do not combine the medication with alcohol, or with any other medication without talking to your doctor. USE OF DIPHENHYDRAMINE: The use of diphenhydramine (Benadryl) has been recommended to control allergic symptoms. The 25 mg strength is available over- the-counter, as well as the elixir. This antihistamine is used for many symptoms. It's useful for itching, watering eyes and nose, allergic swelling, hives, and insect stings. The medication can be repeated four times daily. Age Elixir (12.5 mg/tsp) 25 mg pill 2-3 yr 1/2 tsp 4-8 yr 1 tsp 9-14 yr 2 tsp one tab adult 1-2 tabs Antihistamines may cause drowsiness, especially with the first dose. Do not operate machinery or drive while under the effects of the medication. Do not combine the medication with alcohol, or with any other medication without talking to your doctor. FOLLOW-UP CARE: If you have been referred to a physician for follow-up care, call the physician s office for an appointment as you were instructed or within the next two days. If you experience worsening or a significant change in your symptoms, notify the physician immediately or return to the Emergency Department at any time for re-evaluation. Forms: Elevated Blood Pressure
[2017-06-15 14:14] VITALS: BP 156/70
== END 2017-06-15 13:58 | disposition home or self-care (01) ==
LOC: ER 08:41
DX: T78.3XXA Angioneurotic edema, initial encounter (principal); I10 Essential (primary) hypertension; I25.10 Atherosclerotic heart disease of native coronary artery without angina pectoris
CPT/HCPCS: 99283; A9270 ×2; J7512

== ENCOUNTER 2017-07-15 07:44 | Emergency (ER) | payer MEDICARE, MEDICAID ==
[2017-07-15 08:03] VITALS: BP 177/48
--- NOTE | 2017-07-15 08:55 | ER Document Report ---
HPI - HPI Patient complains to provider of: rash Pain Level: 3 Context: Patient is an 86-year-old male presents emergency department complaining of redness, itching and burning in his shins after starting nystatin cream for athlete's foot over the weekend. Patient states on Sunday he had had some itching in between his toes so was started on nystatin cream on Sunday. States that after starting the nystatin cream after 3 uses he started having itching and burning on his shins and feet. Patient states that he does have a history of eczema and psoriasis. - REPRODUCTIVE Reproductive: DENIES: : Past Medical History - Social History Smoking Status: Former Smoker Chew tobacco use (# tins/day): No Frequency of alcohol use: None Drug Abuse: None Family History: Reviewed & Not Pertinent, CAD, CVA, Malignancy Patient has suicidal ideation: No Patient has homicidal ideation: No - Past Medical History Cardiac Medical History: Reports: Hx Congestive Heart Failure, Hx Coronary Artery Disease, Hx Heart Attack - x2, Hx Hypercholesterolemia, Hx Hypertension Denies: Hx Atrial Fibrillation, Hx DVT, Hx Peripheral Vascular Disease, Hx Pulmonary Embolism, Hx Heart Murmur Pulmonary Medical History: Denies: Hx Asthma, Hx COPD Neurological Medical History: Denies: Hx Cerebrovascular Accident, Hx Seizures Endocrine Medical History: Denies: Hx Diabetes Mellitus Type 1, Hx Diabetes Mellitus Type 2, Hx Hyperthyroidism, Hx Hypothyroidism Renal/ Medical History: Denies: Hx Benign Prostatic Hyperplasia, Hx End Stage Renal Disease, Hx Kidney Stones, Hx Peritoneal Dialysis GI Medical History: Reports: Hx Diverticulitis, Hx Gastroesophageal Reflux Disease. 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, Denies Hx Fibromyalgia, Denies Hx Multiple Sclerosis, Denies Hx Muscular Dystrophy Skin Medical History: Denies Hx Eczema, Denies Hx Psoriasis Psychiatric Medical History: Reports: Hx Depression Denies: Hx Dementia Traumatic Medical History: Denies: Hx Fractures Infectious Medical History: Denies: Hx Hepatitis Past Surgical History: Reports: Hx Appendectomy, Hx Cardiac Surgery - Bypass surgery, Hx Cholecystectomy, Hx Coronary Artery Bypass Graft - x5, 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 Denies: Hx Bowel Surgery, Hx Colostomy, Hx Gastric Bypass Surgery, Hx Herniorrhaphy, Hx Tonsillectomy - Immunizations Immunizations up to date: Yes Hx Diphtheria, Pertussis, Tetanus Vaccination: No Vertical Provider Document - CONSTITUTIONAL Agree With Documented VS: Yes Notes: PHYSICAL EXAM GENERAL: Alert, interacts well. LUNGS: Clear to auscultation bilaterally, no wheezes, rales, or rhonchi. No respiratory distress. HEART: Regular rate and rhythm. No murmurs, gallops, or rubs. EXTREMITIES: Moves all 4 extremities spontaneously. No edema, radial and dorsalis pedis pulses 2/4 bilaterally. No cyanosis. NEUROLOGICAL: Alert and oriented x4. Normal speech. PSYCH: Normal affect, normal mood. SKIN: Warm, dry, normal turgor. blanching Nondermatomal diffuse macular papular rash over the lower legs with mild erythema.no evidence of vesicles, petechiae, purpura. - INFECTION CONTROL TRAVEL OUTSIDE OF THE [place] IN LAST 30 DAYS: No - RESPIRATORY O2 Sat by Pulse Oximetry: 95 Course - Re-evaluation Re-evalutation: 07/15/17 08:49 Patient is an 86-year-old male presents emergency department with benign rash. Hemodynamically stable, no acute distress and afebrile. Presentation is consistent with drug eruption likely related to the use of nystatin since the rash started only after use of that medication. Presentation is not consistent with a vasculitis, concern for DVT, systemic rash. Will discharge patient home with instructions to discontinue nystatin, utilize Benadryl for itching and use a topical hydrocortisone cream patient stable for discharge home. - Vital Signs Vital signs: Temp Pulse Resp BP Pulse Ox 97.5 F 55 L 16 177/48 H 95 07/15/17 07:55 07/15/17 07:55 07/15/17 07:55 07/15/17 07:55 07/15/17 07:55 Discharge - Discharge Clinical Impression: Rash Condition: Good Disposition: HOME, SELF-CARE Instructions: Contact Dermatitis ([facility]) Additional Instructions: Rashes consistent with a drug rash likely related to your current use of nystatin powder. Please discontinue the use of this medication. You can utilize Benadryl for itching and redness and please utilize a topical hydrocortisone cream as needed.
[2017-07-15] MEDS ORDERED: DIPHENHYDRAMINE HCL 25 MG CAPSULE PO ONE (08:59)
== END 2017-07-15 09:54 | disposition home or self-care (01) ==
LOC: ER 07:44
DX: R21 Rash and other nonspecific skin eruption (principal); Z87.891 Personal history of nicotine dependence
CPT/HCPCS: 99283; A9270

== ENCOUNTER 2017-10-22 08:14 | Inpatient (IN) | payer MEDICARE, MEDICAID ==
[2017-10-22] MEDS ORDERED: FUROSEMIDE INJ/PF 40 MG/4 ML SDV IV ONE (08:38)
--- NOTE | 2017-10-22 08:44 | ER Document Report ---
ED Respiratory Problem - General Chief Complaint: Respiratory Distress Stated Complaint: RESPIRATORY DISTRESS Mode of Arrival: Stretcher Information source: Patient Notes: HPI-86 years old male with a history of CHf, he is Lasix was decreased by half few days ago, woke up this morning with defect extreme difficulty in breathing. He has been having shortness of breath for the last 2 days crit gradually increased to the point that he this morning could not breathe well. Therefore EMS was called, EMS found him with low pulse oximeter therefore gave nitroglycerin as well as put him on BiPAP and brought him to the ED. On arrival his pulse oximeter was 93-94% on room air, therefore CPAP was removed and placed him on 2 L nasal cannula. He denies any chest pain left arm numbness tingling sensation nausea vomiting. Denies any other constitutional symptoms. REVIEW OF SYSTEMS: CONSTITUTIONAL : Denies fever, chills, or sweats. Denies recent illness. EENT: Denies eye, ear, throat, or mouth pain or symptoms. Denies nasal or sinus congestion or discharge. Denies throat, tongue, or mouth swelling or difficulty swallowing. CARDIOVASCULAR: Denies chest pain. Denies palpitations or racing or irregular heart beat. Denies ankle edema. RESPIRATORY: Denies cough, GASTROINTESTINAL: Denies abdominal pain or distention. Denies nausea, vomiting , or diarrhea. Denies blood in vomitus, stools, or per rectum. Denies black, tarry stools. Denies constipation. GENITOURINARY: Denies difficulty urinating, painful urination, burning, frequency, blood in urine, or discharge. MUSCULOSKELETAL: Denies back or neck pain or stiffness. Denies joint pain or swelling. SKIN: Denies rash, lesions or sores. HEMATOLOGIC : Denies easy bruising or bleeding. LYMPHATIC: Denies swollen, enlarged glands. NEUROLOGICAL: Denies confusion or altered mental status. Denies passing out or loss of consciousness. Denies dizziness or lightheadedness. Denies headache. Denies weakness or paralysis or loss of use of either side. Denies problems with gait or speech. Denies sensory loss, numbness, or tingling. Denies seizures. PSYCHIATRIC: Denies anxiety or stress. Denies depression, suicidal ideation, or homicidal ideation. ALL OTHER SYSTEMS REVIEWED AND NEGATIVE. Dictation was performed using [employer] recognition software PHYSICAL EXAMINATION: GENERAL: Well-appearing, well-nourished and in no acute distress. HEAD: Atraumatic, normocephalic. EYES: Pupils equal round and reactive to light, extraocular movements intact, sclera anicteric, conjunctiva are normal. ENT: Nares patent, oropharynx clear without exudates. Moist mucous membranes. NECK: Normal range of motion, supple without lymphadenopathy LUNGS: Bilaterally decreased breath sounds with scattered rales throughout the lower lung field HEART: Regular rate and rhythm without murmurs ABDOMEN: Soft, nontender, nondistended abdomen. No guarding, no rebound. No masses appreciated. Musculoskeletal: Normal range of motion, 2-3+ pitting edema. No cyanosis. NEUROLOGICAL: Cranial nerves grossly intact. Normal speech, normal gait. Normal sensory, motor exams PSYCH: Normal mood, normal affect. SKIN: Warm, Dry, normal turgor, no rashes or lesions noted. TRAVEL OUTSIDE OF THE [place] IN LAST 30 DAYS: No - HPI Patient complains to provider of: COPD Onset: Just prior to arrival Duration: Continuous Initiating Event: No: Allergy, Aspiration/Choking, Exertion, Exposure to chemicals, Exposure to dust, Exposure to fumes, Exposure to mold, Exposure to smoke, Out of meds, Sports/exercise, URI, Other Quality of pain: denies: No pain, Achy, Burning, Cramping, Dull, Fullness, Pressure, Sharp, Stabbing, Throbbing, Other Context: denies: DVT, Factor V Leiden, Hx asthma, Hx CHF, Hx COPD, Malignancy, , Recent cardiac event, Recent foreign travel, Recent long distance trvl , Recent immobilization, Recent surgery, Smoker, Other Short of Breath: Severe Chest pain/discomfort: denies: Center, Constant, Heaviness, Intermittent, Left, Pain, Radiates to arm, Radiates to back, Radiates to jaw, Right, Tightness, Worse with deep breaths Cough: denies: Nonproductive, Productive, Stridor, Suspect aspiration Sputum amount: denies: None, Scant, Small, Moderate, Large, Copious Sputum color: denies: Brown, Clear, Creamy, [place], Green, [place] tinged, Red (blood ), Red Specks, Rust, Small Clots, [place], White, Yellow Associated symptoms: Ankle/leg swelling. denies: None, Allergy/hay fever, Anxiety, Bloody cough, Chest pain/discomfort, Chills, Congestion, Cough, Dental decay, Difficulty breathing, Earache, Extertional dyspnea, Facial pain, Fever, Headache, Heart racing, Hoarseness, Hurts to breathe, Hyperventilation, Jaw pain , Leg/calf/joint pain, Muscle spasms, Orthopnea, PND, Runny nose, Sinus pain/ pressure, Short of breath, Sore Throat, Sweaty, Tingling face, Tingling hands, Unable to swallow, Toothache, Wheezing, Other - Related Data Allergies/Adverse Reactions: No Known Allergies Allergy (Verified 03/06/17 11:46) Past Medical History - Social History Smoking Status: Former Smoker Frequency of alcohol use: Rare Drug Abuse: None Family History: Reviewed & Not Pertinent, CAD, CVA, Malignancy Patient has suicidal ideation: No Patient has homicidal ideation: No - Past Medical History Cardiac Medical History: Reports: Hx Congestive Heart Failure, Hx Coronary Artery Disease, Hx Heart Attack - x2, Hx Hypercholesterolemia, Hx Hypertension Denies: Hx Atrial Fibrillation, Hx DVT, Hx Peripheral Vascular Disease, Hx Pulmonary Embolism, Hx Heart Murmur Pulmonary Medical History: Denies: Hx Asthma, Hx COPD Neurological Medical History: Denies: Hx Cerebrovascular Accident, Hx Seizures Endocrine Medical History: Denies: Hx Diabetes Mellitus Type 1, Hx Diabetes Mellitus Type 2, Hx Hyperthyroidism, Hx Hypothyroidism Renal/ Medical History: Denies: Hx Benign Prostatic Hyperplasia, Hx End Stage Renal Disease, Hx Kidney Stones, Hx Peritoneal Dialysis GI Medical History: Reports: Hx Diverticulitis, Hx Gastroesophageal Reflux Disease. 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, Denies Hx Fibromyalgia, Denies Hx Multiple Sclerosis, Denies Hx Muscular Dystrophy Skin Medical History: Denies Hx Eczema, Denies Hx Psoriasis Psychiatric Medical History: Reports: Hx Depression Denies: Hx Dementia Traumatic Medical History: Denies: Hx Fractures Infectious Medical History: Denies: Hx Hepatitis Past Surgical History: Reports: Hx Appendectomy, Hx Cardiac Surgery - Bypass surgery, Hx Cholecystectomy, Hx Coronary Artery Bypass Graft - x5, 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 Denies: Hx Bowel Surgery, Hx Colostomy, Hx Gastric Bypass Surgery, Hx Herniorrhaphy, Hx Tonsillectomy - Immunizations Immunizations up to date: Yes Hx Diphtheria, Pertussis, Tetanus Vaccination: No Review of Systems - Review of Systems Notes: As per history of complain EENT: denies: No symptoms reported, See HPI, Eye pain, Eye discharge, Blurred vision, Tearing, Double vision, Ear pain, Ear discharge, Nose pain, Nose congestion, Nose discharge, Sinus pressure, Sinus discharge, Throat pain, Difficulty swallowing, Throat swelling, Mouth pain, Mouth swelling, Dental problem, Vertigo, Other Cardiovascular: See HPI. denies: No symptoms reported, Chest pain, Palpitations , Heart racing, Orthopnea, Dyspnea, Syncope, Dizziness, Lightheaded, Edema, Other, Paroxysmal Nocturnal Dysp Respiratory: See HPI Genitourinary: denies: No symptoms reported, See HPI, Burning, Dysuria, Discharge, Frequency, Flank pain, Hematuria, Incontinence, Pain, Urgency, Retention, Other Physical Exam - Vital signs Vitals: Pulse Ox 93 10/22/17 08:19 Course - Vital Signs Vital signs: Temp Pulse Resp BP Pulse Ox 98.5 F 21 H 161/79 H 92 10/22/17 08:29 10/22/17 10:00 10/22/17 08:24 10/22/17 10:00 - Laboratory Result Diagrams: 10/22/17 08:20 10/22/17 08:20 Laboratory results interpreted by me: 10/22/17 10/22/17 10/22/17 08:20 08:20 08:20 Hgb 12.6 L RDW 15.8 H ABG pH ABG pCO2 ABG pO2 Glucose 121 H Creatine Kinase 31 L NT-Pro-B Natriuret Pep 6610 H Urine Urobilinogen 10/22/17 10/22/17 09:18 09:24 Hgb RDW ABG pH 7.47 H ABG pCO2 34.9 L ABG pO2 73.2 L Glucose Creatine Kinase NT-Pro-B Natriuret Pep Urine Urobilinogen 4.0 H - Diagnostic Test Radiology reviewed: Reports reviewed - for chest x-ray shows CHF pattern. - EKG Interpretation by Pa EKG shows normal: abnormal: Sinus rhythm, [place], Intervals, QRS Complexes, ST-T Waves Rhythm: Other - Pacemaker rhythm [place]/QRS: LBBB - At the rate of 78 bpm Critical Care Note - Critical Care Note Total time excluding time spent on procedures (mins): 60 Comments: Review of chest x-ray EKG management of acute pulmonary edema Discharge - Discharge Clinical Impression: Acute pulmonary edema Disposition: ADMITTED INPATIENT Admitting Provider: Hospitalist Unit Admitted: Telemetry
[2017-10-22 08:45] LABS: ABSOLUTE BASOPHILS # (AUTO) 0.1 10^3/uL (0.0-0.2); ABSOLUTE EOSINOPHILS # (AUTO) 0.2 10^3/uL (0.0-0.6); ABSOLUTE LYMPHOCYTES (AUTO) 1.7 10^3/uL (0.5-4.7); ABSOLUTE MONOCYTES (AUTO) 1.1 10^3/uL (0.1-1.4); ABSOLUTE NEUT (AUTO) 6.1 10^3/uL (1.7-8.2); EOSINOPHILS % (AUTO) 1.7 % (0-6); HEMATOCRIT 38.6 % (37.9-51.0); HEMOGLOBIN 12.6 g/dL (13.5-17.0); LYMPHOCYTES % (AUTO) 18.4 % (13-45); MEAN CORPUSCULAR HEMOGLOBIN 28.8 pg (27.0-33.4); MEAN CORPUSCULAR HGB CONC 32.7 g/dL (32.0-36.0); MEAN CORPUSCULAR VOLUME 88 fl (80-97); MONOCYTES % (AUTO) 11.6 % (3-13); PLATELET COUNT 337 10^3/uL (150-450); RED BLOOD COUNT 4.39 10^6/uL (4.35-5.55); RED CELL DISTRIBUTION WIDTH 15.8 % (11.5-14.0); SEGMENTED NEUTROPHILS % (AUTO) 67.3 % (42-78); TOTAL CELLS COUNTED % (AUTO) 100 %
[2017-10-22 08:53] LABS: ALANINE AMINOTRANSFERASE 28 U/L (21-72); ALKALINE PHOSPHATASE 90 U/L (38-126); ANION GAP 5 (5-19); ASPARTATE AMINO TRANSFERASE 24 U/L (17-59); BILIRUBIN,DIRECT 0.2 mg/dL (0.0-0.4); BILIRUBIN,TOTAL 0.7 mg/dL (0.2-1.3); BLOOD UREA NITROGEN 14 mg/dL (7-20); CALCIUM 8.7 mg/dL (8.4-10.2); CARBON DIOXIDE 30 mmol/L (22-30); CHLORIDE 106 mmol/L (98-107); CREATINE KINASE 31 U/L (55-170); GLUCOSE 121 mg/dL (75-110); POTASSIUM 3.9 mmol/L (3.6-5.0); SODIUM 140.9 mmol/L (137-145); TOTAL PROTEIN 6.8 g/dL (6.3-8.2)
[2017-10-22 08:59] LABS: ALBUMIN 3.5 g/dL (3.5-5.0)
[2017-10-22 09:05] LABS: CREATINE KINASE MB 0.69 ng/mL (<4.55); TROPONIN I 0.021 ng/mL
--- NOTE | 2017-10-22 09:12 | RADIOLOGY REPORT (SQ) ---
EXAM DESCRIPTION: CHEST SINGLE VIEW COMPLETED DATE/TIME: 10/22/2017 8:48 am REASON FOR STUDY: Shortness of breath COMPARISON: 03/06/2017 NUMBER OF VIEWS: One view. TECHNIQUE: Single frontal radiographic image of the chest acquired. LIMITATIONS: Body habitus. Portable technique. FINDINGS: LUNGS AND PLEURA: Small pleural effusions. Segmental airspace disease in the left upper a nd left lower lobes. Subsegmental airspace disease right lower lobe. MEDIASTINUM AND HEART: Stable heart size and mediastinal structures. SUPPORT DEVICES: Stable position of pacemaker. BONY STRUCTURES: No acute findings. HARDWARE: CABG. OTHER: No other significant finding. IMPRESSION: Congestive heart failure. Reading location - IP/workstation name: [email or web address]
[2017-10-22 09:30] LABS: ARTERIAL BLOOD BASE EXCESS 1.7 mmol/L; ARTERIAL BLOOD H2CO3 1.05 mmol/L (1.05-1.35); ARTERIAL BLOOD O2 SATURATION 95.7 % (94-98); ARTERIAL BLOOD PCO2 34.9 mmHg (35-45); ARTERIAL BLOOD PH 7.47 (7.35-7.45); ARTERIAL BLOOD PO2 73.2 mmHg (80-100); ARTERIAL BLOOD TOTAL CO2 26.1 mmol/L (23-27)
[2017-10-22 09:31] LABS: ARTERIAL BLOOD FIO2 2L
[2017-10-22 09:47] LABS: APPEARANCE,URINE CLEAR; BILIRUBIN,URINE NEGATIVE (NEGATIVE); COLOR,URINE YELLOW; GLUCOSE, URINE NEGATIVE (NEGATIVE); KETONES,URINE NEGATIVE (NEGATIVE); LEUKOCYTE ESTERASE,URINE NEGATIVE (NEGATIVE); NITRITE,URINE NEGATIVE (NEGATIVE); PROTEIN,URINE NEGATIVE (NEGATIVE); URINE SPECIFIC GRAVITY 1.011
[2017-10-22] MEDS ORDERED: HYDRALAZINE HCL INJ/PF 20 MG/1 ML SDV IV ONE (10:59)
[2017-10-22] MEDS ORDERED: OXYCODONE-ACETAMINOPHEN 5-325 MG TABLET PO PRN (11:01)
[2017-10-22] MEDS ORDERED: IPRATROPIUM/ALBUTEROL 0.5-2.5 MG/3 ML AMPUL NEB PRN (11:01)
[2017-10-22] MEDS ORDERED: ONDANSETRON HCL INJ/PF 4 MG/2 ML SDV IV PRN (11:01)
[2017-10-22] MEDS ORDERED: HYDRALAZINE HCL INJ/PF 20 MG/1 ML SDV IV PRN (11:01)
[2017-10-22] MEDS ORDERED: ZOLPIDEM TARTRATE 5 MG TABLET PO PRN (11:01)
[2017-10-22] MEDS ORDERED: ACETAMINOPHEN 325 MG TABLET PO PRN (11:01)
[2017-10-22] MEDS: FUROSEMIDE INJ/PF 40 MG/4 ML SDV IV SCH (12:58)
--- NOTE | 2017-10-22 14:20 | EKG REPORT ---
SEVERITY:- ABNORMAL ECG - A-V DUAL-PACED COMPLEXES W/ SOME INHIBITION : Confirmed by: Dean Saravia MD 22-Oct-2017 14:20:07
[2017-10-22] MEDS ORDERED: MAG HYDROX/AL HYDROX/SIMETH SUSP 30 ML UDCUP PO PRN (15:46)
[2017-10-22] MEDS ORDERED: SIMETHICONE 80 MG TAB.CHEW PO PRN (15:46)
[2017-10-22] MEDS ORDERED: FAMOTIDINE 20 MG TABLET PO ONE (17:00)
--- NOTE | 2017-10-22 17:33 | PDOC H&P ---
History of Present Illness Admission Date/PCP: 10/22/17 11:06 Patient complains of: Shortness of breath and swelling of the legs today History of Present Illness: PEACE FRAGA is a 86 year old male [facility]. Patient states that he woke up with shortness of breath and noted that his legs were swollen. He went to the front end engineer and when his blood pressure was checked he was told that it was high and he had to come to the hospital. Patient states that he is water pills had been discontinued recently. He went on a trip to [place] a week ago and had a spell while at a restaurant where he choked. Patient states that he was not able to breathe. Otherwise patient denies having any chest pain nausea, vomiting, weakness or sweatiness. During the course of evaluation in emergency room BNP was found to be elevated and chest x-ray findings were consistent with congestive heart failure. Patient was administered Lasix 80 mg IV and the hospitalist service was consulted and prompted to admit for further management Past Medical History Cardiac Medical History: Reports: Congestive Heart Failure, Coronary Artery Disease, Myocardial Infarction - x2, Hyperlipidema, Hypertension Denies: Atrial Fibrillation, DVT, Peripheral Vascular Disease, Pulmonary Embolism, Heart Murmur Pulmonary Medical History: Denies: Asthma, Chronic Obstructive Pulmonary Disease (COPD) EENT Medical History: Reports: Cataracts Neurological Medical History: Reports: None Denies: Seizures Endocrine Medical History: Denies: Diabetes Mellitus Type 1, Diabetes Mellitus Type 2, Hyperthyroidism, Hypothyroidism Renal/ Medical History: Denies: End Stage Renal Disease Malignancy Medical History: Denies: Breast Cancer, Cervical Cancer, Ovarian Cancer GI Medical History: Reports: Diverticulitis, Gastroesophageal Reflux Disease Denies: Cirrhosis, Crohn's Disease, Hepatitis, Hiatal Hernia Musculoskeltal Medical History: Reports: Arthritis - neck Denies: Fibromyalgia Skin Medical History: Denies: Eczema, Psoriasis Psychiatric Medical History: Reports: Depression Denies: Dementia Traumatic Medical History: Reports: None Hematology: Reports: None Infectious Medical History: Reports: None Past Surgical History Past Surgical History: Reports: Appendectomy, Cholecystectomy, Coronary Artery Bypass Graft - x5, Orthopedic Surgery - back, Pacemaker, Valve Replacement - 2015 tvar, Other - partial gastr'y for PUD; separation of horseshoe kidney; bilat cataract Denies: Colostomy, Gastric Bypass Surgery, Herniorrhaphy, Tonsillectomy Social History Information Source: Patient Lives with: Skilled Nursing Smoking Status: Former Smoker Frequency of Alcohol Use: None Hx Recreational Drug Use: No Drugs: None Hx Prescription Drug Abuse: No Family History Family History: Reviewed & Not Pertinent, CAD, CVA, Malignancy Parental Family History Reviewed: Yes Children Family History Reviewed: Yes Sibling(s) Family History Reviewed.: Yes Medication/Allergy Home Medications: Alprazolam [Xanax 0.5 mg Tablet] 0.5 mg PO QHS 10/22/17 Aspirin [Aspirin 81 mg Chewable Tablet] 81 mg PO DAILY 10/22/17 Carboxymethylcellulose Sodium [Refresh Tears] 2 drop OU QID 10/22/17 Carvedilol [Coreg 6.25 mg Tablet] 6.25 mg PO Q12 10/22/17 Diphenhydramine HCl [Benadryl] 25 mg PO Q6HP PRN 10/22/17 Furosemide [Lasix 20 mg Tablet] 20 mg PO QAM 10/22/17 Isosorbide Mononitrate [Imdur 60 mg Tablet.er] 60 mg PO DAILY 10/22/17 Mag Hydrox/Al Hydrox/Simeth [Maalox Suspension] 30 ml PO Q6HP PRN 10/22/17 Metoclopramide HCl [Reglan] 10 mg PO DAILYP PRN 10/22/17 Multivitamin [Tab-A-Cecilia] 1 tab PO DAILY 10/22/17 Oxycodone HCl/Acetaminophen [Percocet 5-325 mg Tablet] 1 tab PO Q6HP PRN Primidone [Mysoline 50 Mg Tablet] 50 mg PO QHS 10/22/17 Ranitidine HCl [Zantac 150 mg Tablet] 150 mg PO BID 10/22/17 Simethicone [Genasyme] 160 mg PO Q8HP PRN 10/22/17 Trazodone HCl [Desyrel 50 mg Tablet] 75 mg PO QHS 10/22/17 Allergies/Adverse Reactions: No Known Allergies Allergy (Verified 03/06/17 11:46) Review of Systems Constitutional: ABSENT: fatigue, headache(s), weakness Eyes: ABSENT: visual disturbances Ears: ABSENT: hearing changes Nose, Mouth, and Throat: ABSENT: mouth pain, sore throat Cardiovascular: PRESENT: dyspnea on exertion, edema. ABSENT: chest pain, palpitations Gastrointestinal: PRESENT: other - choking. ABSENT: abdominal pain, nausea, vomiting Musculoskeletal: PRESENT: deformity Neurological: ABSENT: focal weakness, numbness, weakness Psychiatric: ABSENT: hallucinations Endocrine: ABSENT: polyphagia, polyuria Physical Exam Vital Signs: Temp Pulse Resp BP Pulse Ox 98.5 F 24 H 180/74 H 92 10/22/17 08:29 10/22/17 10:58 10/22/17 10:58 10/22/17 10:58 General appearance: PRESENT: cooperative, morbidly obese Head exam: PRESENT: atraumatic, normocephalic Eye exam: PRESENT: conjunctiva pink, EOMI, PERRLA Ear exam: PRESENT: normal external ear exam Mouth exam: PRESENT: moist Neck exam: PRESENT: full ROM. ABSENT: JVD, lymphadenopathy, tenderness Respiratory exam: PRESENT: crackles, decreased breath sounds Cardiovascular exam: PRESENT: RRR. ABSENT: diastolic murmur, systolic murmur Vascular exam: PRESENT: normal capillary refill GI/Abdominal exam: PRESENT: normal bowel sounds, soft. ABSENT: tenderness Extremities exam: PRESENT: full ROM, +1 edema Musculoskeletal exam: PRESENT: ambulatory Neurological exam: PRESENT: alert, awake, oriented to person, oriented to place , oriented to time, oriented to situation, CN II-XII grossly intact Psychiatric exam: PRESENT: depressed Skin exam: PRESENT: intact, normal color Results Impressions: Chest X-Ray 10/22/17 08:37 IMPRESSION: Congestive heart failure. Assessment & Plan - Diagnosis (1) CHF (congestive heart failure) Qualifiers: Heart failure chronicity: acute Is this a current diagnosis for this admission?: Yes Plan: Will order an echocardiogram since most recent echocardiogram in chart had EF 50 %. Patient will be placed on IV diuretic and will control blood pressure (2) Hypertensive urgency Is this a current diagnosis for this admission?: Yes Plan: Patient will be placed on Norvasc and lisinopril.Will order hydralazine IV for systolic blood pressure higher or equal to 160 or diastolic blood pressure higher or equal to 110 (3) Coronary artery disease Qualifiers: Coronary Disease-Associated Artery/Lesion type: unspecified vessel or lesion type [place] vs. transplanted heart: [place] heart Is this a current diagnosis for this admission?: Yes Plan: Will continue with indoor as outpatient (4) Esophageal spasm Is this a current diagnosis for this admission?: Yes Plan: Will place on Flexeril. Will consult speech therapy to evaluate swallowing (5) H/O aortic valve replacement with porcine valve Is this a current diagnosis for this admission?: Yes Plan: Stable - Time Time Spent: 30 to 50 Minutes Medications reviewed and adjusted accordingly: Yes Anticipated discharge: SNF Within: within 72 hours - Inpatient Certification Based on my medical assessment, after consideration of the patient's comorbidities, presenting symptoms, or acuity I expect that the services needed warrant INPATIENT care.: Yes I certify that my determination is in accordance with my understanding of Medicare's requirements for reasonable and necessary INPATIENT services [42 CFR 412.3e].: Yes Medical Necessity: Need Close Monitoring Due to Risk of Patient Decompensation, Need For Continuous Telemetry Monitoring
[2017-10-22] MEDS ORDERED: CARBOXYMETHYLCELLULOSE SODIUM OU SCH (18:00)
[2017-10-22] MEDS ORDERED: (PENDING PHARMACY ID) (Ranitidine Hcl [Zantac 150 Mg Tablet] 150 MG) PO SCH (18:00)
[2017-10-22] MEDS: HEPARIN SOD (PORCINE) 5,000 UNIT/ML 1 ML SYRINGE SUBCUT SCH ×2 (18:21→23:24)
[2017-10-22] MEDS: CARBOXYMETHYLCELLULOSE SOD 0.5% 0.4 ML DROPERETTE OU SCH (21:59)
[2017-10-22] MEDS: CYCLOBENZAPRINE HCL 10 MG TABLET PO SCH (22:00)
[2017-10-22] MEDS: CARVEDILOL 6.25 MG TABLET PO SCH (22:00)
[2017-10-22] MEDS: ALPRAZOLAM 0.5 MG TABLET PO SCH (22:01)
[2017-10-22] MEDS: TRAZODONE HCL 50 MG TABLET PO SCH (22:02)
[2017-10-22] MEDS ORDERED: PRIMIDONE 50 MG TABLET ONE (22:31)
[2017-10-22] MEDS: PRIMIDONE 50 MG TABLET PO SCH (23:25)
[2017-10-23 02:44] LABS: ABSOLUTE BASOPHILS # (AUTO) 0.1 10^3/uL (0.0-0.2); ABSOLUTE EOSINOPHILS # (AUTO) 0.2 10^3/uL (0.0-0.6); ABSOLUTE LYMPHOCYTES (AUTO) 2.1 10^3/uL (0.5-4.7); ABSOLUTE MONOCYTES (AUTO) 1.1 10^3/uL (0.1-1.4); ABSOLUTE NEUT (AUTO) 5.3 10^3/uL (1.7-8.2); BASOPHILS % (AUTO) 1.2 % (0-2); EOSINOPHILS % (AUTO) 2.1 % (0-6); HEMATOCRIT 38.4 % (37.9-51.0); HEMOGLOBIN 12.6 g/dL (13.5-17.0); LYMPHOCYTES % (AUTO) 23.9 % (13-45); MEAN CORPUSCULAR HEMOGLOBIN 28.4 pg (27.0-33.4); MEAN CORPUSCULAR HGB CONC 32.8 g/dL (32.0-36.0); MEAN CORPUSCULAR VOLUME 87 fl (80-97); MONOCYTES % (AUTO) 12.5 % (3-13); PLATELET COUNT 330 10^3/uL (150-450); RED BLOOD COUNT 4.43 10^6/uL (4.35-5.55); RED CELL DISTRIBUTION WIDTH 15.8 % (11.5-14.0); SEGMENTED NEUTROPHILS % (AUTO) 60.3 % (42-78); TOTAL CELLS COUNTED % (AUTO) 100 %; WHITE BLOOD COUNT 8.8 10^3/uL (4.0-10.5)
[2017-10-23 03:08] LABS: ANION GAP 7 (5-19); BLOOD UREA NITROGEN 15 mg/dL (7-20); CALCIUM 8.4 mg/dL (8.4-10.2); CARBON DIOXIDE 29 mmol/L (22-30); CHLORIDE 107 mmol/L (98-107); GLUCOSE 96 mg/dL (75-110); POTASSIUM 3.4 mmol/L (3.6-5.0); SODIUM 142.7 mmol/L (137-145)
[2017-10-23] MEDS: FUROSEMIDE INJ/PF 40 MG/4 ML SDV IV SCH ×2 (05:29→19:03)
[2017-10-23] MEDS: HEPARIN SOD (PORCINE) 5,000 UNIT/ML 1 ML SYRINGE SUBCUT SCH ×3 (05:30→21:05)
[2017-10-23] MEDS: AMLODIPINE BESYLATE 10 MG TABLET PO SCH (10:13)
[2017-10-23] MEDS: FAMOTIDINE 20 MG TABLET PO SCH ×2 (10:13→19:02)
[2017-10-23] MEDS: LISINOPRIL 10 MG TABLET PO SCH (10:15)
[2017-10-23] MEDS: MULTIVITAMIN TABLET PO SCH (10:17)
[2017-10-23] MEDS: ISOSORBIDE MONONITRATE 60 MG TAB.ER.24H PO SCH (10:18)
[2017-10-23] MEDS: CARVEDILOL 6.25 MG TABLET PO SCH ×2 (10:19→21:06)
[2017-10-23] MEDS: ASPIRIN 81 MG TABLET, CHEWABLE PO SCH (10:19)
[2017-10-23] MEDS: CYCLOBENZAPRINE HCL 10 MG TABLET PO SCH ×2 (10:20→21:06)
[2017-10-23] MEDS: DOCUSATE SODIUM 100 MG CAPSULE PO SCH (10:24)
[2017-10-23] MEDS: CARBOXYMETHYLCELLULOSE SOD 0.5% 0.4 ML DROPERETTE OU SCH ×3 (10:25→21:07)
[2017-10-23] MEDS ORDERED: DIPHENHYDRAMINE HCL 25 MG CAPSULE PO PRN (11:59)
[2017-10-23] MEDS ORDERED: METOCLOPRAMIDE HCL 10 MG TABLET PO PRN (11:59)
[2017-10-23] MEDS ORDERED: OXYCODONE-ACETAMINOPHEN 5-325 MG TABLET PO PRN (11:59)
--- NOTE | 2017-10-23 15:43 | PDOC PROGRESS REPORT ---
Subjective Progress Note for:: 10/23/17 Subjective:: The patient is an 86-year-old gentleman who was admitted on October 22 with shortness of breath and leg swelling. He resides in a [facility] facility. In the emergency room evaluation revealed an elevated BNP and chest x -ray findings consistent with CHF. He was given 80 mg of IV Lasix and admitted. Reason For Visit: ACUTE ON CHRONIC DIASTOLIC CONGESTIVE HEART Physical Exam Vital Signs: Temp Pulse Resp BP Pulse Ox 98.2 F 85 20 154/57 H 99 10/23/17 08:00 10/23/17 08:00 10/23/17 08:00 10/23/17 08:00 10/23/17 08:00 Intake & Output 10/22/17 10/23/17 10/24/17 06:59 06:59 06:59 Intake Total 980 Output Total 3300 Balance -2320 Weight 101.8 kg General appearance: PRESENT: no acute distress Eye exam: PRESENT: EOMI Ear exam: PRESENT: normal external ear exam Mouth exam: PRESENT: moist, neck supple, tongue midline Neck exam: ABSENT: tracheal deviation Respiratory exam: PRESENT: symmetrical, unlabored. ABSENT: accessory muscle use , retraction, rhonchi, wheezes Cardiovascular exam: PRESENT: RRR Vascular exam: ABSENT: pallor GI/Abdominal exam: PRESENT: normal bowel sounds, soft. ABSENT: tenderness Rectal exam: PRESENT: deferred Neurological exam: PRESENT: alert, awake, oriented to person, oriented to place , oriented to situation Results Laboratory Results: 10/23/17 02:35 10/23/17 02:35 10/23/17 10/23/17 02:35 02:35 WBC 8.8 RBC 4.43 Hgb 12.6 L Hct 38.4 MCV 87 MCH 28.4 MCHC 32.8 RDW 15.8 H Plt Count 330 Seg Neutrophils % 60.3 Lymphocytes % 23.9 Monocytes % 12.5 Eosinophils % 2.1 Basophils % 1.2 Absolute Neutrophils 5.3 Absolute Lymphocytes 2.1 Absolute Monocytes 1.1 Absolute Eosinophils 0.2 Absolute Basophils 0.1 Sodium 142.7 Potassium 3.4 L Chloride 107 Carbon Dioxide 29 Anion Gap 7 BUN 15 Creatinine 0.70 Est GFR ( Amer) > 60 Est GFR (Non-Af Amer) > 60 Glucose 96 Calcium 8.4 Magnesium 2.0 10/22/17 10/22/1710/23/18 15:00 20:33 02:35 Troponin I 0.029 0.036 0.028 Impressions: Chest X-Ray 10/22/17 08:37 IMPRESSION: Congestive heart failure. Assessment & Plan - Diagnosis (1) Diastolic CHF, acute on chronic Is this a current diagnosis for this admission?: Yes Plan: Continue diuretics, monitor intake and output. Limit sodium and fluid intake. CHF education. (2) Hypertensive urgency Is this a current diagnosis for this admission?: Yes Plan: Resolved, no current medications. Continue to monitor blood pressure closely and adjust as indicated. (3) Coronary artery disease Qualifiers: Coronary Disease-Associated Artery/Lesion type: unspecified vessel or lesion type Torres [place] vs. transplanted heart: [place] heart Is this a current diagnosis for this admission?: Yes (4) Esophageal spasm Is this a current diagnosis for this admission?: Yes Plan: Continue outpatient management. (5) H/O aortic valve replacement with porcine valve Is this a current diagnosis for this admission?: Yes Plan: Stable. - Time Time Spent with patient: 25-34 minutes
--- NOTE | 2017-10-23 18:37 | XCELERA REPORT ---
[address] [address] Transthoracic Echocardiogram Report Name: PEACE FRAGA Age: 86 yrs Gender: Male : 1930 Patient Status: Inpatient Patient Location: [address] [place] [address] Study Date: 10/23/2017 08:20 AM Height: 72 in Weight: 242 lb BSA: 2.3 m2 Procedure: A complete two-dimensional transthoracic echocardiogram was performed (2D, M-mode, spectral and color flow Doppler). The study was technically difficult with many images being suboptimal in quality. Reason For Study: chf Ordering Physician: MARCE DOWNING Performed By: Loli Wong Interpretation Summary The study was technically difficult with many images being suboptimal in quality. The Ejection Fraction estimate is 45-50% There is apical wall akinesis Doppler measurements suggest pseudonormalized left ventricular relaxation, which is associated with grade II/IV or mild to moderate diastolic dysfunction Left ventricular systolic function is mildly reduced. The left ventricle is grossly normal size. The right ventricle is grossly normal size. Right ventricular function cannot be assessed due to poor image quality. The left atrium is mildly dilated. There is a trace amount of mitral regurgitation There is no mitral valve stenosis. There is mild aortic stenosis There is a peak gradient of 20 mm of Hg. There is a trace to mild amount of aortic regurgitation No tricuspid regurgitation. There is no tricuspid stenosis. The aortic root is not well visualized. The inferior vena cava was not visualized There is no pericardial effusion. Doppler Measurements & Calculations MV E max lincoln: MV dec slope: Ao V2 max: LV V1 max P.9 cm/sec 224.7 cm/sec 7.8 mmHg MV A max lincoln: 554.1 cm/sec2 Ao max PG: LV V1 max: 139.2 cm/sec MV dec time: 20.3 mmHg 139.8 cm/sec MV E/A: 0.73 0.18 sec Left Ventricle The left ventricle is grossly normal size. Left ventricular systolic function is mildly reduced. The Ejection Fraction estimate is 45-50%. Doppler measurements suggest pseudonormalized left ventricular relaxation, which is associated with grade II/IV or mild to moderate diastolic dysfunction. There is apical wall akinesis. Right Ventricle The right ventricle is grossly normal size. Right ventricular function cannot be assessed due to poor image quality. Atria The right atrium is normal. The left atrium is mildly dilated. Interarterial septum not well visualized and not well dopplered. Cannot comment on ASD/PFO presence. Mitral Valve There is mild mitral leaflet calcification. There is mild mitral annular calcification. There is no mitral valve stenosis. There is a trace amount of mitral regurgitation. Aortic Valve The aortic valve is not well visualized secondary to technical limitations. There is mild aortic stenosis. There is a peak gradient of 20 mm of Hg. There is a trace to mild amount of aortic regurgitation. Tricuspid Valve The tricuspid valve is not well visualized secondary to technical limitations. There is no tricuspid stenosis. No tricuspid regurgitation. Pulmonic Valve The pulmonic valve is not well visualized. Great Vessels The aortic root is not well visualized. The inferior vena cava was not visualized. Effusions There is no pericardial effusion. : MARCE DOWNING > Bere Pacheco
[2017-10-23] MEDS: PRIMIDONE 50 MG TABLET PO SCH (21:05)
[2017-10-23] MEDS: TRAZODONE HCL 50 MG TABLET PO SCH (21:06)
[2017-10-23] MEDS: ALPRAZOLAM 0.5 MG TABLET PO SCH (21:07)
[2017-10-24 03:48] VITALS: BP 120/57
[2017-10-24] MEDS: FUROSEMIDE INJ/PF 40 MG/4 ML SDV IV SCH (05:05)
[2017-10-24] MEDS: HEPARIN SOD (PORCINE) 5,000 UNIT/ML 1 ML SYRINGE SUBCUT SCH (05:05)
[2017-10-24 06:06] LABS: ANION GAP 10 (5-19); BLOOD UREA NITROGEN 21 mg/dL (7-20); CALCIUM 8.7 mg/dL (8.4-10.2); CARBON DIOXIDE 30 mmol/L (22-30); CHLORIDE 100 mmol/L (98-107); GLUCOSE 101 mg/dL (75-110); POTASSIUM 3.6 mmol/L (3.6-5.0)
[2017-10-24] MEDS: CYCLOBENZAPRINE HCL 10 MG TABLET PO SCH (09:29)
[2017-10-24] MEDS: AMLODIPINE BESYLATE 10 MG TABLET PO SCH (09:31)
[2017-10-24] MEDS: ASPIRIN 81 MG TABLET, CHEWABLE PO SCH (09:32)
[2017-10-24] MEDS: CARVEDILOL 6.25 MG TABLET PO SCH (09:33)
[2017-10-24] MEDS: ISOSORBIDE MONONITRATE 60 MG TAB.ER.24H PO SCH (09:34)
[2017-10-24] MEDS: DOCUSATE SODIUM 100 MG CAPSULE PO SCH (09:34)
[2017-10-24] MEDS: LISINOPRIL 10 MG TABLET PO SCH (09:36)
[2017-10-24] MEDS: MULTIVITAMIN TABLET PO SCH (09:36)
[2017-10-24] MEDS: CARBOXYMETHYLCELLULOSE SOD 0.5% 0.4 ML DROPERETTE OU SCH (10:46)
[2017-10-24] MEDS: FAMOTIDINE 20 MG TABLET PO SCH (10:47)
[2017-10-24] MEDS ORDERED: POTASSIUM CHLORIDE 10 MEQ TABLET.SA PO SCH (14:00)
--- NOTE | 2017-10-24 14:11 | PDOC DISCHARGE SUMMARY ---
General - Admit/Disc Date/PCP Admission Date/Primary Care Provider: 10/22/17 11:06 Discharge Date: 10/24/17 - Discharge Diagnosis (1) Hypertensive urgency Is this a current diagnosis for this admission?: Yes (2) Coronary artery disease Is this a current diagnosis for this admission?: Yes (3) Esophageal spasm Is this a current diagnosis for this admission?: No (4) H/O aortic valve replacement with porcine valve Is this a current diagnosis for this admission?: Yes (5) Systolic and diastolic CHF, acute on chronic Is this a current diagnosis for this admission?: Yes - Additional Information Resuscitation Status: Full Code Discharge Diet: Cardiac, Other (Comments) - 2 g sodium restriction. Discharge Activity: Activity As Tolerated, Balance Activity w/Rest, Weigh Daily Home Medications: Alprazolam [Xanax 0.5 mg Tablet] 0.5 mg PO QHS 10/22/17 Aspirin [Aspirin 81 mg Chewable Tablet] 81 mg PO DAILY 10/22/17 Carboxymethylcellulose Sodium [Refresh Tears] 2 drop OU QID 10/22/17 Carvedilol [Coreg 6.25 mg Tablet] 6.25 mg PO Q12 10/22/17 Diphenhydramine HCl [Benadryl] 25 mg PO Q6HP PRN 10/22/17 Isosorbide Mononitrate [Imdur 60 mg Tablet.er] 60 mg PO DAILY 10/22/17 Mag Hydrox/Al Hydrox/Simeth [Maalox Suspension] 30 ml PO Q6HP PRN 10/22/17 Metoclopramide HCl [Reglan] 10 mg PO DAILYP PRN 10/22/17 Multivitamin [Tab-A-Cecilia] 1 tab PO DAILY 10/22/17 Oxycodone HCl/Acetaminophen [Percocet 5-325 mg Tablet] 1 tab PO Q6HP PRN Primidone [Mysoline 50 mg Tablet] 50 mg PO QHS 10/22/17 Ranitidine HCl [Zantac 150 mg Tablet] 150 mg PO BID 10/22/17 Simethicone [Genasyme] 160 mg PO Q8HP PRN 10/22/17 Trazodone HCl [Desyrel 50 mg Tablet] 75 mg PO QHS 10/22/17 Amlodipine Besylate [Norvasc 10 mg Tablet] 10 mg PO DAILY tablet 10/24/17 Furosemide [Lasix 40 mg Tablet] 40 mg PO DAILY tablet 10/24/17 Lisinopril [Prinivil 10 mg Tablet] 20 mg PO DAILY tablet 10/24/17 Magnesium Oxide [Mag-Ox 400 mg Tablet] 400 mg PO DAILY tablet 10/24/17 Potassium Chloride [Klor-Con 10 Meq Tablet.sa] 20 meq PO DAILY tablet.sa Primidone [Mysoline 50 mg Tablet] 50 mg PO QHS tablet 10/24/17 History of Present Illness History of Present Illness: The patient is an 86-year-old gentleman who was admitted on October 22 with shortness of breath and leg swelling. He resides in [place] [facility]. In the emergency room evaluation revealed an elevated blood pressure and BNP and chest x-ray findings consistent with CHF. He was given 80 mg of IV Lasix and admitted. He was diagnosed with hypertensive urgency and CHF exacerbation. Echocardiogram was done his left ventricular ejection fraction was found to be 45-50% with some apical wall akinesis and diastolic dysfunction. He was diuresed with IV Lasix and CHF education was also provided. Blood pressure medications were adjusted. He was started on amlodipine and lisinopril as well. Lasix dose was increased from 20 mg daily to 40 mg p.o. daily. Potassium chloride 20 mEq daily was also added to his regimen. He is doing well and is ready for discharge. He is to follow-up with his primary care physician in 1 week. Basic metabolic panel check in 1 week. Hospital Course Hospital Course: See above. Physical Exam Vital Signs: Temp Pulse Resp BP Pulse Ox 98.4 F 71 14 120/57 L 95 10/24/17 03:09 10/24/17 12:24 10/24/17 12:24 10/24/17 03:09 10/24/17 12:24 Intake & Output 10/23/17 10/24/17 10/25/17 06:59 06:59 06:59 Intake Total 980 1902 Output Total 3300 2252 Balance -2320 -350 Weight 101.8 kg 101.5 kg General appearance: PRESENT: no acute distress Ear exam: PRESENT: normal external ear exam Mouth exam: PRESENT: neck supple Respiratory exam: PRESENT: clear to auscultation jeremy, symmetrical, unlabored Cardiovascular exam: PRESENT: RRR GI/Abdominal exam: PRESENT: soft. ABSENT: tenderness Results Laboratory Results: 10/23/17 02:35 10/24/17 04:20 10/24/17 04:20 Sodium 140.0 Potassium 3.6 Chloride 100 Carbon Dioxide 30 Anion Gap 10 BUN 21 H Creatinine 0.76 Est GFR ( Amer) > 60 Est GFR (Non-Af Amer) > 60 Glucose 101 Calcium 8.7 Magnesium 2.0 10/22/17 10/22/17 10/23/17 15:00 20:33 02:35 Troponin I 0.029 0.036 0.028 NT-Pro-B Natriuret Pep 10/24/17 04:20 Troponin I NT-Pro-B Natriuret Pep 2390 H Impressions: Chest X-Ray 10/22/17 08:37 IMPRESSION: Congestive heart failure. Qualifiers - * PATEINT BEING DISCHARGED WITH ANY OF THE FOLLOWING DIAGNOSIS?: No MT Pt being discharged on Aspirin therapy?: Yes MT Pt being discharged on Statins?: Yes HF Pt being discharged on ACEI for LVEF less than 40%?: Yes HF Pt being discharged on ARBS for LVEF less than 40%?: Yes HF Pt with Afib discharged with Warfarin?: No Reason(s) for not prescribing Warfarin:: Not indicated HF Pt discharged on evidence-based Beta Alexa:: Yes
[2017-10-25] MEDS ORDERED: FUROSEMIDE 40 MG TABLET PO SCH (10:00)
[2017-10-25] MEDS ORDERED: MAGNESIUM OXIDE 400 MG TABLET PO SCH (10:00)
== END 2017-10-24 15:30 | disposition short-term general hospital (02) | DRG 304 ==
LOC: ER 08:14 → EH 11:06 → 4N 14:30
PROVIDERS: ADMIT Emergency Medicine; ATTEND Emergency Medicine
PROC: 3E0F73Z Introduction of Anti-inflammatory into Respiratory Tract, Via Natural or Artificial Opening (ICD-10-PCS; principal; 2017-10-22)
DX: I16.0 Hypertensive urgency (principal); I50.43 Acute on chronic combined systolic (congestive) and diastolic (congestive) heart failure; I25.10 Atherosclerotic heart disease of native coronary artery without angina pectoris; K22.4 Dyskinesia of esophagus; I11.0 Hypertensive heart disease with heart failure; E78.00 Pure hypercholesterolemia, unspecified; K21.9 Gastro-esophageal reflux disease without esophagitis; M47.892 Other spondylosis, cervical region; F32.9 Major depressive disorder, single episode, unspecified; I25.2 Old myocardial infarction; Z95.2 Presence of prosthetic heart valve; Z98.42 Cataract extraction status, left eye; Z98.41 Cataract extraction status, right eye; Z79.82 Long term (current) use of aspirin; Z79.899 Other long term (current) drug therapy; Z90.49 Acquired absence of other specified parts of digestive tract; Z95.1 Presence of aortocoronary bypass graft; Z95.0 Presence of cardiac pacemaker; Z87.891 Personal history of nicotine dependence; Z82.49 Family history of ischemic heart disease and other diseases of the circulatory system; Z82.3 Family history of stroke; Z80.9 Family history of malignant neoplasm, unspecified
CPT/HCPCS: 36415; 71045; 80048; 80053; 81001; 82550; 82553; 82803; 83735; 83880; 84484; 85025; 87040; 93005; 93010; 93306; 96374; 99291; G8978-GP; G8979-GP; J0360; J1644; J1940; J3490

== ENCOUNTER 2017-10-25 04:33 | Observation (INO) | payer MEDICARE, MEDICAID ==
[2017-10-25] MEDS ORDERED: ONDANSETRON HCL INJ/PF 4 MG/2 ML SDV IV ONE (06:10)
--- NOTE | 2017-10-25 06:17 | ER Document Report ---
ED General - General Chief Complaint: Urinary Problem Stated Complaint: NAUSEA/VOMITING Time Seen by Provider: 10/25/17 06:02 Mode of Arrival: Medic Information source: Patient TRAVEL OUTSIDE OF THE [place] IN LAST 30 DAYS: No - HPI Notes: 86-year-old male who was discharged from this hospital yesterday after compensated heart failure exacerbation presents with vomiting and abdominal pain. Patient resides in an assisted living. Describes onset around 2 AM of diffuse mid and lower abdominal pain as well as vomiting, multiple episodes, food and fluids, no coffee grounds or hematemesis. Brought by EMS and received prehospital Zofran. Patient's pain is poorly described, cannot radiate. No diarrhea, last bowel movement was yesterday. During his patient course she underwent extensive diuresis. Denies any fever, chills or sweats. No cough, no significant dyspnea, no chest pain. No other modifying factors, no other associated symptoms, no other provocative or palliative factors. - Related Data Allergies/Adverse Reactions: No Known Allergies Allergy (Verified 03/06/17 11:46) Past Medical History - Social History Smoking Status: Former Smoker Chew tobacco use (# tins/day): No Frequency of alcohol use: None Drug Abuse: None Family History: Reviewed & Not Pertinent, CAD, CVA, Malignancy Patient has suicidal ideation: No Patient has homicidal ideation: No - Past Medical History Cardiac Medical History: Reports: Hx Congestive Heart Failure, Hx Coronary Artery Disease, Hx Heart Attack - x2, Hx Hypercholesterolemia, Hx Hypertension Denies: Hx Atrial Fibrillation, Hx DVT, Hx Peripheral Vascular Disease, Hx Pulmonary Embolism, Hx Heart Murmur Pulmonary Medical History: Denies: Hx Asthma, Hx COPD Neurological Medical History: Denies: Hx Cerebrovascular Accident, Hx Seizures Endocrine Medical History: Denies: Hx Diabetes Mellitus Type 1, Hx Diabetes Mellitus Type 2, Hx Hyperthyroidism, Hx Hypothyroidism Renal/ Medical History: Denies: Hx Benign Prostatic Hyperplasia, Hx End Stage Renal Disease, Hx Kidney Stones, Hx Peritoneal Dialysis GI Medical History: Reports: Hx Diverticulitis, Hx Gastroesophageal Reflux Disease. 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, Denies Hx Fibromyalgia, Denies Hx Multiple Sclerosis, Denies Hx Muscular Dystrophy Skin Medical History: Denies Hx Eczema, Denies Hx Psoriasis Psychiatric Medical History: Reports: Hx Depression Denies: Hx Dementia Traumatic Medical History: Denies: Hx Fractures Infectious Medical History: Denies: Hx Hepatitis Past Surgical History: Reports: Hx Appendectomy, Hx Cardiac Surgery - Bypass surgery, Hx Cholecystectomy, Hx Coronary Artery Bypass Graft - x5, 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 Denies: Hx Bowel Surgery, Hx Colostomy, Hx Gastric Bypass Surgery, Hx Herniorrhaphy, Hx Tonsillectomy - Immunizations Immunizations up to date: Yes Hx Diphtheria, Pertussis, Tetanus Vaccination: No Review of Systems - Review of Systems Constitutional: See HPI Cardiovascular: No symptoms reported Respiratory: No symptoms reported Gastrointestinal: See HPI Genitourinary: No symptoms reported Musculoskeletal: No symptoms reported Hematologic/Lymphatic: No symptoms reported Neurological/Psychological: No symptoms reported -: Yes All other systems reviewed and negative Physical Exam - Vital signs Vitals: Temp Pulse Resp BP Pulse Ox 97.6 F 71 20 155/59 H 94 10/25/17 04:37 10/25/17 04:37 10/25/17 04:37 10/25/17 04:37 10/25/17 04:37 - General In distress: Mild - HEENT Head: Normocephalic Eyes: Normal Conjunctiva: Normal Extraocular movements intact: Yes Pupils: PERRL Mucous membranes: Dry Pharynx: Normal Neck: Normal - Respiratory Respiratory status: No respiratory distress Breath sounds: Decreased air movement - Cardiovascular Rhythm: Regular Heart sounds: Normal auscultation Murmur: No - Abdominal Distension: No distension Tenderness: Tender Notes: Mild diffuse abdominal tenderness, no tympany, no distention - Back Back: No: Vertebra tenderness - Extremities General lower extremity: Other - 1+ pedal edema - Neurological Neuro grossly intact: Yes Course - Re-evaluation Re-evalutation: This is an elderly male patient presents with vomiting and abdominal pain. Broad differential diagnosis would include early or evolving obstruction, diverticulitis, less likely vascular emergency would certainly consider. May be related underlying metabolic or endocrine emergency. Plan to proceed with basic laboratory evaluation, acute abdominal series, antiemetics, reevaluate. Labs reviewed, CBC unremarkable, chemistries unremarkable except for elevated BUN to creatinine ratio. Urinalysis pending at the time of dictation. Acute abdominal series is obtained and shows possible evidence of small bowel obstruction. This is discussed with the on-call surgeon who requested an oral and IV contrast CT. This was obtained and shows evidence of a likely partial small bowel obstruction. After discussed with the on-call surgeon would like to proceed with admission to the medical service. Patient was admitted as discussed. NG tube is attempted to be placed. Receiving judicious IV fluids given his heart failure history. He has had no recurrent vomiting. - Vital Signs Vital signs: Temp Pulse Resp BP Pulse Ox 97.6 F 71 20 155/59 H 94 10/25/17 04:37 10/25/17 04:37 10/25/17 04:37 10/25/17 04:37 10/25/17 04:37 - Laboratory Result Diagrams: 10/25/17 06:30 10/25/17 06:30 Laboratory results interpreted by me: 10/25/17 10/25/17 10/25/17 06:30 06:30 08:10 WBC 11.3 H RDW 15.8 H Seg Neutrophils % 84.7 H Lymphocytes % 9.3 L Absolute Neutrophils 9.5 H Chloride 97 L Carbon Dioxide 38 H BUN 35 H Glucose 144 H Urine Protein 30 H Urine Bilirubin MODERATE H Urine Urobilinogen 8.0 H Ur Leukocyte Esterase LARGE H Urine Ascorbic Acid 20 H - EKG Interpretation by Me Additional EKG results interpreted by me: 10/25/17 06:27 Twelve-lead ECG shows ventricular paced complex with appropriately widened QRS, normal rate. Discharge - Discharge Clinical Impression: Bowel obstruction Condition: Serious Disposition: ADMITTED OBSERVATION Admitting Provider: Hospitalist Unit Admitted: Telemetry
[2017-10-25 06:52] LABS: ABSOLUTE MONOCYTES (AUTO) 0.6 10^3/uL (0.1-1.4); ABSOLUTE NEUT (AUTO) 9.5 10^3/uL (1.7-8.2); BASOPHILS % (AUTO) 0.3 % (0-2); EOSINOPHILS % (AUTO) 0.2 % (0-6); HEMATOCRIT 44.1 % (37.9-51.0); HEMOGLOBIN 14.4 g/dL (13.5-17.0); LYMPHOCYTES % (AUTO) 9.3 % (13-45); MEAN CORPUSCULAR HEMOGLOBIN 28.7 pg (27.0-33.4); MEAN CORPUSCULAR HGB CONC 32.7 g/dL (32.0-36.0); MEAN CORPUSCULAR VOLUME 88 fl (80-97); MONOCYTES % (AUTO) 5.5 % (3-13); PLATELET COUNT 409 10^3/uL (150-450); RED BLOOD COUNT 5.04 10^6/uL (4.35-5.55); RED CELL DISTRIBUTION WIDTH 15.8 % (11.5-14.0); SEGMENTED NEUTROPHILS % (AUTO) 84.7 % (42-78); TOTAL CELLS COUNTED % (AUTO) 100 %; WHITE BLOOD COUNT 11.3 10^3/uL (4.0-10.5)
[2017-10-25 07:10] LABS: ALANINE AMINOTRANSFERASE 22 U/L (21-72); ALBUMIN 3.5 g/dL (3.5-5.0); ALKALINE PHOSPHATASE 83 U/L (38-126); ANION GAP 6 (5-19); ASPARTATE AMINO TRANSFERASE 31 U/L (17-59); BILIRUBIN,DIRECT 0.1 mg/dL (0.0-0.4); BILIRUBIN,TOTAL 0.4 mg/dL (0.2-1.3); BLOOD UREA NITROGEN 35 mg/dL (7-20); CALCIUM 8.9 mg/dL (8.4-10.2); CARBON DIOXIDE 38 mmol/L (22-30); CHLORIDE 97 mmol/L (98-107); GLUCOSE 144 mg/dL (75-110); POTASSIUM 4.4 mmol/L (3.6-5.0); TOTAL PROTEIN 7.2 g/dL (6.3-8.2)
--- NOTE | 2017-10-25 07:24 | RADIOLOGY REPORT (SQ) ---
EXAM DESCRIPTION: ACUTE ABDOMEN SERIES CLINICAL HISTORY: 86 years, Male, Vomiting and abdominal pain COMPARISON: 3.. LIMITATIONS: None. FINDINGS: Small bibasilar opacity-fusion, mild interstitial markings, normal cardiac silhouette, atherosclerosis, upper abdominal surgical clips, left cardiac stimulation device and leads, and sternotomy. Total hip arthroplasty. Dilated loops of small bowel in the left paracentral abdomen measuring up to 6.1 cm in diameter. Nonspecific bowel dilation the mid abdomen measures 10.8 cm in diameter. IMPRESSION: Moderate bowel dilation of the mid and left paracentral abdomen; differential diagnosis includes moderate grade small bowel obstruction.
--- NOTE | 2017-10-25 07:47 | EKG REPORT ---
SEVERITY:- ABNORMAL ECG - AFIB/FLUT AND V-PACED COMPLEXES : Confirmed by: Dean Saravia MD 25-Oct-2017 07:45:57
[2017-10-25 09:10] LABS: COLOR,URINE DARK YELLOW
[2017-10-25 09:11] LABS: APPEARANCE,URINE SLIGHTLY HAZY; BILIRUBIN,URINE MODERATE (NEGATIVE); GLUCOSE, URINE NEGATIVE (NEGATIVE); KETONES,URINE NEGATIVE (NEGATIVE); LEUKOCYTE ESTERASE,URINE LARGE (NEGATIVE); NITRITE,URINE NEGATIVE (NEGATIVE); PROTEIN,URINE 30 mg/dL (NEGATIVE)
--- NOTE | 2017-10-25 11:34 | RADIOLOGY REPORT (SQ) ---
EXAM DESCRIPTION: CT ABD/PELVIS WITH IV ORAL COMPLETED DATE/TIME: 10/25/2017 11:11 am REASON FOR STUDY: Possible SBO COMPARISON: Three-way abdomen series 10/25/2017 CT abdomen pelvis 11/22/2016 TECHNIQUE: CT scan of the abdomen and pelvis performed using helical scanning technique with dynamic intravenous contrast injection. Patient drank oral contrast. Images reviewed with lung, soft tissue , and bone windows. Reconstructed coronal and sagittal MPR images reviewed. Delayed images for evalua tion of the urinary system also acquired. All images stored on PACS. All CT scanners at this facility use dose modulation, iterative reconstruction, and/or weight based d osing when appropriate to reduce radiation dose to as low as reasonably achievable (ALARA). [facility]: Dose Right [facility]: CareDose [facility]: Dose Right [facility]: Teradose 4D [facility]: Sweeten CONTRAST TYPE AND DOSE: contrast/concentration: Isovue mg/ml; Total Contrast Delivered: 100.0 ml; T otal Saline Delivered: 70.0 ml RENAL FUNCTION: Creatinine 1.1 RADIATION DOSE: CT Rad equipment meets quality standard of care and radiation dose reduction techniq ues were employed. CTDIvol: 18.7 - 20.9 mGy. DLP: 2272 mGy-cm.. LIMITATIONS: None. FINDINGS: Patient drank oral contrast which is in distended stomach and proximal jejunal loops. . There is a left upper quadrant transition between dilated and nondilated small bowel, with left upper quadrant small bowel surgical clips present. There is a small amount of oral contrast in nondilated mid small bowel. No oral contrast in decompre ssed distal small bowel or colon. Findings are worrisome for proximal partial small bowel obstruction. Consider follow-up KUB to asses s antegrade motion of contrast later today. LOWER CHEST: Trace bilateral pleural effusions are present with bibasilar atelectasis. Old sternotom y, aortic valve, pacemaker. LIVER: Normal size. There is air in left-sided intrahepatic bile ducts, similar compared to 7 from sphincterotomy or biliary-enteric anastomosis. 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 Small recurrent splenules in the l eft upper quadrant on coronal images 58-62. PANCREAS: No masses. No significant calcifications. No adjacent inflammation or peripancreatic fluid collections. Pancreatic duct not dilated. GALLBLADDER: Surgically absent ADRENAL GLANDS: No significant masses or asymmetry. RIGHT KIDNEY AND URETER: No solid masses. Multiple cysts, largest is 9 cm right lower pole kidney. No significant calcifications. No hydronephrosis or hydroureter. LEFT KIDNEY AND URETER: No solid masses. 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 No significant calcifications. No hydronephrosis or hydroureter. AORTA AND VESSELS: Very heavily calcified abdominal aorta and iliac vessels without high-grade SMA or celiac artery stenosis. Heavily calcified right renal artery proximally. Left renal artery unremar kable. Inferior mesenteric artery patent. RETROPERITONEUM: No retroperitoneal adenopathy, hemorrhage or masses. BOWEL AND PERITONEAL CAVITY: As above. Findings are worrisome for proximal partial small bowel obstr uction. Sigmoid diverticuli without CT signs of acute diverticulitis. Free intraperitoneal air or f luid. APPENDIX: Not identified. No inflammation along the cecum PELVIS: No mass. No free fluid. Montiel catheter in the bladder. Penile implant present ABDOMINAL WALL: No masses. No hernias. BONES: Old right hip replacement OTHER: No other significant finding. IMPRESSION: Evidence of surgery in the left upper quadrant splenectomy and bowel anastomosis. There is dilatation of the stomach and proximal small bowel out of proportion to mid and distal small anahi l/ colon. Findings are worrisome for partial proximal small bowel obstruction. TECHNICAL DOCUMENTATION: JOB ID: [id number] Quality ID # [id number]: Final reports with documentation of one or more dose reduction techniques (e.g., Au tomated exposure control, adjustment of the mA and/or kV according to patient size, use of iterative reconstruction technique) 2010 [employer]- All Rights Reserved Reading location - IP/workstation name: [email or web address]
--- NOTE | 2017-10-25 12:58 | PDOC CONSULTATION ---
Consultation Consult Date: 10/25/17 Consult reason:: SBO History of Present Illness Admission Date/PCP: MEAR IZQUIERDO NP Patient complains of: Difficulty voiding followed by abdominal pains with vomiting History of Present Illness: PEACE FRAGA is a 86 year old male who was discharged around 4pm yesterday to [place]. Unable to void until around 2 am when he then c/o abdominal pains asso with N/V then brought to ED where a silva was inserted and felt a lot better afterwards. Had CT abdomen with po contrast showing possible obstruction area proximal small bowel. Last BM was 2 days ago. Has history of constipation. 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 Past Medical History Cardiac Medical History: Reports: Congestive Heart Failure, Coronary Artery Disease, Myocardial Infarction - x2, Hyperlipidema, Hypertension Denies: Atrial Fibrillation, DVT, Peripheral Vascular Disease, Pulmonary Embolism, Heart Murmur Pulmonary Medical History: Denies: Asthma, Chronic Obstructive Pulmonary Disease (COPD) Neurological Medical History: Denies: Seizures Endocrine Medical History: Denies: Diabetes Mellitus Type 1, Diabetes Mellitus Type 2, Hyperthyroidism, Hypothyroidism Renal/ Medical History: Denies: End Stage Renal Disease Malignancy Medical History: Denies: Breast Cancer, Cervical Cancer, Ovarian Cancer GI Medical History: Reports: Diverticulitis, Gastroesophageal Reflux Disease Denies: Cirrhosis, Crohn's Disease, Hepatitis, Hiatal Hernia Musculoskeltal Medical History: Reports: Arthritis - neck Denies: Fibromyalgia Skin Medical History: Denies: Eczema, Psoriasis Psychiatric Medical History: Reports: Depression Denies: Dementia Past Surgical History Past Surgical History: Reports: Appendectomy, Cholecystectomy, Coronary Artery Bypass Graft - x5, Orthopedic Surgery - back, Pacemaker, Valve Replacement - 2015 tvar, Other - partial gastr'y for PUD; separation of horseshoe kidney; bilat cataract Denies: Colostomy, Gastric Bypass Surgery, Herniorrhaphy, Tonsillectomy Social History Smoking Status: Former Smoker Frequency of Alcohol Use: None Hx Recreational Drug Use: No Drugs: None Hx Prescription Drug Abuse: No Family History Family History: Reviewed & Not Pertinent, CAD, CVA, DM, Malignancy Parental Family History Reviewed: Yes - mother had DM and had bilateral leg amputations.Father had CVA Children Family History Reviewed: No Sibling(s) Family History Reviewed.: No Medication/Allergy Home Medications: Alprazolam [Xanax 0.5 mg Tablet] 0.5 mg PO QHS 10/22/17 Aspirin [Aspirin 81 mg Chewable Tablet] 81 mg PO DAILY 10/22/17 Carboxymethylcellulose Sodium [Refresh Tears] 2 drop OU QID 10/22/17 Carvedilol [Coreg 6.25 mg Tablet] 6.25 mg PO Q12 10/22/17 Diphenhydramine HCl [Benadryl] 25 mg PO Q6HP PRN 10/22/17 Isosorbide Mononitrate [Imdur 60 mg Tablet.er] 60 mg PO DAILY 10/22/17 Mag Hydrox/Al Hydrox/Simeth [Maalox Suspension] 30 ml PO Q6HP PRN 10/22/17 Metoclopramide HCl [Reglan] 10 mg PO DAILYP PRN 10/22/17 Multivitamin [Tab-A-Cecilia] 1 tab PO DAILY 10/22/17 Oxycodone HCl/Acetaminophen [Percocet 5-325 mg Tablet] 1 tab PO Q6HP PRN Primidone [Mysoline 50 mg Tablet] 50 mg PO QHS 10/22/17 Ranitidine HCl [Zantac 150 mg Tablet] 150 mg PO BID 10/22/17 Simethicone [Genasyme] 160 mg PO Q8HP PRN 10/22/17 Trazodone HCl [Desyrel 50 mg Tablet] 75 mg PO QHS 10/22/17 Amlodipine Besylate [Norvasc 10 mg Tablet] 10 mg PO DAILY tablet 10/24/17 Furosemide [Lasix 40 mg Tablet] 40 mg PO DAILY tablet 10/24/17 Lisinopril [Prinivil 10 mg Tablet] 20 mg PO DAILY tablet 10/24/17 Magnesium Oxide [Mag-Ox 400 mg Tablet] 400 mg PO DAILY tablet 10/24/17 Potassium Chloride [Klor-Con 10 Meq Tablet.sa] 20 meq PO DAILY tablet.sa Primidone [Mysoline 50 mg Tablet] 50 mg PO QHS tablet 10/24/17 Allergies/Adverse Reactions: No Known Allergies Allergy (Verified 03/06/17 11:46) Review of Systems Constitutional: PRESENT: other - denies fever/chills Ears: PRESENT: other - no visual/hearing problems Cardiovascular: PRESENT: other - no chest pains Respiratory: PRESENT: other - no cough Gastrointestinal: PRESENT: abdominal pain, constipation, nausea, vomiting Genitourinary: PRESENT: difficulty urinating Musculoskeletal: PRESENT: other - no back pains Integumentary: PRESENT: other - no rash Neurological: PRESENT: other - no seizures Endocrine: PRESENT: other - no polyuria Hematologic/Lymphatic: PRESENT: other - no easy bruising Physical Exam Vital Signs: Temp Pulse Resp BP Pulse Ox 97.6 F 71 20 155/59 H 94 10/25/17 04:37 10/25/17 04:37 10/25/17 04:37 10/25/17 04:37 10/25/17 04:37 Intake & Output 10/24/17 10/25/17 10/26/17 06:59 06:59 06:59 Weight 103.873 kg General appearance: PRESENT: no acute distress Head exam: PRESENT: atraumatic Eye exam: PRESENT: conjunctiva pink Mouth exam: PRESENT: moist Neck exam: PRESENT: full ROM Respiratory exam: PRESENT: clear to auscultation jeremy Cardiovascular exam: PRESENT: RRR Pulses: PRESENT: normal radial pulses Vascular exam: PRESENT: normal capillary refill Rectal exam: PRESENT: deferred Gentrourinary exam: PRESENT: indwelling catheter Extremities exam: PRESENT: full ROM Musculoskeletal exam: PRESENT: ambulatory Neurological exam: PRESENT: alert, oriented to person, oriented to place, oriented to time, oriented to situation Psychiatric exam: PRESENT: appropriate affect Skin exam: PRESENT: normal color, warm Results Laboratory Results: 10/25/17 06:30 10/25/17 06:30 10/25/17 10/25/17 10/25/17 06:30 06:30 08:10 WBC 11.3 H RBC 5.04 Hgb 14.4 Hct 44.1 MCV 88 MCH 28.7 MCHC 32.7 RDW 15.8 H Plt Count 409 Seg Neutrophils % 84.7 H Lymphocytes % 9.3 L Monocytes % 5.5 Eosinophils % 0.2 Basophils % 0.3 Absolute Neutrophils 9.5 H Absolute Lymphocytes 1.0 Absolute Monocytes 0.6 Absolute Eosinophils 0.0 Absolute Basophils 0.0 Sodium 141.0 Potassium 4.4 Chloride 97 L Carbon Dioxide 38 H Anion Gap 6 BUN 35 H Creatinine 1.14 Est GFR ( Amer) > 60 Est GFR (Non-Af Amer) > 60 Glucose 144 H Calcium 8.9 Total Bilirubin 0.4 AST 31 ALT 22 Alkaline Phosphatase 83 Total Protein 7.2 Albumin 3.5 Urine Color DARK YELLOW Urine Appearance SLIGHTLY HAZY Urine pH 5.0 Ur Specific [place] 1.020 Urine Protein 30 H Urine Glucose (UA) NEGATIVE Urine Ketones NEGATIVE Urine Blood NEGATIVE Urine Nitrite NEGATIVE Ur Leukocyte Esterase LARGE H Urine WBC (Auto) 11 Urine RBC (Auto) 2 10/25/17 06:30 Troponin I 0.016 Impressions: Acute Abdomen Series 10/25/17 06:10 IMPRESSION: Moderate bowel dilation of the mid and left paracentral abdomen; differential diagnosis includes moderate grade small bowel obstruction. 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 There is dilatation of the stomach and proximal small bowel out of proportion to mid and distal small bowel/ colon. Findings are worrisome for partial proximal small bowel obstruction. Assessment & Plan - Diagnosis (1) Bowel obstruction Is this a current diagnosis for this admission?: Yes (2) CHF (congestive heart failure) Qualifiers: Heart failure chronicity: acute Is this a current diagnosis for this admission?: Yes (4) Coronary artery disease Qualifiers: Coronary Disease-Associated Artery/Lesion type: unspecified vessel or lesion type Associated angina: angina presence unspecified Is this a current diagnosis for this admission?: Yes (6) Hypertension Qualifiers: Hypertension type: essential hypertension Qualified Code(s): I10 - Essential (primary) hypertension Is this a current diagnosis for this admission?: Yes (7) UTI (urinary tract infection) Qualifiers: Urinary tract infection type: site unspecified Hematuria presence: with hematuria Qualified Code(s): N39.0 - Urinary tract infection, site not specified Is this a current diagnosis for this admission?: Yes (8) Stented coronary artery Is this a current diagnosis for this admission?: Yes - Time Time Spent: 30 to 50 Minutes - Inpatient Certification Medical Necessity: Significant Comorbidiites Make Outpatient Treatment Too Risky , Need For IV Fluids, Need For Continuous Telemetry Monitoring, Risk of Complication if Not Cared For in Hospital - Plan Summary Plan Summary: Place NGT Follow up KUB later today to see if dye has moved down to colon Needs Urology evaluation Gentle hydration because of history of CHF Will follow with you. Not impressed with physical abdominal findings. Suspect patient will improve without surgery.
[2017-10-25] MEDS ORDERED: PHARMACY COMMUNICATION ORDER MC NR (13:00)
[2017-10-25] MEDS ORDERED: ENOXAPARIN SODIUM INJ 40 MG/0.4 ML DISP.SYRIN SUBCUT ONE (15:00)
--- NOTE | 2017-10-25 17:14 | RADIOLOGY REPORT (SQ) ---
EXAM DESCRIPTION: KUB/ABDOMEN (SINGLE VIEW) COMPLETED DATE/TIME: 10/25/2017 4:58 pm REASON FOR STUDY: partial SBO COMPARISON: 10/25/2017. NUMBER OF VIEWS: One view. TECHNIQUE: Supine radiographic image of the abdomen acquired. LIMITATIONS: None. FINDINGS: BOWEL GAS PATTERN: Again seen is dilated gas-filled proximal small bowel. Contrast is pre sent in the colon which is not dilated. CALCIFICATIONS: No suspicious calcifications. SOFT TISSUES: No gross mass or suggestion of organomegaly. HARDWARE: Multiple surgical clips in the upper abdomen. Right hip prosthesis. Cardiac hardware. 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 Penile prosthesis. BONES: No acute fracture. No worrisome bone lesions. OTHER: No other significant finding. IMPRESSION: DILATED PROXIMAL SMALL BOWEL, UNCHANGED. CONTRAST IS PRESENT IN THE COLON WHICH IS NOND ILATED. TECHNICAL DOCUMENTATION: JOB ID: [id number] [employer]- All Rights Reserved Reading location - IP/workstation name: [email or web address]
[2017-10-25] MEDS ORDERED: DEXTROSE 5%-NORMAL SALINE 1,000 ML IV PRN (19:48)
[2017-10-25] MEDS ORDERED: METOPROLOL TARTRATE PF/INJ 5 MG/5 ML SDV IV PRN (20:17)
--- NOTE | 2017-10-25 20:35 | PDOC H&P ---
History of Present Illness Admission Date/PCP: 10/25/17 13:05 MERA IZQUIERDO NP Patient complains of: Abdominal pain History of Present Illness: 86-year-old male with history of CHF, CAD status post CABG, recently admitted for CHF exacerbation and diuresed and discharged yesterday to assisted living facility. Patient presents today with complaint of abdominal pain at the facilities, nausea and episode of vomiting. No blood in vomitus. Patient reports no bowel movement for 3 days. He passes gas but not significantly. He denies rectal bleeding. Denies recent weight loss. 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 He has never had Bowel obstruction in the past. In the ED, KUB concerning for small bowel obstruction. CT of the abdomen and pelvis with contrast also reviewed this. Surgery was consulted and recommended admitting medical service. NG tube attempted, but we are unable. Past Medical History Cardiac Medical History: Reports: Congestive Heart Failure, Coronary Artery Disease, Myocardial Infarction - x2, Hyperlipidema, Hypertension Denies: Atrial Fibrillation, DVT, Peripheral Vascular Disease, Pulmonary Embolism, Heart Murmur Pulmonary Medical History: Denies: Asthma, Chronic Obstructive Pulmonary Disease (COPD) Neurological Medical History: Denies: Seizures Endocrine Medical History: Denies: Diabetes Mellitus Type 1, Diabetes Mellitus Type 2, Hyperthyroidism, Hypothyroidism Renal/ Medical History: Denies: End Stage Renal Disease Malignancy Medical History: Denies: Breast Cancer, Cervical Cancer, Ovarian Cancer GI Medical History: Reports: Diverticulitis, Gastroesophageal Reflux Disease Denies: Cirrhosis, Crohn's Disease, Hepatitis, Hiatal Hernia Musculoskeltal Medical History: Reports: Arthritis - neck Denies: Fibromyalgia Skin Medical History: Denies: Eczema, Psoriasis Psychiatric Medical History: Reports: Depression Denies: Dementia Past Surgical History Past Surgical History: Reports: Appendectomy, Cholecystectomy, Coronary Artery Bypass Graft - x5, Orthopedic Surgery - back, Pacemaker, Valve Replacement - 2015 tvar, Other - partial gastr'y for PUD; separation of horseshoe kidney; bilat cataract Denies: Colostomy, Gastric Bypass Surgery, Herniorrhaphy, Tonsillectomy Social History Smoking Status: Former Smoker Frequency of Alcohol Use: None Hx Recreational Drug Use: No Drugs: None Hx Prescription Drug Abuse: No - Advance Directive Resuscitation Status: Do Not Resuscitate Family History Family History: Reviewed & Not Pertinent, CAD, CVA, Malignancy Parental Family History Reviewed: Yes Children Family History Reviewed: Yes Sibling(s) Family History Reviewed.: Yes Medication/Allergy Home Medications: Acetaminophen [Mapap] 500 mg PO Q4HP PRN 10/25/17 Alprazolam [Xanax] 0.5 mg PO QHS 10/25/17 Aspirin [Aspirin 81 mg Chewable Tablet] 81 mg PO DAILY 10/25/17 Carboxymethylcellulose Sodium [Refresh Tears] 2 drop OU QID 10/25/17 Carvedilol [Coreg 6.25 mg Tablet] 6.25 mg PO Q12 10/25/17 Diphenhydramine HCl [Diphenhist] 25 mg PO Q6HP PRN 10/25/17 Furosemide [Lasix 20 mg Tablet] 20 mg PO QAM 10/25/17 Guaifenesin [Tussin Mucus-Chest Congestion] 10 ml PO Q6HP PRN 10/25/17 Isosorbide Mononitrate [Imdur 60 mg Tablet.er] 60 mg PO DAILY 10/25/17 Loperamide HCl [Loperamide] 2 mg PO ASDIR PRN 10/25/17 Mag Hydrox/Aluminum Hyd/Simeth [Antacid Plus Anti-Gas Susp] 30 ml PO Q6HP PRN Magnesium Hydroxide [Milk of Magnesia 30 ml Udcup] 30 ml PO HSP PRN 10/25/17 Metoclopramide HCl [Reglan 10 mg Tablet] 10 mg PO DAILY 10/25/17 Multivitamin [Multiple Vitamins] 1 tab PO DAILY 10/25/17 Oxycodone HCl/Acetaminophen [Percocet 5-325 mg Tablet] 1 tab PO Q6HP PRN Primidone [Mysoline 50 mg Tablet] 50 mg PO QPM 10/25/17 Ranitidine HCl [Zantac 150 mg Tablet] 150 mg PO BID 10/25/17 Simethicone [Genasyme] 160 mg PO Q8HP PRN 10/25/17 Trazodone HCl [Desyrel 50 mg Tablet] 75 mg PO QHS 10/25/17 Allergies/Adverse Reactions: No Known Allergies Allergy (Verified 03/06/17 11:46) Physical Exam Vital Signs: Temp Pulse Resp BP Pulse Ox 97.6 F 66 18 139/51 H 94 10/25/17 16:26 10/25/17 17:26 10/25/17 16:26 10/25/17 16:26 10/25/17 16:26 Intake & Output 10/24/17 10/25/17 10/26/17 06:59 06:59 06:59 Output Total 650 Balance -650 Weight 100.7 kg GENERAL: Well-developed, no acute distress HEENT: Normocephalic/atraumatic NECK: Supple, no JVD CARDIOVASCULAR: RRR, normal S1-S2 LUNGS: CTA bilaterally ABDOMEN: Soft, NT, NL bowel sounds EXTREMITIES: No edema, clubbing, cyanosis NEUROLOGICAL: Alert, oriented x 3, nonfocal Results EKG Comments: 10/25/17 10/25/17 10/25/17 06:30 06:30 08:10 WBC 11.3 H RBC 5.04 Hgb 14.4 Hct 44.1 MCV 88 MCH 28.7 MCHC 32.7 RDW 15.8 H Plt Count 409 Seg Neutrophils % 84.7 H Lymphocytes % 9.3 L Monocytes % 5.5 Eosinophils % 0.2 Basophils % 0.3 Absolute Neutrophils 9.5 H Absolute Lymphocytes 1.0 Absolute Monocytes 0.6 Absolute Eosinophils 0.0 Absolute Basophils 0.0 Sodium 141.0 Potassium 4.4 Chloride 97 L Carbon Dioxide 38 H Anion Gap 6 BUN 35 H Creatinine 1.14 Est GFR ( Amer) > 60 Est GFR (Non-Af Amer) > 60 Glucose 144 H Calcium 8.9 Total Bilirubin 0.4 AST 31 ALT 22 Alkaline Phosphatase 83 Total Protein 7.2 Albumin 3.5 Urine Color DARK YELLOW Urine Appearance SLIGHTLY HAZY Urine pH 5.0 Ur Specific [place] 1.020 Urine Protein 30 H Urine Glucose (UA) NEGATIVE Urine Ketones NEGATIVE Urine Blood NEGATIVE Urine Nitrite NEGATIVE Ur Leukocyte Esterase LARGE H Urine WBC (Auto) 11 Urine RBC (Auto) 2 Impressions: Acute Abdomen Series 10/25/17 06:10 IMPRESSION: Moderate bowel dilation of the mid and left paracentral abdomen; differential diagnosis includes moderate grade small bowel obstruction. 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 There is dilatation of the stomach and proximal small bowel out of proportion to mid and distal small bowel/ colon. Findings are worrisome for partial proximal small bowel obstruction. KUB X-Ray 10/25/17 18:00 IMPRESSION: DILATED PROXIMAL SMALL BOWEL, UNCHANGED. CONTRAST IS PRESENT IN THE COLON WHICH IS NONDILATED. Assessment & Plan - Diagnosis (1) Bowel obstruction Qualifiers: Intestinal obstruction extent: unspecified extent Is this a current diagnosis for this admission?: Yes Plan: Small bowel obstruction. We will admit to 24 hours of admission. Surgical consult appreciated. Patient will be made n.p.o. for now. We will treat with gentle IV fluid D5-1/2 NS low dose at 50 mL/h given history of CHF. Monitor for CHF. (3) Coronary artery disease Qualifiers: Coronary Disease-Associated Artery/Lesion type: unspecified vessel or lesion type Associated angina: angina presence unspecified Is this a current diagnosis for this admission?: Yes Plan: No chest pain at this time. (4) Coronary artery disease Qualifiers: Coronary Disease-Associated Artery/Lesion type: unspecified vessel or lesion type [place] vs. transplanted heart: [place] heart (5) Hypertension Qualifiers: Hypertension type: essential hypertension Qualified Code(s): I10 - Essential (primary) hypertension Is this a current diagnosis for this admission?: Yes Plan: Monitor blood pressures.
[2017-10-25] MEDS: DEXTROSE 5%-1/2 NORMAL SALINE 1,000 ML IV PRN (21:43)
--- NOTE | 2017-10-26 09:31 | RADIOLOGY REPORT (SQ) ---
EXAM DESCRIPTION: KUB/ABDOMEN (SINGLE VIEW) COMPLETED DATE/TIME: 10/26/2017 9:00 am REASON FOR STUDY: Partial SBO COMPARISON: CT abdomen pelvis 10/25/2017 Abdominal films 10/25/2017 0704 hours, 10/25/2017 1653 hours NUMBER OF VIEWS: One view. TECHNIQUE: Supine radiographic image of the abdomen acquired. LIMITATIONS: None. FINDINGS: BOWEL GAS PATTERN: Oral contrast given for CT exam 10/25/2017 at 1040 hours has moved into the colon. Colon nondistended. There are persistent dilated left upper quadrant small bowel loops. Distal small bowel appears decom pressed. This most likely represents a partial small bowel obstruction CALCIFICATIONS: Subcentimeter right lower pole intrarenal nonobstructive stone. Calcified pelvic phl eboliths. SOFT TISSUES: No gross mass or suggestion of organomegaly. HARDWARE: Clips right upper quadrant post cholecystectomy. Surgical clips at the stomach post partia l gastrectomy, possibly a [place] 2 BONES: Osteoporotic with right hip replacement OTHER: No other significant finding. IMPRESSION: Oral contrast given for CT exam 10/25/2017 at 1040 hours has moved into the colon. Persistent dilatation of left upper quadrant small bowel loops, likely indicates a partial small anahi l obstruction TECHNICAL DOCUMENTATION: JOB ID: [id number] [employer]- All Rights Reserved Reading location - IP/workstation name: [email or web address]
[2017-10-26] MEDS: ENOXAPARIN SODIUM INJ 40 MG/0.4 ML DISP.SYRIN SUBCUT SCH (10:33)
[2017-10-26] MEDS ORDERED: DIPHENHYDRAMINE HCL 50 MG/ML VIAL IV PRN (10:38)
[2017-10-26] MEDS ORDERED: MAGNESIUM HYDROXIDE SUSP 30 ML UDCUP PO PRN (20:23)
[2017-10-26] MEDS ORDERED: MAG HYDROX/AL HYDROX/SIMETH SUSP 30 ML UDCUP PO PRN (20:23)
[2017-10-26] MEDS ORDERED: GUAIFENESIN SYRP 200 MG/10 ML UDC PO PRN (20:23)
[2017-10-26] MEDS ORDERED: SIMETHICONE 80 MG TAB.CHEW PO PRN (20:23)
[2017-10-26] MEDS ORDERED: ACETAMINOPHEN 325 MG TABLET PO PRN (20:23)
[2017-10-26] MEDS ORDERED: DIPHENHYDRAMINE HCL 25 MG CAPSULE PO PRN (20:23)
--- NOTE | 2017-10-26 20:23 | PDOC PROGRESS REPORT ---
Subjective Progress Note for:: 10/26/17 Subjective:: Doing better, no nausea or vomiting. Passing gas. Has not had no bowel movement, but states has been eaten couple of days. No fever or chills, no chest pain or shortness of breath or palpitations. Reason For Visit: PARTIAL SBO Physical Exam Vital Signs: Temp Pulse Resp BP Pulse Ox 97.6 F 69 16 175/50 H 91 L 10/26/17 12:06 10/26/17 14:00 10/26/17 12:06 10/26/17 12:06 10/26/17 12:06 Intake & Output 10/25/17 10/26/17 10/27/17 06:59 06:59 06:59 Intake Total 0 360 Output Total 950 400 Balance -950 -40 Weight 100.7 kg GEN: NAD, well-developed, well-nourished CV: RRR, NL S1S2 LUNGS: CTA bilaterally ABDOMEN Soft, NT, +BS EXTERMITIES: No e/c/c NEURO: Alert, oriented 3, nonfocal Results Impressions: Acute Abdomen Series 10/25/17 06:10 IMPRESSION: Moderate bowel dilation of the mid and left paracentral abdomen; differential diagnosis includes moderate grade small bowel obstruction. 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 There is dilatation of the stomach and proximal small bowel out of proportion to mid and distal small bowel/ colon. Findings are worrisome for partial proximal small bowel obstruction. KUB X-Ray 10/26/17 00:00 IMPRESSION: Oral contrast given for CT exam 10/25/2017 at 1040 hours has moved into the colon. Persistent dilatation of left upper quadrant small bowel loops, likely indicates a partial small bowel obstruction Assessment & Plan - Diagnosis (1) Bowel obstruction Qualifiers: Intestinal obstruction extent: unspecified extent Is this a current diagnosis for this admission?: Yes Plan: Small bowel obstruction, partial. We will need to observe. Surgical consult appreciated--with Dr. Desai who recommended trial of clear liquid diet as patient with no nausea vomiting. We will continue with gentle IV fluid D5-1/2 NS, but decrease from 50 mL/h to 25 mg/h given history of CHF. Continue to monitor for CHF. (3) Coronary artery disease Qualifiers: Coronary Disease-Associated Artery/Lesion type: unspecified vessel or lesion type Associated angina: angina presence unspecified Is this a current diagnosis for this admission?: Yes Plan: No chest pain at this time. When he is on carvedilol, aspirin. (4) Hypertension Qualifiers: Hypertension type: essential hypertension Qualified Code(s): I10 - Essential (primary) hypertension Is this a current diagnosis for this admission?: Yes Plan: Monitor blood pressures.
[2017-10-26] MEDS: TRAZODONE HCL 50 MG TABLET PO SCH (21:46)
[2017-10-26] MEDS: ALPRAZOLAM 0.5 MG TABLET PO SCH (21:46)
[2017-10-26] MEDS ORDERED: CARBOXYMETHYLCELLULOSE SODIUM OU SCH (22:00)
[2017-10-26] MEDS ORDERED: CARVEDILOL 6.25 MG TABLET PO SCH (22:00)
--- NOTE | 2017-10-27 01:23 | PDOC PROGRESS REPORT ---
Subjective Progress Note for:: 10/26/17 Subjective:: No Pains. Passed Gas. No N/V Reason For Visit: PARTIAL SBO Physical Exam Vital Signs: Temp Pulse Resp BP Pulse Ox 97.6 F 66 16 117/55 L 95 10/26/17 19:57 10/26/17 19:57 10/26/17 19:57 10/26/17 19:57 10/26/17 19:57 Intake & Output 10/25/17 10/26/17 10/27/17 06:59 06:59 06:59 Intake Total 0 360 Output Total 950 400 Balance -950 -40 Weight 100.7 kg Exam: abdomen is soft and nontender Results Impressions: Acute Abdomen Series 10/25/17 06:10 IMPRESSION: Moderate bowel dilation of the mid and left paracentral abdomen; differential diagnosis includes moderate grade small bowel obstruction. 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 There is dilatation of the stomach and proximal small bowel out of proportion to mid and distal small bowel/ colon. Findings are worrisome for partial proximal small bowel obstruction. KUB X-Ray 10/26/17 00:00 IMPRESSION: Oral contrast given for CT exam 10/25/2017 at 1040 hours has moved into the colon. Persistent dilatation of left upper quadrant small bowel loops, likely indicates a partial small bowel obstruction Assessment & Plan - Diagnosis (1) Bowel obstruction Qualifiers: Intestinal obstruction extent: unspecified extent Is this a current diagnosis for this admission?: Yes (2) CHF (congestive heart failure) Qualifiers: Heart failure chronicity: acute Is this a current diagnosis for this admission?: Yes (4) Coronary artery disease Qualifiers: Coronary Disease-Associated Artery/Lesion type: unspecified vessel or lesion type Associated angina: angina presence unspecified Is this a current diagnosis for this admission?: Yes (6) Hypertension Qualifiers: Hypertension type: essential hypertension Qualified Code(s): I10 - Essential (primary) hypertension Is this a current diagnosis for this admission?: Yes (7) UTI (urinary tract infection) Qualifiers: Urinary tract infection type: site unspecified Hematuria presence: with hematuria Qualified Code(s): N39.0 - Urinary tract infection, site not specified Is this a current diagnosis for this admission?: Yes (8) Stented coronary artery Is this a current diagnosis for this admission?: Yes - Plan Summary Plan Summary: OK to try clears since dye is in the colon indicating no obstruction though still with some dilated small bowel. On further history obtained with his daughter at bedside, patient did eat at a fast food place and later took MOM because of "indigestion". May explain worsening of patient's initial symptoms that brought him back to the hospital. May also explain Xray findings.
[2017-10-27] MEDS: DEXTROSE 5%-1/2 NORMAL SALINE 1,000 ML IV PRN (05:07)
[2017-10-27 07:04] LABS: ABSOLUTE BASOPHILS # (AUTO) 0.1 10^3/uL (0.0-0.2); ABSOLUTE EOSINOPHILS # (AUTO) 0.2 10^3/uL (0.0-0.6); ABSOLUTE LYMPHOCYTES (AUTO) 1.5 10^3/uL (0.5-4.7); ABSOLUTE MONOCYTES (AUTO) 1.1 10^3/uL (0.1-1.4); ABSOLUTE NEUT (AUTO) 6.5 10^3/uL (1.7-8.2); HEMATOCRIT 39.6 % (37.9-51.0); HEMOGLOBIN 12.9 g/dL (13.5-17.0); LYMPHOCYTES % (AUTO) 16.1 % (13-45); MEAN CORPUSCULAR HEMOGLOBIN 28.6 pg (27.0-33.4); MEAN CORPUSCULAR HGB CONC 32.6 g/dL (32.0-36.0); MEAN CORPUSCULAR VOLUME 88 fl (80-97); PLATELET COUNT 349 10^3/uL (150-450); RED BLOOD COUNT 4.53 10^6/uL (4.35-5.55); RED CELL DISTRIBUTION WIDTH 15.3 % (11.5-14.0); SEGMENTED NEUTROPHILS % (AUTO) 68.9 % (42-78); TOTAL CELLS COUNTED % (AUTO) 100 %; WHITE BLOOD COUNT 9.4 10^3/uL (4.0-10.5)
[2017-10-27 07:23] LABS: BLOOD UREA NITROGEN 18 mg/dL (7-20); CALCIUM 8.4 mg/dL (8.4-10.2); CARBON DIOXIDE 33 mmol/L (22-30); CHLORIDE 102 mmol/L (98-107); GLUCOSE 119 mg/dL (75-110); POTASSIUM 4.1 mmol/L (3.6-5.0); SODIUM 138.6 mmol/L (137-145)
[2017-10-27 07:26] LABS: ANION GAP 4 (5-19)
--- NOTE | 2017-10-27 09:15 | RADIOLOGY REPORT (SQ) ---
EXAM DESCRIPTION: KUB/ABDOMEN (SINGLE VIEW) COMPLETED DATE/TIME: 10/27/2017 8:59 am REASON FOR STUDY: Partial sbo I10 ESSENTIAL (PRIMARY) HYPERTENSION COMPARISON: 10/26/2017 NUMBER OF VIEWS: One view. TECHNIQUE: Supine radiographic image of the abdomen acquired. LIMITATIONS: None. FINDINGS: BOWEL GAS PATTERN: Contrast in the distal colon. Decrease in caliber of the upper abdomin al small bowel loops. CALCIFICATIONS: No suspicious calcifications. SOFT TISSUES: No gross mass or suggestion of organomegaly. HARDWARE: Extensive surgical clips. BONES: Total hip placement on the right. OTHER: No other significant finding. IMPRESSION: Further improvement in the partial small bowel obstruction. TECHNICAL DOCUMENTATION: JOB ID: [id number] [employer]- All Rights Reserved Reading location - IP/workstation name: [email or web address]
--- NOTE | 2017-10-27 09:28 | PDOC PROGRESS REPORT ---
Subjective Progress Note for:: 10/27/17 Reason For Visit: PARTIAL SBO Patient has no complaints, Montiel catheter is still in; has had no flatus or bowel movement. No nausea and vomiting, tolerating clear liquids Physical Exam Vital Signs: Temp Pulse Resp BP Pulse Ox 98.4 F 57 L 18 142/59 H 92 10/27/17 04:12 10/27/17 07:00 10/27/17 04:12 10/27/17 04:12 10/27/17 04:12 Intake & Output 10/26/17 10/27/17 10/28/17 06:59 06:59 06:59 Intake Total 0 1135 Output Total 950 1450 Balance -950 -315 Weight 100.7 kg 100.7 kg General appearance: PRESENT: no acute distress GI/Abdominal exam: PRESENT: other - Soft, nontender no peritoneal signs no rigidity. Results Laboratory Results: 10/27/17 06:24 10/27/17 06:24 10/27/17 10/27/17 06:24 06:24 WBC 9.4 RBC 4.53 Hgb 12.9 L Hct 39.6 MCV 88 MCH 28.6 MCHC 32.6 RDW 15.3 H Plt Count 349 Seg Neutrophils % 68.9 Lymphocytes % 16.1 Monocytes % 12.0 Eosinophils % 2.0 Basophils % 1.0 Absolute Neutrophils 6.5 Absolute Lymphocytes 1.5 Absolute Monocytes 1.1 Absolute Eosinophils 0.2 Absolute Basophils 0.1 Sodium 138.6 Potassium 4.1 Chloride 102 Carbon Dioxide 33 H Anion Gap 4 L BUN 18 Creatinine 0.68 Est GFR ( Amer) > 60 Est GFR (Non-Af Amer) > 60 Glucose 119 H Calcium 8.4 Impressions: Acute Abdomen Series 10/25/17 06:10 IMPRESSION: Moderate bowel dilation of the mid and left paracentral abdomen; differential diagnosis includes moderate grade small bowel obstruction. 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 There is dilatation of the stomach and proximal small bowel out of proportion to mid and distal small bowel/ colon. Findings are worrisome for partial proximal small bowel obstruction. KUB X-Ray 10/27/17 00:00 IMPRESSION: Further improvement in the partial small bowel obstruction. Assessment & Plan - Diagnosis (1) Bowel obstruction Qualifiers: Intestinal obstruction extent: unspecified extent Is this a current diagnosis for this admission?: Yes Plan: Impression: Clinically the patient appears improved. He is tolerating a diet although he has not had any consistent bowel function. He does have a history of constipation. No clinical indication for further evaluation from a surgical standpoint Recommendations: 1. Advanced diet as tolerated; consider stool softener. 2. Surgery will sign off; reconsult if needed.
[2017-10-27] MEDS: CARVEDILOL 6.25 MG TABLET PO SCH ×2 (09:47→22:18)
[2017-10-27] MEDS: ISOSORBIDE MONONITRATE 60 MG TAB.ER.24H PO SCH (09:48)
[2017-10-27] MEDS: METOCLOPRAMIDE HCL 10 MG TABLET PO SCH (09:48)
[2017-10-27] MEDS: ASPIRIN 81 MG TABLET, CHEWABLE PO SCH (09:48)
[2017-10-27] MEDS: FAMOTIDINE 20 MG TABLET PO SCH ×2 (09:48→17:11)
[2017-10-27] MEDS: ENOXAPARIN SODIUM INJ 40 MG/0.4 ML DISP.SYRIN SUBCUT SCH (09:49)
[2017-10-27] MEDS ORDERED: CARBOXYMETHYLCELLULOSE SOD 0.5% 0.4 ML DROPERETTE OU SCH (10:00)
[2017-10-27] MEDS: PRIMIDONE 50 MG TABLET PO SCH (17:11)
[2017-10-27] MEDS: CARBOXYMETHYLCELLULOSE SOD 0.5% 0.4 ML DROPERETTE OU SCH ×2 (17:12→22:21)
--- NOTE | 2017-10-27 20:04 | PDOC PROGRESS REPORT ---
Subjective Progress Note for:: 10/27/17 Subjective:: Doing better, no nausea or vomiting, denies abdominal pain. Passing gas and had a large bowel movement earlier today. No fever or chills, no chest pain or shortness of breath or palpitations. Reason For Visit: PARTIAL SBO Physical Exam Vital Signs: Temp Pulse Resp BP Pulse Ox 97.7 F 63 16 141/58 H 95 10/27/17 15:39 10/27/17 15:39 10/27/17 15:39 10/27/17 15:39 10/27/17 15:39 Intake & Output 10/26/17 10/27/17 10/28/17 06:59 06:59 06:59 Intake Total 0 1135 300 Output Total 950 1450 500 Balance -950 -315 -200 Weight 100.7 kg 100.7 kg GEN: NAD, well-developed, well-nourished CV: RRR, NL S1S2 LUNGS: CTA bilaterally ABDOMEN Soft, NT, +BS EXTERMITIES: No e/c/c NEURO: Alert, oriented 3, nonfocal Results Laboratory Results: 10/27/17 06:24 10/27/17 06:24 10/27/17 10/27/17 06:24 06:24 WBC 9.4 RBC 4.53 Hgb 12.9 L Hct 39.6 MCV 88 MCH 28.6 MCHC 32.6 RDW 15.3 H Plt Count 349 Seg Neutrophils % 68.9 Lymphocytes % 16.1 Monocytes % 12.0 Eosinophils % 2.0 Basophils % 1.0 Absolute Neutrophils 6.5 Absolute Lymphocytes 1.5 Absolute Monocytes 1.1 Absolute Eosinophils 0.2 Absolute Basophils 0.1 Sodium 138.6 Potassium 4.1 Chloride 102 Carbon Dioxide 33 H Anion Gap 4 L BUN 18 Creatinine 0.68 Est GFR ( Amer) > 60 Est GFR (Non-Af Amer) > 60 Glucose 119 H Calcium 8.4 Impressions: Acute Abdomen Series 10/25/17 06:10 IMPRESSION: Moderate bowel dilation of the mid and left paracentral abdomen; differential diagnosis includes moderate grade small bowel obstruction. 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 There is dilatation of the stomach and proximal small bowel out of proportion to mid and distal small bowel/ colon. Findings are worrisome for partial proximal small bowel obstruction. KUB X-Ray 10/27/17 00:00 IMPRESSION: Further improvement in the partial small bowel obstruction. Assessment & Plan - Diagnosis (1) Bowel obstruction Qualifiers: Intestinal obstruction extent: unspecified extent Is this a current diagnosis for this admission?: Yes Plan: Small bowel obstruction, partial--appears improved. Surgical f/u appreciated by Dr. Desai who recommended advancing diet as tolerated. We will continue with gentle IV fluid D5-1/2 NS at 25 mg/h given history of CHF. Continue to monitor for CHF. Will advance to full liquid diet and advance as tolerated. DC IV fluid if tolerating p.o.'s. (2) Cardiac pacemaker in situ Is this a current diagnosis for this admission?: Yes (3) Coronary artery disease Qualifiers: Coronary Disease-Associated Artery/Lesion type: unspecified vessel or lesion type Associated angina: angina presence unspecified Is this a current diagnosis for this admission?: Yes Plan: No chest pain at this time. Continue on carvedilol, aspirin. (4) Hypertension Qualifiers: Hypertension type: essential hypertension Qualified Code(s): I10 - Essential (primary) hypertension Is this a current diagnosis for this admission?: Yes Plan: Monitor blood pressures. - Plan Summary Plan Summary: Possible discharge back to assisted after the weekend, on Sunday, if continues to improve on tolerating diet.
[2017-10-27] MEDS: TRAZODONE HCL 50 MG TABLET PO SCH (22:17)
[2017-10-27] MEDS: ALPRAZOLAM 0.5 MG TABLET PO SCH (22:17)
[2017-10-28 06:38] LABS: ABSOLUTE BASOPHILS # (AUTO) 0.1 10^3/uL (0.0-0.2); ABSOLUTE EOSINOPHILS # (AUTO) 0.2 10^3/uL (0.0-0.6); ABSOLUTE LYMPHOCYTES (AUTO) 1.7 10^3/uL (0.5-4.7); ABSOLUTE MONOCYTES (AUTO) 1.4 10^3/uL (0.1-1.4); ABSOLUTE NEUT (AUTO) 8.9 10^3/uL (1.7-8.2); BASOPHILS % (AUTO) 0.5 % (0-2); EOSINOPHILS % (AUTO) 1.4 % (0-6); HEMATOCRIT 36.9 % (37.9-51.0); HEMOGLOBIN 12.1 g/dL (13.5-17.0); LYMPHOCYTES % (AUTO) 13.9 % (13-45); MEAN CORPUSCULAR HEMOGLOBIN 28.3 pg (27.0-33.4); MEAN CORPUSCULAR HGB CONC 32.7 g/dL (32.0-36.0); MEAN CORPUSCULAR VOLUME 87 fl (80-97); MONOCYTES % (AUTO) 11.5 % (3-13); PLATELET COUNT 351 10^3/uL (150-450); RED BLOOD COUNT 4.27 10^6/uL (4.35-5.55); RED CELL DISTRIBUTION WIDTH 15.4 % (11.5-14.0); SEGMENTED NEUTROPHILS % (AUTO) 72.7 % (42-78); TOTAL CELLS COUNTED % (AUTO) 100 %; WHITE BLOOD COUNT 12.2 10^3/uL (4.0-10.5)
[2017-10-28 06:49] LABS: ANION GAP 7 (5-19); BLOOD UREA NITROGEN 14 mg/dL (7-20); CALCIUM 7.5 mg/dL (8.4-10.2); CARBON DIOXIDE 27 mmol/L (22-30); CHLORIDE 104 mmol/L (98-107); GLUCOSE 104 mg/dL (75-110); POTASSIUM 4.4 mmol/L (3.6-5.0); SODIUM 138.1 mmol/L (137-145)
[2017-10-28] MEDS: CARBOXYMETHYLCELLULOSE SOD 0.5% 0.4 ML DROPERETTE OU SCH ×4 (10:46→21:58)
[2017-10-28] MEDS: METOCLOPRAMIDE HCL 10 MG TABLET PO SCH (10:46)
[2017-10-28] MEDS: CARVEDILOL 6.25 MG TABLET PO SCH ×2 (10:46→21:56)
[2017-10-28] MEDS: FAMOTIDINE 20 MG TABLET PO SCH ×2 (10:46→17:03)
[2017-10-28] MEDS: ENOXAPARIN SODIUM INJ 40 MG/0.4 ML DISP.SYRIN SUBCUT SCH (10:46)
[2017-10-28] MEDS: ISOSORBIDE MONONITRATE 60 MG TAB.ER.24H PO SCH (10:47)
[2017-10-28] MEDS: ASPIRIN 81 MG TABLET, CHEWABLE PO SCH (10:47)
[2017-10-28] MEDS ORDERED: DOCUSATE SODIUM 100 MG CAPSULE PO ONE (12:00)
[2017-10-28] MEDS: DOCUSATE SODIUM 100 MG CAPSULE PO SCH (17:01)
[2017-10-28] MEDS: PRIMIDONE 50 MG TABLET PO SCH (17:03)
--- NOTE | 2017-10-28 17:10 | PDOC PROGRESS REPORT ---
Subjective Progress Note for:: 10/28/17 Subjective:: The patient is an extremely pleasant 86-year-old male with a past medical history significant for systolic and diastolic congestive heart failure and coronary artery disease status post CABG. The patient was recently admitted to our facility and treated for CHF exacerbation. He was discharged back to his assisted living facility but presented to the emergency room the next day with abdominal pain associated with nausea and vomiting. The patient had not had a bowel movement for at least 3 days but does was passing small amounts of gas. In the emergency room he was found to have evidence of a small bowel obstruction. Surgery was consulted and recommended admitting the patient to the medical service. An NG tube was attempted but was unable to be placed. Over the past 2 days the patient's small bowel obstruction seems to have resolved. The patient is now having regular bowel movements and his diet has been slowly advanced. Today when I saw him he is resting comfortably in the bed. He states he feels like he is back to his baseline. Unfortunately he cannot be discharged back to his assisted living facility today. Hopefully he can be discharged home tomorrow. He denies fever chills. No chest pain, shortness of breath or cough. No nausea, vomiting or diarrhea. He states that he has had several good bowel movements. He has no further abdominal pain. No urinary complaints. Reason For Visit: PARTIAL SBO Physical Exam Vital Signs: Temp Pulse Resp BP Pulse Ox 97.5 F 65 16 134/54 H 95 10/28/17 15:32 10/28/17 15:32 10/28/17 15:32 10/28/17 15:32 10/28/17 15:32 Intake & Output 10/27/17 10/28/17 10/29/17 06:59 06:59 06:59 Intake Total 1135 625 540 Output Total 1450 1050 300 Balance -315 -425 240 Weight 100.7 kg 100.1 kg General appearance: PRESENT: no acute distress, well-developed, well-nourished Head exam: PRESENT: atraumatic, normocephalic Mouth exam: PRESENT: moist, tongue midline Respiratory exam: PRESENT: clear to auscultation jeremy. ABSENT: rales, rhonchi, wheezes Cardiovascular exam: PRESENT: RRR. ABSENT: diastolic murmur, rubs, systolic murmur GI/Abdominal exam: PRESENT: normal bowel sounds, soft. ABSENT: distended, guarding, mass, organolmegaly, rebound, tenderness Extremities exam: PRESENT: full ROM. ABSENT: calf tenderness, clubbing, pedal edema Musculoskeletal exam: PRESENT: ambulatory Neurological exam: PRESENT: alert, awake, oriented to person, oriented to place , oriented to time, oriented to situation, CN II-XII grossly intact. ABSENT: motor sensory deficit Psychiatric exam: PRESENT: appropriate affect, normal mood. ABSENT: homicidal ideation, suicidal ideation Skin exam: PRESENT: dry, intact, warm. ABSENT: cyanosis, rash Results Laboratory Results: 10/28/17 06:11 10/28/17 06:11 10/28/17 10/28/17 06:11 06:11 WBC 12.2 H RBC 4.27 L Hgb 12.1 L Hct 36.9 L MCV 87 MCH 28.3 MCHC 32.7 RDW 15.4 H Plt Count 351 Seg Neutrophils % 72.7 Lymphocytes % 13.9 Monocytes % 11.5 Eosinophils % 1.4 Basophils % 0.5 Absolute Neutrophils 8.9 H Absolute Lymphocytes 1.7 Absolute Monocytes 1.4 Absolute Eosinophils 0.2 Absolute Basophils 0.1 Sodium 138.1 Potassium 4.4 Chloride 104 Carbon Dioxide 27 Anion Gap 7 BUN 14 Creatinine 0.55 Est GFR ( Amer) > 60 Est GFR (Non-Af Amer) > 60 Glucose 104 Calcium 7.5 L Impressions: Acute Abdomen Series 10/25/17 06:10 IMPRESSION: Moderate bowel dilation of the mid and left paracentral abdomen; differential diagnosis includes moderate grade small bowel obstruction. 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 There is dilatation of the stomach and proximal small bowel out of proportion to mid and distal small bowel/ colon. Findings are worrisome for partial proximal small bowel obstruction. KUB X-Ray 10/27/17 00:00 IMPRESSION: Further improvement in the partial small bowel obstruction. Assessment & Plan - Diagnosis (1) Partial small bowel obstruction Is this a current diagnosis for this admission?: Yes Plan: Resolving. I am going to place him back on a regular cardiac diet and will see how he does over the next 24 hours. 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 No evidence of decompensation. (3) Coronary artery disease Is this a current diagnosis for this admission?: Yes Plan: Continue home regimen. No complaints of chest pain. (4) Anemia Is this a current diagnosis for this admission?: Yes Plan: He had a precipitous drop in hemoglobin at the time of admission after admission likely due to hemodilution. His hemoglobin is stable (5) Cardiac pacemaker in situ Is this a current diagnosis for this admission?: Yes Plan: No issues during this hospitalization (6) Hypertension Qualifiers: Hypertension type: essential hypertension Qualified Code(s): I10 - Essential (primary) hypertension Is this a current diagnosis for this admission?: Yes Plan: Stable (7) Do not resuscitate Is this a current diagnosis for this admission?: Yes - Time Time Spent with patient: 25-34 minutes - Inpatient Certification Medical Necessity: Other - Inpatient hospitalization remains necessary for disposition. If the patient tolerates his diet overnight he likely will be stable for transitioning back to his assisted living facility tomorrow.
[2017-10-28] MEDS: ALPRAZOLAM 0.5 MG TABLET PO SCH (21:56)
[2017-10-28] MEDS: TRAZODONE HCL 50 MG TABLET PO SCH (21:57)
[2017-10-29 06:07] LABS: ABSOLUTE BASOPHILS # (AUTO) 0.1 10^3/uL (0.0-0.2); ABSOLUTE EOSINOPHILS # (AUTO) 0.2 10^3/uL (0.0-0.6); ABSOLUTE LYMPHOCYTES (AUTO) 1.6 10^3/uL (0.5-4.7); ABSOLUTE NEUT (AUTO) 6.1 10^3/uL (1.7-8.2); BASOPHILS % (AUTO) 0.9 % (0-2); EOSINOPHILS % (AUTO) 2.3 % (0-6); HEMATOCRIT 36.9 % (37.9-51.0); HEMOGLOBIN 12.4 g/dL (13.5-17.0); MEAN CORPUSCULAR HEMOGLOBIN 29.2 pg (27.0-33.4); MEAN CORPUSCULAR HGB CONC 33.7 g/dL (32.0-36.0); MEAN CORPUSCULAR VOLUME 87 fl (80-97); MONOCYTES % (AUTO) 11.5 % (3-13); PLATELET COUNT 366 10^3/uL (150-450); RED BLOOD COUNT 4.26 10^6/uL (4.35-5.55); RED CELL DISTRIBUTION WIDTH 15.3 % (11.5-14.0); SEGMENTED NEUTROPHILS % (AUTO) 67.3 % (42-78); TOTAL CELLS COUNTED % (AUTO) 100 %; WHITE BLOOD COUNT 9.1 10^3/uL (4.0-10.5)
[2017-10-29 06:30] LABS: ANION GAP 8 (5-19); BLOOD UREA NITROGEN 18 mg/dL (7-20); CALCIUM 8.8 mg/dL (8.4-10.2); CARBON DIOXIDE 24 mmol/L (22-30); CHLORIDE 107 mmol/L (98-107); GLUCOSE 105 mg/dL (75-110); POTASSIUM 4.6 mmol/L (3.6-5.0); SODIUM 138.8 mmol/L (137-145)
[2017-10-29] MEDS: ASPIRIN 81 MG TABLET, CHEWABLE PO SCH (10:28)
[2017-10-29] MEDS: ISOSORBIDE MONONITRATE 60 MG TAB.ER.24H PO SCH (10:28)
[2017-10-29] MEDS: ENOXAPARIN SODIUM INJ 40 MG/0.4 ML DISP.SYRIN SUBCUT SCH (10:28)
[2017-10-29] MEDS: METOCLOPRAMIDE HCL 10 MG TABLET PO SCH (10:28)
[2017-10-29] MEDS: FAMOTIDINE 20 MG TABLET PO SCH (10:28)
[2017-10-29] MEDS: DOCUSATE SODIUM 100 MG CAPSULE PO SCH (10:28)
[2017-10-29] MEDS: CARVEDILOL 6.25 MG TABLET PO SCH (10:30)
[2017-10-29] MEDS: CARBOXYMETHYLCELLULOSE SOD 0.5% 0.4 ML DROPERETTE OU SCH ×2 (10:30→15:22)
--- NOTE | 2017-10-29 10:53 | PDOC TRANSFER SUMMARY ---
General - Admit/Disc Date/PCP Admission Date/Primary Care Provider: 10/25/17 13:05 MERA IZQUIERDO NP Discharge Date: 10/29/17 - Discharge Diagnosis (1) Bowel obstruction Is this a current diagnosis for this admission?: Yes Summary: During his admission surgery was consulted and recommended medical management. NG tube was attempted but unsuccessful. During his admission he has progressed well. 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 Is this a current diagnosis for this admission?: Yes Summary: stable on current regiment (3) Coronary artery disease Is this a current diagnosis for this admission?: Yes Summary: stable (4) Do not resuscitate Is this a current diagnosis for this admission?: Yes Summary: Discussed with Patient - Additional Information Resuscitation Status: Do Not Resuscitate Discharge Diet: As Tolerated Discharge Activity: Activity As Tolerated Prescriptions: Alprazolam [Xanax 0.5 mg Tablet] 0.5 mg PO QHS 30 Days #30 tablet Oxycodone HCl/Acetaminophen [Percocet 5-325 mg Tablet] 1 tab PO Q6HP PRN 5 Days #20 tablet PRN Reason: For Pain Home Medications: Acetaminophen [Mapap] 500 mg PO Q4HP PRN 10/25/17 Furosemide [Lasix 20 mg Tablet] 20 mg PO QAM 10/25/17 Loperamide HCl [Loperamide] 2 mg PO ASDIR PRN 10/25/17 Multivitamin [Multiple Vitamins] 1 tab PO DAILY 10/25/17 Alprazolam [Xanax 0.5 mg Tablet] 0.5 mg PO QHS 30 Days #30 tablet 10/29/17 Aspirin [Aspirin 81 mg Chewable Tablet] 81 mg PO DAILY tab.chew 10/29/17 Carboxymethylcellulose Sodium [Refresh Plus 0.5% Oph Soln 0.4 ml Droperette] 2 drop OU QID droperette 10/29/17 Carvedilol [Coreg 6.25 mg Tablet] 6.25 mg PO Q12 tablet 10/29/17 Famotidine [Pepcid 20 mg Tablet] 20 mg PO BID tablet 10/29/17 Isosorbide Mononitrate [Imdur 60 mg Tablet.er] 60 mg PO DAILY tab.er.24h Magnesium Hydroxide [Milk of Magnesia 30 ml Udcup] 30 ml PO HSP PRN udc Oxycodone HCl/Acetaminophen [Percocet 5-325 mg Tablet] 1 tab PO Q6HP PRN 5 Days #20 tablet 10/29/17 Primidone [Mysoline 50 mg Tablet] 50 mg PO QPM #0 tablet 10/29/17 Trazodone HCl [Desyrel 50 mg Tablet] 75 mg PO QHS tablet 10/29/17 History of Present Illness Admission Date/PCP: 10/25/17 13:05 MERA IZQUIERDO NP Patient complains of: Initially presented with complaint of abdominal pain History of Present Illness: *6 y/o male admitted for acute onset of abdominal pain. Surgical services was consulted and felt medical management for SBO was warranted. During his admission he has returned to his baseline functioning. He has been able to tolerate a cardiac diet without difficulty. Physical Exam Vital Signs: Temp Pulse Resp BP Pulse Ox 98.9 F 65 20 152/56 H 97 10/29/17 07:51 10/29/17 07:51 10/29/17 07:51 10/29/17 07:51 10/29/17 07:51 Intake & Output 10/28/17 10/29/17 10/30/17 06:59 06:59 06:59 Intake Total 625 780 Output Total 1050 950 Balance -425 -170 Weight 100.1 kg 100.6 kg General appearance: PRESENT: no acute distress, well-developed, well-nourished Head exam: PRESENT: atraumatic, normocephalic Neck exam: ABSENT: carotid bruit, JVD, lymphadenopathy, thyromegaly Respiratory exam: PRESENT: clear to auscultation jeremy. ABSENT: rales, rhonchi, wheezes Cardiovascular exam: PRESENT: RRR. ABSENT: diastolic murmur, rubs, systolic murmur Pulses: PRESENT: normal dorsalis pedis pul GI/Abdominal exam: PRESENT: normal bowel sounds, soft. ABSENT: distended, guarding, mass, organolmegaly, rebound, tenderness Extremities exam: PRESENT: full ROM. ABSENT: calf tenderness, clubbing, pedal edema Neurological exam: PRESENT: alert, awake, oriented to person, oriented to place , oriented to time, oriented to situation, CN II-XII grossly intact. ABSENT: motor sensory deficit Results Laboratory Results: 10/29/17 05:21 10/29/17 05:21 10/29/17 10/29/17 05:21 05:21 WBC 9.1 RBC 4.26 L Hgb 12.4 L Hct 36.9 L MCV 87 MCH 29.2 MCHC 33.7 RDW 15.3 H Plt Count 366 Seg Neutrophils % 67.3 Lymphocytes % 18.0 Monocytes % 11.5 Eosinophils % 2.3 Basophils % 0.9 Absolute Neutrophils 6.1 Absolute Lymphocytes 1.6 Absolute Monocytes 1.0 Absolute Eosinophils 0.2 Absolute Basophils 0.1 Sodium 138.8 Potassium 4.6 Chloride 107 Carbon Dioxide 24 Anion Gap 8 BUN 18 Creatinine 0.69 Est GFR ( Amer) > 60 Est GFR (Non-Af Amer) > 60 Glucose 105 Calcium 8.8 Magnesium 2.1 Impressions: Acute Abdomen Series 10/25/17 06:10 IMPRESSION: Moderate bowel dilation of the mid and left paracentral abdomen; differential diagnosis includes moderate grade small bowel obstruction. 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 There is dilatation of the stomach and proximal small bowel out of proportion to mid and distal small bowel/ colon. Findings are worrisome for partial proximal small bowel obstruction. KUB X-Ray 10/27/17 00:00 IMPRESSION: Further improvement in the partial small bowel obstruction. Transfer Plan - Disposition Transfer Plan: SNF Qualifiers - * [facility] BEING DISCHARGED WITH ANY OF THE FOLLOWING DIAGNOSIS?: Heart Failure HF Pt being discharged on ACEI for LVEF less than 40%?: No Reason(s) for not prescribing ACEI:: Procedure not indicated HF Pt being discharged on ARBS for LVEF less than 40%?: No Reason(s) for not prescribing ARBS:: Procedure not indicated HF Pt with Afib discharged with Warfarin?: No Reason(s) for not prescribing Warfarin:: Procedure not indicated HF Pt discharged on evidence-based Beta Alexa:: Yes Plan Time Spent: Greater than 30 Minutes
[2017-10-29 13:28] VITALS: BP 154/45
== END 2017-10-29 16:01 | disposition short-term general hospital (02) ==
LOC: ER 04:33 → EH 13:05 → 4S 16:12 → 4W 10-29 07:41
PROVIDERS: ADMIT Internal Medicine; ATTEND Internal Medicine
DX: K56.609 Unspecified intestinal obstruction, unspecified as to partial versus complete obstruction (principal); I11.0 Hypertensive heart disease with heart failure; I50.42 Chronic combined systolic (congestive) and diastolic (congestive) heart failure; N39.0 Urinary tract infection, site not specified; I25.2 Old myocardial infarction; Z95.818 Presence of other cardiac implants and grafts; Z95.1 Presence of aortocoronary bypass graft; Z66 Do not resuscitate
CPT/HCPCS: 93005; 99285; 51702; 96374; 36415 ×4; 83735; 85025 ×4; 80048 ×3; 80053; 81001; 84484; 74022; 74018 ×3; 74177; 93010; G0378 ×6; A9270 ×23; J1200; J1650 ×4; J3490 ×5; J2405

== ENCOUNTER 2017-11-06 16:05 | Emergency (ER) | payer MEDICARE, MEDICAID ==
[2017-11-06 16:46] VITALS: BP 175/60
--- NOTE | 2017-11-06 17:12 | RADIOLOGY REPORT (SQ) ---
EXAM DESCRIPTION: ACUTE ABDOMEN SERIES COMPLETED DATE/TIME: 11/06/2017 4:59 pm REASON FOR STUDY: constipation COMPARISON: 10/27/2017. NUMBER OF VIEWS: Three views. TECHNIQUE: Frontal chest, supine abdomen and upright/decubitus abdomen radiographic images acquired. LIMITATIONS: None. FINDINGS: CHEST: Lungs clear of infiltrates. FREE AIR: None. No abnormal gas collections. BOWEL GAS PATTERN: Stable dilated small bowel in the left side of the abdomen with scattered air-flui d levels. CALCIFICATIONS: No suspicious calcifications. HARDWARE: Numerous surgical clips in the upper abdomen. SOFT TISSUES: No gross mass or suggestion of organomegaly. BONES: No acute fracture. No worrisome bone lesions. OTHER: No other significant finding. IMPRESSION: NO CHANGE IN APPEARANCE OF THE ABDOMEN. TECHNICAL DOCUMENTATION: JOB ID: [id number] [employer]- All Rights Reserved Reading location - IP/workstation name: [email or web address]
[2017-11-06] MEDS ORDERED: MAGNESIUM CITRATE 296 ML BOTTLE PO ONE (18:30)
--- NOTE | 2017-11-06 20:38 | ER Document Report ---
ED General - General Chief Complaint: Constipation Stated Complaint: CONSTIPATION Time Seen by Provider: 11/06/17 16:29 TRAVEL OUTSIDE OF THE [place] IN LAST 30 DAYS: No - HPI Patient complains to provider of: Constipation Notes: Patient coming in for evaluation of constipation states decreased bowel movements over the last week. Patient states he is at local nursing facility was given laxative along with MiraLAX however has not had a bowel movement since that time since last bowel movement for 3 days ago. Patient denies abdominal pain nausea vomiting fevers chills. Resting comfortably upon my evaluation states history of constipation - Related Data Allergies/Adverse Reactions: No Known Allergies Allergy (Verified 11/06/17 16:26) Past Medical History - Social History Smoking Status: Former Smoker Chew tobacco use (# tins/day): No Frequency of alcohol use: None Drug Abuse: None Family History: Reviewed & Not Pertinent, CAD, CVA, Malignancy Patient has suicidal ideation: No Patient has homicidal ideation: No - Past Medical History Cardiac Medical History: Reports: Hx Congestive Heart Failure, Hx Coronary Artery Disease, Hx Heart Attack - x2, Hx Hypercholesterolemia, Hx Hypertension Denies: Hx Atrial Fibrillation, Hx DVT, Hx Peripheral Vascular Disease, Hx Pulmonary Embolism, Hx Heart Murmur Pulmonary Medical History: Denies: Hx Asthma, Hx COPD Neurological Medical History: Denies: Hx Cerebrovascular Accident, Hx Seizures Endocrine Medical History: Denies: Hx Diabetes Mellitus Type 1, Hx Diabetes Mellitus Type 2, Hx Hyperthyroidism, Hx Hypothyroidism Renal/ Medical History: Denies: Hx Benign Prostatic Hyperplasia, Hx End Stage Renal Disease, Hx Kidney Stones, Hx Peritoneal Dialysis GI Medical History: Reports: Hx Diverticulitis, Hx Gastroesophageal Reflux Disease. 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, Denies Hx Fibromyalgia, Denies Hx Multiple Sclerosis, Denies Hx Muscular Dystrophy Skin Medical History: Denies Hx Eczema, Denies Hx Psoriasis Psychiatric Medical History: Reports: Hx Depression Denies: Hx Dementia Traumatic Medical History: Denies: Hx Fractures Infectious Medical History: Denies: Hx Hepatitis Past Surgical History: Reports: Hx Abdominal Surgery - Bleeding ulcer; mass, Hx Appendectomy, Hx Cardiac Surgery - CABGx5; Aortic valve replacement, Hx Cholecystectomy, Hx Coronary Artery Bypass Graft - x5, 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 Denies: Hx Bowel Surgery, Hx Colostomy, Hx Gastric Bypass Surgery, Hx Herniorrhaphy, Hx Tonsillectomy - Immunizations Immunizations up to date: Yes Hx Diphtheria, Pertussis, Tetanus Vaccination: No Review of Systems - Review of Systems Constitutional: No symptoms reported EENT: No symptoms reported Cardiovascular: No symptoms reported Respiratory: No symptoms reported Gastrointestinal: Abdominal pain, Constipation Genitourinary: No symptoms reported Male Genitourinary: No symptoms reported Musculoskeletal: No symptoms reported Skin: No symptoms reported Hematologic/Lymphatic: No symptoms reported Neurological/Psychological: No symptoms reported -: Yes All other systems reviewed and negative Physical Exam - Vital signs Vitals: Resp Pulse Ox 16 93 11/06/17 16:09 11/06/17 16:09 Interpretation: Normal - General General appearance: Appears well, Alert - HEENT Head: Normocephalic, Atraumatic Eyes: Normal Pupils: PERRL - Respiratory Respiratory status: No respiratory distress Chest status: Nontender Breath sounds: Normal Chest palpation: Normal - Cardiovascular Rhythm: Regular Heart sounds: Normal auscultation Murmur: No - Abdominal Inspection: Normal Distension: No distension Bowel sounds: Normal Tenderness: Nontender Organomegaly: No organomegaly - Rectal Notes: Light brown stool on examination no signs of impaction. - Back Back: Normal, Nontender - Extremities General upper extremity: Normal inspection, Nontender, Normal color, Normal ROM , Normal temperature General lower extremity: Normal inspection, Nontender, Normal color, Normal ROM , Normal temperature, Normal weight bearing. No: Capo's sign - Neurological Neuro grossly intact: Yes Cognition: Normal Orientation: AAOx4 [place] Coma Scale Eye Opening: Spontaneous [place] Coma Scale Verbal: Oriented [place] Coma Scale Motor: Obeys Commands [place] Coma Scale Total: 15 Speech: Normal Motor strength normal: LUE, RUE, LLE, RLE Sensory: Normal - Psychological Associated symptoms: Normal affect, Normal mood - Skin Skin Temperature: Warm Skin Moisture: Dry Skin Color: Normal Course - Re-evaluation Re-evalutation: 11/06/17 22:35 Your evaluation today shows signs of constipation on the x-ray. Patient was given a fleets enema along with a bottle mag citrate and did have a moderate amount of stool in the bedside commode. Patient otherwise has soft abdomen no signs of septicemia any other significant conditions patient will be discharged back to his nursing facility The patient presents with constipation without signs of peritonitis or other life-threatening or serious etiology. The patient appears stable for discharge and has been instructed to return immediately if the symptoms worsen in any way, or in 8-12hr if not improved for re-evaluation. The patient has been instructed to return if the symptoms worsen or change in any way. - Vital Signs Vital signs: Temp Pulse Resp BP Pulse Ox 98.1 F 13 175/60 H 90 L 11/06/17 16:20 11/06/17 20:22 11/06/17 16:11 11/06/17 20:22 Discharge - Discharge Clinical Impression: Constipation Qualifiers: Constipation type: unspecified constipation type Qualified Code(s): K59.00 - Constipation, unspecified Condition: Good Disposition: HOME, SELF-CARE Instructions: Constipation ([facility]) Additional Instructions: You were given a enema tonight along with a bottle of mag citrate. This will more likely continue to move her bowels for the next 24-48 hours. Follow-up with your doctor to adjust your bowel preparation to help you with your chronic constipation.
== END 2017-11-06 22:00 | disposition home or self-care (01) ==
LOC: ER 16:05
DX: K59.00 Constipation, unspecified (principal); I50.9 Heart failure, unspecified; I25.10 Atherosclerotic heart disease of native coronary artery without angina pectoris; E78.00 Pure hypercholesterolemia, unspecified; I11.0 Hypertensive heart disease with heart failure; I25.2 Old myocardial infarction; Z87.891 Personal history of nicotine dependence
CPT/HCPCS: 99284; 74022; J3490

== ENCOUNTER 2017-12-01 17:25 | Inpatient (IN) | payer MEDICARE, MEDICAID ==
[2017-12-01 18:09] LABS: ABSOLUTE BASOPHILS # (AUTO) 0.1 10^3/uL (0.0-0.2); ABSOLUTE EOSINOPHILS # (AUTO) 0.2 10^3/uL (0.0-0.6); ABSOLUTE MONOCYTES (AUTO) 0.9 10^3/uL (0.1-1.4); ABSOLUTE NEUT (AUTO) 5.3 10^3/uL (1.7-8.2); BASOPHILS % (AUTO) 0.9 % (0-2); EOSINOPHILS % (AUTO) 1.9 % (0-6); HEMATOCRIT 37.6 % (37.9-51.0); HEMOGLOBIN 12.7 g/dL (13.5-17.0); LYMPHOCYTES % (AUTO) 23.5 % (13-45); MEAN CORPUSCULAR HEMOGLOBIN 29.3 pg (27.0-33.4); MEAN CORPUSCULAR HGB CONC 33.7 g/dL (32.0-36.0); MEAN CORPUSCULAR VOLUME 87 fl (80-97); PLATELET COUNT 278 10^3/uL (150-450); RED BLOOD COUNT 4.33 10^6/uL (4.35-5.55); RED CELL DISTRIBUTION WIDTH 16.1 % (11.5-14.0); SEGMENTED NEUTROPHILS % (AUTO) 62.7 % (42-78); TOTAL CELLS COUNTED % (AUTO) 100 %; WHITE BLOOD COUNT 8.4 10^3/uL (4.0-10.5)
[2017-12-01 18:19] LABS: ALANINE AMINOTRANSFERASE 37 U/L (21-72); ALKALINE PHOSPHATASE 78 U/L (38-126); ANION GAP 13 (5-19); ASPARTATE AMINO TRANSFERASE 39 U/L (17-59); BILIRUBIN,DIRECT 0.4 mg/dL (0.0-0.4); BILIRUBIN,TOTAL 0.5 mg/dL (0.2-1.3); BLOOD UREA NITROGEN 22 mg/dL (7-20); CARBON DIOXIDE 26 mmol/L (22-30); CHLORIDE 109 mmol/L (98-107); CREATINE KINASE 25 U/L (55-170); GLUCOSE 101 mg/dL (75-110); POTASSIUM 4.7 mmol/L (3.6-5.0); SODIUM 147.6 mmol/L (137-145); TOTAL PROTEIN 6.9 g/dL (6.3-8.2)
[2017-12-01] MEDS ORDERED: FUROSEMIDE INJ/PF 100 MG/10 ML SDV IV ONE (18:25)
--- NOTE | 2017-12-01 18:27 | RADIOLOGY REPORT (SQ) ---
EXAM DESCRIPTION: CHEST SINGLE VIEW COMPLETED DATE/TIME: 12/01/2017 6:18 pm REASON FOR STUDY: SOB COMPARISON: 10/22/2017 NUMBER OF VIEWS: One view. TECHNIQUE: Single frontal radiographic view of the chest acquired. LIMITATIONS: None. FINDINGS: LUNGS AND PLEURA: Bilateral small pleural effusions. Basilar opacities slightly improved over previous. MEDIASTINUM AND HILAR STRUCTURES: No masses or contour abnormality. HEART AND VASCULATURE: Cardiac enlargement. Vascular congestion. BONES: Sternal wires. HARDWARE: Unchanged. OTHER: No other significant finding. IMPRESSION: Vascular congestion slightly improved. Small bilateral pleural effusions. Basilar opac ities slightly improved. TECHNICAL DOCUMENTATION: JOB ID: [id number] [employer]- All Rights Reserved Reading location - IP/workstation name: [email or web address]
[2017-12-01 18:31] LABS: CREATINE KINASE MB 0.83 ng/mL (<4.55); TROPONIN I 0.016 ng/mL
[2017-12-01] MEDS ORDERED: NITROGLYCERIN/D5W 50 MG/250 ML RTUINJ IV PRN (18:50)
--- NOTE | 2017-12-01 18:53 | ER Document Report ---
ED General - General Chief Complaint: Shortness Of Breath Stated Complaint: BLOOD PRESSURE ISSUES Time Seen by Provider: 12/01/17 18:21 Notes: Patient is an 87-year-old male with a past medical history of CHF, last known ejection fraction of 45-50% on echo from September 2017, hypertension, hyperlipidemia, coronary artery disease, who presents with shortness of breath increasing over the last 24 hours as well as his pacemaker "beeping". Patient' s main concern is his shortness of breath. He reports over the last 24 hours he has had progressively worsening shortness of breath that is exacerbated by exertion. Nothing improves his symptoms. He has been taking all medications that have been provided to him by the assisted as prescribed. He states this feels similar to when he has had CHF exacerbations in the past. He denies any chest pain, abdominal pain, nausea or vomiting. He does note that he has had some increase in bilateral lower extremity edema. TRAVEL OUTSIDE OF THE [place] IN LAST 30 DAYS: No - Related Data Allergies/Adverse Reactions: No Known Allergies Allergy (Verified 12/01/17 17:53) Past Medical History - General Information source: Patient - Social History Smoking Status: Former Smoker Frequency of alcohol use: None Drug Abuse: None [facility] Family History: Reviewed & Not Pertinent, CAD, CVA, Malignancy Patient has suicidal ideation: No Patient has homicidal ideation: No - Past Medical History Cardiac Medical History: Reports: Hx Congestive Heart Failure, Hx Coronary Artery Disease, Hx Heart Attack - x2, Hx Hypercholesterolemia, Hx Hypertension Denies: Hx Atrial Fibrillation, Hx DVT, Hx Peripheral Vascular Disease, Hx Pulmonary Embolism, Hx Heart Murmur Pulmonary Medical History: Denies: Hx Asthma, Hx COPD Neurological Medical History: Denies: Hx Cerebrovascular Accident, Hx Seizures Endocrine Medical History: Denies: Hx Diabetes Mellitus Type 1, Hx Diabetes Mellitus Type 2, Hx Hyperthyroidism, Hx Hypothyroidism Renal/ Medical History: Denies: Hx Benign Prostatic Hyperplasia, Hx End Stage Renal Disease, Hx Kidney Stones, Hx Peritoneal Dialysis GI Medical History: Reports: Hx Diverticulitis, Hx Gastroesophageal Reflux Disease. 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, Denies Hx Fibromyalgia, Denies Hx Multiple Sclerosis, Denies Hx Muscular Dystrophy Skin Medical History: Denies Hx Eczema, Denies Hx Psoriasis Psychiatric Medical History: Reports: Hx Depression Denies: Hx Dementia Traumatic Medical History: Denies: Hx Fractures Infectious Medical History: Denies: Hx Hepatitis Past Surgical History: Reports: Hx Abdominal Surgery - Bleeding ulcer; mass, Hx Appendectomy, Hx Cardiac Surgery - Aortic valve replacement, Hx Cholecystectomy , Hx Coronary Artery Bypass Graft - x5, Hx Kidney (Renal Surgery) - horseshoe kidney, Hx Open Heart Surgery - cabg5, Hx Orthopedic Surgery - back, right shoulder, Hx Pacemaker, Hx Valve Replacement - 2014 tvar, Other - partial gastr' y for PUD; separation of horseshoe kidney; bilat cataract. Denies: Hx Bowel Surgery, Hx Colostomy, Hx Gastric Bypass Surgery, Hx Herniorrhaphy, Hx Tonsillectomy - Immunizations Immunizations up to date: Yes Hx Diphtheria, Pertussis, Tetanus Vaccination: No Review of Systems - Review of Systems Notes: Constitutional: Negative for fever. HENT: Negative for sore throat. Eyes: Negative for visual changes. Cardiovascular: Negative for chest pain. Respiratory: Positive for shortness of breath. Gastrointestinal: Negative for abdominal pain, vomiting or diarrhea. Genitourinary: Negative for dysuria. Musculoskeletal: Negative for back pain. Skin: Negative for rash. Neurological: Negative for headaches, weakness or numbness. 10 point ROS negative except as marked above and in HPI. Physical Exam - Vital signs Vitals: Resp BP Pulse Ox 24 H 130/83 H 91 L 12/01/17 17:30 12/01/17 17:30 12/01/17 17:30 Interpretation: Hypoxic, Tachypneic Notes: PHYSICAL EXAMINATION: GENERAL: Appears moderately uncomfortable, in mild respiratory distress HEAD: Atraumatic, normocephalic. EYES: Pupils equal round and reactive to light, extraocular movements intact, sclera anicteric, conjunctiva are normal. ENT: nares patent, oropharynx clear without exudates. Moist mucous membranes. NECK: Normal range of motion, supple without lymphadenopathy LUNGS: Mild tachypnea. Diminished breath sounds at the bases bilaterally. Scattered rales throughout. HEART: Regular rate and rhythm with 2 out of 6 systolic ejection murmur. ABDOMEN: Soft, nontender, normoactive bowel sounds. No guarding, no rebound. No masses appreciated. EXTREMITIES: Normal range of motion, 2+ pitting edema in the bilateral lower extremities that is equal and symmetric. NEUROLOGICAL: No focal neurological deficits. Moves all extremities spontaneously and on command. PSYCH: Normal mood, normal affect. SKIN: Warm, Dry, normal turgor, no rashes or lesions noted. Course - Re-evaluation Re-evalutation: 12/01/17 18:30 Patient presents with 2 distinct complaints the first of which is that he has been increasingly short of breath over the past several days and having increasing lower peripheral edema. At time of presentation the patient is hypertensive and hypoxic, in mild respiratory distress. He is saturating 91% on room air and review of his hospitalization from September 2017 shows that at time of discharge he was saturating between 95 and 97% on room air. Lung examination is noted for diminished breath sounds at the bases bilaterally as well as scattered rales. Chest x-ray does show vascular congestion and associated cardiomegaly and pulmonary edema. Patient currently takes 80 mg total daily at home of oral Lasix. He was given 80 mg of IV Lasix as a push shortly after presentation. Given his ongoing hypertension with systolics into the upper 180s he has been started on nitroglycerin infusion to target a blood pressure of a systolic less than 160. Patient also reports that his pacemaker has been "beeping". He states that it was interrogated approximately 6 months ago and he was told at that time that he had approximately 6 months left of battery life. EKG and continuous telemetry do show that the patient continues to be paced appropriately although I anticipate the beeping may be secondary to the battery dying. It is a [employer] device and we have to call reimbursement representative to come interrogate the pacemaker. Will continue to monitor the patient closely given his need for an IV nitroglycerin infusion as well as his hypoxemia and mild increased work of breathing. He will require frequent reassessments. He will also require hospitalization. 12/01/17 19:40 Patient's blood pressure has continued to climb we have up titrated the nitroglycerin infusion to 40 mcg/min and will reassess the blood pressure. He has put out 500 cc of urine since receiving IV furosemide. His work of breathing is improved. Will continue to monitor closely. He is currently saturating 97% on 3 L by nasal cannula. Awaiting interrogation of pacemaker. Will stabilize the patient's blood pressure and then consult with hospitalist for admission. 12/01/17 20:17 Patient's blood pressure is improved, currently 167 and 70. His work of breathing has also improved. I have discussed this case with the hospitalist who has accepted the patient for admission. - Vital Signs Vital signs: Temp Pulse Resp BP Pulse Ox 98 F 17 175/69 H 96 12/01/17 20:33 12/02/17 00:51 12/02/17 00:51 12/02/17 00:51 - Laboratory Result Diagrams: 12/01/17 17:33 12/01/17 17:33 Laboratory results interpreted by me: 12/01/17 12/01/17 12/01/17 17:33 17:33 17:33 RBC 4.33 L Hgb 12.7 L Hct 37.6 L RDW 16.1 H Sodium 147.6 H Chloride 109 H BUN 22 H Creatine Kinase 25 L NT-Pro-B Natriuret Pep 5430 H Albumin 3.0 L Urine Protein Urine Blood 12/01/17 19:17 RBC Hgb Hct RDW Sodium Chloride BUN Creatine Kinase NT-Pro-B Natriuret Pep Albumin Urine Protein 100 H Urine Blood MODERATE H - Diagnostic Test Radiology reviewed: Image reviewed, Reports reviewed Radiology results interpreted by me: 12/01/17 18:52 Chest x-ray: Cardiomegaly, vascular congestion and trace pulmonary edema - EKG Interpretation by Me Additional EKG results interpreted by me: 12/01/17 18:53 Ventricularly paced complexes. Rate 69. Irregular. Critical Care Note - Critical Care Note Total time excluding time spent on procedures (mins): 37 Comments: Critical care time spent obtaining history from patient or surrogate, discussions with consultants, development of treatment plan with patient or surrogate, evaluation of patient's response to treatment, examination of patient , ordering and performing treatments and interventions, ordering and review of laboratory studies, re-evaluation of patient's condition, ordering and review of radiographic studies and review of old charts Discharge - Discharge Clinical Impression: Essential hypertension, Hypoxemia, Pacemaker at end of battery life, Do not resuscitate CHF exacerbation Qualifiers: Heart failure type: systolic Qualified Code(s): I50.23 - Acute on chronic systolic (congestive) heart failure Condition: Fair Disposition: ADMITTED INPATIENT Admitting Provider: Hospitalist Unit Admitted: [facility]
[2017-12-01 19:29] LABS: APPEARANCE,URINE CLEAR; BILIRUBIN,URINE NEGATIVE (NEGATIVE); COLOR,URINE YELLOW; GLUCOSE, URINE NEGATIVE (NEGATIVE); KETONES,URINE NEGATIVE (NEGATIVE); LEUKOCYTE ESTERASE,URINE NEGATIVE (NEGATIVE); NITRITE,URINE NEGATIVE (NEGATIVE); PROTEIN,URINE 100 mg/dL (NEGATIVE); URINE SPECIFIC GRAVITY 1.012; UROBILINOGEN,URINE NEGATIVE mg/dL (<2.0)
--- NOTE | 2017-12-01 20:18 | EKG REPORT ---
SEVERITY:- ABNORMAL ECG - VENTRICULAR-PACED COMPLEXES A FIB : Confirmed by: Bere Pacheco 01-Dec-2017 20:17:23
--- NOTE | 2017-12-01 20:55 | PDOC H&P ---
History of Present Illness Admission Date/PCP: 12/01/17 20:34 History of Present Illness: PEACE FRAGA is a 87 year old male patient transferred from assisted living with chief complaint of shortness of breath of 2 days duration. The dyspnea is precipitated by mild exertion. Of note patient was admitted and treated for the same problem in September of this year in this hospital. His initial blood workup is remarkable for BNP of 5400 and his chest x-ray showed pulmonary vascular congestion and small bilateral pleural effusion. Per ER attending patient's pacemaker has been beeping for which she consulted country director who interrogated the pacemaker and recommended outpatient evaluation. Of note patient has upcoming evaluation with his physical geographer, december 06. Patient denies chills, fever, chest pain, cough, palpitation, diaphoresis, nausea, vomiting, abdominal pain, diarrhea, urinary complaints, headache or dizziness. Past Medical History Cardiac Medical History: Reports: Congestive Heart Failure, Coronary Artery Disease, Myocardial Infarction - x2, Hyperlipidema, Hypertension Denies: Atrial Fibrillation, DVT, Peripheral Vascular Disease, Pulmonary Embolism, Heart Murmur Pulmonary Medical History: Denies: Asthma, Chronic Obstructive Pulmonary Disease (COPD) Neurological Medical History: Denies: Seizures Endocrine Medical History: Denies: Diabetes Mellitus Type 1, Diabetes Mellitus Type 2, Hyperthyroidism, Hypothyroidism Renal/ Medical History: Denies: End Stage Renal Disease Malignancy Medical History: Denies: Breast Cancer, Cervical Cancer, Ovarian Cancer GI Medical History: Reports: Diverticulitis, Gastroesophageal Reflux Disease Denies: Cirrhosis, Crohn's Disease, Hepatitis, Hiatal Hernia Musculoskeltal Medical History: Reports: Arthritis - neck Denies: Fibromyalgia Skin Medical History: Denies: Eczema, Psoriasis Psychiatric Medical History: Reports: Depression Denies: Dementia Past Surgical History Past Surgical History: Reports: Appendectomy, Cholecystectomy, Coronary Artery Bypass Graft - x5, Orthopedic Surgery - back, right shoulder, Pacemaker, Valve Replacement - 2015 tvar, Other - partial gastr'y for PUD; separation of horseshoe kidney; bilat cataract Denies: Colostomy, Gastric Bypass Surgery, Herniorrhaphy, Tonsillectomy Social History Smoking Status: Former Smoker Frequency of Alcohol Use: None Hx Recreational Drug Use: No Drugs: None Hx Prescription Drug Abuse: No - Advance Directive Resuscitation Status: Do Not Resuscitate Family History Family History: Reviewed & Not Pertinent, CAD, CVA, Malignancy Parental Family History Reviewed: Yes Children Family History Reviewed: Yes Sibling(s) Family History Reviewed.: Yes Medication/Allergy Home Medications: Acetaminophen [Mapap] 500 mg PO Q4HP PRN 10/25/17 Furosemide [Lasix 20 mg Tablet] 20 mg PO QAM 10/25/17 Loperamide HCl [Loperamide] 2 mg PO ASDIR PRN 10/25/17 Multivitamin [Multiple Vitamins] 1 tab PO DAILY 10/25/17 Alprazolam [Xanax 0.5 mg Tablet] 0.5 mg PO QHS 30 Days #30 tablet 10/29/17 Aspirin [Aspirin 81 mg Chewable Tablet] 81 mg PO DAILY tab.chew 10/29/17 Carboxymethylcellulose Sodium [Refresh Plus 0.5% Oph Soln 0.4 ml Droperette] 2 drop OU QID droperette 10/29/17 Carvedilol [Coreg 6.25 mg Tablet] 6.25 mg PO Q12 tablet 10/29/17 Famotidine [Pepcid 20 mg Tablet] 20 mg PO BID tablet 10/29/17 Isosorbide Mononitrate [Imdur 60 mg Tablet.er] 60 mg PO DAILY tab.er.24h Magnesium Hydroxide [Milk of Magnesia 30 ml Udcup] 30 ml PO HSP PRN udc Oxycodone HCl/Acetaminophen [Percocet 5-325 mg Tablet] 1 tab PO Q6HP PRN 5 Days #20 tablet 10/29/17 Primidone [Mysoline 50 mg Tablet] 50 mg PO QPM #0 tablet 10/29/17 Trazodone HCl [Desyrel 50 mg Tablet] 75 mg PO QHS tablet 10/29/17 Allergies/Adverse Reactions: No Known Allergies Allergy (Verified 12/01/17 17:53) Review of Systems Constitutional: PRESENT: as per HPI Eyes: PRESENT: as per HPI Cardiovascular: PRESENT: as per HPI Respiratory: PRESENT: as per HPI Gastrointestinal: PRESENT: as per HPI Neurological: PRESENT: as per HPI Physical Exam Vital Signs: Temp Pulse Resp BP Pulse Ox 97.8 F 17 174/68 H 97 12/01/17 17:38 12/01/17 20:06 12/01/17 20:29 12/01/17 20:06 General appearance: PRESENT: mild distress Mouth exam: PRESENT: dry mucosa Respiratory exam: PRESENT: crackles - Fine crackles at the lung bases, decreased breath sounds Cardiovascular exam: PRESENT: systolic murmur Results Impressions: Chest X-Ray 12/01/17 17:41 IMPRESSION: Vascular congestion slightly improved. Small bilateral pleural effusions. Basilar opacities slightly improved. Assessment & Plan - Diagnosis (1) Acute exacerbation of CHF (congestive heart failure) Qualifiers: Heart failure type: systolic Qualified Code(s): I50.23 - Acute on chronic systolic (congestive) heart failure Is this a current diagnosis for this admission?: Yes Plan: Patient has been started on Lasix, enalapril, Coreg. bellows tester, daily weight and strict input output. (2) Coronary artery disease Qualifiers: Coronary Disease-Associated Artery/Lesion type: [place] artery [place] vs. transplanted heart: [place] heart Associated angina: without angina Qualified Code(s): I25.10 - Atherosclerotic heart disease of [place] coronary artery without angina pectoris Is this a current diagnosis for this admission?: Yes Plan: Patient did not have chest pain. Continue his home medication. (3) Dyslipidemia Is this a current diagnosis for this admission?: Yes Plan: Continue his home medication (4) Hypertensive urgency Is this a current diagnosis for this admission?: Yes Plan: At admission systolic blood pressure was greater than 194 which is the ER attending starting on nitroglycerin drip. During my encounter his blood pressure was tapering down to 168/77. We will closely monitor him and continue his home medication. - Time Time Spent: 30 to 50 Minutes - Inpatient Certification Medical Necessity: Need Close Monitoring Due to Risk of Patient Decompensation, Need For Continuous Telemetry Monitoring
[2017-12-01] MEDS: CARVEDILOL 12.5 MG TABLET PO SCH (21:35)
[2017-12-01] MEDS: HYDRALAZINE HCL INJ/PF 20 MG/1 ML SDV IV PRN (22:24)
[2017-12-02] MEDS: HYDRALAZINE HCL INJ/PF 20 MG/1 ML SDV IV PRN ×2 (03:30→03:33)
[2017-12-02 05:33] LABS: ABSOLUTE BASOPHILS # (AUTO) 0.1 10^3/uL (0.0-0.2); ABSOLUTE EOSINOPHILS # (AUTO) 0.2 10^3/uL (0.0-0.6); ABSOLUTE LYMPHOCYTES (AUTO) 1.5 10^3/uL (0.5-4.7); ABSOLUTE MONOCYTES (AUTO) 1.1 10^3/uL (0.1-1.4); ABSOLUTE NEUT (AUTO) 7.5 10^3/uL (1.7-8.2); BASOPHILS % (AUTO) 0.6 % (0-2); EOSINOPHILS % (AUTO) 1.6 % (0-6); HEMATOCRIT 37.8 % (37.9-51.0); HEMOGLOBIN 12.7 g/dL (13.5-17.0); LYMPHOCYTES % (AUTO) 14.6 % (13-45); MEAN CORPUSCULAR HEMOGLOBIN 28.7 pg (27.0-33.4); MEAN CORPUSCULAR HGB CONC 33.5 g/dL (32.0-36.0); MEAN CORPUSCULAR VOLUME 86 fl (80-97); MONOCYTES % (AUTO) 10.7 % (3-13); PLATELET COUNT 297 10^3/uL (150-450); RED BLOOD COUNT 4.41 10^6/uL (4.35-5.55); RED CELL DISTRIBUTION WIDTH 16.5 % (11.5-14.0); SEGMENTED NEUTROPHILS % (AUTO) 72.5 % (42-78); TOTAL CELLS COUNTED % (AUTO) 100 %; WHITE BLOOD COUNT 10.4 10^3/uL (4.0-10.5)
[2017-12-02] MEDS ORDERED: BENZONATATE 100 MG CAPSULE PO PRN (07:39)
[2017-12-02] MEDS ORDERED: ZOLPIDEM TARTRATE 5 MG TABLET PO PRN (07:40)
[2017-12-02] MEDS ORDERED: ACETAMINOPHEN 325 MG TABLET PO PRN (07:40)
[2017-12-02] MEDS ORDERED: ALBUTEROL SULFATE 0.083% NEB 2.5 MG/3 ML AMPUL NEB PRN (07:42)
[2017-12-02] MEDS: LANSOPRAZOLE 30 MG TAB.RAP.DR PO SCH (08:03)
[2017-12-02] MEDS: FUROSEMIDE INJ/PF 20 MG/2 ML SDV IV SCH ×2 (08:03→10:37)
[2017-12-02] MEDS: IPRATROPIUM/ALBUTEROL 0.5-2.5 MG/3 ML AMPUL NEB SCH ×3 (08:08→20:39)
[2017-12-02] MEDS ORDERED: CEFTRIAXONE 1 GM/D5W RTU 1 GM/50 ML RTUPB IV SCH (10:00)
[2017-12-02] MEDS ORDERED: ENALAPRIL MALEATE 10 MG TABLET PO SCH (10:00)
[2017-12-02] MEDS ORDERED: AZITHROMYCIN 250 MG TABLET PO SCH (10:00)
[2017-12-02] MEDS ORDERED: ENOXAPARIN SODIUM INJ 30 MG/0.3 ML DISP.SYRIN SUBCUT SCH ×2 (10:00)
[2017-12-02] MEDS ORDERED: AMLODIPINE BESYLATE 5 MG TABLET PO SCH (10:00)
[2017-12-02] MEDS ORDERED: ENALAPRIL MALEATE 2.5 MG TABLET PO SCH ×2 (10:00)
[2017-12-02] MEDS ORDERED: ENALAPRIL MALEATE 5 MG TABLET PO SCH (10:00)
[2017-12-02] MEDS: ASPIRIN 81 MG TABLET, ENT COATED PO SCH (10:35)
[2017-12-02] MEDS: CARVEDILOL 12.5 MG TABLET PO SCH ×2 (10:36→21:46)
[2017-12-02] MEDS ORDERED: CEFTRIAXONE SODIUM 1,000 MG in DEXTROSE 5%-WATER 50 ML IV SCH (12:00)
--- NOTE | 2017-12-02 12:36 | PDOC PROGRESS REPORT ---
Subjective Progress Note for:: 12/02/17 Subjective:: Patient refers that shortness of breath started improving after he was given medication through the IV while he was in emergency room. Patient also states that he has been having a head cold for 1 week accompanied by productive cough. Review of systems All organ systems evaluated and negative except as in subjective All significant diagnostics and laboratories have been reviewed Reason For Visit: HEART FAILURE Physical Exam Vital Signs: Temp Pulse Resp BP Pulse Ox 98.2 F 74 14 134/66 H 95 12/02/17 06:13 12/02/17 06:13 12/02/17 06:13 12/02/17 06:13 12/02/17 06:13 Intake & Output 12/01/17 12/02/17 12/03/17 06:59 06:59 06:59 Output Total 1610 150 Balance -1610 -150 Weight 98.6 kg General appearance: PRESENT: no acute distress, cooperative, well-developed, well-nourished Head exam: PRESENT: atraumatic, normocephalic Eye exam: PRESENT: conjunctiva pink, EOMI, PERRLA Ear exam: PRESENT: normal external ear exam Mouth exam: PRESENT: moist Neck exam: PRESENT: full ROM. ABSENT: JVD, lymphadenopathy, tenderness Respiratory exam: PRESENT: clear to auscultation jeremy Cardiovascular exam: PRESENT: RRR, systolic murmur. ABSENT: diastolic murmur Vascular exam: PRESENT: normal capillary refill GI/Abdominal exam: PRESENT: normal bowel sounds, soft. ABSENT: tenderness Extremities exam: PRESENT: full ROM. ABSENT: pedal edema Musculoskeletal exam: PRESENT: ambulatory Neurological exam: PRESENT: alert, awake, oriented to person, oriented to place , oriented to time, oriented to situation, CN II-XII grossly intact Psychiatric exam: PRESENT: appropriate affect, normal mood Skin exam: PRESENT: intact, normal color Results Laboratory Results: 12/02/17 05:24 12/02/17 12/02/17 05:24 05:24 WBC 10.4 RBC 4.41 Hgb 12.7 L Hct 37.8 L MCV 86 MCH 28.7 MCHC 33.5 RDW 16.5 H Plt Count 297 Seg Neutrophils % 72.5 Lymphocytes % 14.6 Monocytes % 10.7 Eosinophils % 1.6 Basophils % 0.6 Absolute Neutrophils 7.5 Absolute Lymphocytes 1.5 Absolute Monocytes 1.1 Absolute Eosinophils 0.2 Absolute Basophils 0.1 TSH 1.99 Impressions: Chest X-Ray 12/01/17 17:41 IMPRESSION: Vascular congestion slightly improved. Small bilateral pleural effusions. Basilar opacities slightly improved. Assessment & Plan - Diagnosis (1) Acute exacerbation of CHF (congestive heart failure) Qualifiers: Heart failure type: systolic Qualified Code(s): I50.23 - Acute on chronic systolic (congestive) heart failure Is this a current diagnosis for this admission?: Yes Plan: Patient had a recent echocardiogram back in September which had a low EF around 40% . Will continue diuresis and control of blood pressure. 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 Will wean off as tolerated since much improved when compared to admission (5) Hypertensive urgency Is this a current diagnosis for this admission?: Yes Plan: High blood pressure improve and of nitro drip. To start Norvasc, increase Vasotec and will leave hydralazine IV for systolic blood pressure higher or equal to 160 or diastolic blood pressure higher or equal to 110 (6) Acute bronchitis Qualifiers: Bronchitis organism: unspecified organism Qualified Code(s): J20.9 - Acute bronchitis, unspecified Is this a current diagnosis for this admission?: Yes Plan: I am concerned the patient may be also having an infectious process on top of congestive heart failure she has had been having problems for 1 week. To start Rocephin max. To follow-up chest x-ray - Time Time Spent with patient: 15-24 minutes Medications reviewed and adjusted accordingly: Yes Anticipated discharge: SNF Within: within 72 hours - Inpatient Certification Based on my medical assessment, after consideration of the patient's comorbidities, presenting symptoms, or acuity I expect that the services needed warrant INPATIENT care.: Yes I certify that my determination is in accordance with my understanding of Medicare's requirements for reasonable and necessary INPATIENT services [42 CFR 412.3e].: Yes Medical Necessity: Need Close Monitoring Due to Risk of Patient Decompensation, Need For Continuous Telemetry Monitoring
[2017-12-02] MEDS: POLYETHYLENE GLYCOL 3350 POWDER 17 GM/1 PACKET PO PRN (15:21)
[2017-12-02] MEDS: FUROSEMIDE INJ/PF 40 MG/4 ML SDV IV SCH (18:52)
[2017-12-02] MEDS: PRIMIDONE 50 MG TABLET PO SCH (18:52)
[2017-12-02] MEDS: CARBOXYMETHYLCELLULOSE SOD 0.5% 0.4 ML DROPERETTE OU SCH ×2 (18:52→21:48)
[2017-12-02] MEDS: ISOSORBIDE MONONITRATE 60 MG TAB.ER.24H PO SCH (18:53)
[2017-12-02] MEDS: TRAZODONE HCL 50 MG TABLET PO SCH (21:47)
[2017-12-03 04:17] LABS: ABSOLUTE BASOPHILS # (AUTO) 0.1 10^3/uL (0.0-0.2); ABSOLUTE EOSINOPHILS # (AUTO) 0.2 10^3/uL (0.0-0.6); ABSOLUTE LYMPHOCYTES (AUTO) 1.9 10^3/uL (0.5-4.7); ABSOLUTE MONOCYTES (AUTO) 1.1 10^3/uL (0.1-1.4); ABSOLUTE NEUT (AUTO) 5.6 10^3/uL (1.7-8.2); EOSINOPHILS % (AUTO) 2.5 % (0-6); HEMATOCRIT 35.4 % (37.9-51.0); HEMOGLOBIN 11.8 g/dL (13.5-17.0); MEAN CORPUSCULAR HEMOGLOBIN 28.7 pg (27.0-33.4); MEAN CORPUSCULAR HGB CONC 33.3 g/dL (32.0-36.0); MEAN CORPUSCULAR VOLUME 86 fl (80-97); PLATELET COUNT 271 10^3/uL (150-450); RED BLOOD COUNT 4.12 10^6/uL (4.35-5.55); RED CELL DISTRIBUTION WIDTH 16.2 % (11.5-14.0); SEGMENTED NEUTROPHILS % (AUTO) 63.5 % (42-78); TOTAL CELLS COUNTED % (AUTO) 100 %; WHITE BLOOD COUNT 8.8 10^3/uL (4.0-10.5)
[2017-12-03 04:32] LABS: ANION GAP 11 (5-19); BLOOD UREA NITROGEN 27 mg/dL (7-20); CALCIUM 8.6 mg/dL (8.4-10.2); CARBON DIOXIDE 32 mmol/L (22-30); CHLORIDE 101 mmol/L (98-107); GLUCOSE 110 mg/dL (75-110); POTASSIUM 3.9 mmol/L (3.6-5.0); SODIUM 143.5 mmol/L (137-145)
[2017-12-03] MEDS: LANSOPRAZOLE 30 MG TAB.RAP.DR PO SCH (05:52)
[2017-12-03] MEDS: FUROSEMIDE INJ/PF 40 MG/4 ML SDV IV SCH (05:52)
[2017-12-03] MEDS ORDERED: AMLODIPINE BESYLATE 5 MG TABLET PO SCH (07:36)
[2017-12-03] MEDS: IPRATROPIUM/ALBUTEROL 0.5-2.5 MG/3 ML AMPUL NEB SCH ×3 (07:42→19:41)
[2017-12-03] MEDS ORDERED: ISOSORBIDE MONONITRATE 60 MG TAB.ER.24H PO SCH (10:00)
[2017-12-03] MEDS ORDERED: CEFTRIAXONE SODIUM 1,000 MG in DEXTROSE 5%-WATER 50 ML IV SCH (10:00)
[2017-12-03] MEDS ORDERED: ASPIRIN 81 MG TABLET, CHEWABLE PO SCH (10:00)
[2017-12-03] MEDS: ASPIRIN 81 MG TABLET, ENT COATED PO SCH (11:09)
[2017-12-03] MEDS: MULTIVITAMIN TABLET PO SCH (11:09)
[2017-12-03] MEDS: LORATADINE 10 MG TABLET PO SCH (11:10)
[2017-12-03] MEDS: CARVEDILOL 12.5 MG TABLET PO SCH ×2 (11:10→21:22)
[2017-12-03] MEDS: AMLODIPINE BESYLATE 10 MG TABLET PO SCH (11:10)
[2017-12-03] MEDS: TORSEMIDE 20 MG TABLET PO SCH (11:11)
[2017-12-03] MEDS: CARBOXYMETHYLCELLULOSE SOD 0.5% 0.4 ML DROPERETTE OU SCH ×4 (11:11→21:22)
--- NOTE | 2017-12-03 11:11 | PDOC PROGRESS REPORT ---
Subjective Progress Note for:: 12/03/17 Subjective:: Patient refers that shortness of breath is better. Review of systems All organ systems evaluated and negative except as in subjective All significant diagnostics and laboratories have been reviewed Reason For Visit: HEART FAILURE Physical Exam Vital Signs: Temp Pulse Resp BP Pulse Ox 98.3 F 70 19 118/44 L 95 12/03/17 04:00 12/02/17 20:40 12/03/17 06:00 12/03/17 05:43 12/03/17 06:00 Intake & Output 12/02/17 12/03/17 12/04/17 06:59 06:59 06:59 Intake Total 974 Output Total 1610 2300 Balance -1610 -1326 Weight 98.6 kg 98.7 kg General appearance: PRESENT: no acute distress, cooperative, obese Head exam: PRESENT: atraumatic, normocephalic Eye exam: PRESENT: conjunctiva pink, EOMI, PERRLA Ear exam: PRESENT: normal external ear exam Neck exam: PRESENT: full ROM. ABSENT: JVD, lymphadenopathy, tenderness Respiratory exam: PRESENT: clear to auscultation jeremy Cardiovascular exam: PRESENT: RRR. ABSENT: diastolic murmur, systolic murmur Vascular exam: PRESENT: normal capillary refill GI/Abdominal exam: PRESENT: normal bowel sounds, soft. ABSENT: tenderness Extremities exam: PRESENT: full ROM. ABSENT: pedal edema Musculoskeletal exam: PRESENT: ambulatory Neurological exam: PRESENT: alert, awake, oriented to person, oriented to place , oriented to time, oriented to situation, CN II-XII grossly intact Psychiatric exam: PRESENT: appropriate affect, normal mood Skin exam: PRESENT: intact, normal color Results Laboratory Results: 12/03/17 04:06 12/03/17 04:06 12/03/17 12/03/17 04:06 04:06 WBC 8.8 RBC 4.12 L Hgb 11.8 L Hct 35.4 L MCV 86 MCH 28.7 MCHC 33.3 RDW 16.2 H Plt Count 271 Seg Neutrophils % 63.5 Lymphocytes % 21.0 Monocytes % 12.0 Eosinophils % 2.5 Basophils % 1.0 Absolute Neutrophils 5.6 Absolute Lymphocytes 1.9 Absolute Monocytes 1.1 Absolute Eosinophils 0.2 Absolute Basophils 0.1 Sodium 143.5 Potassium 3.9 Chloride 101 Carbon Dioxide 32 H Anion Gap 11 BUN 27 H Creatinine 0.81 Est GFR ( Amer) > 60 Est GFR (Non-Af Amer) > 60 Glucose 110 Calcium 8.6 Magnesium 1.8 Impressions: Chest X-Ray 12/01/17 17:41 IMPRESSION: Vascular congestion slightly improved. Small bilateral pleural effusions. Basilar opacities slightly improved. Assessment & Plan - Diagnosis (1) Acute exacerbation of CHF (congestive heart failure) Qualifiers: Heart failure type: systolic Qualified Code(s): I50.23 - Acute on chronic systolic (congestive) heart failure Is this a current diagnosis for this admission?: Yes Plan: Patient had a recent echocardiogram back in September which had a low EF around 40% . Will discontinue IV Lasix. To transition to oral diuretic and continue control of blood pressure. Chest xray result pending. 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 Monitor. (4) Acute respiratory distress Is this a current diagnosis for this admission?: Yes Plan: Pulse ox was 91% on initial presentation and was placed on oxygen by nasal cannula. Saturating well at room air. (5) Hypertensive urgency Is this a current diagnosis for this admission?: Yes Plan: High blood pressure improve and of nitro drip. Increase Norvasc and Vasotec. Will leave hydralazine IV for systolic blood pressure higher or equal to 160 or diastolic blood pressure higher or equal to 110 (6) Acute bronchitis Qualifiers: Bronchitis organism: unspecified organism Qualified Code(s): J20.9 - Acute bronchitis, unspecified Is this a current diagnosis for this admission?: Yes Plan: Discontinue Rocephin. Chest xray result pending - Time Time Spent with patient: 15-24 minutes Medications reviewed and adjusted accordingly: Yes Anticipated discharge: SNF Within: within 24 hours - Inpatient Certification Based on my medical assessment, after consideration of the patient's comorbidities, presenting symptoms, or acuity I expect that the services needed warrant INPATIENT care.: Yes I certify that my determination is in accordance with my understanding of Medicare's requirements for reasonable and necessary INPATIENT services [42 CFR 412.3e].: Yes Medical Necessity: Need Close Monitoring Due to Risk of Patient Decompensation, Need For Continuous Telemetry Monitoring
[2017-12-03] MEDS: ENOXAPARIN SODIUM INJ 40 MG/0.4 ML DISP.SYRIN SUBCUT SCH (11:12)
[2017-12-03] MEDS: ENALAPRIL MALEATE 10 MG TABLET PO SCH (11:17)
--- NOTE | 2017-12-03 14:41 | RADIOLOGY REPORT (SQ) ---
EXAM DESCRIPTION: CHEST SINGLE VIEW COMPLETED DATE/TIME: 12/03/2017 12:00 am REASON FOR STUDY: follow up COMPARISON: 12/01/2017 NUMBER OF VIEWS: One view. TECHNIQUE: Single frontal radiographic image of the chest acquired. LIMITATIONS: None. FINDINGS: LUNGS AND PLEURA: Small pleural effusions, left greater than right with slight improved ae ration in the lung bases. MEDIASTINUM AND HEART: Stable heart size and mediastinal structures. SUPPORT DEVICES: Appropriate location without change. BONY STRUCTURES: No acute findings. HARDWARE: None. OTHER: No other significant finding. IMPRESSION: Improving asymmetric edema or pneumonia. Reading location - IP/workstation name: [email or web address]
[2017-12-03] MEDS: PRIMIDONE 50 MG TABLET PO SCH (17:37)
[2017-12-03] MEDS: ISOSORBIDE MONONITRATE 60 MG TAB.ER.24H PO SCH (17:39)
[2017-12-03] MEDS: TRAZODONE HCL 50 MG TABLET PO SCH (21:22)
[2017-12-04] MEDS: LANSOPRAZOLE 30 MG TAB.RAP.DR PO SCH (05:03)
[2017-12-04] MEDS: ONDANSETRON HCL INJ/PF 4 MG/2 ML SDV IV PRN (05:03)
[2017-12-04] MEDS: POLYETHYLENE GLYCOL 3350 POWDER 17 GM/1 PACKET PO PRN (05:28)
[2017-12-04] MEDS: IPRATROPIUM/ALBUTEROL 0.5-2.5 MG/3 ML AMPUL NEB SCH ×3 (07:21→19:45)
[2017-12-04] MEDS ORDERED: MORPHINE SULFATE 10 MG/ML INJ IV PRN (07:44)
[2017-12-04 08:07] LABS: ABSOLUTE BASOPHILS # (AUTO) 0.1 10^3/uL (0.0-0.2); ABSOLUTE EOSINOPHILS # (AUTO) 0.2 10^3/uL (0.0-0.6); ABSOLUTE LYMPHOCYTES (AUTO) 1.8 10^3/uL (0.5-4.7); ABSOLUTE MONOCYTES (AUTO) 1.2 10^3/uL (0.1-1.4); ABSOLUTE NEUT (AUTO) 7.5 10^3/uL (1.7-8.2); BASOPHILS % (AUTO) 0.7 % (0-2); EOSINOPHILS % (AUTO) 2.2 % (0-6); HEMATOCRIT 38.3 % (37.9-51.0); HEMOGLOBIN 12.7 g/dL (13.5-17.0); MEAN CORPUSCULAR HEMOGLOBIN 28.7 pg (27.0-33.4); MEAN CORPUSCULAR HGB CONC 33.1 g/dL (32.0-36.0); MEAN CORPUSCULAR VOLUME 87 fl (80-97); MONOCYTES % (AUTO) 11.1 % (3-13); PLATELET COUNT 302 10^3/uL (150-450); RED BLOOD COUNT 4.41 10^6/uL (4.35-5.55); RED CELL DISTRIBUTION WIDTH 16.5 % (11.5-14.0); TOTAL CELLS COUNTED % (AUTO) 100 %; WHITE BLOOD COUNT 10.8 10^3/uL (4.0-10.5)
[2017-12-04 08:26] LABS: ANION GAP 15 (5-19); BLOOD UREA NITROGEN 45 mg/dL (7-20); CALCIUM 8.6 mg/dL (8.4-10.2); CARBON DIOXIDE 31 mmol/L (22-30); CHLORIDE 99 mmol/L (98-107); GLUCOSE 113 mg/dL (75-110); POTASSIUM 4.2 mmol/L (3.6-5.0); SODIUM 144.6 mmol/L (137-145)
--- NOTE | 2017-12-04 08:41 | RADIOLOGY REPORT (SQ) ---
EXAM DESCRIPTION: KUB/ABDOMEN (SINGLE VIEW) COMPLETED DATE/TIME: 12/04/2017 6:10 am REASON FOR STUDY: Abdominal Pain COMPARISON: None. NUMBER OF VIEWS: One view. TECHNIQUE: Supine radiographic image of the abdomen acquired. LIMITATIONS: None. FINDINGS: BOWEL GAS PATTERN: Moderate to severe gaseous distention of bowel central and left abdome n. Probably small bowel. Moderate gaseous distention of the ascending and transverse colon. Minima l large bowel gas distally. CALCIFICATIONS: No suspicious calcifications. SOFT TISSUES: No gross mass or suggestion of organomegaly. HARDWARE: None in the abdomen. BONES: No acute fracture. No worrisome bone lesions. OTHER: No other significant finding. IMPRESSION: Moderate to severe localized ileus central and left abdomen. Similar to that noted on TECHNICAL DOCUMENTATION: JOB ID: [id number] [employer]- All Rights Reserved Reading location - IP/workstation name: [email or web address]
[2017-12-04] MEDS: ENALAPRIL MALEATE 10 MG TABLET PO SCH (09:02)
[2017-12-04] MEDS: ASPIRIN 81 MG TABLET, ENT COATED PO SCH (09:03)
[2017-12-04] MEDS: LORATADINE 10 MG TABLET PO SCH (09:04)
[2017-12-04] MEDS: MULTIVITAMIN TABLET PO SCH (09:04)
[2017-12-04] MEDS: CARVEDILOL 12.5 MG TABLET PO SCH (09:04)
[2017-12-04] MEDS: CARBOXYMETHYLCELLULOSE SOD 0.5% 0.4 ML DROPERETTE OU SCH ×4 (09:04→21:35)
[2017-12-04] MEDS: AMLODIPINE BESYLATE 10 MG TABLET PO SCH (09:04)
[2017-12-04] MEDS: TORSEMIDE 20 MG TABLET PO SCH (09:04)
[2017-12-04] MEDS: ENOXAPARIN SODIUM INJ 40 MG/0.4 ML DISP.SYRIN SUBCUT SCH (09:05)
[2017-12-04] MEDS ORDERED: METOCLOPRAMIDE HCL INJ/PF 10 MG/2 ML SDV IV ONE (10:30)
[2017-12-04] MEDS ORDERED: PHARMACY COMMUNICATION ORDER MC NR (10:30)
[2017-12-04] MEDS ORDERED: ACETAMINOPHEN 325 MG TABLET NG PRN (10:30)
--- NOTE | 2017-12-04 10:42 | PDOC PROGRESS REPORT ---
Subjective Progress Note for:: 12/04/17 Subjective:: Patient refers that shortness of breath is better but has been having stomach pain (he points to the lower abdomen) since last night. Sonography tech is at bedside for sonogram which I discontinued since will not cover the lower abdomen Review of systems All organ systems evaluated and negative except as in subjective All significant diagnostics and laboratories have been reviewed Reason For Visit: HEART FAILURE Physical Exam Vital Signs: Temp Pulse Resp BP Pulse Ox 98.1 F 68 24 H 114/61 96 12/04/17 04:00 12/04/17 04:00 12/04/17 06:00 12/04/17 05:03 12/04/17 06:00 Intake & Output 12/03/17 12/04/17 12/05/17 06:59 06:59 06:59 Intake Total 974 Output Total 2300 425 Balance -1326 -425 Weight 98.7 kg 99.1 kg General appearance: PRESENT: no acute distress, cooperative, obese Head exam: PRESENT: atraumatic, normocephalic Eye exam: PRESENT: conjunctiva pink, EOMI, PERRLA Ear exam: PRESENT: normal external ear exam Mouth exam: PRESENT: moist Neck exam: PRESENT: full ROM. ABSENT: JVD, lymphadenopathy, tenderness Respiratory exam: PRESENT: clear to auscultation jeremy, decreased breath sounds Cardiovascular exam: PRESENT: RRR. ABSENT: diastolic murmur, systolic murmur Vascular exam: PRESENT: normal capillary refill GI/Abdominal exam: PRESENT: guarding, hypoactive bowel sounds, soft, tenderness Extremities exam: PRESENT: full ROM. ABSENT: pedal edema Musculoskeletal exam: ABSENT: ambulatory Neurological exam: PRESENT: alert, oriented to person, oriented to place, oriented to time, oriented to situation, CN II-XII grossly intact Psychiatric exam: PRESENT: appropriate affect, normal mood Skin exam: PRESENT: intact, normal color Results Laboratory Results: 12/03/17 04:06 12/03/17 04:06 Impressions: Chest X-Ray 12/03/17 00:00 IMPRESSION: Improving asymmetric edema or pneumonia. Assessment & Plan - Diagnosis (1) Acute exacerbation of CHF (congestive heart failure) Qualifiers: Heart failure type: systolic Qualified Code(s): I50.23 - Acute on chronic systolic (congestive) heart failure Is this a current diagnosis for this admission?: Yes Plan: Patient had a recent echocardiogram back in September which had a low EF around 40% . Will discontinue demadex since renal up. Bilateral pleural effusions persisting.Will proceed with blood pressure control which may be challenging since patient appears to have ileus but will continue with oral medicine outpatient will place n.p.o. 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 Changes appears to be mostly dilutional (4) Acute respiratory distress Is this a current diagnosis for this admission?: Yes Plan: Pulse ox was 91% on initial presentation and was placed on oxygen by nasal cannula. Saturating well at room air. (5) Hypertensive urgency Is this a current diagnosis for this admission?: Yes Plan: Continue Norvasc and hold off Vasotec. Will keep hydralazine IV for systolic blood pressure higher or equal to 160 or diastolic blood pressure higher or equal to 110 (6) Ileus Is this a current diagnosis for this admission?: Yes Plan: CT of the abdomen and pelvis ordered. Vision to be kept n.p.o. except for meds. Order NG tube to LIS. To place patient on gentle hydration, IV Reglan and to consult surgery since this problem is recurrent in nature (7) Bilateral pleural effusion Is this a current diagnosis for this admission?: Yes Plan: To place patient on Zosyn since patient likely has underlying infectious process - Time Time Spent with patient: 15-24 minutes Medications reviewed and adjusted accordingly: Yes Anticipated discharge: SNF Within: within 72 hours - Inpatient Certification Based on my medical assessment, after consideration of the patient's comorbidities, presenting symptoms, or acuity I expect that the services needed warrant INPATIENT care.: Yes I certify that my determination is in accordance with my understanding of Medicare's requirements for reasonable and necessary INPATIENT services [42 CFR 412.3e].: Yes Medical Necessity: Need Close Monitoring Due to Risk of Patient Decompensation, Need For IV Fluids, Need For Continuous Telemetry Monitoring, Need for IV Antibiotics
[2017-12-04] MEDS ORDERED: POLYETHYLENE GLYCOL 3350 POWDER 17 GM/1 PACKET NG PRN (11:00)
[2017-12-04] MEDS ORDERED: ZOLPIDEM TARTRATE 5 MG TABLET NG PRN (11:00)
[2017-12-04] MEDS: PIPERACILLIN SODIUM/TAZOBACTAM 3.375 GM in NORMAL SALINE 100 ML IV SCH ×3 (11:29→23:38)
[2017-12-04] MEDS: METOCLOPRAMIDE HCL INJ/PF 10 MG/2 ML SDV IV SCH ×3 (11:29→23:38)
[2017-12-04] MEDS: DEXTROSE 5%-1/2 NORMAL SALINE 1,000 ML IV PRN ×2 (11:30→21:38)
--- NOTE | 2017-12-04 11:36 | RADIOLOGY REPORT (SQ) ---
EXAM DESCRIPTION: CT ABD/PELVIS ORAL ONLY COMPLETED DATE/TIME: 12/04/2017 11:04 am REASON FOR STUDY: lower abdominal pain COMPARISON: 10/25/2017 TECHNIQUE: CT scan of the abdomen and pelvis performed without intravenous and with oral contrast. I mages reviewed with lung, soft tissue, and bone windows. Reconstructed coronal and sagittal MPR image s reviewed. All images stored on PACS. All CT scanners at this facility use dose modulation, iterative reconstruction, and/or weight based d osing when appropriate to reduce radiation dose to as low as reasonably achievable (ALARA). [facility]: Dose Right [facility]: CareDose [facility]: Dose Right [facility]: Teradose 4D [facility]: Smart [employer] RADIATION DOSE: CT Rad equipment meets quality standard of care and radiation dose reduction techniq ues were employed. CTDIvol: 20.2 mGy. DLP: 1176 mGy-cm.mGy. LIMITATIONS: Motion. Right hip arthroplasty. FINDINGS: LOWER CHEST: Cardiomegaly. Small left pleural effusion. NON-CONTRASTED LIVER, SPLEEN, ADRENALS: Evaluation limited by lack of IV contrast. No identified sign ificant masses. PANCREAS: No masses. No peripancreatic inflammatory changes. GALLBLADDER: Surgically absent. RIGHT KIDNEY AND URETER: No suspicious masses. Assessment limited by lack of IV contrast. 5 mm brigida l calculus. Large lower pole cyst. No hydronephrosis or hydroureter. LEFT KIDNEY AND URETER: No suspicious masses. Assessment limited by lack of IV contrast. No signifi cant calcifications. No hydronephrosis or hydroureter. AORTA AND RETROPERITONEUM: No aneurysm. No retroperitoneal masses or adenopathy. BOWEL AND PERITONEAL CAVITY: Multiple clips epigastric region and upper abdomen. Dilated loops of pr oximal small bowel with gas fluid levels. No clear transition but the mid jejunal and more distal sm all bowel loops are normal in caliber. Gas and fecal material in the colon. No free air or ascites. APPENDIX: Normal. PELVIS, BLADDER, AND ABDOMINAL WALL:No abnormal masses. No free fluid. Bladder normal. BONES: No significant findings. OTHER: No other significant finding. IMPRESSION: Proximal small bowel obstruction. COMMENT: Quality ID # [id number]: Final reports with documentation of one or more dose reduction techniques (e.g., Automated exposure control, adjustment of the mA and/or kV according to patient size, use of iterative reconstruction technique) TECHNICAL DOCUMENTATION: JOB ID: [id number] [employer]- All Rights Reserved Reading location - IP/workstation name: [email or web address]
--- NOTE | 2017-12-04 13:56 | RADIOLOGY REPORT (SQ) ---
EXAM DESCRIPTION: KUB/ABDOMEN (SINGLE VIEW) COMPLETED DATE/TIME: 12/04/2017 1:30 pm REASON FOR STUDY: Check Placement of NG Tube COMPARISON: 12/04/2017 TECHNIQUE: AP view of the lower thorax and upper abdomen. LIMITATIONS: None. FINDINGS: NG tube is identified with its tip in the left upper quadrant at the level of the fundus o f the stomach. The previously described localized ileus pattern appears improved. Multiple surgical clips are again identified. No free intraperitoneal air is seen. IMPRESSION: NG tube with its tip in the left upper quadrant at the level of the fundus of the stomac h. The previously described localized ileus pattern appears improved. Other findings as noted above TECHNICAL DOCUMENTATION: JOB ID: [id number] [employer] All Rights Reserved Reading location - IP/workstation name: [email or web address]
[2017-12-04] MEDS: PRIMIDONE 50 MG TABLET NG SCH (17:19)
[2017-12-04] MEDS: ISOSORBIDE MONONITRATE 60 MG TAB.ER.24H PO SCH (17:19)
--- NOTE | 2017-12-04 18:30 | PDOC CONSULTATION ---
Consultation Consult Date: 12/04/17 Consult reason:: Small bowel obstruction History of Present Illness Admission Date/PCP: 12/01/17 20:34 Patient complains of: Abdominal pain History of Present Illness: PEACE FRAGA is a 87 year old male admitted with shortness of breath and congestive heart failure. The patient received Lasix, and his breathing has improved significantly. The patient also complains of epigastric abdominal pain and recurring nausea. The patient denies any vomiting. His pain is crampy in nature, and it waxes and wanes. At its worst, the pain is a 5 . Nothing makes it better or worse. His intermittent pain has been present for several months. He attributed it to constipation. The patient denies any melena, hematochezia, hematemesis, chest pain, dizziness, orthostasis, blurry vision. The patient currently reports that he is passing flatus. Past Medical History Cardiac Medical History: Reports: Congestive Heart Failure, Coronary Artery Disease, Myocardial Infarction - x2, Hyperlipidema, Hypertension Denies: Atrial Fibrillation, DVT, Peripheral Vascular Disease, Pulmonary Embolism, Heart Murmur Pulmonary Medical History: Denies: Asthma, Chronic Obstructive Pulmonary Disease (COPD) Neurological Medical History: Denies: Seizures Endocrine Medical History: Denies: Diabetes Mellitus Type 1, Diabetes Mellitus Type 2, Hyperthyroidism, Hypothyroidism Renal/ Medical History: Denies: End Stage Renal Disease Malignancy Medical History: Denies: Breast Cancer, Cervical Cancer, Ovarian Cancer GI Medical History: Reports: Diverticulitis, Gastroesophageal Reflux Disease Denies: Cirrhosis, Crohn's Disease, Hepatitis, Hiatal Hernia Musculoskeltal Medical History: Reports: Arthritis - neck Denies: Fibromyalgia Skin Medical History: Denies: Eczema, Psoriasis Psychiatric Medical History: Reports: Depression Denies: Dementia Past Surgical History Past Surgical History: Reports: Appendectomy, Cholecystectomy, Coronary Artery Bypass Graft - x5, Orthopedic Surgery - back, right shoulder, Pacemaker, Valve Replacement - 2015 tvar, Other - partial gastrectomy for PUD; separation of horseshoe kidney; cataract; ERCP Denies: Colostomy, Gastric Bypass Surgery, Herniorrhaphy, Tonsillectomy Social History Lives with: [facility] Smoking Status: Former Smoker Frequency of Alcohol Use: None Hx Recreational Drug Use: No Drugs: None Hx Prescription Drug Abuse: No - Advance Directive Resuscitation Status: Do Not Resuscitate Family History Family History: Reviewed & Not Pertinent, CAD, CVA, Malignancy Parental Family History Reviewed: Yes Children Family History Reviewed: Yes Sibling(s) Family History Reviewed.: Yes Medication/Allergy Home Medications: Multivitamin [Multiple Vitamins] 1 tab PO DAILY 10/25/17 Aspirin [Aspirin 81 mg Chewable Tablet] 81 mg PO DAILY tab.chew 10/29/17 Carboxymethylcellulose Sodium [Refresh Plus 0.5% Oph Soln 0.4 ml Droperette] 2 drop OU QID droperette 10/29/17 Carvedilol [Coreg 6.25 mg Tablet] 6.25 mg PO Q12 tablet 10/29/17 Isosorbide Mononitrate [Imdur 60 mg Tablet.er] 60 mg PO DAILY tab.er.24h Primidone [Mysoline 50 mg Tablet] 50 mg PO QPM #0 tablet 10/29/17 Trazodone HCl [Desyrel 50 mg Tablet] 50 mg PO QHS 12/01/17 Magnesium Hydroxide [Milk of Magnesia] 30 ml PO HSP PRN 12/02/17 Polyethylene Glycol 3350 [Miralax Powder 17 gm/Packet] 1 packet PO DAILYP PRN Allergies/Adverse Reactions: No Known Allergies Allergy (Verified 12/01/17 17:53) Review of Systems Constitutional: ABSENT: fever(s), headache(s), night sweats Eyes: ABSENT: visual disturbances Cardiovascular: ABSENT: palpitations Respiratory: PRESENT: dyspnea. ABSENT: cough Gastrointestinal: PRESENT: abdominal pain, constipation. ABSENT: bloating Genitourinary: ABSENT: dysuria Musculoskeletal: ABSENT: back pain Integumentary: ABSENT: pruritus, rash Neurological: ABSENT: confusion, focal weakness, memory loss Psychiatric: ABSENT: anxiety, depression, hallucinations Hematologic/Lymphatic: ABSENT: lymphadenopathy Physical Exam Vital Signs: Temp Pulse Resp BP Pulse Ox 97.4 F 68 17 123/48 L 97 12/04/17 17:32 12/04/17 13:50 12/04/17 17:00 12/04/17 16:21 12/04/17 17:00 Intake & Output 12/03/17 12/04/17 12/05/17 06:59 06:59 06:59 Intake Total 974 465 Output Total 2300 425 400 Balance -1326 -425 65 Weight 98.7 kg 99.1 kg General appearance: PRESENT: no acute distress Head exam: PRESENT: atraumatic, normocephalic Eye exam: PRESENT: EOMI, PERRLA. ABSENT: scleral icterus Mouth exam: PRESENT: moist, neck supple Neck exam: ABSENT: meningismus, tenderness, thyromegaly, tracheal deviation Respiratory exam: PRESENT: clear to auscultation jeremy. ABSENT: rales, rhonchi Cardiovascular exam: PRESENT: RRR Pulses: PRESENT: normal radial pulses Vascular exam: PRESENT: normal capillary refill. ABSENT: pallor GI/Abdominal exam: PRESENT: normal bowel sounds, soft. ABSENT: distended, firm , guarding, hernia, rebound, tenderness Rectal exam: PRESENT: deferred Extremities exam: ABSENT: tenderness Musculoskeletal exam: ABSENT: tenderness Neurological exam: PRESENT: alert, awake, oriented to person, oriented to place , oriented to time, CN II-XII grossly intact. ABSENT: motor sensory deficit Psychiatric exam: ABSENT: agitated, anxious, depressed Skin exam: ABSENT: cyanosis, erythema, jaundice Results Laboratory Results: 12/04/17 07:59 12/04/17 07:59 12/04/17 12/04/17 07:59 07:59 WBC 10.8 H RBC 4.41 Hgb 12.7 L Hct 38.3 MCV 87 MCH 28.7 MCHC 33.1 RDW 16.5 H Plt Count 302 Seg Neutrophils % 69.0 Lymphocytes % 17.0 Monocytes % 11.1 Eosinophils % 2.2 Basophils % 0.7 Absolute Neutrophils 7.5 Absolute Lymphocytes 1.8 Absolute Monocytes 1.2 Absolute Eosinophils 0.2 Absolute Basophils 0.1 Sodium 144.6 Potassium 4.2 Chloride 99 Carbon Dioxide 31 H Anion Gap 15 BUN 45 H Creatinine 1.67 H Est GFR ( Amer) 47 L Est GFR (Non-Af Amer) 39 L Glucose 113 H Calcium 8.6 Impressions: Chest X-Ray 12/03/17 00:00 IMPRESSION: Improving asymmetric edema or pneumonia. Abdomen/Pelvis CT 12/04/17 00:00 IMPRESSION: Proximal small bowel obstruction. KUB X-Ray 12/04/17 10:21 IMPRESSION: NG tube with its tip in the left upper quadrant at the level of the fundus of the stomach. The previously described localized ileus pattern appears improved. Other findings as noted above Assessment & Plan - Plan Summary Plan Summary: This is a patient with chronic abdominal pain. He was admitted to the hospital for congestive heart failure. I have reviewed the patient's x-rays, lab work, and CT scan images. The patient has a CT scan showing dilation of his duodenum and proximal small bowel. The patient has no obvious transition zone, and contrast flows through the majority of the small bowel. The patient has a history of partial gastrectomy. The patient could be experiencing a proximal, partial (or even intermittent) obstruction. At this time, the patient is not vomiting and has had no significant nausea. I will repeat the patient's x-rays tomorrow to follow the contrast moving through the small intestine. The patient may benefit from an upper GI series with small bowel follow-through to visualize his gastroenteric anastomosis (to ensure no strictures or obstructions are present). I will continue to follow the patient very closely with you.
[2017-12-04] MEDS: CARVEDILOL 12.5 MG TABLET NG SCH (21:36)
[2017-12-04] MEDS: TRAZODONE HCL 50 MG TABLET NG SCH (21:37)
[2017-12-05] MEDS: PIPERACILLIN SODIUM/TAZOBACTAM 3.375 GM in NORMAL SALINE 100 ML IV SCH ×4 (06:14→23:45)
[2017-12-05] MEDS: METOCLOPRAMIDE HCL INJ/PF 10 MG/2 ML SDV IV SCH ×4 (06:14→23:45)
[2017-12-05] MEDS: LANSOPRAZOLE 30 MG TAB.RAP.DR NG SCH (06:15)
[2017-12-05] MEDS: IPRATROPIUM/ALBUTEROL 0.5-2.5 MG/3 ML AMPUL NEB SCH (07:42)
[2017-12-05 08:04] LABS: ANION GAP 10 (5-19); BLOOD UREA NITROGEN 40 mg/dL (7-20); CALCIUM 8.5 mg/dL (8.4-10.2); CARBON DIOXIDE 30 mmol/L (22-30); CHLORIDE 100 mmol/L (98-107); GLUCOSE 133 mg/dL (75-110); POTASSIUM 3.9 mmol/L (3.6-5.0); SODIUM 140.4 mmol/L (137-145)
[2017-12-05 08:35] LABS: ABSOLUTE EOSINOPHILS # (AUTO) 0.3 10^3/uL (0.0-0.6); ABSOLUTE LYMPHOCYTES (AUTO) 1.6 10^3/uL (0.5-4.7); ABSOLUTE NEUT (AUTO) 5.7 10^3/uL (1.7-8.2); BASOPHILS % (AUTO) 0.2 % (0-2); HEMATOCRIT 35.5 % (37.9-51.0); HEMOGLOBIN 11.7 g/dL (13.5-17.0); LYMPHOCYTES % (AUTO) 18.4 % (13-45); MEAN CORPUSCULAR HEMOGLOBIN 28.5 pg (27.0-33.4); MEAN CORPUSCULAR VOLUME 86 fl (80-97); MONOCYTES % (AUTO) 11.5 % (3-13); PLATELET COUNT 313 10^3/uL (150-450); RED BLOOD COUNT 4.12 10^6/uL (4.35-5.55); RED CELL DISTRIBUTION WIDTH 16.2 % (11.5-14.0); SEGMENTED NEUTROPHILS % (AUTO) 66.9 % (42-78); TOTAL CELLS COUNTED % (AUTO) 100 %; WHITE BLOOD COUNT 8.6 10^3/uL (4.0-10.5)
--- NOTE | 2017-12-05 09:14 | RADIOLOGY REPORT (SQ) ---
EXAM DESCRIPTION: ABDOMEN 2 VIEWS COMPLETED DATE/TIME: 12/05/2017 6:56 am REASON FOR STUDY: SBO COMPARISON: 12/04/[address] NUMBER OF VIEWS: Two views. TECHNIQUE: Supine and erect/decubitus radiographic images of the abdomen acquired. LIMITATIONS: None. FINDINGS: FREE AIR: None. No abnormal gas collections. LUNG BASES: Bibasilar areas of interstitial change and mild costophrenic angle blunting. BOWEL GAS PATTERN: Gaseous distention, large and small bowel. Mild contrast in the proximal colon. Contrast has progressed compared to CT from yesterday, no longer persisting in small bowel loops. CALCIFICATIONS: No suspicious calcifications. SOFT TISSUES: No gross mass or suggestion of organomegaly. HARDWARE: Numerous surgical clips in the abdomen. BONES: Osteopenia, limited assessment. OTHER: No other significant finding. IMPRESSION: Gaseous distension. Enteric contrast from yesterday's CT has progressed into the colon and partially cleared. TECHNICAL DOCUMENTATION: JOB ID: [id number] [employer]- All Rights Reserved Reading location - IP/workstation name: [email or web address]
--- NOTE | 2017-12-05 09:38 | PDOC PROGRESS REPORT ---
Subjective Progress Note for:: 12/05/17 Subjective:: Feels well. No complaints. No abdominal pain. Denies any recent nausea or vomiting. Although he did have transient episodes of nausea and vomiting couple of months ago. 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 He denies any NSAID abuse and denies any alcohol abuse. He denies any abdominal pain. Reason For Visit: HEART FAILURE Physical Exam Vital Signs: Temp Pulse Resp BP Pulse Ox 98.7 F 63 21 H 137/51 H 93 12/05/17 07:46 12/05/17 08:00 12/05/17 07:46 12/05/17 07:46 12/05/17 07:46 Intake & Output 12/04/17 12/05/17 12/06/17 06:59 06:59 06:59 Intake Total 1541 Output Total 425 1100 Balance -425 441 Weight 99.1 kg 99.8 kg General appearance: PRESENT: no acute distress, cooperative Respiratory exam: PRESENT: clear to auscultation jeremy, decreased breath sounds Cardiovascular exam: PRESENT: irregular rhythm, systolic murmur GI/Abdominal exam: PRESENT: other - Soft, nondistended, nontender to palpation. Well-healed scars. No palpable hernia defects. NG output nonbilious Results Laboratory Results: 12/05/17 03:52 12/05/17 03:52 12/05/17 12/05/17 12/05/17 03:52 03:52 03:52 WBC 8.6 RBC 4.12 L Hgb 11.7 L Hct 35.5 L MCV 86 MCH 28.5 MCHC 33.0 RDW 16.2 H Plt Count 313 Seg Neutrophils % 66.9 Lymphocytes % 18.4 Monocytes % 11.5 Eosinophils % 3.0 Basophils % 0.2 Absolute Neutrophils 5.7 Absolute Lymphocytes 1.6 Absolute Monocytes 1.0 Absolute Eosinophils 0.3 Absolute Basophils 0.0 Sodium 140.4 Potassium 3.9 Chloride 100 Carbon Dioxide 30 Anion Gap 10 BUN 40 H Creatinine 1.19 Est GFR ( Amer) > 60 Est GFR (Non-Af Amer) 58 L Glucose 133 H Calcium 8.5 Magnesium 1.9 Impressions: Chest X-Ray 12/03/17 00:00 IMPRESSION: Improving asymmetric edema or pneumonia. Abdomen/Pelvis CT 12/04/17 00:00 IMPRESSION: Proximal small bowel obstruction. KUB X-Ray 12/04/17 10:21 IMPRESSION: NG tube with its tip in the left upper quadrant at the level of the fundus of the stomach. The previously described localized ileus pattern appears improved. Other findings as noted above Abdomen X-Ray 12/05/17 06:00 IMPRESSION: Gaseous distension. Enteric contrast from yesterday's CT has progressed into the colon and partially cleared. Assessment & Plan - Diagnosis (1) Partial small bowel obstruction Is this a current diagnosis for this admission?: Yes Plan: Appears to have resolved. However with the CT scan abnormality, will plan to further define his anatomy and make sure that there is no surgical problem. Will obtain a upper GI with small bowel follow series today.
[2017-12-05] MEDS ORDERED: ENALAPRIL MALEATE 10 MG TABLET NG SCH ×2 (10:00→14:00)
[2017-12-05] MEDS: CARVEDILOL 12.5 MG TABLET NG SCH ×2 (10:26→21:38)
[2017-12-05] MEDS: LORATADINE 10 MG TABLET NG SCH (10:29)
[2017-12-05] MEDS: AMLODIPINE BESYLATE 10 MG TABLET NG SCH (10:29)
[2017-12-05] MEDS: CARBOXYMETHYLCELLULOSE SOD 0.5% 0.4 ML DROPERETTE OU SCH ×4 (10:31→21:38)
[2017-12-05] MEDS: ENOXAPARIN SODIUM INJ 40 MG/0.4 ML DISP.SYRIN SUBCUT SCH (10:31)
[2017-12-05] MEDS: ASPIRIN 81 MG TABLET, ENT COATED PO SCH (10:31)
[2017-12-05] MEDS: MULTIVITAMIN TABLET PO SCH (10:31)
[2017-12-05] MEDS ORDERED: IPRATROPIUM/ALBUTEROL 0.5-2.5 MG/3 ML AMPUL NEB PRN (12:17)
--- NOTE | 2017-12-05 12:53 | PDOC PROGRESS REPORT ---
Subjective Progress Note for:: 12/05/17 Subjective:: Patient relates that the pain in the stomach has improved and he had been passing some gas. He denies any shortness of breath Review of systems All organ systems evaluated and negative except as in subjective All significant diagnostics and laboratories have been reviewed Reason For Visit: HEART FAILURE Physical Exam Vital Signs: Temp Pulse Resp BP Pulse Ox 98.7 F 59 L 20 125/49 L 91 L 12/05/17 03:12 12/05/17 03:12 12/05/17 06:00 12/05/17 03:12 12/05/17 06:00 Intake & Output 12/04/17 12/05/17 12/06/17 06:59 06:59 06:59 Intake Total 1541 Output Total 425 1100 Balance -425 441 Weight 99.1 kg 99.8 kg General appearance: PRESENT: no acute distress, cooperative, obese Head exam: PRESENT: atraumatic, normocephalic Eye exam: PRESENT: conjunctiva pink, EOMI, PERRLA Ear exam: PRESENT: normal external ear exam Mouth exam: PRESENT: moist Neck exam: PRESENT: full ROM. ABSENT: JVD, lymphadenopathy, tenderness Respiratory exam: PRESENT: clear to auscultation jeremy Cardiovascular exam: PRESENT: RRR. ABSENT: diastolic murmur, systolic murmur Vascular exam: PRESENT: normal capillary refill GI/Abdominal exam: PRESENT: hypoactive bowel sounds, soft. ABSENT: tenderness Extremities exam: PRESENT: full ROM. ABSENT: pedal edema Musculoskeletal exam: ABSENT: ambulatory Neurological exam: PRESENT: alert, awake, oriented to person, oriented to place , oriented to time, oriented to situation, CN II-XII grossly intact Psychiatric exam: PRESENT: appropriate affect, normal mood Skin exam: PRESENT: intact, normal color Results Laboratory Results: 12/04/17 07:59 12/04/17 07:59 12/04/17 12/04/17 12/05/17 07:59 07:59 03:52 WBC 10.8 H RBC 4.41 Hgb 12.7 L Hct 38.3 MCV 87 MCH 28.7 MCHC 33.1 RDW 16.5 H Plt Count 302 Seg Neutrophils % 69.0 Lymphocytes % 17.0 Monocytes % 11.1 Eosinophils % 2.2 Basophils % 0.7 Absolute Neutrophils 7.5 Absolute Lymphocytes 1.8 Absolute Monocytes 1.2 Absolute Eosinophils 0.2 Absolute Basophils 0.1 Sodium 144.6 Potassium 4.2 Chloride 99 Carbon Dioxide 31 H Anion Gap 15 BUN 45 H Creatinine 1.67 H Est GFR ( Amer) 47 L Est GFR (Non-Af Amer) 39 L Glucose 113 H Calcium 8.6 Magnesium 1.9 Impressions: Chest X-Ray 12/03/17 00:00 IMPRESSION: Improving asymmetric edema or pneumonia. Abdomen/Pelvis CT 12/04/17 00:00 IMPRESSION: Proximal small bowel obstruction. KUB X-Ray 12/04/17 10:21 IMPRESSION: NG tube with its tip in the left upper quadrant at the level of the fundus of the stomach. The previously described localized ileus pattern appears improved. Other findings as noted above Assessment & Plan - Diagnosis (1) Acute exacerbation of CHF (congestive heart failure) Qualifiers: Heart failure type: systolic Qualified Code(s): I50.23 - Acute on chronic systolic (congestive) heart failure Is this a current diagnosis for this admission?: Yes Plan: Patient had a recent echocardiogram back in September which had a low EF around 40% . Off Demadex because of bump in renal functions. Anticipate diuresis can be restarted in a.m. Continue with blood pressure management. 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 Changes appears to be mostly dilutional (4) Acute respiratory distress Is this a current diagnosis for this admission?: Yes Plan: Pulse ox was 91% on initial presentation and was placed on oxygen by nasal cannula. Had been saturating 93% on room air (5) Hypertensive urgency Is this a current diagnosis for this admission?: Yes Plan: Continue Norvasc, to restart Vasotec and add hydralazine.Will keep hydralazine IV for systolic blood pressure higher or equal to 160 or diastolic blood pressure higher or equal to 110 (6) Ileus Is this a current diagnosis for this admission?: Yes Plan: Partial small bowel obstruction. Patient doing better. Continue NG tube. Keep n.p.o. except for meds. (7) Bilateral pleural effusion Is this a current diagnosis for this admission?: Yes Plan: Continue Zosyn since patient likely has underlying infectious process. Repeat chest xray. - Time Time Spent with patient: 15-24 minutes Medications reviewed and adjusted accordingly: Yes Anticipated discharge: SNF Within: within 72 hours - Inpatient Certification Based on my medical assessment, after consideration of the patient's comorbidities, presenting symptoms, or acuity I expect that the services needed warrant INPATIENT care.: Yes I certify that my determination is in accordance with my understanding of Medicare's requirements for reasonable and necessary INPATIENT services [42 CFR 412.3e].: Yes Medical Necessity: Significant Comorbidiites Make Outpatient Treatment Too Risky , Need Close Monitoring Due to Risk of Patient Decompensation, Need For Continuous Telemetry Monitoring, Need for IV Antibiotics
[2017-12-05] MEDS: HYDRALAZINE HCL 50 MG TABLET NG SCH ×2 (13:43→21:38)
[2017-12-05] MEDS: PRIMIDONE 50 MG TABLET NG SCH (18:08)
[2017-12-05] MEDS: HYDRALAZINE HCL INJ/PF 20 MG/1 ML SDV IV PRN (18:08)
[2017-12-05] MEDS: ISOSORBIDE MONONITRATE 60 MG TAB.ER.24H PO SCH (18:08)
[2017-12-05] MEDS: DEXTROSE 5%-1/2 NORMAL SALINE 1,000 ML IV PRN (18:09)
[2017-12-05] MEDS: TRAZODONE HCL 50 MG TABLET NG SCH (21:39)
[2017-12-06 04:48] LABS: ANION GAP 8 (5-19); BLOOD UREA NITROGEN 23 mg/dL (7-20); CALCIUM 8.8 mg/dL (8.4-10.2); CARBON DIOXIDE 29 mmol/L (22-30); CHLORIDE 104 mmol/L (98-107); GLUCOSE 127 mg/dL (75-110); POTASSIUM 3.9 mmol/L (3.6-5.0); SODIUM 141.4 mmol/L (137-145)
[2017-12-06] MEDS: PIPERACILLIN SODIUM/TAZOBACTAM 3.375 GM in NORMAL SALINE 100 ML IV SCH (05:36)
[2017-12-06] MEDS: LANSOPRAZOLE 30 MG TAB.RAP.DR NG SCH (05:36)
[2017-12-06] MEDS: METOCLOPRAMIDE HCL INJ/PF 10 MG/2 ML SDV IV SCH ×4 (05:36→23:58)
[2017-12-06] MEDS: HYDRALAZINE HCL 50 MG TABLET NG SCH (05:37)
[2017-12-06 06:44] LABS: ABSOLUTE BASOPHILS # (AUTO) 0.1 10^3/uL (0.0-0.2); ABSOLUTE EOSINOPHILS # (AUTO) 0.2 10^3/uL (0.0-0.6); ABSOLUTE LYMPHOCYTES (AUTO) 1.5 10^3/uL (0.5-4.7); ABSOLUTE MONOCYTES (AUTO) 1.1 10^3/uL (0.1-1.4); ABSOLUTE NEUT (AUTO) 5.7 10^3/uL (1.7-8.2); BASOPHILS % (AUTO) 0.8 % (0-2); EOSINOPHILS % (AUTO) 2.7 % (0-6); HEMATOCRIT 36.5 % (37.9-51.0); LYMPHOCYTES % (AUTO) 17.3 % (13-45); MEAN CORPUSCULAR HEMOGLOBIN 28.3 pg (27.0-33.4); MEAN CORPUSCULAR HGB CONC 32.9 g/dL (32.0-36.0); MEAN CORPUSCULAR VOLUME 86 fl (80-97); MONOCYTES % (AUTO) 12.7 % (3-13); PLATELET COUNT 333 10^3/uL (150-450); RED BLOOD COUNT 4.25 10^6/uL (4.35-5.55); RED CELL DISTRIBUTION WIDTH 16.5 % (11.5-14.0); SEGMENTED NEUTROPHILS % (AUTO) 66.5 % (42-78); TOTAL CELLS COUNTED % (AUTO) 100 %; WHITE BLOOD COUNT 8.6 10^3/uL (4.0-10.5)
--- NOTE | 2017-12-06 07:38 | RADIOLOGY REPORT (SQ) ---
EXAM DESCRIPTION: CR chest one view CLINICAL HISTORY: 87 years Male, follow up pleural effusions COMPARISON: 3 days prior. NUMBER OF VIEWS/TECHNIQUE: 1/AP FINDINGS: Small bibasilar opacity-effusion, mild interstitial markings, normal cardiac silhouette, atherosclerosis, median sternotomy, left upper abdominal clips, left cardiac stimulator with leads, adequate appearing enteric tube, right nuchal clips, and screw fixation of the left humeral head. No pneumothorax. No acute bone defect. IMPRESSION: No significant change.
--- NOTE | 2017-12-06 07:44 | RADIOLOGY REPORT (SQ) ---
EXAM DESCRIPTION: XR ABDOMEN 1 VIEW (KUB) CLINICAL HISTORY: 87 years Male, Bowel obstruction followup COMPARISON: CR, 12/05/2017 6:[address],12/04/2017 11:04 am. NUMBER OF VIEWS/TECHNIQUE: One view, two images FINDINGS: Dilated small bowel in the left paracentral abdomen measures 6.5 cm in diameter. No suspicious calcification. Right total hip arthroplasty. Small bibasilar opacity-effusion. IMPRESSION: Small bowel obstruction-ileus pattern.
[2017-12-06] MEDS ORDERED: ASPIRIN 81 MG TABLET, CHEWABLE NG SCH (10:00)
[2017-12-06] MEDS: DEXTROSE 5%-1/2 NORMAL SALINE 1,000 ML IV PRN (11:47)
[2017-12-06] MEDS: CARBOXYMETHYLCELLULOSE SOD 0.5% 0.4 ML DROPERETTE OU SCH ×4 (11:48→22:06)
[2017-12-06] MEDS: LORATADINE 10 MG TABLET NG SCH (11:52)
[2017-12-06] MEDS: AMLODIPINE BESYLATE 10 MG TABLET NG SCH (11:52)
[2017-12-06] MEDS: ENOXAPARIN SODIUM INJ 40 MG/0.4 ML DISP.SYRIN SUBCUT SCH (11:52)
[2017-12-06] MEDS: CARVEDILOL 12.5 MG TABLET NG SCH (11:52)
[2017-12-06] MEDS: MULTIVITAMIN TABLET PO SCH (11:52)
[2017-12-06] MEDS ORDERED: NALOXONE HCL INJ/PF 0.4 MG/1 ML SDV ONE (13:08)
[2017-12-06] MEDS ORDERED: DIPHENHYDRAMINE HCL 50 MG/ML VIAL ONE (13:08)
[2017-12-06] MEDS ORDERED: ONDANSETRON HCL INJ/PF 4 MG/2 ML SDV ONE (13:08)
[2017-12-06] MEDS ORDERED: FLUMAZENIL INJ 0.5 MG/5 ML VIAL ONE (13:09)
[2017-12-06] MEDS ORDERED: MIDAZOLAM 2 MG/2 ML INJ ONE ×2 (13:09)
[2017-12-06] MEDS ORDERED: GLUCAGON,HUMAN RECOMB 1 MG INJ ONE (13:09)
[2017-12-06] MEDS ORDERED: EPINEPHRINE INJ 1 MG/10 ML DISP.SYRIN ONE (13:09)
--- NOTE | 2017-12-06 13:23 | PDOC PROGRESS REPORT ---
Subjective Progress Note for:: 12/06/17 Subjective:: No complaints. Had large bowel movement after upper GI and small bowel follow series today. No abdominal pain. No nausea or vomiting. Reason For Visit: HEART FAILURE Physical Exam Vital Signs: Temp Pulse Resp BP Pulse Ox 97.8 F 64 19 160/70 H 96 12/06/17 11:28 12/06/17 08:45 12/06/17 12:00 12/06/17 11:28 12/06/17 11:28 Intake & Output 12/05/17 12/06/17 12/07/17 06:59 06:59 06:59 Intake Total 1541 1986 Output Total 1100 1850 Balance 441 136 Weight 99.8 kg 97.7 kg General appearance: PRESENT: no acute distress, cooperative Respiratory exam: PRESENT: clear to auscultation jermey Cardiovascular exam: PRESENT: irregular rhythm GI/Abdominal exam: PRESENT: other - Soft, nondistended, nontender to palpation. Results Laboratory Results: 12/06/17 03:54 12/06/17 03:54 12/06/17 12/06/17 03:54 03:54 WBC 8.6 RBC 4.25 L Hgb 12.0 L Hct 36.5 L MCV 86 MCH 28.3 MCHC 32.9 RDW 16.5 H Plt Count 333 Seg Neutrophils % 66.5 Lymphocytes % 17.3 Monocytes % 12.7 Eosinophils % 2.7 Basophils % 0.8 Absolute Neutrophils 5.7 Absolute Lymphocytes 1.5 Absolute Monocytes 1.1 Absolute Eosinophils 0.2 Absolute Basophils 0.1 Sodium 141.4 Potassium 3.9 Chloride 104 Carbon Dioxide 29 Anion Gap 8 BUN 23 H Creatinine 0.77 Est GFR ( Amer) > 60 Est GFR (Non-Af Amer) > 60 Glucose 127 H Calcium 8.8 Magnesium 2.1 12/03/17 21:31 Sputum Gram Stain - Final 12/03/17 21:31 Sputum Sputum Culture - Final Staphylococcus Aureus Normal Juju Impressions: Abdomen/Pelvis CT 12/04/17 00:00 IMPRESSION: Proximal small bowel obstruction. Abdomen X-Ray 12/05/17 06:00 IMPRESSION: Gaseous distension. Enteric contrast from yesterday's CT has progressed into the colon and partially cleared. KUB X-Ray 12/06/17 06:00 IMPRESSION: Small bowel obstruction-ileus pattern. Chest X-Ray 12/06/17 07:00 IMPRESSION: No significant change. Assessment & Plan - Diagnosis (1) Partial small bowel obstruction Is this a current diagnosis for this admission?: Yes Plan: Upper GI with small bowel follow series demonstrates no evidence of obstruction. 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 This dilation was present couple of months ago as well. I believe it is a a chronic process and I do not think he is symptomatic. I do not think it is causing a problem for the patient. I have a hard time justifying revisionary surgery in this high risk surgical patient without active GI symptoms. However I will plan an upper endoscopy to further evaluate his anatomy. I have discussed with the patient the risk and benefits of the procedure including risk of intestinal injury and bleeding. Patient understands and agrees to proceed.
[2017-12-06] MEDS: FENTANYL CITRATE INJ/PF 100 MCG/2 ML AMPUL ONE ×2 (13:40→13:52)
[2017-12-06] MEDS ORDERED: ACETAMINOPHEN 325 MG TABLET PO PRN (15:00)
--- NOTE | 2017-12-06 15:29 | RADIOLOGY REPORT (SQ) ---
EXAM DESCRIPTION: UPPER GI/SM BOWEL COMPLETED DATE/TIME: 12/06/2017 11:53 am REASON FOR STUDY: r/o proximal sbo, evaluate bilroth II COMPARISON: CT abdomen pelvis 12/04/2017 and abdominal films from 10/25/2017 TECHNIQUE: Under fluoroscopic guidance, water soluble contrast was instilled to the patient's NG tub e. Fluoroscopic spot images and routine radiographic images acquired and stored on PACS. Following evaluation of the stomach, additional barium administered with serial delayed abdominal rad iographs until colonic identification. Fluoroscopic images recorded of the terminal ileum. 12 MM BARIUM TABLET GIVEN: No Not given FLUOROSCOPY TIME: 5.3 minutes 27 images saved to PACS. LIMITATIONS: None. FINDINGS: GASTRO-ESOPHAGEAL JUNCTION: No hiatal hernia. Free-flowing gastroesophageal reflux was se en. STOMACH: Postoperative changes seen of the stomach from previous partial gastrectomy. No extravasati on or leak of contrast is identified. Gastrojejunal anastomosis appears intact but is incompletely v isualized. There is free flow of contrast into the jejunum. There is a blind ended loop of bowel pr ojecting laterally off the stomach. DUODENUM: Patient had and an apparent Billroth 2 procedure which does show a air-filled dilated duode num with a small amount of reflux contrast into the distal portion of the afferant limb. This appear s similar to previous abdominal imaging from 10/25/2017 JEJUNUM: Postoperative changes as described above. No dilated loop of jejunum is identified. No niall dence of obstruction. ILEUM: Normal mucosal pattern. No dilatation, segmentation, strictures or masses. TERMINAL ILEUM AND ILEO-CECAL VALVE: Incompletely visualized due to residual contrast from previous s tudies although no evidence of obstruction seen. PROXIMAL COLON: Incompletely imaged. No abnormality. NON-GI TRACT STRUCTURES: Multiple surgical clips are identified in the right upper and left upper abd omen. OTHER: Rapid transit of contrast through the small bowel and colon with contrast seen in the rectum a t 45 minutes. IMPRESSION: NO EVIDENCE OF SMALL-BOWEL OBSTRUCTION. PROMINENT DILATED AFFERENT LIMB OF THE GASTRIC BYPASS IS IDENTIFIED AND UNCHANGED FROM PREVIOUS STUDIES. THE REMAINING VISUALIZED LOOPS SMALL BOWEL APPEAR NORMAL. COMMENT: Quality ID [id number]: Final reports for procedures using fluoroscopy that document radiation exp osure indices, or exposure time and number of fluorographic images (if radiation exposure indices are not available) TECHNICAL DOCUMENTATION: JOB ID: [id number]- All Rights Reserved Reading location - IP/workstation name: [email or web address]
[2017-12-06] MEDS ORDERED: POLYETHYLENE GLYCOL 3350 POWDER 17 GM/1 PACKET PO PRN (15:30)
[2017-12-06] MEDS ORDERED: ZOLPIDEM TARTRATE 5 MG TABLET PO PRN (15:30)
[2017-12-06] MEDS: ONDANSETRON HCL INJ/PF 4 MG/2 ML SDV IV PRN (16:02)
--- NOTE | 2017-12-06 16:08 | Operative Report ---
Operative Report DATE OF SURGERY: 12/06/17 PREOPERATIVE DIAGNOSIS: Small bowel distention POSTOPERATIVE DIAGNOSIS: Small bowel distention, Billroth II anatomy with loop gastrojejunostomy. OPERATION: Esophago-gastro jejunoscopy SURGEON: JOSE ALEJANDRO DAVIS ANESTHESIA: Local TISSUE REMOVED OR ALTERED: None COMPLICATIONS: None ESTIMATED BLOOD LOSS: None INTRAOPERATIVE FINDINGS: Clear fluid in the stomach. Evidence of Billroth II anatomy with gastro-jejunal anastomosis that appeared widely patent with no evidence of marginal ulcer. However unable to pass the scope into the afferent nor efferent limbs due to technical difficulties. No obvious obstruction seen however. No gastric masses nor ulcers. Mild esophageal irritation but no ulcers nor masses in the esophagus. PROCEDURE: Informed consent was obtained. The procedure was done at the patient's bedside. IV sedation with Versed and fentanyl was administered. Endoscope was passed via the patient's mouth into the stomach. There was about 100 cc of clear fluid in the stomach that was aspirated. There was evidence of a gastrojejunostomy. It appeared to be a loop gastrojejunal anastomosis. I was only able to pass the scope several centimeters into the afferent and efferent limbs but due to redundancies and angles, I could not pass the scope significantly into either one of these limbs. The gastrojejunal anastomosis was widely patent with no evidence of marginal ulcers. The stomach appeared irritated but no ulcers and no masses were seen. Esophagus also appeared irritated but no large ulcers nor masses seen. Patient tolerated procedure well with no apparent complications. Assessment: evidence of Billroth II reconstruction with no evidence of marginal ulcers nor stenosis at the anastomosis. There is still a possibility that patient has kinking of the afferent limb. Patient certainly does not have a complete obstruction. 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 With the patient having significant intraoperative cardiac risk and him not having any symptoms at this time, I do not feel that a remedial operation is advisable in this patient. Will allow the patient clear liquids and will advance as tolerated.
[2017-12-06] MEDS: HYDRALAZINE HCL INJ/PF 20 MG/1 ML SDV IV PRN (17:16)
--- NOTE | 2017-12-06 18:20 | PDOC PROGRESS REPORT ---
Subjective Progress Note for:: 12/06/17 Subjective:: 87-year-old gentleman who presented to the hospital on December 04 from assisted living complaining of a 2 day history of shortness of breath with exertion. Past medical history: Coronary artery disease Systolic and diastolic CHF Hyperlipidemia Hypertension Pacemaker 3 of partial gastrectomy He was diagnosed with hypertensive urgency and acute systolic CHF exacerbation and started on a nitroglycerin drip. Echocardiogram in September 2017 showed a left ventricular ejection fraction of 40%. The patient was diuresed and blood pressure medications were titrated to optimize blood pressure. He was started on Rocephin to treat acute bronchitis. On December 04 he developed abdominal pain and was found to have ileus, CT of the abdomen and pelvis showed proximal small bowel obstruction. NG tube was placed. The surgical service is following the patient. An upper GI series with small bowel follow-through is planned. Reason For Visit: HEART FAILURE Physical Exam Vital Signs: Temp Pulse Resp BP Pulse Ox 97.8 F 64 12 166/61 H 95 12/06/17 08:00 12/06/17 08:45 12/06/17 08:45 12/06/17 08:00 12/06/17 08:45 Intake & Output 12/05/17 12/06/17 12/07/17 06:59 06:59 06:59 Intake Total 1541 1986 Output Total 1100 1850 Balance 441 136 Weight 99.8 kg 97.7 kg General appearance: PRESENT: no acute distress Head exam: PRESENT: normocephalic Mouth exam: PRESENT: moist Teeth exam: PRESENT: other - NG tube present Neck exam: ABSENT: tracheal deviation Respiratory exam: PRESENT: clear to auscultation jeremy, symmetrical, unlabored Cardiovascular exam: PRESENT: RRR GI/Abdominal exam: PRESENT: normal bowel sounds, soft Rectal exam: PRESENT: deferred Extremities exam: ABSENT: pedal edema Neurological exam: PRESENT: alert, awake, oriented to person, oriented to place Psychiatric exam: PRESENT: appropriate affect Results Laboratory Results: 12/06/17 03:54 12/06/17 03:54 12/06/17 12/06/17 03:54 03:54 WBC 8.6 RBC 4.25 L Hgb 12.0 L Hct 36.5 L MCV 86 MCH 28.3 MCHC 32.9 RDW 16.5 H Plt Count 333 Seg Neutrophils % 66.5 Lymphocytes % 17.3 Monocytes % 12.7 Eosinophils % 2.7 Basophils % 0.8 Absolute Neutrophils 5.7 Absolute Lymphocytes 1.5 Absolute Monocytes 1.1 Absolute Eosinophils 0.2 Absolute Basophils 0.1 Sodium 141.4 Potassium 3.9 Chloride 104 Carbon Dioxide 29 Anion Gap 8 BUN 23 H Creatinine 0.77 Est GFR ( Amer) > 60 Est GFR (Non-Af Amer) > 60 Glucose 127 H Calcium 8.8 Magnesium 2.1 12/03/17 21:31 Sputum Gram Stain - Final 12/03/17 21:31 Sputum Sputum Culture - Final Staphylococcus Aureus Normal Juju Impressions: Abdomen/Pelvis CT 12/04/17 00:00 IMPRESSION: Proximal small bowel obstruction. Abdomen X-Ray 12/05/17 06:00 IMPRESSION: Gaseous distension. Enteric contrast from yesterday's CT has progressed into the colon and partially cleared. KUB X-Ray 12/06/17 06:00 IMPRESSION: Small bowel obstruction-ileus pattern. Chest X-Ray 12/06/17 07:00 IMPRESSION: No significant change. Assessment & Plan - Diagnosis (1) Systolic and diastolic CHF, acute on chronic Is this a current diagnosis for this admission?: Yes Plan: On diuretics, enalapril Coreg, monitor intake and output. (2) Essential hypertension Is this a current diagnosis for this admission?: Yes Plan: Stable. Continue current management. (3) Anemia Qualifiers: Anemia type: unspecified type Qualified Code(s): D64.9 - Anemia, unspecified Is this a current diagnosis for this admission?: Yes Plan: [place] to be due to hemodilution. (4) Hypertensive urgency Is this a current diagnosis for this admission?: Yes Plan: Solved. Continue medications and monitor blood pressure. (5) Partial small bowel obstruction Is this a current diagnosis for this admission?: Yes Plan: Management per surgical service. (6) Coronary artery disease Qualifiers: Coronary Disease-Associated Artery/Lesion type: [place] artery [place] vs. transplanted heart: [place] heart Associated angina: without angina Qualified Code(s): I25.10 - Atherosclerotic heart disease of [place] coronary artery without angina pectoris Is this a current diagnosis for this admission?: Yes Plan: Continue medications. - Time Time Spent with patient: 35 or more minutes
[2017-12-06] MEDS: PRIMIDONE 50 MG TABLET PO SCH (18:57)
[2017-12-06] MEDS: ISOSORBIDE MONONITRATE 60 MG TAB.ER.24H PO SCH (18:57)
[2017-12-06] MEDS: TRAZODONE HCL 50 MG TABLET PO SCH (22:05)
[2017-12-06] MEDS: CARVEDILOL 12.5 MG TABLET PO SCH (22:05)
[2017-12-06] MEDS: HYDRALAZINE HCL 50 MG TABLET PO SCH (23:16)
[2017-12-07] MEDS: DEXTROSE 5%-1/2 NORMAL SALINE 1,000 ML IV PRN (02:21)
[2017-12-07 04:01] LABS: ABSOLUTE BASOPHILS # (AUTO) 0.1 10^3/uL (0.0-0.2); ABSOLUTE EOSINOPHILS # (AUTO) 0.2 10^3/uL (0.0-0.6); ABSOLUTE LYMPHOCYTES (AUTO) 1.8 10^3/uL (0.5-4.7); ABSOLUTE MONOCYTES (AUTO) 1.2 10^3/uL (0.1-1.4); ABSOLUTE NEUT (AUTO) 6.8 10^3/uL (1.7-8.2); BASOPHILS % (AUTO) 0.7 % (0-2); EOSINOPHILS % (AUTO) 1.7 % (0-6); HEMATOCRIT 36.2 % (37.9-51.0); LYMPHOCYTES % (AUTO) 17.9 % (13-45); MEAN CORPUSCULAR HEMOGLOBIN 28.5 pg (27.0-33.4); MEAN CORPUSCULAR HGB CONC 33.1 g/dL (32.0-36.0); MEAN CORPUSCULAR VOLUME 86 fl (80-97); MONOCYTES % (AUTO) 12.1 % (3-13); PLATELET COUNT 327 10^3/uL (150-450); RED BLOOD COUNT 4.21 10^6/uL (4.35-5.55); SEGMENTED NEUTROPHILS % (AUTO) 67.6 % (42-78); TOTAL CELLS COUNTED % (AUTO) 100 %; WHITE BLOOD COUNT 10.1 10^3/uL (4.0-10.5)
[2017-12-07 04:27] LABS: ALANINE AMINOTRANSFERASE 21 U/L (21-72); ALBUMIN 2.7 g/dL (3.5-5.0); ALKALINE PHOSPHATASE 67 U/L (38-126); ANION GAP 10 (5-19); ASPARTATE AMINO TRANSFERASE 17 U/L (17-59); BILIRUBIN,DIRECT 0.3 mg/dL (0.0-0.4); BILIRUBIN,TOTAL 0.4 mg/dL (0.2-1.3); BLOOD UREA NITROGEN 22 mg/dL (7-20); CALCIUM 8.8 mg/dL (8.4-10.2); CARBON DIOXIDE 29 mmol/L (22-30); CHLORIDE 108 mmol/L (98-107); GLUCOSE 120 mg/dL (75-110); PHOSPHORUS 3.3 mg/dL (2.5-4.5); POTASSIUM 3.8 mmol/L (3.6-5.0); SODIUM 147.4 mmol/L (137-145); TOTAL PROTEIN 6.2 g/dL (6.3-8.2)
[2017-12-07] MEDS: LANSOPRAZOLE 30 MG TAB.RAP.DR PO SCH (05:29)
[2017-12-07] MEDS: HYDRALAZINE HCL 50 MG TABLET PO SCH ×3 (05:30→21:18)
[2017-12-07] MEDS: METOCLOPRAMIDE HCL INJ/PF 10 MG/2 ML SDV IV SCH ×3 (05:30→18:37)
--- NOTE | 2017-12-07 08:53 | RADIOLOGY REPORT (SQ) ---
EXAM DESCRIPTION: ABDOMEN 2 VIEWS COMPLETED DATE/TIME: 12/07/2017 8:10 am REASON FOR STUDY: eval nausea COMPARISON: 12/06/2017 NUMBER OF VIEWS: Two views. TECHNIQUE: Supine and erect/decubitus radiographic images of the abdomen acquired. LIMITATIONS: None. FINDINGS: Multiple clips upper abdomen. There is oral contrast within nondilated colon. Chronic di lated affarent loop status post Billroth 2 less conspicuous on the current film. No free air. IMPRESSION: No obstruction. TECHNICAL DOCUMENTATION: JOB ID: [id number] [employer]- All Rights Reserved Reading location - IP/workstation name: Unknown
[2017-12-07] MEDS: LORATADINE 10 MG TABLET PO SCH (12:00)
[2017-12-07] MEDS: CARVEDILOL 12.5 MG TABLET PO SCH ×2 (12:01→21:10)
[2017-12-07] MEDS: MULTIVITAMIN TABLET PO SCH (12:01)
[2017-12-07] MEDS: AMLODIPINE BESYLATE 10 MG TABLET PO SCH (12:01)
[2017-12-07] MEDS: ASPIRIN 81 MG TABLET, CHEWABLE PO SCH (12:02)
[2017-12-07] MEDS: CARBOXYMETHYLCELLULOSE SOD 0.5% 0.4 ML DROPERETTE OU SCH ×4 (12:02→21:10)
[2017-12-07] MEDS: ENOXAPARIN SODIUM INJ 40 MG/0.4 ML DISP.SYRIN SUBCUT SCH (12:03)
--- NOTE | 2017-12-07 12:04 | PDOC PROGRESS REPORT ---
Subjective Progress Note for:: 12/07/17 Subjective:: No complaints, NG tube was discontinued by the surgical service. He tolerated a clear liquid diet for breakfast. No nausea or vomiting no abdominal pain. EGD was done by the surgery service and there was evidence of Billroth II reconstruction with no evidence of marginal ulcers or stenosis at the anastomosis. There is possibility of kinking of the afferent limb. No evidence of complete obstruction and no indication for surgery at present. Reason For Visit: HEART FAILURE Physical Exam Vital Signs: Temp Pulse Resp BP Pulse Ox 98.6 F 73 18 143/46 H 95 12/07/17 03:40 12/06/17 19:29 12/07/17 11:00 12/07/17 07:53 12/07/17 07:53 Intake & Output 12/06/17 12/07/17 12/08/17 06:59 06:59 06:59 Intake Total 1986 1618 Output Total 1850 200 Balance 136 1418 Weight 97.7 kg 97.8 kg General appearance: PRESENT: no acute distress Head exam: PRESENT: normocephalic Eye exam: ABSENT: scleral icterus Mouth exam: PRESENT: moist Neck exam: ABSENT: tracheal deviation Respiratory exam: PRESENT: symmetrical, unlabored Cardiovascular exam: PRESENT: RRR GI/Abdominal exam: PRESENT: normal bowel sounds, soft. ABSENT: tenderness Rectal exam: PRESENT: deferred Extremities exam: ABSENT: pedal edema Neurological exam: PRESENT: alert, awake, oriented to person, oriented to place , oriented to time, oriented to situation Psychiatric exam: PRESENT: appropriate affect Skin exam: ABSENT: petechiae Results Laboratory Results: 12/07/17 03:54 12/07/17 03:54 12/07/17 12/07/17 03:54 03:54 WBC 10.1 RBC 4.21 L Hgb 12.0 L Hct 36.2 L MCV 86 MCH 28.5 MCHC 33.1 RDW 16.0 H Plt Count 327 Seg Neutrophils % 67.6 Lymphocytes % 17.9 Monocytes % 12.1 Eosinophils % 1.7 Basophils % 0.7 Absolute Neutrophils 6.8 Absolute Lymphocytes 1.8 Absolute Monocytes 1.2 Absolute Eosinophils 0.2 Absolute Basophils 0.1 Sodium 147.4 H Potassium 3.8 Chloride 108 H Carbon Dioxide 29 Anion Gap 10 BUN 22 H Creatinine 0.67 Est GFR ( Amer) > 60 Est GFR (Non-Af Amer) > 60 Glucose 120 H Calcium 8.8 Phosphorus 3.3 Magnesium 2.2 Total Bilirubin 0.4 AST 17 ALT 21 Alkaline Phosphatase 67 Total Protein 6.2 L Albumin 2.7 L 12/03/17 21:31 Sputum Gram Stain - Final 12/03/17 21:31 Sputum Sputum Culture - Final Staphylococcus Aureus Normal Juju Impressions: Abdomen/Pelvis CT 12/04/17 00:00 IMPRESSION: Proximal small bowel obstruction. Upper GI and Small Bowel X-Ray 12/06/17 00:00 IMPRESSION: NO EVIDENCE OF SMALL-BOWEL OBSTRUCTION. PROMINENT DILATED AFFERENT LIMB OF THE GASTRIC BYPASS IS IDENTIFIED AND UNCHANGED FROM PREVIOUS STUDIES. THE REMAINING VISUALIZED LOOPS SMALL BOWEL APPEAR NORMAL. KUB X-Ray 12/06/17 06:00 IMPRESSION: Small bowel obstruction-ileus pattern. Chest X-Ray 12/06/17 07:00 IMPRESSION: No significant change. Abdomen X-Ray 12/07/17 07:30 IMPRESSION: No obstruction. Assessment & Plan - Diagnosis (1) Systolic and diastolic CHF, acute on chronic Is this a current diagnosis for this admission?: Yes Plan: Resolved. Continue to monitor intake and output, enalapril Coreg, Imdur and hydralazine. (2) Essential hypertension Is this a current diagnosis for this admission?: Yes Plan: Stable. Continue current management. (3) Anemia Qualifiers: Anemia type: unspecified type Qualified Code(s): D64.9 - Anemia, unspecified Is this a current diagnosis for this admission?: Yes Plan: Likely due to hemodilution. (4) Hypertensive urgency Is this a current diagnosis for this admission?: Yes Plan: Resolved. Continue medications and monitor blood pressure. (5) Partial small bowel obstruction Is this a current diagnosis for this admission?: Yes Plan: Management per surgical service. (6) Coronary artery disease Qualifiers: Coronary Disease-Associated Artery/Lesion type: [place] artery [place] vs. transplanted heart: [place] heart Associated angina: without angina Qualified Code(s): I25.10 - Atherosclerotic heart disease of [place] coronary artery without angina pectoris Is this a current diagnosis for this admission?: Yes Plan: Continue medications. - Time Time Spent with patient: 35 or more minutes
[2017-12-07] MEDS ORDERED: ENALAPRIL MALEATE 10 MG TABLET PO SCH (14:00)
--- NOTE | 2017-12-07 14:29 | PDOC PROGRESS REPORT ---
Subjective Progress Note for:: 12/07/17 Subjective:: This is an 87-year-old male with a history of gastrectomy. He very likely has a Billroth II anastomosis. There is dilation of his duodenum on CT scan. 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 Today, the patient denies any nausea, vomiting, or abdominal pain. He also denies chest pain, dizziness, fevers, chills, fatigue, malaise, or shortness of breath. Reason For Visit: HEART FAILURE Physical Exam Vital Signs: Temp Pulse Resp BP Pulse Ox 98.6 F 73 18 143/46 H 95 12/07/17 03:40 12/06/17 19:29 12/07/17 11:00 12/07/17 07:53 12/07/17 07:53 Intake & Output 12/06/17 12/07/17 12/08/17 06:59 06:59 06:59 Intake Total 1986 1618 Output Total 1850 200 Balance 136 1418 Weight 97.7 kg 97.8 kg General appearance: PRESENT: no acute distress Head exam: PRESENT: atraumatic, normocephalic Eye exam: PRESENT: EOMI, PERRLA. ABSENT: conjunctival injection, scleral icterus Mouth exam: PRESENT: neck supple Teeth exam: ABSENT: poor dentation Neck exam: ABSENT: meningismus, tenderness, thyromegaly, tracheal deviation Respiratory exam: PRESENT: clear to auscultation jeremy GI/Abdominal exam: PRESENT: soft. ABSENT: distended, tenderness Rectal exam: PRESENT: deferred Extremities exam: ABSENT: tenderness Neurological exam: PRESENT: alert, awake, oriented to person, oriented to place , oriented to time Psychiatric exam: ABSENT: agitated, anxious, depressed Skin exam: ABSENT: cyanosis, jaundice Results Laboratory Results: 12/07/17 03:54 12/07/17 03:54 12/07/17 12/07/17 03:54 03:54 WBC 10.1 RBC 4.21 L Hgb 12.0 L Hct 36.2 L MCV 86 MCH 28.5 MCHC 33.1 RDW 16.0 H Plt Count 327 Seg Neutrophils % 67.6 Lymphocytes % 17.9 Monocytes % 12.1 Eosinophils % 1.7 Basophils % 0.7 Absolute Neutrophils 6.8 Absolute Lymphocytes 1.8 Absolute Monocytes 1.2 Absolute Eosinophils 0.2 Absolute Basophils 0.1 Sodium 147.4 H Potassium 3.8 Chloride 108 H Carbon Dioxide 29 Anion Gap 10 BUN 22 H Creatinine 0.67 Est GFR ( Amer) > 60 Est GFR (Non-Af Amer) > 60 Glucose 120 H Calcium 8.8 Phosphorus 3.3 Magnesium 2.2 Total Bilirubin 0.4 AST 17 ALT 21 Alkaline Phosphatase 67 Total Protein 6.2 L Albumin 2.7 L Impressions: Abdomen/Pelvis CT 12/04/17 00:00 IMPRESSION: Proximal small bowel obstruction. Upper GI and Small Bowel X-Ray 12/06/17 00:00 IMPRESSION: NO EVIDENCE OF SMALL-BOWEL OBSTRUCTION. PROMINENT DILATED AFFERENT LIMB OF THE GASTRIC BYPASS IS IDENTIFIED AND UNCHANGED FROM PREVIOUS STUDIES. THE REMAINING VISUALIZED LOOPS SMALL BOWEL APPEAR NORMAL. KUB X-Ray 12/06/17 06:00 IMPRESSION: Small bowel obstruction-ileus pattern. Chest X-Ray 12/06/17 07:00 IMPRESSION: No significant change. Abdomen X-Ray 12/07/17 07:30 IMPRESSION: No obstruction. Assessment & Plan - Diagnosis (1) Partial small bowel obstruction Is this a current diagnosis for this admission?: Yes - Plan Summary Plan Summary: This is an 87-year-old male with possible stricture/incomplete obstruction of the afferent limb of his Billroth II anastomosis. Currently, the patient has no significant symptoms. I will continue to monitor him for a recurrence of his abdominal pain and nausea. I have reviewed the patient's CT scan, small bowel follow-through, and x-rays. If the patient's symptoms persist, surgery may be required. If this were the case, it would be prudent to request evaluation at a tertiary care center due to the patient's high risk for surgery. I will continue to follow the patient with you.
[2017-12-07] MEDS: ISOSORBIDE MONONITRATE 60 MG TAB.ER.24H PO SCH (18:37)
[2017-12-07] MEDS: PRIMIDONE 50 MG TABLET PO SCH (18:38)
[2017-12-07] MEDS: TRAZODONE HCL 50 MG TABLET PO SCH (21:13)
[2017-12-08] MEDS: METOCLOPRAMIDE HCL INJ/PF 10 MG/2 ML SDV IV SCH ×2 (00:21→05:26)
[2017-12-08 04:26] LABS: ALANINE AMINOTRANSFERASE 21 U/L (21-72); ALBUMIN 2.5 g/dL (3.5-5.0); ALKALINE PHOSPHATASE 58 U/L (38-126); ANION GAP 10 (5-19); ASPARTATE AMINO TRANSFERASE 15 U/L (17-59); BILIRUBIN,DIRECT 0.2 mg/dL (0.0-0.4); BILIRUBIN,TOTAL 0.2 mg/dL (0.2-1.3); BLOOD UREA NITROGEN 21 mg/dL (7-20); CALCIUM 8.7 mg/dL (8.4-10.2); CARBON DIOXIDE 28 mmol/L (22-30); CHLORIDE 106 mmol/L (98-107); GLUCOSE 97 mg/dL (75-110); POTASSIUM 3.4 mmol/L (3.6-5.0); SODIUM 143.7 mmol/L (137-145)
[2017-12-08] MEDS: LANSOPRAZOLE 30 MG TAB.RAP.DR PO SCH (05:24)
[2017-12-08] MEDS: HYDRALAZINE HCL 50 MG TABLET PO SCH ×2 (05:25→13:09)
[2017-12-08] MEDS ORDERED: POTASSIUM CHLORIDE 10 MEQ TABLET.SA PO ONE (09:15)
[2017-12-08] MEDS: ENOXAPARIN SODIUM INJ 40 MG/0.4 ML DISP.SYRIN SUBCUT SCH (09:27)
[2017-12-08] MEDS: LORATADINE 10 MG TABLET PO SCH (09:30)
[2017-12-08] MEDS: CARVEDILOL 12.5 MG TABLET PO SCH (09:30)
[2017-12-08] MEDS: MULTIVITAMIN TABLET PO SCH (09:31)
[2017-12-08] MEDS: AMLODIPINE BESYLATE 10 MG TABLET PO SCH (09:31)
[2017-12-08] MEDS: ASPIRIN 81 MG TABLET, CHEWABLE PO SCH (09:31)
[2017-12-08] MEDS: CARBOXYMETHYLCELLULOSE SOD 0.5% 0.4 ML DROPERETTE OU SCH ×2 (09:38→13:10)
[2017-12-08] MEDS ORDERED: ENALAPRIL MALEATE 10 MG TABLET PO SCH (10:00)
--- NOTE | 2017-12-08 12:53 | PDOC PROGRESS REPORT ---
Subjective Progress Note for:: 12/08/17 Subjective:: This is an 87-year-old male with a history of gastrectomy. He very likely has a Billroth II anastomosis. There was dilation of his duodenum on CT scan. 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 Today, the patient denies any nausea, vomiting, or abdominal pain. He also denies chest pain, dizziness, fevers, chills, fatigue, malaise, or shortness of breath. He is tolerating full liquids. Reason For Visit: HEART FAILURE Physical Exam Vital Signs: Temp Pulse Resp BP Pulse Ox 98.9 F 63 15 160/76 H 92 12/08/17 12:00 12/08/17 08:00 12/08/17 10:00 12/08/17 08:32 12/08/17 10:00 Intake & Output 12/07/17 12/08/17 12/09/17 06:59 06:59 06:59 Intake Total 1618 585 300 Output Total 200 275 100 Balance 1418 310 200 Weight 97.8 kg 99.9 kg General appearance: PRESENT: no acute distress, cooperative Head exam: PRESENT: atraumatic, normocephalic Eye exam: PRESENT: EOMI, PERRLA. ABSENT: conjunctival injection, scleral icterus Mouth exam: PRESENT: other - Oropharynx benign Neck exam: ABSENT: lymphadenopathy, tenderness, thyromegaly, tracheal deviation Respiratory exam: PRESENT: clear to auscultation jeremy Cardiovascular exam: PRESENT: RRR Pulses: PRESENT: normal radial pulses GI/Abdominal exam: PRESENT: soft. ABSENT: distended, guarding, hernia, tenderness Rectal exam: PRESENT: deferred Extremities exam: ABSENT: tenderness Musculoskeletal exam: ABSENT: tenderness Neurological exam: PRESENT: alert, awake, oriented to person, oriented to place , oriented to time, oriented to situation Psychiatric exam: ABSENT: agitated, anxious, depressed Skin exam: ABSENT: cyanosis, erythema, jaundice, pallor Results Laboratory Results: 12/07/17 03:54 12/08/17 03:55 12/08/17 03:55 Sodium 143.7 Potassium 3.4 L Chloride 106 Carbon Dioxide 28 Anion Gap 10 BUN 21 H Creatinine 0.67 Est GFR ( Amer) > 60 Est GFR (Non-Af Amer) > 60 Glucose 97 Calcium 8.7 Total Bilirubin 0.2 AST 15 L ALT 21 Alkaline Phosphatase 58 Total Protein 6.0 L Albumin 2.5 L Impressions: Abdomen/Pelvis CT 12/04/17 00:00 IMPRESSION: Proximal small bowel obstruction. Upper GI and Small Bowel X-Ray 12/06/17 00:00 IMPRESSION: NO EVIDENCE OF SMALL-BOWEL OBSTRUCTION. PROMINENT DILATED AFFERENT LIMB OF THE GASTRIC BYPASS IS IDENTIFIED AND UNCHANGED FROM PREVIOUS STUDIES. THE REMAINING VISUALIZED LOOPS SMALL BOWEL APPEAR NORMAL. KUB X-Ray 12/06/17 06:00 IMPRESSION: Small bowel obstruction-ileus pattern. Chest X-Ray 12/06/17 07:00 IMPRESSION: No significant change. Abdomen X-Ray 12/07/17 07:30 IMPRESSION: No obstruction. Assessment & Plan - Diagnosis (1) Partial small bowel obstruction Is this a current diagnosis for this admission?: Yes - Plan Summary Plan Summary: This is an 87-year-old male with a history of gastric resection. His reconstruction is likely a Billroth II. The patient may be experiencing intermittent obstruction of his afferent limb. I believe this is causing his intermittent symptoms. I have discussed this at length with the patient's daughter. She prefers him follow-up in [place] with a surgeon there. This is an appropriate next step in his care. He is tolerating a diet. He is cleared for discharge from a surgical standpoint. The plan is for him to see a surgeon in [place] in the near future. I will see the patient again on an as -needed basis. I have encouraged him and his family to contact me immediately with any new questions or concerns.
--- NOTE | 2017-12-08 12:58 | PDOC DISCHARGE SUMMARY ---
General - Admit/Disc Date/PCP Admission Date/Primary Care Provider: 12/01/17 20:34 Discharge Date: 12/08/17 - Discharge Diagnosis (1) Systolic and diastolic CHF, acute on chronic Is this a current diagnosis for this admission?: Yes (2) Anemia Is this a current diagnosis for this admission?: Yes (3) Hypertensive urgency Is this a current diagnosis for this admission?: Yes (4) Partial small bowel obstruction Is this a current diagnosis for this admission?: Yes (5) Coronary artery disease Is this a current diagnosis for this admission?: Yes - Additional Information Resuscitation Status: Do Not Resuscitate Discharge Diet: Cardiac Discharge Activity: Activity As Tolerated, Balance Activity w/Rest, Weigh Daily Prescriptions: Amlodipine Besylate [Norvasc 10 mg Tablet] 10 mg PO DAILY 30 Days #30 tablet Bumetanide [Bumex 1 mg Tablet] 2 mg PO MOWEFR 30 Days #15 tablet Carvedilol [Coreg 12.5 mg Tablet] 12.5 mg PO Q12 30 Days #60 tablet Enalapril Maleate [Vasotec 10 mg Tablet] 20 mg PO DAILY 30 Days #30 tablet Hydralazine HCl [Apresoline 50 mg Tablet] 50 mg PO Q8 30 Days #90 tablet Home Medications: Multivitamin [Multiple Vitamins] 1 tab PO DAILY 10/25/17 Aspirin [Aspirin 81 mg Chewable Tablet] 81 mg PO DAILY tab.chew 10/29/17 Carboxymethylcellulose Sodium [Refresh Plus 0.5% Oph Soln 0.4 ml Droperette] 2 drop OU QID droperette 10/29/17 Isosorbide Mononitrate [Imdur 60 mg Tablet.er] 60 mg PO DAILY tab.er.24h Primidone [Mysoline 50 mg Tablet] 50 mg PO QPM #0 tablet 10/29/17 Trazodone HCl [Desyrel 50 mg Tablet] 50 mg PO QHS 12/01/17 Magnesium Hydroxide [Milk of Magnesia] 30 ml PO HSP PRN 12/02/17 Polyethylene Glycol 3350 [Miralax Powder 17 gm/Packet] 1 packet PO DAILYP PRN Amlodipine Besylate [Norvasc 10 mg Tablet] 10 mg PO DAILY 30 Days #30 tablet 07/16 Aspirin [Aspirin 81 mg Chewable Tablet] 81 mg PO DAILY tab.chew 12/08/17 Bumetanide [Bumex 1 mg Tablet] 2 mg PO MOWEFR 30 Days #15 tablet 12/08/17 Carvedilol [Coreg 12.5 mg Tablet] 12.5 mg PO Q12 30 Days #60 tablet 12/08/17 Enalapril Maleate [Vasotec 10 mg Tablet] 20 mg PO DAILY 30 Days #30 tablet 12/08 Hydralazine HCl [Apresoline 50 mg Tablet] 50 mg PO Q8 30 Days #90 tablet History of Present Illness History of Present Illness: 87-year-old gentleman who presented to the hospital on December 04 from assisted living complaining of a 2 day history of shortness of breath with exertion. Past medical history: Coronary artery disease Systolic and diastolic CHF Hyperlipidemia Hypertension Pacemaker 3 of partial gastrectomy He was diagnosed with hypertensive urgency and acute systolic CHF exacerbation and started on a nitroglycerin drip. Echocardiogram in September 2017 showed a left ventricular ejection fraction of 40%. The patient was diuresed and blood pressure medications were titrated to optimize blood pressure. He was treated for acute bronchitis. On December 04 he developed abdominal pain and was found to have ileus, CT of the abdomen and pelvis showed proximal small bowel obstruction. NG tube was placed. He was evaluated by the surgical service. Gradually improved. NG tube was eventually discontinued. EGD was done by Dr. Rogers and there was evidence of Billroth II reconstruction with no evidence of marginal ulcers or stenosis at the anastomosis. There is possibility of kinking of the afferent limb leading to his symptoms. No evidence of complete obstruction and no indication for surgery at present. Diet was gradually upgraded and he tolerated this well. Ok for discharge home today with home PT. He has an appointment with his Shop Worker on 12/11/17 He is to follow up with PCP and Gen Surgery in 1 week. Prescriptions were given for Coreg- dose increased to 12.5 mg BID Amlodipine Bumex Hydralazine Vasotec Hospital Course Hospital Course: As above Physical Exam Vital Signs: Temp Pulse Resp BP Pulse Ox 98.2 F 63 15 160/76 H 92 12/08/17 08:00 12/08/17 08:00 12/08/17 10:00 12/08/17 08:32 12/08/17 10:00 Intake & Output 12/07/17 12/08/17 12/09/17 06:59 06:59 06:59 Intake Total 1618 585 Output Total 200 275 Balance 1418 310 Weight 97.8 kg 99.9 kg General appearance: PRESENT: no acute distress Respiratory exam: PRESENT: symmetrical, unlabored Cardiovascular exam: PRESENT: RRR Results Laboratory Results: 12/07/17 03:54 12/08/17 03:55 12/08/17 03:55 Sodium 143.7 Potassium 3.4 L Chloride 106 Carbon Dioxide 28 Anion Gap 10 BUN 21 H Creatinine 0.67 Est GFR ( Amer) > 60 Est GFR (Non-Af Amer) > 60 Glucose 97 Calcium 8.7 Total Bilirubin 0.2 AST 15 L ALT 21 Alkaline Phosphatase 58 Total Protein 6.0 L Albumin 2.5 L Impressions: Abdomen/Pelvis CT 12/04/17 00:00 IMPRESSION: Proximal small bowel obstruction. Upper GI and Small Bowel X-Ray 12/06/17 00:00 IMPRESSION: NO EVIDENCE OF SMALL-BOWEL OBSTRUCTION. PROMINENT DILATED AFFERENT LIMB OF THE GASTRIC BYPASS IS IDENTIFIED AND UNCHANGED FROM PREVIOUS STUDIES. THE REMAINING VISUALIZED LOOPS SMALL BOWEL APPEAR NORMAL. KUB X-Ray 12/06/17 06:00 IMPRESSION: Small bowel obstruction-ileus pattern. Chest X-Ray 12/06/17 07:00 IMPRESSION: No significant change. Abdomen X-Ray 12/07/17 07:30 IMPRESSION: No obstruction. Status: Imported from PACS Qualifiers - * PATIENT BEING DISCHARGED WITH ANY OF THE FOLLOWING DIAGNOSIS: No Plan Time Spent: Greater than 30 Minutes
[2017-12-08] MEDS ORDERED: BUMETANIDE 1 MG TABLET PO ONE (13:30)
[2017-12-08 15:01] VITALS: BP 148/55
[2017-12-10] MEDS ORDERED: BUMETANIDE 1 MG TABLET PO SCH (10:00)
== END 2017-12-08 14:50 | disposition home health service (06) | DRG 304 ==
LOC: ER 17:25 → EH 20:34 → ICU 12-02 05:15
PROVIDERS: ADMIT Internal Medicine; ATTEND Internal Medicine
PROC: 0DJ08ZZ Inspection of Upper Intestinal Tract, Via Natural or Artificial Opening Endoscopic (ICD-10-PCS; principal; 2017-12-06 13:30)
DX: I16.0 Hypertensive urgency (principal); I50.43 Acute on chronic combined systolic (congestive) and diastolic (congestive) heart failure; K57.92 Diverticulitis of intestine, part unspecified, without perforation or abscess without bleeding; K56.7 Ileus, unspecified; Z66 Do not resuscitate; I11.0 Hypertensive heart disease with heart failure; R06.03 Acute respiratory distress; E78.5 Hyperlipidemia, unspecified; I25.10 Atherosclerotic heart disease of native coronary artery without angina pectoris; K21.9 Gastro-esophageal reflux disease without esophagitis; D64.9 Anemia, unspecified; J20.9 Acute bronchitis, unspecified; Z45.010 Encounter for checking and testing of cardiac pacemaker pulse generator [battery]; Z90.3 Acquired absence of stomach [part of]; Z87.891 Personal history of nicotine dependence
CPT/HCPCS: 36415; 43235; 71045; 74018; 74019; 74176; 74249; 80048; 80053; 81001; 82550; 82553; 83735; 83880; 84100; 84443; 84484; 85025; 87070; 87077; 87186; 87205; 93005; 93010; 94640; 96365; 96375; 99291; G8978-GP; G8979-GP; J0171; J0360; J0696; J1200; J1610; J1650; J1940; J2250; J2310; J2405; J2543; J2765; J3010; J3490; J7620